=== PATIENT | male | born 1955 | race Caucasian/White ===

== ENCOUNTER → 2018-05-10 | Outpatient (CLI) | payer MEDICARE ==
--- NOTE | 2018-05-10 07:44 | US ---
EXAMINATION TYPE: US kidneys/renal and bladder DATE OF EXAM: 05/10/2018 COMPARISON: NONE CLINICAL HISTORY: R39.198 Difficulty urinating; R35.0 frequent. Patient states urinating frequently a t night. Burning, but took meds and that went away. EXAM MEASUREMENTS: Right Kidney: 13.5 x 6.2 x 5.5 cm Left Kidney: 12.9 x 5.9 x 5.6 cm Right Kidney: No hydronephrosis or masses seen Left Kidney: No hydronephrosis or masses seen Bladder: wnl Bilateral Jets not seen There is no evidence for hydronephrosis at this point in time. No nephrolithiasis is seen. No ana s are identified. The urinary bladder is anechoic. IMPRESSION: No hydronephrosis or nephrolithiasis. No sonographic sequela of medical renal disease.
== END ==
LOC: RADUSWWP 07:02
PROVIDERS: ATTEND Internal Medicine
DX: R39.198 Other difficulties with micturition (principal); R35.0 Frequency of micturition; R30.9 Painful micturition, unspecified
CPT/HCPCS: 76770

== ENCOUNTER 2020-08-19 11:08 | Inpatient (IN) | payer MEDICARE ==
[2020-08-19] MEDS ORDERED: SODIUM CHLORIDE 0.9% 1,000 ML IV ONE (11:42)
[2020-08-19 11:47] LABS: Glucose,Whole Blood 117 mg/dL (75-99)
[2020-08-19] MEDS ORDERED: DEXTROSE 5%-0.45% NACL 1,000 ML IV ONE (11:56)
[2020-08-19] MEDS ORDERED: IBUPROFEN 600 MG TAB PO STA (12:13)
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
[2020-08-19 13:09] LABS: HCT 42.9 % (39.0-53.0); HGB 14.6 gm/dL (13.0-17.5); MCH 36.2 pg (25.0-35.0); MCV 106.4 fL (80.0-100.0); Macrocytosis Moderate; Mean Platelet Volume 7.4; Platelet Count 125 k/uL (150-450); RBC 4.04 m/uL (4.30-5.90); WBC 8.2 k/uL (3.8-10.6)
[2020-08-19 13:21] LABS: ALT 73 U/L (4-49); AST 283 U/L (17-59); African American GFR (CKD) >90 (>60 ml/min/1.73 sqM); Alkaline Phosphatase 90 U/L (38-126); Anion Gap 7 mmol/L; Blood Urea Nitrogen 13 mg/dL (9-20); Calcium 8.4 mg/dL (8.4-10.2); Carbon Dioxide 24 mmol/L (22-30); Chloride 104 mmol/L (98-107); Glucose 80 mg/dL (74-99); Non-African American GFR(CKD) >90 (>60 ml/min/1.73 sqM); Potassium 3.7 mmol/L (3.5-5.1); Sodium 135 mmol/L (137-145); Total Bilirubin 3.2 mg/dL (0.2-1.3); Total Protein 6.9 g/dL (6.3-8.2)
[2020-08-19 13:36] LABS: Glucose,Whole Blood 63 mg/dL (75-99)
--- NOTE | 2020-08-19 13:57 | XR ---
EXAMINATION TYPE: XR chest 1V DATE OF EXAM: 08/19/2020 COMPARISON: 12/08/2014 INDICATION: Cough TECHNIQUE: Single frontal view of the chest is obtained. FINDINGS: The heart size is normal. The pulmonary vasculature is normal. Patchy infiltrates are present bilaterally. Findings are nonspecific but can be compatible with atypi tristan pneumonia. IMPRESSION: 1. Bilateral lung infiltrates. Correlate for atypical pneumonia.
[2020-08-19 14:00] LABS: Band Neutrophils % 1 %; Eosinophils # (M) 0.16 k/uL (0-0.7); Lymphocytes # (M) 1.07 k/uL (1.0-4.8); Monocytes # (M) 0.66 k/uL (0-1.0); Neutrophils % (M) 76 %; Nucleated Red Blood Cells 0 /100 WBC (0-0); Total Cells Counted 100
[2020-08-19] MEDS ORDERED: AZITHROMYCIN 500 MG in SODIUM CHLORIDE 0.9% 250 ML IVPB STA (14:18)
[2020-08-19] MEDS ORDERED: cefTRIAXone IN SWFI 1,000 MG/10 ML SYRINGE IVP STA (14:18)
[2020-08-19 14:41] LABS: Glucose,Whole Blood 96 mg/dL (75-99)
[2020-08-19] MEDS ORDERED: LORazepam 2 MG/ML INJ IV PRN ×2 (14:45)
[2020-08-19] MEDS ORDERED: THIAMINE 100 MG/ML 2 ML VIAL IM STA (14:45)
[2020-08-19] MEDS ORDERED: ALBUTEROL HFA INHALER INHALATION STA (15:22)
[2020-08-19] MEDS ORDERED: ACETAMINOPHEN TAB 500 MG TAB PO STA (15:22)
[2020-08-19] MEDS ORDERED: NALOXONE 0.4 MG/ML 1 ML VIAL IV PRN (15:33)
[2020-08-19 16:18] LABS: D-Dimer 4.87 mg/L FEU (<0.60); INR 1.4 (<1.2); Partial Thromboplastin Time 26.2 sec (22.0-30.0)
[2020-08-19 16:27] LABS: C Reactive Protein 162.4 mg/L (<10.0)
[2020-08-19] MEDS ORDERED: DEXTROSE 50% SYRINGE 50 ML IVP PRN (16:30)
[2020-08-19 16:47] LABS: Glucose,Whole Blood 107 mg/dL (75-99)
[2020-08-19] MEDS: CHOLECALCIFEROL 25 MCG (1000 IU) TABLET PO SCH (17:09)
[2020-08-19] MEDS: ASCORBIC ACID 500 MG TAB PO SCH (17:09)
[2020-08-19 19:19] LABS: Glucose,Whole Blood 158 mg/dL (75-99)
[2020-08-19] MEDS ORDERED: LORazepam 2 MG/ML INJ IV STA (19:35)
[2020-08-19] MEDS: LORazepam 2 MG/ML INJ IV PRN ×3 (19:35→22:44)
[2020-08-19] MEDS ORDERED: PROPOFOL 10 MG/ML 20 ML VIAL IV ONE (20:15)
[2020-08-19] MEDS ORDERED: ROCURONIUM 10 MG/ML (5 ML VIAL) IV ONE (20:15)
[2020-08-19] MEDS ORDERED: SUCCINYLCHOLINE CHLORIDE VIAL 200 MG/10 ML VIAL IV ONE (20:15)
[2020-08-19] MEDS ORDERED: propofoL 100 ML IV ONE (20:18)
[2020-08-19 20:24] LABS: AST 243 U/L (17-59); African American GFR (CKD) >90 (>60 ml/min/1.73 sqM); Albumin 2.8 g/dL (3.5-5.0); Albumin/Globulin Ratio 0.7; Alkaline Phosphatase 92 U/L (38-126); Anion Gap 10 mmol/L; Blood Urea Nitrogen 13 mg/dL (9-20); Calcium 8.2 mg/dL (8.4-10.2); Carbon Dioxide 20 mmol/L (22-30); Chloride 106 mmol/L (98-107); Globulin 3.8 g/dL; Glucose 148 mg/dL (74-99); Non-African American GFR(CKD) >90 (>60 ml/min/1.73 sqM); Potassium 4.2 mmol/L (3.5-5.1); Sodium 136 mmol/L (137-145); Total Bilirubin 2.7 mg/dL (0.2-1.3); Total Protein 6.6 g/dL (6.3-8.2)
[2020-08-19 20:32] LABS: ALT 64 U/L (4-49)
[2020-08-19 20:38] LABS: HGB 15.2 gm/dL (13.0-17.5); MCH 36.3 pg (25.0-35.0); MCHC 33.8 g/dL (31.0-37.0); MCV 107.5 fL (80.0-100.0); Macrocytosis Moderate; Mean Platelet Volume 7.6; Platelet Count 129 k/uL (150-450); RBC 4.18 m/uL (4.30-5.90); WBC 9.6 k/uL (3.8-10.6)
[2020-08-19 20:42] LABS: Glucose,Whole Blood 151 mg/dL (75-99)
[2020-08-19 20:56] LABS: ABG Base Excess -1.9 mmol/L; ABG HCO3 24 mmol/L (21-25); ABG Oxygen Saturation 99.7 % (94-97); ABG PCO2 46 mmHg (35-45); ABG PH 7.33 (7.35-7.45); ABG PO2 226 mmHg (83-108); ABG TCO2 26 mmol/L (19-24); Allen Test Performed? Yes
[2020-08-19] MEDS ORDERED: levETIRAcetam IV 1,000 MG in SALINE 1 100ML.BAG IVPB STA (21:05)
--- NOTE | 2020-08-19 21:05 | XR ---
EXAMINATION TYPE: XR chest 1V DATE OF EXAM: 08/19/2020 COMPARISON: Earlier same day. HISTORY: Follow-up cough. TECHNIQUE: Single frontal view of the chest is obtained. FINDINGS: There is interval intubation with tip terminating approximately 4.4 cm above the miquel. T here is also placement of nasogastric tube with distal portion overlying the stomach and tip not incl uded in [id number]. There are unchanged bilateral moderate diffuse patchy opacities. There is new small left pleural effusion. No pneumothorax seen. The cardiac silhouette size is within normal limi ts. The osseous structures are intact. IMPRESSION: Support apparatus as above. New small left pleural effusion. Persistent diffuse opacities.
[2020-08-19 21:14] LABS: Lymphocytes # (M) 1.34 k/uL (1.0-4.8); Monocytes # (M) 0.58 k/uL (0-1.0); Neutrophils # (M) 7.58 k/uL (1.3-7.7); Neutrophils % (M) 79 %; Nucleated Red Blood Cells 0 /100 WBC (0-0); Polychromasia Present; Total Cells Counted 100
[2020-08-19] MEDS: ZINC SULFATE 220 MG CAP PO SCH (21:55)
[2020-08-19] MEDS: THIAMINE 100 MG TAB PO SCH (21:55)
[2020-08-19] MEDS: DEXTROSE 5%-0.9% NACL 1,000 ML IV SCH (21:57)
--- NOTE | 2020-08-19 22:36 | P.EN ---
A team note I was notified to evaluate patient with sudden change in his mental status patient is 65 year old with hypertension and hypertension was admitted with covid requiring supplemental oxygen . he woke up this morning confused , and was found to have blood sugar of 45 , he has been sick with URI symptoms for 2 weeks now , diagnosed with covid in the ED upon evaluation , he makes eye contact, but brief and looks confused, and he does not follow commands. his vital sings were stable , with tachycardia , on non rebreather. with oxygen in the mid 90s he started having some jerky movement in his right leg. and became sweaty. meanwhile I called the to get more history , she confirmed above history , and claimed that he was doing better in the ED, was able to walk to the bathroom, and had a sandwitch. however, he became upset , when he learned that he had to stay in the hospital and that his will leave. she denied any history of seizures, but claimed patient had "vibrations in his legs" since he was a child patient denies any regular alcohol consumption , and claims that its limited to no more than twice a month patient clearly started having seizures, he was given multiple doses of ativan for repeated episodes of seizures, and for what apparently was status epilepticus, patient was intubated and moved to the ICU. blood sugar was stable in the 150s. patient became clearly altered. not following commands, not making eye contact he is having tonic clonic seizures had 2-3 seperate episodes. with tongue biting lungs clear to auscultation abd soft assessment status epilepticus COVID acute hypoxic respiratory failure plan intubation , ICU care ativan PRN start on midazolam drip load with keppra 1 gm neuro consult EEG IVF hydration with normal saline check CT of the brain no contrast seizure precautions check ABG, prolactine level, lactic acid 65 minutes were spent in providing critical care service in the care of this patient patient updated after ICU transfer Dr Phelan approved ICU admission
[2020-08-19] MEDS ORDERED: SODIUM CHLORIDE 0.9% 1,000 ML IV SCH (22:45)
[2020-08-19] MEDS: ENOXAPARIN 40 MG/0.4 ML SYRINGE SQ SCH (22:47)
[2020-08-19] MEDS ORDERED: CISATRACURIUM 2 MG/ML 5 ML VIAL IV ONE (22:59)
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
[2020-08-20 00:05] LABS: Ferritin 2781.6 ng/mL (22.0-322.0)
--- NOTE | 2020-08-20 01:00 | CT ---
EXAM: CT Head Without Intravenous Contrast CLINICAL HISTORY: ITS.REASON CT Reason: ams TECHNIQUE: Axial computed tomography images of the head/brain without intravenous contrast. CTDI is 49.27 mGy and DLP is 1072.4 mGy-cm. This CT exam was performed using one or more of the following dose reduction techniques: automated exposure control, adjustment of the mA and/or kV according to patient size, and/or use of iterative reconstruction technique. COMPARISON: No relevant prior studies available. FINDINGS: Brain: Prominent ventricles and sulci consistent with mild volume loss. Minimal periventricular white matter hypodensity/small vessel disease. No hemorrhage. Ventricles: See above. Bones/joints: Unremarkable. No acute fracture. Soft tissues: Unremarkable. Sinuses: Paranasal sinus mucosal thickening. Bilateral maxillary sinus polyps or mucous retention cysts. Small fluid level right sphenoid sinus. Mastoid air cells: Unremarkable as visualized. No mastoid effusion. Orbits: Bilateral cataract surgery. IMPRESSION: 1. No evidence of acute intracranial abnormality or skull fracture. 2. Small fluid level right sphenoid sinus. May reflect sinusitis.
[2020-08-20 01:07] LABS: Glucose,Whole Blood 161 mg/dL (75-99)
--- NOTE | 2020-08-20 01:47 | CT ---
EXAM: CT Angiography Chest With Intravenous Contrast CLINICAL HISTORY: CT Reason: r/o PE Mental status change, hypoglycemia, Covid positive TECHNIQUE: Axial computed tomographic angiography images of the chest with intravenous contrast. CTDI is 29.07 mGy and DLP is 688.7 mGy-cm. This CT exam was performed using one or more of the following dose reduction techniques: automated exposure control, adjustment of the mA and/or kV according to patient size, and/or use of iterative reconstruction technique. MIP reconstructed images were created and reviewed. COMPARISON: No relevant prior studies available. FINDINGS: Pulmonary arteries: Breathing motion artifact somewhat limits evaluation of the peripheral arteries. No pulmonary embolus visualized. Aorta: No acute findings. No thoracic aortic aneurysm. Lungs: Patchy areas of airspace disease, consolidation and groundglass opacities bilaterally. Pleural space: Unremarkable. No significant effusion. No pneumothorax. Heart: Mild cardiomegaly. No significant pericardial effusion. No evidence of RV dysfunction. Bones/joints: No acute fracture. No dislocation. Soft tissues: Unremarkable. Lymph nodes: Small aortopulmonary window node 9 mm, nonspecific. Liver: Nodular, cirrhotic liver partially visualized. Distended gallbladder, partially visualized. Small 10 mm liver low-density lesion adjacent to the gallbladder. Varices. Splenomegaly. Tubes, lines and devices: Enteric tube tip in the distal stomach. Endotracheal tube tip in the midthoracic trachea. IMPRESSION: 1. Breathing motion artifact somewhat limits evaluation of the peripheral arteries. No pulmonary embolus visualized. 2. Patchy areas of airspace disease, consolidation and groundglass opacities bilaterally. Likely represents infectious/inflammatory process, including Covid 19. 3. Nodular cirrhotic liver and evidence of portal hypertension. Findings partially visualized.
[2020-08-20 04:46] LABS: ALT 49 U/L (4-49); AST 165 U/L (17-59); African American GFR (CKD) >90 (>60 ml/min/1.73 sqM); Albumin 2.1 g/dL (3.5-5.0); Alkaline Phosphatase 74 U/L (38-126); Anion Gap 6 mmol/L; Blood Urea Nitrogen 12 mg/dL (9-20); Calcium 7.3 mg/dL (8.4-10.2); Carbon Dioxide 21 mmol/L (22-30); Chloride 107 mmol/L (98-107); Creatine Kinase 165 U/L (55-170); Glucose 141 mg/dL (74-99); LDH 1369 U/L (313-618); Non-African American GFR(CKD) >90 (>60 ml/min/1.73 sqM); Potassium 3.7 mmol/L (3.5-5.1); Sodium 134 mmol/L (137-145); Total Bilirubin 2.2 mg/dL (0.2-1.3); Total Protein 5.3 g/dL (6.3-8.2)
[2020-08-20 04:49] LABS: HCT 34.1 % (39.0-53.0); MCH 36.4 pg (25.0-35.0); MCHC 34.5 g/dL (31.0-37.0); MCV 105.5 fL (80.0-100.0); Macrocytosis Moderate; Mean Platelet Volume 7.8; Platelet Count 127 k/uL (150-450); RBC 3.23 m/uL (4.30-5.90); WBC 7.6 k/uL (3.8-10.6)
[2020-08-20 04:50] LABS: ABG Base Excess -1.5 mmol/L; ABG HCO3 22 mmol/L (21-25); ABG Oxygen Saturation 97.3 % (94-97); ABG PCO2 32 mmHg (35-45); ABG PH 7.46 (7.35-7.45); ABG PO2 86 mmHg (83-108); ABG TCO2 23 mmol/L (19-24); Allen Test Performed? Yes
[2020-08-20 05:05] LABS: C Reactive Protein 141.1 mg/L (<10.0)
[2020-08-20 05:11] LABS: HGB 11.8 gm/dL (13.0-17.5)
[2020-08-20 05:21] LABS: Amorphous Sediment,Urine Rare /hpf; Appearance,Urine Clear (Clear); Bilirubin,Urine Negative (Negative); Blood,Urine Negative (Negative); Color,Urine Orange; Glucose,Urine (UA) Negative (Negative); Hyaline Casts,Urine 20 /lpf (0-2); Ketones,Urine Negative (Negative); Leukocyte Esterase,Urine Negative (Negative); Mucus,Urine Few /hpf; Nitrite,Urine Negative (Negative); Protein,Urine 1+ (Negative); RBC,Urine 8 /hpf (0-5); Squamous Epithelial Cell,Urine <1 /hpf (0-4); Urobilinogen,Urine <2.0 mg/dL (<2.0); WBC,Urine 3 /hpf (0-5)
[2020-08-20 05:22] LABS: Amphetamine Screen,Urine Not Detected (NotDetected); Barbiturate Screen,Urine Not Detected (NotDetected); Benzodiazepines Screen,Urine Detected (NotDetected); Cocaine Screen,Urine Not Detected (NotDetected); Methadone Screen, Urine Not Detected (NotDetected); Opiate Screen,Urine Detected (NotDetected); Oxycodone Screen, Urine Not Detected (NotDetected); Phencyclidine Screen,Urine Not Detected (NotDetected); Tricyclic Antidepressant,Urine Not Detected (NotDetected); Urn Cannabinoid Scrn Not Detected (NotDetected)
[2020-08-20 05:24] LABS: Specific Gravity,Urine >1.050 (1.001-1.035)
[2020-08-20] MEDS ORDERED: SODIUM CHLORIDE 0.9% 1,000 ML IV ONE ×2 (06:17→07:59)
[2020-08-20 06:31] LABS: Eosinophils # (M) 0.08 k/uL (0-0.7); Lymphocytes # (M) 1.22 k/uL (1.0-4.8); Monocytes # (M) 0.15 k/uL (0-1.0); Neutrophils # (M) 6.16 k/uL (1.3-7.7); Neutrophils % (M) 81 %; Nucleated Red Blood Cells 0 /100 WBC (0-0); Total Cells Counted 100
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
[2020-08-20] MEDS ORDERED: SODIUM BICARB 8.4% 50 ML SYR (1 MEQ/ML) ONE ×2 (08:36→08:37)
[2020-08-20] MEDS ORDERED: CYANOCOBALAMIN 1,000 MCG/ML 1 ML VIAL IM ONE (09:00)
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
[2020-08-20] MEDS: DEXAMETHASONE SOD PHOSPHATE 10 MG/ML 1 ML VIAL IV SCH (09:09)
[2020-08-20] MEDS: PANTOPRAZOLE 40 MG/10 ML VIAL IVP SCH (09:09)
[2020-08-20] MEDS: CHLORHEXIDINE GLUCONATE 15 ML CUP MUCOUS MEM SCH ×2 (09:10→20:41)
[2020-08-20] MEDS: ZINC SULFATE 220 MG CAP PO SCH (09:10)
[2020-08-20] MEDS: ENOXAPARIN 40 MG/0.4 ML SYRINGE SQ SCH ×2 (09:10→20:41)
[2020-08-20] MEDS: ASCORBIC ACID 500 MG TAB PO SCH (09:10)
[2020-08-20] MEDS: THIAMINE 100 MG TAB PO SCH ×2 (09:10→17:55)
[2020-08-20] MEDS: FOLIC ACID 1 MG TAB PO SCH (09:10)
--- NOTE | 2020-08-20 09:16 | XR ---
EXAMINATION TYPE: XR chest 1V portable DATE OF EXAM: 08/20/2020 CLINICAL HISTORY: Difficulty breathing progress study. TECHNIQUE: Single AP portable semiupright view of the chest is obtained. COMPARISON: Chest x-ray from one day earlier . FINDINGS: Stable endotracheal and orogastric tubes. Worsening bilateral multifocal opacities. Cardiac silhouette size stable and upper limits of normal. Osseous structures are intact. IMPRESSION: Worsening multifocal bilateral opacities consistent with covid-19 infection progression.
--- NOTE | 2020-08-20 09:39 | P.PCN ---
Date of Procedure: 08/20/20 Preoperative Diagnosis: COVID pneumonia Postoperative Diagnosis: same Procedure(s) Performed: central line Anesthesia: local Direct Care Specialist #1: Bhavana Edwards Pathology: none sent Condition: critical Disposition: ICU Description of Procedure: Indication: Hemodynamic monitoring/Intravenous access. A time-out was completed verifying correct patient, procedure, site, positioning, and implant(s) or special equipment if applicable. The patient was placed in a dependent position appropriate for central line placement based on the vein to be cannulated. The patients left shoulder was prepped and draped in sterile fashion. 1% Lidocaine was used to anesthetize the surrounding skin area. A triple lumen 9F Cordis catheter was introduced into the Left internal jugular vein using Seldinger technique. The catheter was threaded smoothly over the guide wire and appropriate blood return was [place]. Each lumen of the catheter was evacuated of air and flushed with sterile saline. The catheter was then sutured in place to the skin and a sterile dressing applied. Perfusion to the extremity distal to the point of catheter insertion was checked and found to be adequate. The patient tolerated the procedure well and there were no complications.
[2020-08-20 09:42] LABS: Prolactin 12.5 ng/mL (2.1-17.7)
[2020-08-20] MEDS: levETIRAcetam IV 500 MG in SODIUM CHLORIDE 0.9% 100 ML IVPB SCH ×2 (10:13→20:51)
[2020-08-20] MEDS: NOREPINEPHRINE 4 MG in SODIUM CHLORIDE 0.9% 250 ML IV SCH (10:14)
[2020-08-20 10:28] LABS: Ferritin 2203.5 ng/mL (22.0-322.0)
--- NOTE | 2020-08-20 10:37 | XR ---
EXAMINATION TYPE: XR chest 1V portable DATE OF EXAM: 08/20/2020 COMPARISON: 08/20/2020 HISTORY: Left central line placement TECHNIQUE: Single frontal view of the chest is obtained. FINDINGS: Left-sided central line seen the tip overlying the SVC and no sizable pneumothorax. Diffus e bilateral infiltrate with small effusion stable. Heart size stable. Arthropathy of the shoulders. E T and NG tube stable. IMPRESSION: Diffuse bilateral infiltrate and pleural effusion stable. Central line seen with the tip overlying the SVC and no sizable pneumothorax.
[2020-08-20 12:09] LABS: Glucose,Whole Blood 144 mg/dL (75-99)
[2020-08-20] MEDS: INSULIN ASPART (NovoLOG) 100 UNIT/ML VIAL SQ SCH ×2 (12:09→17:57)
[2020-08-20] MEDS: CHOLECALCIFEROL 25 MCG (1000 IU) TABLET PO SCH (12:09)
[2020-08-20 12:23] LABS: Hepatitis A Antibody IgM Non-Reactive (Non-Reactive); Hepatitis B Core IgM Non-Reactive (Non-Reactive); Hepatitis B Surface Antigen Non-Reactive (Non-Reactive); Hepatitis C IgG Antibody Non-Reactive (Non-Reactive)
--- NOTE | 2020-08-20 13:53 | US ---
EXAMINATION TYPE: US liver DATE OF EXAM: 08/20/2020 COMPARISON: CT CLINICAL HISTORY: elevated liver enzymes. EXAM MEASUREMENTS: Liver Length: 15.6 cm Gallbladder Wall: 0.3 cm CBD: 1.6 cm Right Kidney: 15.2 x 5.9 x 6.8 cm Limited study performed portably on vented ICU patient. Patient unable to cooperate for exam. Pancreas: limited visualization Liver: Increased attenuation Gallbladder: distended with layering sludge/debris CBD: dilated Right Kidney: enlarged Unable to accurately interrogate as patient is unable to change positions or hold breath for exam. Suboptimal study due to patient inability to hold breath and limited mobility. Visualized portions of pancreas are unremarkable. Visualized portion of liver is heterogeneously hyperechoic. Evaluation fo r focal masses suboptimal. Gallbladder has distended margins with dependent density could reflect slu dge and/or small stones. No mobile shadowing stones. There is moderate extrahepatic biliary dilatatio n. Right kidney remains enlarged in size without hydronephrosis. IMPRESSION: Suboptimal study. Suspect small stones and/or gallbladder sludge without secondary ultras ound evidence for acute cholecystitis. Suspect fatty infiltration of liver and/or underlying hepatoce llular disease. Moderate extrahepatic delivery dilatation. Consider CT follow-up to further evaluate.
[2020-08-20] MEDS ORDERED: Potassium Replacement Protocol 1 EACH MISC MISCELLANE PRN (14:52)
--- NOTE | 2020-08-20 15:33 | EEG ---
ELECTROENCEPHALOGRAM REPORT DATE OF SERVICE: 08/20/2020. CLINICAL HISTORY: This is a 65-year-old gentleman who had a possible provoked seizure from hypoglycemia and continues to have altered mental status. This video EEG is obtained to evaluate for seizure epileptiform activity. RELEVANT MEDICATION: Patient is on IV propofol 75 mcg/kg per minute as well as Keppra 500 mg 1 tablet b.i.d. EEG TYPE: A routine 21-channel EEG is performed with video using the 10/20 electrode placement system. DESCRIPTION: The patient is intubated on a ventilator and is on IV propofol drip of 75 mcg/kg per minute. The background consists of diffuse burst suppression activity. During the burst, it consists of 5.5 to 6.5 hertz theta activity lasting 2 to 5 seconds, and there are no epileptiform discharges during the burst activity. The suppression lasts between 2 and 4 seconds. Interictal and ictal: None. ACTIVATION PROCEDURE: Photic stimulation and hyperventilation are not performed due to COVID-19 pneumonia. CLINICAL INTERPRETATION: This is an abnormal routine EEG. The EEG is suggestive of a comatose state. The burst suppression activity is likely due to medication effect (propofol). There are no epileptiform discharge or seizure during the EEG. Clinical correlation is recommended. MMODL / IJN: [id number] / MTDD
[2020-08-20] MEDS ORDERED: POTASSIUM BICARBONATE/CIT AC 20 MEQ TABLET.EFF NG-TUBE SCH (16:00)
[2020-08-20 17:48] LABS: Glucose,Whole Blood 248 mg/dL (75-99)
[2020-08-20] MEDS: DEXTROSE 5%-0.9% NACL 1,000 ML IV SCH (17:54)
[2020-08-20] MEDS: SODIUM CHLORIDE 0.9% 1,000 ML IV SCH (18:34)
[2020-08-20 23:37] LABS: Glucose,Whole Blood 200 mg/dL (75-99)
[2020-08-21] MEDS: NOREPINEPHRINE 4 MG in SODIUM CHLORIDE 0.9% 250 ML IV SCH (00:15)
[2020-08-21] MEDS: INSULIN ASPART (NovoLOG) 100 UNIT/ML VIAL SQ SCH ×5 (00:20→23:51)
[2020-08-21 05:24] LABS: ABG Base Excess -3.4 mmol/L; ABG HCO3 20 mmol/L (21-25); ABG Oxygen Saturation 97.9 % (94-97); ABG PCO2 28 mmHg (35-45); ABG PH 7.47 (7.35-7.45); ABG PO2 91 mmHg (83-108); ABG TCO2 21 mmol/L (19-24); Allen Test Performed? Yes
[2020-08-21 05:27] LABS: ALT 45 U/L (4-49); AST 128 U/L (17-59); African American GFR (CKD) >90 (>60 ml/min/1.73 sqM); Albumin 2.1 g/dL (3.5-5.0); Alkaline Phosphatase 81 U/L (38-126); Anion Gap 6 mmol/L; Blood Urea Nitrogen 11 mg/dL (9-20); Calcium 7.2 mg/dL (8.4-10.2); Carbon Dioxide 19 mmol/L (22-30); Chloride 111 mmol/L (98-107); Creatine Kinase 164 U/L (55-170); Glucose 186 mg/dL (74-99); LDH 1478 U/L (313-618); Non-African American GFR(CKD) >90 (>60 ml/min/1.73 sqM); Potassium 4.2 mmol/L (3.5-5.1); Sodium 136 mmol/L (137-145); Total Protein 5.5 g/dL (6.3-8.2)
[2020-08-21 05:38] LABS: C Reactive Protein 160.4 mg/L (<10.0)
[2020-08-21 06:02] LABS: Basophils # (A) 0.1 k/uL (0-0.2); Basophils % (A) 2 %; Eosinophils % (A) 0 %; HCT 34.2 % (39.0-53.0); HGB 11.5 gm/dL (13.0-17.5); Lymphocytes # (A) 0.7 k/uL (1.0-4.8); Lymphocytes % (A) 9 %; MCH 35.7 pg (25.0-35.0); MCHC 33.6 g/dL (31.0-37.0); MCV 106.3 fL (80.0-100.0); Macrocytosis Moderate; Mean Platelet Volume 7.8; Monocytes # (A) 0.2 k/uL (0-1.0); Monocytes % (A) 2 %; Neutrophils % (A) 83 %; Platelet Count 146 k/uL (150-450); RBC 3.22 m/uL (4.30-5.90); WBC 8.5 k/uL (3.8-10.6)
[2020-08-21] MEDS: SODIUM CHLORIDE 0.9% 1,000 ML IV SCH ×2 (06:11→20:32)
[2020-08-21] MEDS: THIAMINE 100 MG TAB PO SCH ×2 (06:14→16:30)
--- NOTE | 2020-08-21 07:22 | P.PN ---
Subjective Progress Note Date: 08/21/20 65-year-old male patient who presented to the emergency department yesterday because of mental status change and hypoglycemia and the patient was further diagnosed having quit 19 related pneumonia. The patient is diabetic and the patient also has bronchial asthma and hypertension. The patient arrived to the blood sugar of 45. Apparently the patient was sick for around 2 weeks prior to that and the patient was having increased dyspnea on fever and cough and poor appetite. He was taking oral hypoglycemics in the form of Januvia and glipizide on outpatient basis. In the emergency department, the patient was altered, she did obey some commands yet his pulse ox was quite low at 86% on room air oxygen. The patient was placed on 100% nonrebreather facemask. Initially his blood sugar was corrected and the patient was given D50 and following that he was admitted to the medical floor. The patient started having increased shakiness and seizure-like activity and he bit his tongue and he was quite tachypneic. The a team was called. The patient was transferred to the intensive care unit and the patient was intubated for airway protection. At this point in time, the patient is intubated on a mechanical ventilator. Propofol is running at 55 Jhonathan graspi kilogram per minute. The patient is on assist control mode of ventilation with a rate of 20, FiO2 of 60%, PEEP of 5 and tidal volume 450. The patient's blood gases post intubation showed a pH of 7.46 with a pCO2 of 32 and pO2 of 86. The chest x-ray from this morning is showing diffuse bilateral patchy pulmonary infiltrates. ET tube is just above the aortic knob. The patient has a orogastric tube in place. Some mild cardiomegaly is also present. Note that the CT angiogram of the chest that was done yesterday showed some p atchy bibasilar airspace disease or consolidation doubtless infiltrates bilaterally consistent with community related pneumonia. The patient also had another appearance of the liver and evidence of portal hypertension. Mother the patient is a chronic alcohol drinker. The white cell count of 7.6 with a hemoglobin of 11.8. Platelets at 127, his LDH was 1369 and his CRP is at 141, urine drug screen was positive for opiates, amphetamines and benzodiazepines, urinalysis showing +1 protein, normal renal function test, normal electrolytes. This morning the d-dimer is at 5.13, the patient's blood pressure currently is 99/35 and the patient is on D5 normal saline at the rate of 75 mL an hour. The patient was started on Lovenox 40 mg subcu every 12 hours. The patient is on propofol. The patient is on no pressors for now. He is on Decadron 63 g IV every 24 hours. Most recent blood sugar is at 141. On today's evaluation of 08/21/2020, the patient is being seen for a follow-up. The patient was hospitalized for community related pneumonia and the patient is currently intubated on a mechanical ventilator. This morning, the patient is sedation with propofol at 75 mcg/kg per minute and he is quite comfortable. He remains on assist control mode of ventilation with a tidal volume of 450 and FiO2 of 50% with a PEEP of 5 and a rate of 20. His peak airway pressure is 23 anesthetic pressure is 14. The chest x-ray showing diffuse bilateral pulmonary pulses consistent with obesity related pneumonia and ET tube is in a good location. The patient is hemodynamically stable. The patient is on no pressors. No seizure activity has been noted. The patient is receiving tube feeds in the form of Vicodin HB at the rate of 30 mL an hour. No hypoglycemic events overnight. The patient's d-dimer is at 5.66 and the patient's LDH currently is at 1478 with a CRP level of 160. The propofol Level Was 0.31. The Patient Is Currently on Decadron 6 Mg IV Every 24 Hours and He Is Also on Lo venox 40 Mg Subcu Every 12 Hours. His Last D-Dimer Is at 5.56 from Today. No Fever. No Other Significant Issues Overnight. Neurology Consultation Was Also Done. EEG from yesterday showed no evidence of any seizure activity. It wasn't abnormal EEG probably related to drug effect. The patient remains on Keppra 5 mg every 12 hours and no clinical seizure activity has been noted. He is also started on a combination of thiamine and B12. Ammonia level is pending from today. His liver function tests currently are improving and his AST is down to 128 and a LDL 45. His lactic acid is also improving is down to 1.8. Objective - Vital Signs Vital signs: Vital Signs Temp 97.7 F 08/21/20 04:00 Pulse 67 08/21/20 07:00 Resp 22 08/21/20 07:00 BP 124/58 08/21/20 07:00 Pulse Ox 93 L 08/21/20 07:00 Intake & Output 08/20/20 08/21/20 08/21/20 18:59 06:59 18:59 Intake Total 1742.861 3908.808 Output Total 650 865 Balance 630.926 896.808 Weight 88.4 kg Intake: IV 936 1114 Dextrose 5%-0.9% NaCl 1, 900 150 000 ml @ 75 mls/hr IV . [id number] FE Rx#:[id number] Sodium Chloride 0.9% 1, 825 000 ml @ 75 mls/hr IV . [id number] FE Rx#:[id number] levETIRAcetam IV 500 mg 100 In Sodium Chloride 0.9% 100 ml @ 400 mls/hr IVPB Q12HR FE Rx#:[id number] pressure bag 36 39 Intake, IV Titration 344.926 297.808 Amount Norepinephrine 4 mg In 64.217 95.819 Sodium Chloride 0.9% 250 ml @ 0.05 MCG/KG/MIN 16. 84 mls/hr IV .Q15H5M FE Rx#:[id number] propofoL 1,000 mg In 280.709 201.989 Empty Bag 1 bag @ Titrate IV .Q0M FE Rx#: [id number] Tube Feeding 260 Other 90 Output: Urine 650 865 Other: Voiding Method Indwelling Catheter Indwelling Catheter ABP, PAP, CO, CI - Last Documented Arterial Blood Pressure 121/45 - Exam Currently intubated on a mechanical ventilator. Orogastric and orotracheal tube are both in place. Was sedated and symptoms the mechanical ventilator. Head exam was generally normal. There was no scleral icterus or corneal arcus. Mucous membranes were moist. Neck was supple and without jugular venous distension, thyromegaly, or carotid bruits. Carotids were easily palpable bilaterally. There was no adenopathy. Lungs sounds are diminished in the patient's crackles bilaterally in the mid and lower lung lange Cardiac exam revealed the PMI to be normally situated and sized. The rhythm was regular and no extrasystoles were noted during several minutes of auscultation. The first and second heart sounds were normal and physiologic splitting of the second heart sound was noted. There were no murmurs, rubs, clicks, or gallops. Abdominal exam revealed normal bowel sounds. The abdomen was soft, non-tender, and without masses, organomegaly, or appreciable enlargement of the abdominal aorta. Examination of the extremities revealed easily palpable radial, femoral and pedal pulses. There was no cyanosis, clubbing or edema. Examination of the skin revealed no evidence of significant rashes, suspicious appearing nevi or other concerning lesions. Neurologically the patient is well sedated for now. - Labs CBC & Chem 7: 08/21/20 04:00 08/21/20 04:00 Labs: Abnormal Lab Results - Last 24 Hours (Table) 08/20/20 08/20/20 08/20/20 Range/Units 03:50 12:07 13:50 RBC (4.30-5.90) m/uL Hgb (13.0-17.5) gm/dL Hct (39.0-53.0) % MCV (80.0-100.0) fL MCH (25.0-35.0) pg Plt Count (150-450) k/uL Lymphocytes # (1.0-4.8) k/uL D-Dimer (<0.60) mg/L FEU ABG pH (7.35-7.45) ABG pCO2 (35-45) mmHg ABG HCO3 (21-25) mmol/L ABG O2 Saturation (94-97) % Sodium (137-145) mmol/L Chloride (98-107) mmol/L Carbon Dioxide (22-30) mmol/L Creatinine (0.66-1.25) mg/dL Glucose (74-99) mg/dL POC Glucose (mg/dL) 144 H (75-99) mg/dL Calcium (8.4-10.2) mg/dL Ferritin 2203.5 H (22.0-322.0) ng/mL Total Bilirubin (0.2-1.3) mg/dL AST (17-59) U/L Ammonia 36 H (<30) umol/L Lactate Dehydrogenase (313-618) U/L C-Reactive Protein (<10.0) mg/L Total Protein (6.3-8.2) g/dL Albumin (3.5-5.0) g/dL Vitamin B12 (211-911) pg/mL 08/20/20 08/20/20 08/20/20 Range/Units 13:50 17:47 23:36 RBC (4.30-5.90) m/uL Hgb (13.0-17.5) gm/dL Hct (39.0-53.0) % MCV (80.0-100.0) fL MCH (25.0-35.0) pg Plt Count (150-450) k/uL Lymphocytes # (1.0-4.8) k/uL D-Dimer (<0.60) mg/L FEU ABG pH (7.35-7.45) ABG pCO2 (35-45) mmHg ABG HCO3 (21-25) mmol/L ABG O2 Saturation (94-97) % Sodium (137-145) mmol/L Chloride (98-107) mmol/L Carbon Dioxide (22-30) mmol/L Creatinine (0.66-1.25) mg/dL Glucose (74-99) mg/dL POC Glucose (mg/dL) 248 H 200 H (75-99) mg/dL Calcium (8.4-10.2) mg/dL Ferritin (22.0-322.0) ng/mL Total Bilirubin (0.2-1.3) mg/dL AST (17-59) U/L Ammonia (<30) umol/L Lactate Dehydrogenase (313-618) U/L C-Reactive Protein (<10.0) mg/L Total Protein (6.3-8.2) g/dL Albumin (3.5-5.0) g/dL Vitamin B12 >4000.0 H (211-911) pg/mL 08/21/20 08/21/20 08/21/20 Range/Units 04:00 04:00 04:00 RBC 3.22 L (4.30-5.90) m/uL Hgb 11.5 L (13.0-17.5) gm/dL Hct 34.2 L (39.0-53.0) % MCV 106.3 H (80.0-100.0) fL MCH 35.7 H (25.0-35.0) pg Plt Count 146 L (150-450) k/uL Lymphocytes # 0.7 L (1.0-4.8) k/uL D-Dimer 5.56 H (<0.60) mg/L FEU ABG pH (7.35-7.45) ABG pCO2 (35-45) mmHg ABG HCO3 (21-25) mmol/L ABG O2 Saturation (94-97) % Sodium 136 L (137-145) mmol/L Chloride 111 H (98-107) mmol/L Carbon Dioxide 19 L (22-30) mmol/L Creatinine 0.43 L (0.66-1.25) mg/dL Glucose 186 H (74-99) mg/dL POC Glucose (mg/dL) (75-99) mg/dL Calcium 7.2 L (8.4-10.2) mg/dL Ferritin (22.0-322.0) ng/mL Total Bilirubin 2.0 H (0.2-1.3) mg/dL AST 128 H (17-59) U/L Ammonia (<30) umol/L Lactate Dehydrogenase 1478 H (313-618) U/L C-Reactive Protein 160.4 H (<10.0) mg/L Total Protein 5.5 L (6.3-8.2) g/dL Albumin 2.1 L (3.5-5.0) g/dL Vitamin B12 (211-911) pg/mL 08/21/20 Range/Units 05:15 RBC (4.30-5.90) m/uL Hgb (13.0-17.5) gm/dL Hct (39.0-53.0) % MCV (80.0-100.0) fL MCH (25.0-35.0) pg Plt Count (150-450) k/uL Lymphocytes # (1.0-4.8) k/uL D-Dimer (<0.60) mg/L FEU ABG pH 7.47 H (7.35-7.45) ABG pCO2 28 L (35-45) mmHg ABG HCO3 20 L (21-25) mmol/L ABG O2 Saturation 97.9 H (94-97) % Sodium (137-145) mmol/L Chloride (98-107) mmol/L Carbon Dioxide (22-30) mmol/L Creatinine (0.66-1.25) mg/dL Glucose (74-99) mg/dL POC Glucose (mg/dL) (75-99) mg/dL Calcium (8.4-10.2) mg/dL Ferritin (22.0-322.0) ng/mL Total Bilirubin (0.2-1.3) mg/dL AST (17-59) U/L Ammonia (<30) umol/L Lactate Dehydrogenase (313-618) U/L C-Reactive Protein (<10.0) mg/L Total Protein (6.3-8.2) g/dL Albumin (3.5-5.0) g/dL Vitamin B12 (211-911) pg/mL Microbiology - Last 24 Hours (Table) 08/19/20 16:31 Blood Culture - Preliminary Blood No Growth after 24 hours 08/19/20 15:30 Blood Culture - Preliminary Blood No Growth after 24 hours Assessment and Plan Plan: 1 acute COVID 19 related pneumonia with secondary hypoxic respiratory failure. The patient has extensive bilateral pulmonary infiltrates and consolidations. Currently intubated on a mechanical ventilator. Exact timing of this infection is not clear based on the history. The history somewhat sketchy. The patient was probably symptomatically for at least 2 weeks. The patient is currently on Decadron. 2 acute hypoxic respiratory failure secondary to above, currently intubated on a mechanical ventilator, to my understanding, the patient was intubated post hypoglycemic seizure for airway protection. He is doing well for now. Chest x- ray still showing diffuse breath and pulmonary infiltrates. Nevertheless, the patient is oxygenation is adequate. The patient is currently on Decadron. The patient is also on Lovenox. Blood gases was noted. Chest x-ray was noted. 3 diabetes mellitus with hypoglycemic attack at a time of admission, current blood sugars improved and normalized 4 hypotension currently on IV fluids no pressors. Blood pressure improved. 5 seizure activity, probably related to hypoglycemia. No previous history of seizures based on the history, the patient received loading dose of Keppra 500 mg yesterday. 6 evidence of liver cirrhosis and signs of portal hypertension, rule out alcoholic liver's disease 7 positive urine drug screen for benzodiazepines and opiates and methamphetamine 8 possible alcoholism 9 BPH 10 hypertension 11 thrombocytopenia, stable Plan Continue vent support Sedation holiday Check weaning parameters Assessment and is seen for further weaning and give us point is breathing trial Continue Decadron for now 6 mg IV every 24 hours Continue Lovenox 40 mg subcu every 12 hours Moderate inflammatory markers Continue IV fluids and 0.9 nss the rate of 75 mL an hour. Monitor blood sugar and put the patient on a NovoLog size Coverage and hold oral hypoglycemics for now Continue Keppra 500 mg every 12 hours Initiate enteral feeding for nutritional support, consult dietary in that regard Continue supportive care. We'll continue to follow. We'll continue to follow make further recommendations based on his progress. Possible wean. Possible extubation today. Critical care evaluation more than 30 minutes. Time with Patient: Greater than 30
--- NOTE | 2020-08-21 08:48 | XR ---
EXAMINATION TYPE: XR chest 1V portable DATE OF EXAM: 08/21/2020 Comparison: 08/20/2020 Clinical History: 65-year-old male Tube placement Findings: Left CVC tip probably in the region of the mid SVC. NG tube courses below the diaphragm. ET tube tip just below the level of the medial clavicular heads. Heart borderline to mildly enlarged. Multifocal patchy areas of consolidation not significantly changed. No pleural effusion. Impression: Multifocal airspace disease not significantly changed.
[2020-08-21] MEDS: levETIRAcetam IV 500 MG in SODIUM CHLORIDE 0.9% 100 ML IVPB SCH ×2 (08:58→20:32)
[2020-08-21] MEDS: FOLIC ACID 1 MG TAB PO SCH (08:59)
[2020-08-21] MEDS: ASCORBIC ACID 500 MG TAB PO SCH (08:59)
[2020-08-21] MEDS: ZINC SULFATE 220 MG CAP PO SCH (08:59)
[2020-08-21] MEDS: ENOXAPARIN 40 MG/0.4 ML SYRINGE SQ SCH ×2 (08:59→20:32)
[2020-08-21] MEDS: DEXAMETHASONE SOD PHOSPHATE 10 MG/ML 1 ML VIAL IV SCH (08:59)
[2020-08-21] MEDS: CHOLECALCIFEROL 25 MCG (1000 IU) TABLET PO SCH (08:59)
[2020-08-21] MEDS: CHLORHEXIDINE GLUCONATE 15 ML CUP MUCOUS MEM SCH ×2 (08:59→20:32)
[2020-08-21] MEDS: PANTOPRAZOLE 40 MG/10 ML VIAL IVP SCH (08:59)
[2020-08-21] MEDS: CYANOCOBALAMIN 500 MCG TAB PO SCH (09:00)
--- NOTE | 2020-08-21 10:18 | P.PN ---
Subjective Progress Note Date: 08/21/20 The patient continues to be intubated on ventilator and Propofol drip 75mcg/kg/min. Otherwise no change since yesterday. The blood sugar has been in the range of 140s to 240s. The patient has not had any further episodes of hypoglycemia. Vitamin B12 and it's more than 4000 which is considered normal. Objective - Vital Signs Vital signs: Vital Signs Temp 97.7 F 08/21/20 04:00 Pulse 67 08/21/20 07:00 Resp 22 08/21/20 07:00 BP 124/58 08/21/20 07:00 Pulse Ox 93 L 08/21/20 07:00 Intake & Output 08/20/20 08/21/20 08/21/20 18:59 06:59 18:59 Intake Total 3730.081 0953.808 Output Total 650 865 Balance 630.926 896.808 Weight 88.4 kg Intake: IV 936 1114 Dextrose 5%-0.9% NaCl 1, 900 150 000 ml @ 75 mls/hr IV . [id number] FE Rx#:[id number] Sodium Chloride 0.9% 1, 825 000 ml @ 75 mls/hr IV . [id number] FE Rx#:[id number] levETIRAcetam IV 500 mg 100 In Sodium Chloride 0.9% 100 ml @ 400 mls/hr IVPB Q12HR FE Rx#:[id number] pressure bag 36 39 Intake, IV Titration 344.926 297.808 Amount Norepinephrine 4 mg In 64.217 95.819 Sodium Chloride 0.9% 250 ml @ 0.05 MCG/KG/MIN 16. 84 mls/hr IV .Q15H5M FE Rx#:[id number] propofoL 1,000 mg In 280.709 201.989 Empty Bag 1 bag @ Titrate IV .Q0M FE Rx#: [id number] Tube Feeding 260 Other 90 Output: Urine 650 865 Other: Voiding Method Indwelling Catheter Indwelling Catheter ABP, PAP, CO, CI - Last Documented Arterial Blood Pressure 121/45 - Exam GENERAL: The patient is lying in bed and does not in acute distress. Patient is intubated on ventilator and on IV propofol 75mcg/kg/min. HENT: Has scleral icterus bilaterally. LUNG: Intubated on ventilator. Clear to auscultation bilaterally. Not in labored breathing. Breathing over the vent. NEUROLOGICAL: Limited because IV sedation (propofol 75mcg/kg/min) and intubated and ramiro tilator. Higher mental function: GCS 6 (E1,VT1, M4). Patient is comatose and not following commands or verbalizing. Cranial Nerves: Pupils are round, equal (2mm) and slughisly reactive to light b ilaterally. Primary gaze is midline. +ve corneal reflex. No facial weakness noted bilaterally. +gag and cough reflex. Otherwise rest of cranial nerves could not be assess because of patient's condition. Motor: The strength is no movement noted throughout. Has no sponatenous movement or posture. Has increase tone in upper and lower extremities. Normal bulk. Cerebellum: Could not assess. Sensation: Could not assess light touch. But to painful stimuli has minimal withdrawl of left upper extremity. Reflexes (right/left): Biceps 2-3+ bilaterally while patellar 3-4+ (left >right with nonsustained clonus over the left lower extremity). Ankles are 1+ bilaterally. Otherwise 2+ throughout. Plantars are downgoing bilaterally. - Labs CBC & Chem 7: 08/21/20 04:00 08/21/20 04:00 Labs: Abnormal Lab Results - Last 24 Hours (Table) 08/20/20 08/20/20 08/20/20 Range/Units 03:50 12:07 13:50 RBC (4.30-5.90) m/uL Hgb (13.0-17.5) gm/dL Hct (39.0-53.0) % MCV (80.0-100.0) fL MCH (25.0-35.0) pg Plt Count (150-450) k/uL Lymphocytes # (1.0-4.8) k/uL D-Dimer (<0.60) mg/L FEU ABG pH (7.35-7.45) ABG pCO2 (35-45) mmHg ABG HCO3 (21-25) mmol/L ABG O2 Saturation (94-97) % Sodium (137-145) mmol/L Chloride (98-107) mmol/L Carbon Dioxide (22-30) mmol/L Creatinine (0.66-1.25) mg/dL Glucose (74-99) mg/dL POC Glucose (mg/dL) 144 H (75-99) mg/dL Calcium (8.4-10.2) mg/dL Ferritin 2203.5 H (22.0-322.0) ng/mL Total Bilirubin (0.2-1.3) mg/dL AST (17-59) U/L Ammonia 36 H (<30) umol/L Lactate Dehydrogenase (313-618) U/L C-Reactive Protein (<10.0) mg/L Total Protein (6.3-8.2) g/dL Albumin (3.5-5.0) g/dL Vitamin B12 (211-911) pg/mL 08/20/20 08/20/20 08/20/20 Range/Units 13:50 17:47 23:36 RBC (4.30-5.90) m/uL Hgb (13.0-17.5) gm/dL Hct (39.0-53.0) % MCV (80.0-100.0) fL MCH (25.0-35.0) pg Plt Count (150-450) k/uL Lymphocytes # (1.0-4.8) k/uL D-Dimer (<0.60) mg/L FEU ABG pH (7.35-7.45) ABG pCO2 (35-45) mmHg ABG HCO3 (21-25) mmol/L ABG O2 Saturation (94-97) % Sodium (137-145) mmol/L Chloride (98-107) mmol/L Carbon Dioxide (22-30) mmol/L Creatinine (0.66-1.25) mg/dL Glucose (74-99) mg/dL POC Glucose (mg/dL) 248 H 200 H (75-99) mg/dL Calcium (8.4-10.2) mg/dL Ferritin (22.0-322.0) ng/mL Total Bilirubin (0.2-1.3) mg/dL AST (17-59) U/L Ammonia (<30) umol/L Lactate Dehydrogenase (313-618) U/L C-Reactive Protein (<10.0) mg/L Total Protein (6.3-8.2) g/dL Albumin (3.5-5.0) g/dL Vitamin B12 >4000.0 H (211-911) pg/mL 08/21/20 08/21/20 08/21/20 Range/Units 04:00 04:00 04:00 RBC 3.22 L (4.30-5.90) m/uL Hgb 11.5 L (13.0-17.5) gm/dL Hct 34.2 L (39.0-53.0) % MCV 106.3 H (80.0-100.0) fL MCH 35.7 H (25.0-35.0) pg Plt Count 146 L (150-450) k/uL Lymphocytes # 0.7 L (1.0-4.8) k/uL D-Dimer 5.56 H (<0.60) mg/L FEU ABG pH (7.35-7.45) ABG pCO2 (35-45) mmHg ABG HCO3 (21-25) mmol/L ABG O2 Saturation (94-97) % Sodium 136 L (137-145) mmol/L Chloride 111 H (98-107) mmol/L Carbon Dioxide 19 L (22-30) mmol/L Creatinine 0.43 L (0.66-1.25) mg/dL Glucose 186 H (74-99) mg/dL POC Glucose (mg/dL) (75-99) mg/dL Calcium 7.2 L (8.4-10.2) mg/dL Ferritin (22.0-322.0) ng/mL Total Bilirubin 2.0 H (0.2-1.3) mg/dL AST 128 H (17-59) U/L Ammonia (<30) umol/L Lactate Dehydrogenase 1478 H (313-618) U/L C-Reactive Protein 160.4 H (<10.0) mg/L Total Protein 5.5 L (6.3-8.2) g/dL Albumin 2.1 L (3.5-5.0) g/dL Vitamin B12 (211-911) pg/mL 08/21/20 Range/Units 05:15 RBC (4.30-5.90) m/uL Hgb (13.0-17.5) gm/dL Hct (39.0-53.0) % MCV (80.0-100.0) fL MCH (25.0-35.0) pg Plt Count (150-450) k/uL Lymphocytes # (1.0-4.8) k/uL D-Dimer (<0.60) mg/L FEU ABG pH 7.47 H (7.35-7.45) ABG pCO2 28 L (35-45) mmHg ABG HCO3 20 L (21-25) mmol/L ABG O2 Saturation 97.9 H (94-97) % Sodium (137-145) mmol/L Chloride (98-107) mmol/L Carbon Dioxide (22-30) mmol/L Creatinine (0.66-1.25) mg/dL Glucose (74-99) mg/dL POC Glucose (mg/dL) (75-99) mg/dL Calcium (8.4-10.2) mg/dL Ferritin (22.0-322.0) ng/mL Total Bilirubin (0.2-1.3) mg/dL AST (17-59) U/L Ammonia (<30) umol/L Lactate Dehydrogenase (313-618) U/L C-Reactive Protein (<10.0) mg/L Total Protein (6.3-8.2) g/dL Albumin (3.5-5.0) g/dL Vitamin B12 (211-911) pg/mL Microbiology - Last 24 Hours (Table) 08/19/20 16:31 Blood Culture - Preliminary Blood No Growth after 24 hours 08/19/20 15:30 Blood Culture - Preliminary Blood No Growth after 24 hours Assessment and Plan Assessment: Likely provoked seizure due to hypoglycemia (sugar of 45 per EMS) and hypoxia. Altered mental status due to multifactorial: Metabolic encephalopathy due to hypoglycemia, elevated LFT's/cirrhosis. Also due acute covid 19 related pneumonia and polysubstance use (opiated and methamphetamine) and medication effect (propofol). Acute covid 19 related pneumonia Acute hypoxic respiratory failure secondary due to above AST is twice as greater than ALT possibly suggestive of alcohol use Macrocytosis likely due to alcohol use Diabetes mellitus with episode of hypoglycemia---resolved Evidence of cirrhosis and signs of portal hypertension, rule out alcohol liver disease Hypertension Plan: EEG on 08/20/2020: It is an abnormal routine EEG. The EEG suggestive of comatose state. The burst suppression activity is likely due to medication effect (Propofol). There are no focal slowing, epileptiform discharges or seizure seen during this study. Patient is on Keppra 500 mg every 12 hours that was started by primary team. Down the line if patient has no further episode of seizure-like acitivity will taper it down. Patient is on the thiamine 100 mg 1 tablet twice a day and asked to be continued. Vitamin B12 and it's more than 4000 which is considered normal. Pending folate level. I will start the patient prophylactically on vitamin B-12 1000 g daily as well as folic 1 mg daily Ammonia level: 36 (slightly elevated). Recommend serial monitoring of ammonia level and will defer management to primary team. Regarding the hyperreflexia of the upper and mostly lower extremity possibly the will consider CT cervical spine as well as lumbar or MRI down the line or possibly consider as outpatient. Patient is on Ativan for CIWA protocol and will defer management to ICU and primary team Recommended to avoid any further hypoglycemic events but will defer the management to the medical team as well as ICU team. Will defer the rest of the medical management to the primary as well as ICU team. The plan is discussed with the patient's nurse. Will follow-up with patient sporadically. Isaiah Phelan M.D. Neuro-hospitalist Time with Patient: Less than 30
[2020-08-21 11:29] LABS: Glucose,Whole Blood 167 mg/dL (75-99)
[2020-08-21 14:23] LABS: Ferritin 2453.6 ng/mL (22.0-322.0)
[2020-08-21] MEDS: DEXMEDETOMIDINE/0.9% NACL(PMX) 400 MCG in EMPTY BAG 1 BAG IV SCH ×2 (17:04→22:01)
[2020-08-21 17:30] LABS: Glucose,Whole Blood 226 mg/dL (75-99)
--- NOTE | 2020-08-21 23:24 | P.PN ---
Subjective Progress Note Date: 08/21/20 Principal diagnosis: Acute hypoxic respiratory failure secondary to COVID-19 pneumonia This is a pleasant 65 years old male with past medical history of diabetes mellitus, hypertension, asthma. He is a patient of Dr. Nickerson. Patient could not provide information so it was taken from staff and medical record. Patient presents with altered mental status and hypoglycemia as glucose was 45 on arrival, as per patient has been sick for 2 weeks with fever and productive cough, he had poor appetite and he was taking his diabetes medication. Documented home medication list includes Januvia 100 mg daily and glipizide 10 mg 3 times a day. Today At home he was unresponsive and called EMS and he was brought to emergency room. In the emergency room patient received D50 injections and glucose with IV fluid. As per ED staff his mentation improved with correction of glucose, he opens eyes spontaneously and obeys commands and oriented with Obey-coma score of 15, however he was significantly tachypneic with oxygen saturations dropping to 86-87% on room air and he required assistant sales director for ambulation Patient was placed on nonrebreather with oxygen flow rate at 15 L/m However when patient sent to [address] [place] [address] floor he started having shakiness like seizure and he bit his tongue he was breathing at 26 Per minute with urine incontinence, A-team was called with antiseizure medications were given and then patient was transferred to the ICU and intubated for airway protection. He drinks alcohol occasionally per , nonsmoker Vitals are stable and patient is afebrile, his oxygen saturation dropped to 87% at room air.Currently patient intubated and on mechanical ventilation Labs showing unremarkable CBC except for mild thrombocytopenia at 125K. BMP is unremarkable. Creatinine is normal at 0.5, glucose 63-117 INR is 1.4, d-dimer is elevated at 4.8 Liver enzymes slightly elevated with AST 283 and ALT 70. And bilirubin of 3.2. Coronal virus detected Inflammatory markers elevated lactate dehydrogenase 1858 and C-reactive protein 162. EKG showing normal sinus rhythm at [address] T changes, QTC is 500 Chest x-ray: Bilateral lung infiltrates correlate for atypical pneumonia In emergency room patient received Zithromax, ceftriaxone, Decadron and normal saline as well as ibuprofen. Also patient was started on thiamine and CIWA protocol 08/21/2020 Patient is currently in the MICU on mechanical ventilator and sedated. AC 450, FiO2 50% and PEEP of 5. Patient is being continued on dexamethasone, Lovenox subcu twice daily and multivitamins. Chest x-ray showed multifocal airspace disease not significantly changed.. No further episodes of seizure activity noted. EEG showed no evidence of seizure activity. Currently being continued on Keppra and neurology is on board. Laboratory data showed WBC 7.6 hemoglobin 11.8 and platelets 127, D-dimer is 5.13 sodium 134 potassium 3.7 chloride 107 bicarb 21 BUN 12 and creatinine 0.45 calcium 7.3, blood sugar 141 Ferritin 2203, AST 165 ALT 49, LDH 1369 and CRP 141 UA negative for infection and UDS is positive for amphetamines methamphetamines and opiates and hepatitis panel is nonreactive. Pulmonary and neurology is on board. Active Medications Generic Name Dose Route Start Last Admin Trade Name Freq PRN Reason Stop Dose Admin Ascorbic Acid 1,000 mg 08/19/20 16:30 08/21/20 08:59 Ascorbic Acid 500 Mg Tab PO 1,000 mg DAILY FE Administration Chlorhexidine Gluconate 15 ml 08/20/20 09:00 08/21/20 20:32 Chlorhexidine Gluconate 15 Ml Cup MUCOUS MEM 15 ml BID FE Administration Cholecalciferol 50 mcg 08/19/20 16:30 08/21/20 08:59 Cholecalciferol 25 Mcg (1000 Iu) Tablet PO 50 mcg DAILY FE Administration Cyanocobalamin 1,000 mcg 08/21/20 09:00 08/21/20 09:00 Cyanocobalamin 500 Mcg Tab PO 1,000 mcg DAILY FE Administration Dexamethasone Sodium Phosphate 6 mg 08/20/20 09:00 08/21/20 08:59 Dexamethasone Sod Phosphate 10 Mg/Ml 1 Ml Vial IV 6 mg DAILY FE Administration Dextrose/Water 50 ml 08/19/20 16:30 Dextrose 50% Syringe 50 Ml IVP Q6HR PRN Blood Sugar - Low Enoxaparin Sodium 40 mg 08/19/20 21:00 08/21/20 20:32 Enoxaparin 40 Mg/0.4 Ml Syringe SQ 40 mg Q12HR FE Administration Folic Acid 1 mg 08/20/20 09:00 08/21/20 08:59 Folic Acid 1 Mg Tab PO 1 mg DAILY FE Administration Propofol 1,000 mg/ IV Solution 100 mls @ 0 mls/hr 08/19/20 21:15 08/21/20 22:49 IV 50 mcg/kg/min .Q0M FE 26.52 mls/hr Administration Protocol Titrate Levetiracetam 500 mg/ Sodium 105 mls @ 400 mls/hr 08/20/20 09:00 08/21/20 20:32 Chloride IVPB 400 mls/hr Q12HR FE Administration Sodium Chloride 1,000 mls @ 20 mls/hr 08/20/20 18:15 08/21/20 20:32 Saline 0.9% IV 20 mls/hr .Q24H FE Administration Dexmedetomidine HCl 400 mcg/ 100 mls @ 0 mls/hr 08/21/20 17:00 08/21/20 22:01 IV Solution IV 08/22/20 17:01 0.7 mcg/kg/hr .Q0M FE 15.47 mls/hr Administration Protocol Titrate Insulin Aspart 0 unit 08/20/20 12:00 08/21/20 17:43 Insulin Aspart (Novolog) 100 Unit/Ml Vial SQ 3 unit Q6HR FE Administration Protocol Lorazepam 1 mg 08/19/20 14:45 Lorazepam 2 Mg/Ml Inj IV Q2HR PRN CIWA 8 or 9 Lorazepam 1 mg 08/19/20 14:45 Lorazepam 2 Mg/Ml Inj IV Q1HR PRN CIWA 10 to 15 Miscellaneous Information 1 each 08/20/20 14:52 Potassium Replacement Protocol 1 Each Misc MISCELLANE DAILY PRN Per Protocol Protocol Naloxone HCl 0.2 mg 08/19/20 15:33 Naloxone 0.4 Mg/Ml 1 Ml Vial IV Q2M PRN Opioid Reversal Pantoprazole Sodium 40 mg 08/20/20 09:00 08/21/20 08:59 Pantoprazole 40 Mg/10 Ml Vial IVP 40 mg DAILY FE Administration Thiamine HCl 100 mg 08/19/20 17:30 08/21/20 16:30 Thiamine 100 Mg Tab PO 100 mg BID-W/MEALS FE Administration Zinc Sulfate 220 mg 08/19/20 16:30 08/21/20 08:59 Zinc Sulfate 220 Mg Cap PO 220 mg DAILY FE Administration Objective - Vital Signs Vital signs: Vital Signs Temp 98.5 F 08/21/20 12:00 Pulse 72 08/21/20 15:00 Resp 21 08/21/20 15:00 BP 117/54 08/21/20 13:00 Pulse Ox 87 L 08/21/20 15:00 Intake & Output 08/20/20 08/21/20 08/21/20 18:59 06:59 18:59 Intake Total 3565.000 7350.808 430 Output Total 650 865 217 Balance 630.926 896.808 213 Weight 88.4 kg Intake: IV 936 1114 270 Dextrose 5%-0.9% NaCl 1, 900 150 000 ml @ 75 mls/hr IV . [id number] FE Rx#:[id number] Sodium Chloride 0.9% 1, 825 155 000 ml @ 20 mls/hr IV . Q24H FE Rx#:[id number] levETIRAcetam IV 500 mg 100 100 In Sodium Chloride 0.9% 100 ml @ 400 mls/hr IVPB Q12HR FE Rx#:[id number] pressure bag 36 39 15 Intake, IV Titration 344.926 297.808 100 Amount Norepinephrine 4 mg In 64.217 95.819 Sodium Chloride 0.9% 250 ml @ 0.05 MCG/KG/MIN 16. 84 mls/hr IV .Q15H5M FE Rx#:[id number] propofoL 1,000 mg In 280.709 201.989 100 Empty Bag 1 bag @ Titrate IV .Q0M FE Rx#: [id number] Tube Feeding 260 60 Other 90 Output: Urine 650 865 217 Other: Voiding Method Indwelling Catheter Indwelling Catheter Indwelling Catheter ABP, PAP, CO, CI - Last Documented Arterial Blood Pressure 128/46 - Exam -GENERAL: The patient is intubated and sedated HEENT: Pupils are round and equally reacting to light. EOMI. No scleral icterus. No conjunctival pallor. Normocephalic, atraumatic. No pharyngeal erythema. No thyromegaly. CARDIOVASCULAR: S1 and S2 present. No murmurs, rubs, or gallops. -PULMONARY: Chest is clear to auscultation, bilateral scattered wheezing and crackles. ABDOMEN: Soft, nontender, nondistended, normoactive bowel sounds. No palpable organomegaly. MUSCULOSKELETAL: No joint swelling or deformity. EXTREMITIES: No cyanosis, clubbing, or pedal edema. -NEUROLOGICAL: Gross neurological examination did not reveal any focal deficits. Examination is limited by his mental status, being on mechanical ventilation and sedated. Pupils are equal and reactive to light SKIN: No rashes. no petechiae. - Labs CBC & Chem 7: 08/21/20 04:00 08/21/20 04:00 Labs: Abnormal Lab Results - Last 24 Hours (Table) 08/20/20 08/20/20 08/20/20 Range/Units 13:50 13:50 17:47 RBC (4.30-5.90) m/uL Hgb (13.0-17.5) gm/dL Hct (39.0-53.0) % MCV (80.0-100.0) fL MCH (25.0-35.0) pg Plt Count (150-450) k/uL Lymphocytes # (1.0-4.8) k/uL D-Dimer (<0.60) mg/L FEU ABG pH (7.35-7.45) ABG pCO2 (35-45) mmHg ABG HCO3 (21-25) mmol/L ABG O2 Saturation (94-97) % Sodium (137-145) mmol/L Chloride (98-107) mmol/L Carbon Dioxide (22-30) mmol/L Creatinine (0.66-1.25) mg/dL Glucose (74-99) mg/dL POC Glucose (mg/dL) 248 H (75-99) mg/dL Calcium (8.4-10.2) mg/dL Ferritin (22.0-322.0) ng/mL Total Bilirubin (0.2-1.3) mg/dL AST (17-59) U/L Lactate Dehydrogenase (313-618) U/L C-Reactive Protein (<10.0) mg/L Total Protein (6.3-8.2) g/dL Albumin (3.5-5.0) g/dL Vitamin B12 >4000.0 H (211-911) pg/mL RBC Folate 1,460 H (280 - 791) ng/mL 08/20/20 08/21/20 08/21/20 Range/Units 23:36 04:00 04:00 RBC 3.22 L (4.30-5.90) m/uL Hgb 11.5 L (13.0-17.5) gm/dL Hct 34.2 L (39.0-53.0) % MCV 106.3 H (80.0-100.0) fL MCH 35.7 H (25.0-35.0) pg Plt Count 146 L (150-450) k/uL Lymphocytes # 0.7 L (1.0-4.8) k/uL D-Dimer 5.56 H (<0.60) mg/L FEU ABG pH (7.35-7.45) ABG pCO2 (35-45) mmHg ABG HCO3 (21-25) mmol/L ABG O2 Saturation (94-97) % Sodium (137-145) mmol/L Chloride (98-107) mmol/L Carbon Dioxide (22-30) mmol/L Creatinine (0.66-1.25) mg/dL Glucose (74-99) mg/dL POC Glucose (mg/dL) 200 H (75-99) mg/dL Calcium (8.4-10.2) mg/dL Ferritin (22.0-322.0) ng/mL Total Bilirubin (0.2-1.3) mg/dL AST (17-59) U/L Lactate Dehydrogenase (313-618) U/L C-Reactive Protein (<10.0) mg/L Total Protein (6.3-8.2) g/dL Albumin (3.5-5.0) g/dL Vitamin B12 (211-911) pg/mL RBC Folate (280 - 791) ng/mL 08/21/20 08/21/20 08/21/20 Range/Units 04:00 05:15 11:27 RBC (4.30-5.90) m/uL Hgb (13.0-17.5) gm/dL Hct (39.0-53.0) % MCV (80.0-100.0) fL MCH (25.0-35.0) pg Plt Count (150-450) k/uL Lymphocytes # (1.0-4.8) k/uL D-Dimer (<0.60) mg/L FEU ABG pH 7.47 H (7.35-7.45) ABG pCO2 28 L (35-45) mmHg ABG HCO3 20 L (21-25) mmol/L ABG O2 Saturation 97.9 H (94-97) % Sodium 136 L (137-145) mmol/L Chloride 111 H (98-107) mmol/L Carbon Dioxide 19 L (22-30) mmol/L Creatinine 0.43 L (0.66-1.25) mg/dL Glucose 186 H (74-99) mg/dL POC Glucose (mg/dL) 167 H (75-99) mg/dL Calcium 7.2 L (8.4-10.2) mg/dL Ferritin 2453.6 H (22.0-322.0) ng/mL Total Bilirubin 2.0 H (0.2-1.3) mg/dL AST 128 H (17-59) U/L Lactate Dehydrogenase 1478 H (313-618) U/L C-Reactive Protein 160.4 H (<10.0) mg/L Total Protein 5.5 L (6.3-8.2) g/dL Albumin 2.1 L (3.5-5.0) g/dL Vitamin B12 (211-911) pg/mL RBC Folate (280 - 791) ng/mL Microbiology - Last 24 Hours (Table) 08/19/20 16:31 Blood Culture - Preliminary Blood No Growth after 24 hours 08/19/20 15:30 Blood Culture - Preliminary Blood No Growth after 24 hours Assessment and Plan Assessment: Acute bilateral COVID-19 pneumonia Acute hypoxic respiratory failure, patient needed intubation and mechanical ventilation Elevated d-dimer, ruled out PE Elevated inflammatory markers secondary to COVID-19 infection Generalized tonic-clonic seizures likely due to hypoglycemia. EEG showed no seizure activity. Acute hepatitis with elevated liver enzymes and bilirubin altered mental status secondary to seizure activity and metabolic/toxic encephalopathy Elevated lactic acid, improved Type 2 diabetes mellitus with hypoglycemia on admission Hypertension History of asthma Plan: This is a pleasant 65 years old male who presents with covid pneumonia. Seizure, AMS and hypoglycemia. Patient currently is intubated and on mechanical ventilation. Continue with antiseizure medication, continue seizure precaution. Neurology and pulmonary is on board. Continue with vitamin C, vitamin D, zinc, dexamethasone, Lovenox . continue with thiamine and Ativan as needed Hold his Januvia and glipizide. was on D5 normal saline, keep monitoring glucose, CT angiography of chest showed no PE. CT head showed no acute process Ultrasound of the liver showed suboptimal study with suspect small stones and gallbladder sludge without secondary ultrasound evidence of acute cholecystitis. Suspect fatty infiltration of liver and underlying hepatocellular disease. Moderate extrahepatic biliary dilation. Consider CT follow-up to further evalua te. Labs and medication were reviewed. Monitor lytes and vitals. DVT and GI prophylaxis. Further recommendations depends on the clinical course of the patient Prognosis is definitely guarded Time with Patient: Greater than 30
[2020-08-21 23:50] LABS: Glucose,Whole Blood 242 mg/dL (75-99)
[2020-08-22] MEDS: DEXMEDETOMIDINE/0.9% NACL(PMX) 400 MCG in EMPTY BAG 1 BAG IV SCH ×2 (04:05→10:27)
[2020-08-22 04:30] LABS: Basophils % (A) 0 %; Eosinophils % (A) 0 %; HCT 36.4 % (39.0-53.0); HGB 12.2 gm/dL (13.0-17.5); Lymphocytes # (A) 0.6 k/uL (1.0-4.8); Lymphocytes % (A) 9 %; MCH 35.8 pg (25.0-35.0); MCHC 33.6 g/dL (31.0-37.0); MCV 106.5 fL (80.0-100.0); Macrocytosis Moderate; Mean Platelet Volume 7.2; Monocytes # (A) 0.2 k/uL (0-1.0); Monocytes % (A) 3 %; Neutrophils # (A) 5.1 k/uL (1.3-7.7); Neutrophils % (A) 86 %; Platelet Count 161 k/uL (150-450); RBC 3.42 m/uL (4.30-5.90); RDW 14.4 % (11.5-15.5)
[2020-08-22 04:54] LABS: ALT 46 U/L (4-49); AST 112 U/L (17-59); African American GFR (CKD) >90 (>60 ml/min/1.73 sqM); Albumin 2.4 g/dL (3.5-5.0); Alkaline Phosphatase 93 U/L (38-126); Anion Gap 10 mmol/L; Blood Urea Nitrogen 16 mg/dL (9-20); C Reactive Protein 81.2 mg/L (<10.0); Calcium 7.8 mg/dL (8.4-10.2); Carbon Dioxide 20 mmol/L (22-30); Chloride 114 mmol/L (98-107); Creatine Kinase 73 U/L (55-170); Glucose 224 mg/dL (74-99); LDH 1391 U/L (313-618); Non-African American GFR(CKD) >90 (>60 ml/min/1.73 sqM); Potassium 4.4 mmol/L (3.5-5.1); Sodium 144 mmol/L (137-145); Total Protein 6.1 g/dL (6.3-8.2)
[2020-08-22 05:05] LABS: ABG Base Excess -3.9 mmol/L; ABG HCO3 20 mmol/L (21-25); ABG Oxygen Saturation 96.7 % (94-97); ABG PCO2 28 mmHg (35-45); ABG PH 7.46 (7.35-7.45); ABG PO2 82 mmHg (83-108); ABG TCO2 21 mmol/L (19-24); Allen Test Performed? Yes
[2020-08-22] MEDS: INSULIN ASPART (NovoLOG) 100 UNIT/ML VIAL SQ SCH ×4 (05:37→23:28)
[2020-08-22] MEDS: THIAMINE 100 MG TAB PO SCH ×2 (06:49→19:09)
--- NOTE | 2020-08-22 08:19 | P.PN ---
Subjective Progress Note Date: 08/22/20 65-year-old male patient who presented to the emergency department yesterday because of mental status change and hypoglycemia and the patient was further diagnosed having quit 19 related pneumonia. The patient is diabetic and the patient also has bronchial asthma and hypertension. The patient arrived to the blood sugar of 45. Apparently the patient was sick for around 2 weeks prior to that and the patient was having increased dyspnea on fever and cough and poor appetite. He was taking oral hypoglycemics in the form of Januvia and glipizide on outpatient basis. In the emergency department, the patient was altered, she did obey some commands yet his pulse ox was quite low at 86% on room air oxygen. The patient was placed on 100% nonrebreather facemask. Initially his blood sugar was corrected and the patient was given D50 and following that he was admitted to the medical floor. The patient started having increased shakiness and seizure-like activity and he bit his tongue and he was quite tachypneic. The a team was called. The patient was transferred to the intensive care unit and the patient was intubated for airway protection. At this point in time, the patient is intubated on a mechanical ventilator. Propofol is running at 55 Jhonathan graspi kilogram per minute. The patient is on assist control mode of ventilation with a rate of 20, FiO2 of 60%, PEEP of 5 and tidal volume 450. The patient's blood gases post intubation showed a pH of 7.46 with a pCO2 of 32 and pO2 of 86. The chest x-ray from this morning is showing diffuse bilateral patchy pulmonary infiltrates. ET tube is just above the aortic knob. The patient has a orogastric tube in place. Some mild cardiomegaly is also present. Note that the CT angiogram of the chest that was done yesterday showed some p atchy bibasilar airspace disease or consolidation doubtless infiltrates bilaterally consistent with community related pneumonia. The patient also had another appearance of the liver and evidence of portal hypertension. Mother the patient is a chronic alcohol drinker. The white cell count of 7.6 with a hemoglobin of 11.8. Platelets at 127, his LDH was 1369 and his CRP is at 141, urine drug screen was positive for opiates, amphetamines and benzodiazepines, urinalysis showing +1 protein, normal renal function test, normal electrolytes. This morning the d-dimer is at 5.13, the patient's blood pressure currently is 99/35 and the patient is on D5 normal saline at the rate of 75 mL an hour. The patient was started on Lovenox 40 mg subcu every 12 hours. The patient is on propofol. The patient is on no pressors for now. He is on Decadron 63 g IV every 24 hours. Most recent blood sugar is at 141. On today's evaluation of 08/21/2020, the patient is being seen for a follow-up. The patient was hospitalized for community related pneumonia and the patient is currently intubated on a mechanical ventilator. This morning, the patient is sedation with propofol at 75 mcg/kg per minute and he is quite comfortable. He remains on assist control mode of ventilation with a tidal volume of 450 and FiO2 of 50% with a PEEP of 5 and a rate of 20. His peak airway pressure is 23 anesthetic pressure is 14. The chest x-ray showing diffuse bilateral pulmonary pulses consistent with obesity related pneumonia and ET tube is in a good location. The patient is hemodynamically stable. The patient is on no pressors. No seizure activity has been noted. The patient is receiving tube feeds in the form of Vicodin HB at the rate of 30 mL an hour. No hypoglycemic events overnight. The patient's d-dimer is at 5.66 and the patient's LDH currently is at 1478 with a CRP level of 160. The propofol Level Was 0.31. The Patient Is Currently on Decadron 6 Mg IV Every 24 Hours and He Is Also on Lo venox 40 Mg Subcu Every 12 Hours. His Last D-Dimer Is at 5.56 from Today. No Fever. No Other Significant Issues Overnight. Neurology Consultation Was Also Done. EEG from yesterday showed no evidence of any seizure activity. It wasn't abnormal EEG probably related to drug effect. The patient remains on Keppra 5 mg every 12 hours and no clinical seizure activity has been noted. He is also started on a combination of thiamine and B12. Ammonia level is pending from today. His liver function tests currently are improving and his AST is down to 128 and a LDL 45. His lactic acid is also improving is down to 1.8. On 08/22/2020, the patient remains on propofol at the rate of 50 mcg/kg per minute. Attempts to wean him off the propofol yesterday failed as the patient became quite agitated, tachypneic and tachycardic and his symptoms with the mechanical ventilator. There was no meaningful response neurologically and for that reason the sedation holiday was aborted at the same thing will be done today. The patient is an assist-control with a tidal volume of 450 and FiO2 of 40% with a PEEP of 5 and a rate of 20. The patient had a chest x-ray today that showed patchy bilateral pulmonary infiltrates with a peripheral distribution. ET tube is in a good location. The blood gas from today showing a pH of 7.46 with a pCO2 of 28 and pO2 of 82. Peak airway pressure is 20 and as such the patient is potentially extubated on as long as he demonstrated adequate neurologic recovery. The patient is currently on vital high protein at the rate of 43 mL an hour. Labs were all stable with a white cell count of 6 and a hemoglobin of 12 and the rest of the electrolytes are all within normal limits. His LDH level is 1391 and is lower compared to yesterday with a CRP level of 81. As such, the active problem for now is his underlying neurological functions. We're the process of giving the patient sedation holiday and if needed use Precedex to control his agitation. His pupils are equal and symmetrical in a pinpoint. Her activity has been noted. No further bouts of hypoglycemia. Objective - Vital Signs Vital signs: Vital Signs Temp 98.4 F 08/22/20 08:00 Pulse 58 L 08/22/20 08:00 Resp 27 H 08/22/20 08:00 BP 145/75 08/22/20 03:00 Pulse Ox 93 L 08/22/20 08:00 Intake & Output 08/21/20 08/22/20 08/22/20 18:59 06:59 18:59 Intake Total 101.479 2245.308 109 Output Total 450 1803 75 Balance 316.545 -395.692 34 Intake: IV 408 376 23 Sodium Chloride 0.9% 1, 275 240 20 000 ml @ 20 mls/hr IV . Q24H FE Rx#:[id number] levETIRAcetam IV 500 mg 100 100 In Sodium Chloride 0.9% 100 ml @ 400 mls/hr IVPB Q12HR FE Rx#:[id number] pressure bag 33 36 3 Intake, IV Titration 255.545 468.308 Amount Dexmedetomidine/0.9% NaCl 23.058 141.808 (Pmx) 400 mcg In Empty Bag 1 bag @ Titrate IV . Q0M FE Rx#:[id number] propofoL 1,000 mg In 232.487 326.500 Empty Bag 1 bag @ Titrate IV .Q0M FE Rx#: [id number] Tube Feeding 103 473 86 Other 90 Output: Urine 450 1803 75 Other: Voiding Method Indwelling Catheter Indwelling Catheter ABP, PAP, CO, CI - Last Documented Arterial Blood Pressure 150/61 - Exam Currently intubated on a mechanical ventilator. Orogastric and orotracheal tube are both in place. Was sedated and symptoms the mechanical ventilator. Head exam was generally normal. There was no scleral icterus or corneal arcus. Mucous membranes were moist. Neck was supple and without jugular venous distension, thyromegaly, or carotid bruits. Carotids were easily palpable bilaterally. There was no adenopathy. Lungs sounds are diminished in the patient's crackles bilaterally in the mid and lower lung lange Cardiac exam revealed the PMI to be normally situated and sized. The rhythm was regular and no extrasystoles were noted during several minutes of auscultation. The first and second heart sounds were normal and physiologic splitting of the second heart sound was noted. There were no murmurs, rubs, clicks, or gallops. Abdominal exam revealed normal bowel sounds. The abdomen was soft, non-tender, and without masses, organomegaly, or appreciable enlargement of the abdominal aorta. Examination of the extremities revealed easily palpable radial, femoral and pedal pulses. There was no cyanosis, clubbing or edema. Examination of the skin revealed no evidence of significant rashes, suspicious appearing nevi or other concerning lesions. Neurologically the patient is well sedated for now. - Labs CBC & Chem 7: 08/22/20 03:55 08/22/20 03:55 Labs: Abnormal Lab Results - Last 24 Hours (Table) 08/20/20 08/21/20 08/21/20 Range/Units 13:50 04:00 11:27 RBC (4.30-5.90) m/uL Hgb (13.0-17.5) gm/dL Hct (39.0-53.0) % MCV (80.0-100.0) fL MCH (25.0-35.0) pg Lymphocytes # (1.0-4.8) k/uL ABG pH (7.35-7.45) ABG pCO2 (35-45) mmHg ABG pO2 (83-108) mmHg ABG HCO3 (21-25) mmol/L Chloride (98-107) mmol/L Carbon Dioxide (22-30) mmol/L Creatinine (0.66-1.25) mg/dL Glucose (74-99) mg/dL POC Glucose (mg/dL) 167 H (75-99) mg/dL Calcium (8.4-10.2) mg/dL Ferritin 2453.6 H (22.0-322.0) ng/mL Total Bilirubin (0.2-1.3) mg/dL AST (17-59) U/L Lactate Dehydrogenase (313-618) U/L C-Reactive Protein (<10.0) mg/L Total Protein (6.3-8.2) g/dL Albumin (3.5-5.0) g/dL RBC Folate 1,460 H (280 - 791) ng/mL 08/21/20 08/21/20 08/22/20 Range/Units 17:27 23:47 03:55 RBC 3.42 L (4.30-5.90) m/uL Hgb 12.2 L (13.0-17.5) gm/dL Hct 36.4 L (39.0-53.0) % MCV 106.5 H (80.0-100.0) fL MCH 35.8 H (25.0-35.0) pg Lymphocytes # 0.6 L (1.0-4.8) k/uL ABG pH (7.35-7.45) ABG pCO2 (35-45) mmHg ABG pO2 (83-108) mmHg ABG HCO3 (21-25) mmol/L Chloride (98-107) mmol/L Carbon Dioxide (22-30) mmol/L Creatinine (0.66-1.25) mg/dL Glucose (74-99) mg/dL POC Glucose (mg/dL) 226 H 242 H (75-99) mg/dL Calcium (8.4-10.2) mg/dL Ferritin (22.0-322.0) ng/mL Total Bilirubin (0.2-1.3) mg/dL AST (17-59) U/L Lactate Dehydrogenase (313-618) U/L C-Reactive Protein (<10.0) mg/L Total Protein (6.3-8.2) g/dL Albumin (3.5-5.0) g/dL RBC Folate (280 - 791) ng/mL 08/22/20 08/22/20 Range/Units 03:55 04:55 RBC (4.30-5.90) m/uL Hgb (13.0-17.5) gm/dL Hct (39.0-53.0) % MCV (80.0-100.0) fL MCH (25.0-35.0) pg Lymphocytes # (1.0-4.8) k/uL ABG pH 7.46 H (7.35-7.45) ABG pCO2 28 L (35-45) mmHg ABG pO2 82 L (83-108) mmHg ABG HCO3 20 L (21-25) mmol/L Chloride 114 H (98-107) mmol/L Carbon Dioxide 20 L (22-30) mmol/L Creatinine 0.59 L (0.66-1.25) mg/dL Glucose 224 H (74-99) mg/dL POC Glucose (mg/dL) (75-99) mg/dL Calcium 7.8 L (8.4-10.2) mg/dL Ferritin (22.0-322.0) ng/mL Total Bilirubin 2.0 H (0.2-1.3) mg/dL AST 112 H (17-59) U/L Lactate Dehydrogenase 1391 H (313-618) U/L C-Reactive Protein 81.2 H (<10.0) mg/L Total Protein 6.1 L (6.3-8.2) g/dL Albumin 2.4 L (3.5-5.0) g/dL RBC Folate (280 - 791) ng/mL Microbiology - Last 24 Hours (Table) 08/19/20 16:31 Blood Culture - Preliminary Blood No Growth after 48 hours 08/19/20 15:30 Blood Culture - Preliminary Blood No Growth after 48 hours Assessment and Plan Plan: 1 acute COVID 19 related pneumonia with secondary hypoxic respiratory failure. The patient has extensive bilateral pulmonary infiltrates and consolidations. Currently intubated on a mechanical ventilator. Exact timing of this infection is not clear based on the history. The history somewhat sketchy. The patient was probably symptomatically for at least 2 weeks. The patient is currently on Decadron. His x-ray stable and the patient is showing some improvement in the left lower lobe pulmonary infiltrate. There is still right-sided pulmonary infiltrates. Blood thinners are noted. Chest x-ray was noted. The patient is adequately oxygenating and ventilating. The patient is also on a PEEP of 5 and FiO2 of 40%. Hemodynamically stable. 2 acute hypoxic respiratory failure secondary to above, currently intubated on a mechanical ventilator, to my understanding, the patient was intubated post hypoglycemic seizure for airway protection. He is doing well for now. Chest x- ray still showing diffuse breath and pulmonary infiltrates. Nevertheless, the patient is oxygenation is adequate. The patient is currently on Decadron. The patient is also on Lovenox. Blood gases was noted. Chest x-ray was noted. 3 diabetes mellitus with hypoglycemic attack at a time of admission, current blood sugars improved and normalized and the patient is running a slightly elevated blood sugar and the patient is going to be started on Lantus insulin 4 hypotension currently on IV fluids no pressors. Blood pressure improved. 5 seizure activity, probably related to hypoglycemia. No previous history of seizures based on the history, the patient received loading dose of Keppra 500 mg yesterday. Severe underlying encephalopathy, brain damage related to low blood sugars. 6 evidence of liver cirrhosis and signs of portal hypertension, rule out alcoholic liver's disease, his serum ammonia level is not elevated 7 positive urine drug screen for benzodiazepines and opiates and methamphetamine 8 possible alcoholism 9 BPH 10 hypertension 11 thrombocytopenia, stable Plan Continue vent support Sedation holiday, use Precedex if needed for agitation or restlessness Continue Decadron for now 6 mg IV every 24 hours Continue Lovenox 40 mg subcu every 12 hours Moderate inflammatory markers Continue IV fluids and 0.9 nss the rate of 75 mL an hour. Monitor blood sugar and put the patient on a NovoLog size Coverage and hold oral hypoglycemics for now will add Lantus insulin 10 units on a daily basis Continue Keppra 500 mg every 12 hours enteral feeding for nutritional support Need to repeat a CAT scan of the brain if the patient is unable to show adequate neurologic recovery once off sedation. As mentioned, we're going to avoid propofol and use Precedex Continue supportive care. We'll continue to follow. We'll continue to follow make further recommendations based on his progress. Possible wean. Possible extubation today. Critical care evaluation more than 30 minutes. Time with Patient: Greater than 30
[2020-08-22] MEDS: DEXAMETHASONE SOD PHOSPHATE 10 MG/ML 1 ML VIAL IV SCH (09:21)
[2020-08-22] MEDS: PANTOPRAZOLE 40 MG/10 ML VIAL IVP SCH (09:21)
[2020-08-22] MEDS: CHLORHEXIDINE GLUCONATE 15 ML CUP MUCOUS MEM SCH ×2 (09:21→21:53)
[2020-08-22] MEDS: LACTULOSE 20 GM/30 ML CUP PO SCH ×2 (09:21→21:52)
[2020-08-22] MEDS: FOLIC ACID 1 MG TAB PO SCH (09:21)
[2020-08-22] MEDS: CYANOCOBALAMIN 500 MCG TAB PO SCH (09:21)
[2020-08-22] MEDS: ASCORBIC ACID 500 MG TAB PO SCH (09:21)
[2020-08-22] MEDS: levETIRAcetam IV 500 MG in SODIUM CHLORIDE 0.9% 100 ML IVPB SCH ×2 (09:22→21:53)
[2020-08-22] MEDS: ZINC SULFATE 220 MG CAP PO SCH (09:22)
[2020-08-22] MEDS: INSULIN DETEMIR (LEVEMIR) 100 UNIT/ML SYR SQ SCH (09:22)
[2020-08-22] MEDS: ENOXAPARIN 40 MG/0.4 ML SYRINGE SQ SCH ×2 (09:22→21:53)
[2020-08-22] MEDS: CHOLECALCIFEROL 25 MCG (1000 IU) TABLET PO SCH (09:24)
--- NOTE | 2020-08-22 11:00 | XR ---
EXAMINATION TYPE: XR chest 1V portable DATE OF EXAM: 08/22/2020 COMPARISON: 08/21/2020 INDICATION: Tube placement TECHNIQUE: Single frontal view of the chest is obtained. FINDINGS: The heart size is normal. The pulmonary vasculature is normal. Bibasilar infiltrates are present. Endotracheal tube tip is above the miquel. Nasogastric tube transverses the thorax. Left central veno us catheter tip is in the superior vena cava region. IMPRESSION: 1. Stable bilateral lung infiltrates. 2. Lines and catheters discussed above.
--- NOTE | 2020-08-22 11:27 | P.PN ---
Subjective Progress Note Date: 08/22/20 The patient was seen at bedside and he continues to be intubated on a ventilator. Patient was on propofol 50 mcg/kg/min in the morning and that was held about 1 hour. He is currently on Precedex 0.7mcg/kg/hr. per the patient nurse the patient is not verbalizing the following commands or doing anything p urposeful. No seizure-like activity and is noted. Objective - Vital Signs Vital signs: Vital Signs Temp 98.4 F 08/22/20 08:00 Pulse 60 08/22/20 11:00 Resp 28 H 08/22/20 11:00 BP 145/75 08/22/20 11:00 Pulse Ox 92 L 08/22/20 11:00 Intake & Output 08/21/20 08/22/20 08/22/20 18:59 06:59 18:59 Intake Total 732.566 0455.308 431.300 Output Total 450 1803 300 Balance 316.545 -395.692 131.300 Intake: IV 408 376 192 Sodium Chloride 0.9% 1, 275 240 80 000 ml @ 20 mls/hr IV . Q24H FE Rx#:[id number] levETIRAcetam IV 500 mg 100 100 100 In Sodium Chloride 0.9% 100 ml @ 400 mls/hr IVPB Q12HR FE Rx#:[id number] pressure bag 33 36 12 Intake, IV Titration 255.545 468.308 153.300 Amount Dexmedetomidine/0.9% NaCl 23.058 141.808 98.492 (Pmx) 400 mcg In Empty Bag 1 bag @ Titrate IV . Q0M FE Rx#:[id number] propofoL 1,000 mg In 232.487 326.500 54.808 Empty Bag 1 bag @ Titrate IV .Q0M FE Rx#: [id number] Tube Feeding 103 473 86 Other 90 Output: Urine 450 1803 300 Other: Voiding Method Indwelling Catheter Indwelling Catheter Indwelling Catheter ABP, PAP, CO, CI - Last Documented Arterial Blood Pressure 152/63 - Exam GENERAL: The patient is lying in bed and does not seem in acute distress. HENT: Has scleral icterus bilaterally. LUNG: Intubated on ventilator. Clear to auscultation bilaterally. Not in labored breathing. Breathing over the vent. NEUROLOGICAL: Limited because IV sedation (propofol 50mcg/kg/min)is held one hour but is onPrecedex 0.7mcg/kg/hr. Intubated and ventilator. Higher mental function: GCS 3 (E1,VT1, M1). Patient is comatose and not following commands or verbalizing. Cranial Nerves: Pupils are round, equal (2mm) and slughisly reactive to light bilaterally. Primary gaze is midline. +ve corneal reflex. No facial weakness noted bilaterally. +gag and cough reflex. Otherwise rest of cranial nerves could not be assess because of patient's condition. Motor: The strength is no movement noted throughout. Has no sponatenous movement or posture. Has increase tone in upper and lower extremities. Normal bulk. Cerebellum: Could not assess. Sensation: Could not assess light touch. No withdrawl to any of extremities to painful stimuli. Reflexes (right/left): Biceps 2-3+ bilaterally while patellar 3-4+ (left >right with nonsustained clonus over the left lower extremity). Ankles are 1+ bilaterally. Otherwise 2+ throughout. Plantars are downgoing bilaterally. - Labs CBC & Chem 7: 08/22/20 03:55 08/22/20 03:55 Labs: Abnormal Lab Results - Last 24 Hours (Table) 08/21/20 08/21/20 08/21/20 Range/Units 04:00 11:27 17:27 RBC (4.30-5.90) m/uL Hgb (13.0-17.5) gm/dL Hct (39.0-53.0) % MCV (80.0-100.0) fL MCH (25.0-35.0) pg Lymphocytes # (1.0-4.8) k/uL ABG pH (7.35-7.45) ABG pCO2 (35-45) mmHg ABG pO2 (83-108) mmHg ABG HCO3 (21-25) mmol/L Chloride (98-107) mmol/L Carbon Dioxide (22-30) mmol/L Creatinine (0.66-1.25) mg/dL Glucose (74-99) mg/dL POC Glucose (mg/dL) 167 H 226 H (75-99) mg/dL Calcium (8.4-10.2) mg/dL Ferritin 2453.6 H (22.0-322.0) ng/mL Total Bilirubin (0.2-1.3) mg/dL AST (17-59) U/L Lactate Dehydrogenase (313-618) U/L C-Reactive Protein (<10.0) mg/L Total Protein (6.3-8.2) g/dL Albumin (3.5-5.0) g/dL 08/21/20 08/22/20 08/22/20 Range/Units 23:47 03:55 03:55 RBC 3.42 L (4.30-5.90) m/uL Hgb 12.2 L (13.0-17.5) gm/dL Hct 36.4 L (39.0-53.0) % MCV 106.5 H (80.0-100.0) fL MCH 35.8 H (25.0-35.0) pg Lymphocytes # 0.6 L (1.0-4.8) k/uL ABG pH (7.35-7.45) ABG pCO2 (35-45) mmHg ABG pO2 (83-108) mmHg ABG HCO3 (21-25) mmol/L Chloride 114 H (98-107) mmol/L Carbon Dioxide 20 L (22-30) mmol/L Creatinine 0.59 L (0.66-1.25) mg/dL Glucose 224 H (74-99) mg/dL POC Glucose (mg/dL) 242 H (75-99) mg/dL Calcium 7.8 L (8.4-10.2) mg/dL Ferritin (22.0-322.0) ng/mL Total Bilirubin 2.0 H (0.2-1.3) mg/dL AST 112 H (17-59) U/L Lactate Dehydrogenase 1391 H (313-618) U/L C-Reactive Protein 81.2 H (<10.0) mg/L Total Protein 6.1 L (6.3-8.2) g/dL Albumin 2.4 L (3.5-5.0) g/dL 08/22/20 Range/Units 04:55 RBC (4.30-5.90) m/uL Hgb (13.0-17.5) gm/dL Hct (39.0-53.0) % MCV (80.0-100.0) fL MCH (25.0-35.0) pg Lymphocytes # (1.0-4.8) k/uL ABG pH 7.46 H (7.35-7.45) ABG pCO2 28 L (35-45) mmHg ABG pO2 82 L (83-108) mmHg ABG HCO3 20 L (21-25) mmol/L Chloride (98-107) mmol/L Carbon Dioxide (22-30) mmol/L Creatinine (0.66-1.25) mg/dL Glucose (74-99) mg/dL POC Glucose (mg/dL) (75-99) mg/dL Calcium (8.4-10.2) mg/dL Ferritin (22.0-322.0) ng/mL Total Bilirubin (0.2-1.3) mg/dL AST (17-59) U/L Lactate Dehydrogenase (313-618) U/L C-Reactive Protein (<10.0) mg/L Total Protein (6.3-8.2) g/dL Albumin (3.5-5.0) g/dL Microbiology - Last 24 Hours (Table) 08/19/20 16:31 Blood Culture - Preliminary Blood No Growth after 48 hours 08/19/20 15:30 Blood Culture - Preliminary Blood No Growth after 48 hours Assessment and Plan Assessment: Likely provoked seizure due to hypoglycemia (sugar of 45 per EMS) and hypoxia. Altered mental status due to multifactorial: Metabolic encephalopathy due to hypoglycemia, elevated LFT's/cirrhosis---trending down. Also due acute covid 19 related pneumonia and polysubstance use (opiated and methamphetamine) and medica tion effect (propofol and Precedex). Acute covid 19 related pneumonia Acute hypoxic respiratory failure secondary due to above AST is twice as greater than ALT possibly suggestive of alcohol use---trending down Macrocytosis likely due to alcohol use Diabetes mellitus with episode of hypoglycemia---resolved Evidence of cirrhosis and signs of portal hypertension, rule out alcohol liver disease Hypertension Plan: EEG on 08/20/2020: It is an abnormal routine EEG. The EEG suggestive of comatose state. The burst suppression activity is likely due to medication effect (Propofol). There are no focal slowing, epileptiform discharges or seizure seen during this study. Patient is on Keppra 500 mg every 12 hours that was started by primary team. Down the line if patient has no further episode of seizure-like acitivity will taper it down. Patient is on the thiamine 100 mg 1 tablet twice a day and asked to be continued. Vitamin B12 and it's more than 4000 which is considered normal. RBC folate level: 1460 (considered normal). Prophylactically on vitamin B-12 1000 g daily as well as folic 1 mg daily. Regarding the hyperreflexia of the upper and mostly lower extremity possibly the will consider CT cervical spine as well as lumbar or MRI down the line or possib ly consider as outpatient. Patient is on Ativan for CIWA protocol and will defer management to ICU and primary team Recommended to avoid any further hypoglycemic events but will defer the management to the medical team as well as ICU team. Will defer the rest of the medical management to the primary as well as ICU team. The patient's prognosis seem highly guarded. The plan is discussed with the patient's nurse. Will follow-up with patient sporadically. Isaiah Phelan M.D. Neuro-hospitalist Time with Patient: Less than 30
[2020-08-22 11:49] LABS: Glucose,Whole Blood 330 mg/dL (75-99)
--- NOTE | 2020-08-22 11:55 | P.PN ---
Subjective Progress Note Date: 08/22/20 I am assuming care of this patient as of 08/22/2020 at 8 AM. I was out of town and Dr. Paulino was covering for me. HMP done by Dr. Blair on 08/19/2020 On 08/19/2020 patient presented to the ER with altered mental status and hypoglycemia. It is reported that patient had been sick for 2 weeks with fever and productive cough. Patient has a past medical history of diabetes mellitus, hypertension, asthma, EtOH diabetes. At that time patient was admitted to floor and upon arrival required a-team with intubation and transfer to ICU due to declining respiratory status. Chest x-ray was completed showing diffuse bilateral patchy pulmonary infiltrates. Patient was positive for COVID-19 On 08/22/2020 patient remains in the intensive care unit on mechanical ventilation. Patient remains on sedation of propofol and Precedex. Per nursing staff attempting sedation holiday to assess neurological status. Neurology services are following. Patient remains on IV Decadron. Currently on mechanical ventilation with an FiO2 of 40%. Hemodynamically stable. PH is 7.46, CO2 20 12/10/1981 and HCO3 20 Objective - Vital Signs Vital signs: Vital Signs Temp 98.4 F 08/22/20 08:00 Pulse 58 L 08/22/20 08:00 Resp 27 H 08/22/20 08:00 BP 145/75 08/22/20 03:00 Pulse Ox 93 L 08/22/20 08:00 Intake & Output 08/21/20 08/22/20 08/22/20 18:59 06:59 18:59 Intake Total 199.627 8008.308 163.808 Output Total 450 1803 75 Balance 316.545 -395.692 88.808 Intake: IV 408 376 23 Sodium Chloride 0.9% 1, 275 240 20 000 ml @ 20 mls/hr IV . Q24H FE Rx#:[id number] levETIRAcetam IV 500 mg 100 100 In Sodium Chloride 0.9% 100 ml @ 400 mls/hr IVPB Q12HR FE Rx#:[id number] pressure bag 33 36 3 Intake, IV Titration 255.545 468.308 54.808 Amount Dexmedetomidine/0.9% NaCl 23.058 141.808 (Pmx) 400 mcg In Empty Bag 1 bag @ Titrate IV . Q0M FE Rx#:[id number] propofoL 1,000 mg In 232.487 326.500 54.808 Empty Bag 1 bag @ Titrate IV .Q0M [facility] Rx#: [id number] Tube Feeding 103 473 86 Other 90 Output: Urine 450 1803 75 Other: Voiding Method Indwelling Catheter Indwelling Catheter ABP, PAP, CO, CI - Last Documented Arterial Blood Pressure 150/61 - Exam Head normocephalic Neck supple Lungs diminished bilaterally Heart regular rate and rhythm S1-S2, no rub or gallop Abdomen is soft nontender nondistended positive bowel sounds no hepatosplenomegaly Extremities no edema Mechanically ventilated and on sedation - Labs CBC & Chem 7: 08/22/20 03:55 08/22/20 03:55 Labs: Abnormal Lab Results - Last 24 Hours (Table) 08/20/20 08/21/20 08/21/20 Range/Units 13:50 04:00 11:27 RBC (4.30-5.90) m/uL Hgb (13.0-17.5) gm/dL Hct (39.0-53.0) % MCV (80.0-100.0) fL MCH (25.0-35.0) pg Lymphocytes # (1.0-4.8) k/uL ABG pH (7.35-7.45) ABG pCO2 (35-45) mmHg ABG pO2 (83-108) mmHg ABG HCO3 (21-25) mmol/L Chloride (98-107) mmol/L Carbon Dioxide (22-30) mmol/L Creatinine (0.66-1.25) mg/dL Glucose (74-99) mg/dL POC Glucose (mg/dL) 167 H (75-99) mg/dL Calcium (8.4-10.2) mg/dL Ferritin 2453.6 H (22.0-322.0) ng/mL Total Bilirubin (0.2-1.3) mg/dL AST (17-59) U/L Lactate Dehydrogenase (313-618) U/L C-Reactive Protein (<10.0) mg/L Total Protein (6.3-8.2) g/dL Albumin (3.5-5.0) g/dL RBC Folate 1,460 H (280 - 791) ng/mL 08/21/20 08/21/2008/22/21 Range/Units 17:27 23:47 03:55 RBC 3.42 L (4.30-5.90) m/uL Hgb 12.2 L (13.0-17.5) gm/dL Hct 36.4 L (39.0-53.0) % MCV 106.5 H (80.0-100.0) fL MCH 35.8 H (25.0-35.0) pg Lymphocytes # 0.6 L (1.0-4.8) k/uL ABG pH (7.35-7.45) ABG pCO2 (35-45) mmHg ABG pO2 (83-108) mmHg ABG HCO3 (21-25) mmol/L Chloride (98-107) mmol/L Carbon Dioxide (22-30) mmol/L Creatinine (0.66-1.25) mg/dL Glucose (74-99) mg/dL POC Glucose (mg/dL) 226 H 242 H (75-99) mg/dL Calcium (8.4-10.2) mg/dL Ferritin (22.0-322.0) ng/mL Total Bilirubin (0.2-1.3) mg/dL AST (17-59) U/L Lactate Dehydrogenase (313-618) U/L C-Reactive Protein (<10.0) mg/L Total Protein (6.3-8.2) g/dL Albumin (3.5-5.0) g/dL RBC Folate (280 - 791) ng/mL 08/22/20 08/22/20 Range/Units 03:55 04:55 RBC (4.30-5.90) m/uL Hgb (13.0-17.5) gm/dL Hct (39.0-53.0) % MCV (80.0-100.0) fL MCH (25.0-35.0) pg Lymphocytes # (1.0-4.8) k/uL ABG pH 7.46 H (7.35-7.45) ABG pCO2 28 L (35-45) mmHg ABG pO2 82 L (83-108) mmHg ABG HCO3 20 L (21-25) mmol/L Chloride 114 H (98-107) mmol/L Carbon Dioxide 20 L (22-30) mmol/L Creatinine 0.59 L (0.66-1.25) mg/dL Glucose 224 H (74-99) mg/dL POC Glucose (mg/dL) (75-99) mg/dL Calcium 7.8 L (8.4-10.2) mg/dL Ferritin (22.0-322.0) ng/mL Total Bilirubin 2.0 H (0.2-1.3) mg/dL AST 112 H (17-59) U/L Lactate Dehydrogenase 1391 H (313-618) U/L C-Reactive Protein 81.2 H (<10.0) mg/L Total Protein 6.1 L (6.3-8.2) g/dL Albumin 2.4 L (3.5-5.0) g/dL RBC Folate (280 - 791) ng/mL Microbiology - Last 24 Hours (Table) 08/19/20 16:31 Blood Culture - Preliminary Blood No Growth after 48 hours 08/19/20 15:30 Blood Culture - Preliminary Blood No Growth after 48 hours Assessment and Plan Assessment: 1. Acute hypoxic respiratory failure secondary to COVID-19 related pneumonia. Patient requiring mechanical ventilation. Patient was symptomatic for 2 weeks. Currently on IV Decadron chest x-ray stable and showing some improvement. Remains on mechanical ventilation with an FiO2 of 40% 2. Seizure activity likely secondary to hypoglycemia. No previous history of seizure based on history currently on Keppra. Neurology services are following 3. Metabolic encephalopathy. Neurology services are following 4. Diabetes mellitus type 2 with hypoglycemia on admission. Resolved Patient currently on Lantus and sliding scale coverage 5. History of EtOH 6. History of essential hypertension 7. Episode of hypertension maintained on IV fluids required no pressors. Blood pressure has improved 8. Evidence of liver cirrhosis with signs of portal hypertension 9. History of BPH 10. Positive urine drug screen on admission for benzos, opiates and methamphetamine DVT prophylaxis Lovenox. GI prophylaxis Protonix Critical care and neurology service is following Remains in the intensive care unit on mechanical ventilation and IV sedation Remains on IV Decadron, vitamin C vitamin D and zinc IV Keppra for seizure activity Attempting sedation holiday today 08/22/2020 per critical care Tube feedings for nutritional support
[2020-08-22 18:56] LABS: Glucose,Whole Blood 279 mg/dL (75-99)
[2020-08-22] MEDS ORDERED: DEXMEDETOMIDINE/0.9% NACL(PMX) 400 MCG in EMPTY BAG 1 BAG IV SCH (21:15)
[2020-08-22 23:12] LABS: Glucose,Whole Blood 294 mg/dL (75-99)
--- NOTE | 2020-08-22 23:33 | CT ---
EXAMINATION TYPE: CT brain wo con DATE OF EXAM: 08/22/2020 COMPARISON: 08/20/2020 HISTORY: AMS CT DLP: 1102.4 mGycm Automated exposure control for dose reduction was used. There is some cerebral cortical atrophy. There is no mass effect nor midline shift. There is no sign of intracranial hemorrhage. Calvarium is intact. There is no cerebral edema. There is some mucosal th ickening in the maxillary and sphenoid sinuses unchanged. IMPRESSION: No acute intracranial abnormality. No change.
[2020-08-23 03:43] LABS: Basophils % (A) 0 %; Eosinophils % (A) 0 %; HCT 36.4 % (39.0-53.0); HGB 12.2 gm/dL (13.0-17.5); Lymphocytes # (A) 0.4 k/uL (1.0-4.8); Lymphocytes % (A) 5 %; MCHC 33.5 g/dL (31.0-37.0); MCV 107.3 fL (80.0-100.0); Macrocytosis Moderate; Monocytes # (A) 0.3 k/uL (0-1.0); Monocytes % (A) 4 %; Neutrophils % (A) 89 %; Platelet Count 159 k/uL (150-450); RBC 3.39 m/uL (4.30-5.90); RDW 14.4 % (11.5-15.5); WBC 7.8 k/uL (3.8-10.6)
[2020-08-23 04:02] LABS: ALT 46 U/L (4-49); AST 106 U/L (17-59); African American GFR (CKD) >90 (>60 ml/min/1.73 sqM); Albumin 2.4 g/dL (3.5-5.0); Alkaline Phosphatase 90 U/L (38-126); Anion Gap 5 mmol/L; Blood Urea Nitrogen 24 mg/dL (9-20); C Reactive Protein 62.5 mg/L (<10.0); Calcium 8.1 mg/dL (8.4-10.2); Carbon Dioxide 22 mmol/L (22-30); Chloride 116 mmol/L (98-107); Creatine Kinase 335 U/L (55-170); Glucose 274 mg/dL (74-99); LDH 1453 U/L (313-618); Non-African American GFR(CKD) >90 (>60 ml/min/1.73 sqM); Potassium 4.2 mmol/L (3.5-5.1); Sodium 143 mmol/L (137-145); Total Protein 6.3 g/dL (6.3-8.2)
[2020-08-23 04:23] LABS: ABG Base Excess -2.9 mmol/L; ABG HCO3 22 mmol/L (21-25); ABG Oxygen Saturation 95.5 % (94-97); ABG PCO2 35 mmHg (35-45); ABG PH 7.41 (7.35-7.45); ABG PO2 77 mmHg (83-108); ABG TCO2 23 mmol/L (19-24); Allen Test Performed? Yes
[2020-08-23 06:46] LABS: Glucose,Whole Blood 221 mg/dL (75-99)
[2020-08-23] MEDS: INSULIN DETEMIR (LEVEMIR) 100 UNIT/ML SYR SQ SCH (06:55)
[2020-08-23] MEDS: INSULIN ASPART (NovoLOG) 100 UNIT/ML VIAL SQ SCH ×3 (06:55→18:11)
--- NOTE | 2020-08-23 07:20 | P.PN ---
Subjective Progress Note Date: 08/23/20 65-year-old male patient who presented to the emergency department yesterday because of mental status change and hypoglycemia and the patient was further diagnosed having quit 19 related pneumonia. The patient is diabetic and the patient also has bronchial asthma and hypertension. The patient arrived to the blood sugar of 45. Apparently the patient was sick for around 2 weeks prior to that and the patient was having increased dyspnea on fever and cough and poor appetite. He was taking oral hypoglycemics in the form of Januvia and glipizide on outpatient basis. In the emergency department, the patient was altered, she did obey some commands yet his pulse ox was quite low at 86% on room air oxygen. The patient was placed on 100% nonrebreather facemask. Initially his blood sugar was corrected and the patient was given D50 and following that he was admitted to the medical floor. The patient started having increased shakiness and seizure-like activity and he bit his tongue and he was quite tachypneic. The a team was called. The patient was transferred to the intensive care unit and the patient was intubated for airway protection. At this point in time, the patient is intubated on a mechanical ventilator. Propofol is running at 55 Jhonathan graspi kilogram per minute. The patient is on assist control mode of ventilation with a rate of 20, FiO2 of 60%, PEEP of 5 and tidal volume 450. The patient's blood gases post intubation showed a pH of 7.46 with a pCO2 of 32 and pO2 of 86. The chest x-ray from this morning is showing diffuse bilateral patchy pulmonary infiltrates. ET tube is just above the aortic knob. The patient has a orogastric tube in place. Some mild cardiomegaly is also present. Note that the CT angiogram of the chest that was done yesterday showed some p atchy bibasilar airspace disease or consolidation doubtless infiltrates bilaterally consistent with community related pneumonia. The patient also had another appearance of the liver and evidence of portal hypertension. Mother the patient is a chronic alcohol drinker. The white cell count of 7.6 with a hemoglobin of 11.8. Platelets at 127, his LDH was 1369 and his CRP is at 141, urine drug screen was positive for opiates, amphetamines and benzodiazepines, urinalysis showing +1 protein, normal renal function test, normal electrolytes. This morning the d-dimer is at 5.13, the patient's blood pressure currently is 99/35 and the patient is on D5 normal saline at the rate of 75 mL an hour. The patient was started on Lovenox 40 mg subcu every 12 hours. The patient is on propofol. The patient is on no pressors for now. He is on Decadron 63 g IV every 24 hours. Most recent blood sugar is at 141. On today's evaluation of 08/21/2020, the patient is being seen for a follow-up. The patient was hospitalized for community related pneumonia and the patient is currently intubated on a mechanical ventilator. This morning, the patient is sedation with propofol at 75 mcg/kg per minute and he is quite comfortable. He remains on assist control mode of ventilation with a tidal volume of 450 and FiO2 of 50% with a PEEP of 5 and a rate of 20. His peak airway pressure is 23 anesthetic pressure is 14. The chest x-ray showing diffuse bilateral pulmonary pulses consistent with obesity related pneumonia and ET tube is in a good location. The patient is hemodynamically stable. The patient is on no pressors. No seizure activity has been noted. The patient is receiving tube feeds in the form of Vicodin HB at the rate of 30 mL an hour. No hypoglycemic events overnight. The patient's d-dimer is at 5.66 and the patient's LDH currently is at 1478 with a CRP level of 160. The propofol Level Was 0.31. The Patient Is Currently on Decadron 6 Mg IV Every 24 Hours and He Is Also on Lo venox 40 Mg Subcu Every 12 Hours. His Last D-Dimer Is at 5.56 from Today. No Fever. No Other Significant Issues Overnight. Neurology Consultation Was Also Done. EEG from yesterday showed no evidence of any seizure activity. It wasn't abnormal EEG probably related to drug effect. The patient remains on Keppra 5 mg every 12 hours and no clinical seizure activity has been noted. He is also started on a combination of thiamine and B12. Ammonia level is pending from today. His liver function tests currently are improving and his AST is down to 128 and a LDL 45. His lactic acid is also improving is down to 1.8. On 08/22/2020, the patient remains on propofol at the rate of 50 mcg/kg per minute. Attempts to wean him off the propofol yesterday failed as the patient became quite agitated, tachypneic and tachycardic and his symptoms with the mechanical ventilator. There was no meaningful response neurologically and for that reason the sedation holiday was aborted at the same thing will be done today. The patient is an assist-control with a tidal volume of 450 and FiO2 of 40% with a PEEP of 5 and a rate of 20. The patient had a chest x-ray today that showed patchy bilateral pulmonary infiltrates with a peripheral distribution. ET tube is in a good location. The blood gas from today showing a pH of 7.46 with a pCO2 of 28 and pO2 of 82. Peak airway pressure is 20 and as such the patient is potentially extubated on as long as he demonstrated adequate neurologic recovery. The patient is currently on vital high protein at the rate of 43 mL an hour. Labs were all stable with a white cell count of 6 and a hemoglobin of 12 and the rest of the electrolytes are all within normal limits. His LDH level is 1391 and is lower compared to yesterday with a CRP level of 81. As such, the active problem for now is his underlying neurological functions. We're the process of giving the patient sedation holiday and if needed use Precedex to control his agitation. His pupils are equal and symmetrical in a pinpoint. Her activity has been noted. No further bouts of hypoglycemia. 08/23/2020, he managed to get this patient off the propofol. The active issue is his altered mentation despite being off sedation. The patient would get quite agitated but he is not following any commands or doing any purposeful activity. For that reason, I had to cover him with some Precedex overnight. CAT scan of the brain was also done and showed no acute abnormalities. Note that the patient did not have any further hypoglycemic events. He did have hypoglycemia associated at the time his admission. Meanwhile, he remains on a mechanical ventilator. On today's evaluation is in a tidal volume of 450 with an FiO2 of 40% with a PEEP of 5 and a rate of 20. This is essentially same setting as yesterday. Blood gases showing a pH of 7.40 with a pCO2 of 35 and a pO2 of 77. Chest x-ray findings are essentially stable. ET tube is in a good location. The patient is hemodynamically stable. The patient is on vital high protein at the rate of 56 mL an hour. He is tolerating enteral feeding for nutritional support. Inflammatory markers from today showing an LDH level of 1453 and a CRP level is at 62. The markers are essentially compatible to yesterday. His d-dimer is at 5.56 from 2 days ago. Electrolytes all within normal limits. CBC showing a white cell count of 7.8 with hemoglobin of 12.2. His blood sugar is being monitored in the blood sugar currently is at 221. The fluid balance is currently at -730 mL over the past 24 hours. His IV fluids currently running at 20 mL an hour of normal saline. This morning, I took the patient off the Precedex and we're about to reevaluate his mental status. Objective - Vital Signs Vital signs: Vital Signs Temp 99.3 F 08/23/20 04:00 Pulse 83 08/23/20 06:00 Resp 26 H 08/23/20 06:00 BP 145/75 08/23/20 06:00 Pulse Ox 95 08/23/20 06:00 Intake & Output 08/22/20 08/23/20 08/23/20 18:59 06:59 18:59 Intake Total 738.300 467.242 Output Total 890 1048 Balance -151.700 -580.758 Weight 88.4 kg 106.3 kg Intake: IV 356 299 Sodium Chloride 0.9% 1, 220 260 000 ml @ 20 mls/hr IV . Q24H FE Rx#:[id number] levETIRAcetam IV 500 mg 100 In Sodium Chloride 0.9% 100 ml @ 400 mls/hr IVPB Q12HR [facility] Rx#:[id number] pressure bag 36 39 Intake, IV Titration 253.300 56.242 Amount Dexmedetomidine/0.9% NaCl 198.492 (Pmx) 400 mcg In Empty Bag 1 bag @ Titrate IV . Q0M [facility] Rx#:[id number] Dexmedetomidine/0.9% NaCl 11.05 (Pmx) 400 mcg In Empty Bag 1 bag @ Titrate IV . Q0M [facility] Rx#:[id number] propofoL 1,000 mg In 54.808 45.192 Empty Bag 1 bag @ Titrate IV .Q0M [facility] Rx#: [id number] Tube Feeding 129 112 Output: Urine 890 1048 Other: Voiding Method Indwelling Catheter Indwelling Catheter ABP, PAP, CO, CI - Last Documented Arterial Blood Pressure 163/57 - Exam Currently intubated on a mechanical ventilator. Orogastric and orotracheal tube are both in place. On mechanical ventilator. Head exam was generally normal. There was no scleral icterus or corneal arcus. Mucous membranes were moist. Neck was supple and without jugular venous distension, thyromegaly, or carotid bruits. Carotids were easily palpable bilaterally. There was no adenopathy. Lungs sounds are diminished in the patient's crackles bilaterally in the mid and lower lung lange Cardiac exam revealed the PMI to be normally situated and sized. The rhythm was regular and no extrasystoles were noted during several minutes of auscultation. The first and second heart sounds were normal and physiologic splitting of the second heart sound was noted. There were no murmurs, rubs, clicks, or gallops. Abdominal exam revealed normal bowel sounds. The abdomen was soft, non-tender, and without masses, organomegaly, or appreciable enlargement of the abdominal aorta. Examination of the extremities revealed easily palpable radial, femoral and pedal pulses. There was no cyanosis, clubbing or edema. Examination of the skin revealed no evidence of significant rashes, suspicious appearing nevi or other concerning lesions. Neurologically the patient is currently off sedation. He remains unresponsive. Does not withdraw to painful stimulation. Pupils are equal and reactive. The patient has some downward gaze. No Babinski. No clonus. Symmetrical reflexes in all 4 extremities. No neck stiffness. Positive cough. Positive gag. - Labs CBC & Chem 7: 08/23/20 03:30 08/23/20 03:30 Labs: Abnormal Lab Results - Last 24 Hours (Table) 08/22/20 08/22/20 08/22/20 Range/Units 11:47 12:48 18:56 RBC (4.30-5.90) m/uL Hgb (13.0-17.5) gm/dL Hct (39.0-53.0) % MCV (80.0-100.0) fL MCH (25.0-35.0) pg Lymphocytes # (1.0-4.8) k/uL ABG pO2 (83-108) mmHg Chloride (98-107) mmol/L BUN (9-20) mg/dL Creatinine (0.66-1.25) mg/dL Glucose (74-99) mg/dL POC Glucose (mg/dL) 330 H 279 H (75-99) mg/dL Calcium (8.4-10.2) mg/dL Total Bilirubin (0.2-1.3) mg/dL AST (17-59) U/L Ammonia 157 H (<30) umol/L Lactate Dehydrogenase (313-618) U/L Creatine Kinase (55-170) U/L C-Reactive Protein (<10.0) mg/L Albumin (3.5-5.0) g/dL 08/22/20 08/23/20 08/23/20 Range/Units 23:10 03:30 03:30 RBC 3.39 L (4.30-5.90) m/uL Hgb 12.2 L (13.0-17.5) gm/dL Hct 36.4 L (39.0-53.0) % MCV 107.3 H (80.0-100.0) fL MCH 36.0 H (25.0-35.0) pg Lymphocytes # 0.4 L (1.0-4.8) k/uL ABG pO2 (83-108) mmHg Chloride 116 H (98-107) mmol/L BUN 24 H (9-20) mg/dL Creatinine 0.55 L (0.66-1.25) mg/dL Glucose 274 H (74-99) mg/dL POC Glucose (mg/dL) 294 H (75-99) mg/dL Calcium 8.1 L (8.4-10.2) mg/dL Total Bilirubin 2.0 H (0.2-1.3) mg/dL AST 106 H (17-59) U/L Ammonia (<30) umol/L Lactate Dehydrogenase 1453 H (313-618) U/L Creatine Kinase 335 H (55-170) U/L C-Reactive Protein 62.5 H (<10.0) mg/L Albumin 2.4 L (3.5-5.0) g/dL 08/23/20 08/23/20 Range/Units 04:18 06:45 RBC (4.30-5.90) m/uL Hgb (13.0-17.5) gm/dL Hct (39.0-53.0) % MCV (80.0-100.0) fL MCH (25.0-35.0) pg Lymphocytes # (1.0-4.8) k/uL ABG pO2 77 L (83-108) mmHg Chloride (98-107) mmol/L BUN (9-20) mg/dL Creatinine (0.66-1.25) mg/dL Glucose (74-99) mg/dL POC Glucose (mg/dL) 221 H (75-99) mg/dL Calcium (8.4-10.2) mg/dL Total Bilirubin (0.2-1.3) mg/dL AST (17-59) U/L Ammonia (<30) umol/L Lactate Dehydrogenase (313-618) U/L Creatine Kinase (55-170) U/L C-Reactive Protein (<10.0) mg/L Albumin (3.5-5.0) g/dL Microbiology - Last 24 Hours (Table) 08/19/20 16:31 Blood Culture - Preliminary Blood No Growth after 72 hours 08/19/20 15:30 Blood Culture - Preliminary Blood No Growth after 72 hours Assessment and Plan Plan: 1 acute COVID 19 related pneumonia with secondary hypoxic respiratory failure. The patient has extensive bilateral pulmonary infiltrates and consolidations. Currently intubated on a mechanical ventilator. Exact timing of this infection is not clear based on the history. The history somewhat sketchy. The patient was probably symptomatically for at least 2 weeks. The patient is currently on Decadron. His x-ray stable and the patient is not having any issues with oxygenation or ventilation at this point in time. Chest x-ray was noted. Blood gases was noted. He is on Decadron. 2 acute hypoxic respiratory failure secondary to above, currently intubated on a mechanical ventilator, to my understanding, the patient was intubated post hypoglycemic seizure for airway protection. The patient is potentially extubated well right now yet the active issue remains altered mentation and his unresponsiveness and for that reason we have kept intubated for airway protection. 3 diabetes mellitus, currently on Levemir 10 units and we're going to increase the dose up to 20 units for tighter blood sugar control. No hypoglycemic events for now. 4 hypotension currently on IV fluids no pressors. Blood pressure improved. 5 seizure activity, probably related to hypoglycemia. No previous history of seizures based on the history, the patient received loading dose of Keppra 500 mg yesterday. Severe underlying encephalopathy, brain damage related to low blood sugars. Also suspect hypoxic encephalopathy Currently he is unresponsive despite being off sedation. The patient does do some movement spontaneously. This is not burst of movements. Does not withdraw to painful stimulation. Does not follow any commands. No seizure activity has been noted. 6 evidence of liver cirrhosis and signs of portal hypertension, rule out alcoholic liver's disease, his serum ammonia level is not elevated, he is currently on lactulose and ammonia level monitored accordingly 7 positive urine drug screen for benzodiazepines and opiates and methamphetamine 8 possible alcoholism 9 BPH 10 hypertension 11 thrombocytopenia, stable Plan Continue vent support Sedation holiday, and we'll try to get him off sedation completely and assess his mental status Continue Decadron for now 6 mg IV every 24 hours Continue Lovenox 40 mg subcu every 12 hours Moderate inflammatory markers Continue IV fluids and 0.9 nss the rate of 20 mL an hour. Monitor blood sugar and put the patient on a NovoLog size Coverage and Lantus insulin and the dose to be increased to 20 units on a daily basis Continue Keppra 500 mg every 12 hours enteral feeding for nutritional support epeat a CAT scan of the brain was negative and neuro consult is in order Continue supportive care. We'll continue to follow. We'll continue to follow make further recommendations based on his progress. No weaning and no extubation as long as his mental status remains the weights currently is. Critical care evaluation more than 30 minutes. Time with Patient: Greater than 30
[2020-08-23] MEDS: SODIUM CHLORIDE 0.9% 1,000 ML IV SCH ×2 (07:48→21:49)
[2020-08-23] MEDS: levETIRAcetam IV 500 MG in SODIUM CHLORIDE 0.9% 100 ML IVPB SCH ×2 (08:15→21:48)
[2020-08-23] MEDS: ASCORBIC ACID 500 MG TAB PO SCH (08:16)
[2020-08-23] MEDS: CHLORHEXIDINE GLUCONATE 15 ML CUP MUCOUS MEM SCH ×2 (08:16→21:48)
[2020-08-23] MEDS: FOLIC ACID 1 MG TAB PO SCH (08:16)
[2020-08-23] MEDS: CHOLECALCIFEROL 25 MCG (1000 IU) TABLET PO SCH (08:16)
[2020-08-23] MEDS: PANTOPRAZOLE 40 MG/10 ML VIAL IVP SCH (08:16)
[2020-08-23] MEDS: DEXAMETHASONE SOD PHOSPHATE 10 MG/ML 1 ML VIAL IV SCH (08:16)
[2020-08-23] MEDS: THIAMINE 100 MG TAB PO SCH ×2 (08:16→18:11)
[2020-08-23] MEDS: ZINC SULFATE 220 MG CAP PO SCH (08:16)
[2020-08-23] MEDS: CYANOCOBALAMIN 500 MCG TAB PO SCH (08:16)
[2020-08-23] MEDS: LACTULOSE 20 GM/30 ML CUP PO SCH ×2 (08:16→21:48)
[2020-08-23] MEDS: ENOXAPARIN 40 MG/0.4 ML SYRINGE SQ SCH ×2 (08:17→21:48)
--- NOTE | 2020-08-23 08:31 | XR ---
EXAMINATION TYPE: XR chest 1V portable DATE OF EXAM: 08/23/2020 COMPARISON: 08/22/2020 INDICATION: Tube placement TECHNIQUE: Single frontal view of the chest is obtained. FINDINGS: The heart size is borderline. The pulmonary vasculature is normal. Bibasal infiltrates are present. Findings improved over the interval. Endotracheal tube tip is above miquel. Nasogastric tube transverses the thorax. Central venous catheter tips in superior vena cava region IMPRESSION: 1. Improving bibasilar infiltrates.
[2020-08-23] MEDS: CLEVIDIPINE BUTYRATE 25 MG in EMPTY BAG 1 BAG IV SCH (09:20)
[2020-08-23 11:15] LABS: Glucose,Whole Blood 259 mg/dL (75-99)
--- NOTE | 2020-08-23 17:28 | P.PN ---
Subjective Progress Note Date: 08/23/20 I am assuming care of this patient as of 08/22/2020 at 8 AM. I was out of town and Dr. Paulino was covering for me. HMP done by Dr. Blair on 08/19/2020 On 08/19/2020 patient presented to the ER with altered mental status and hypoglycemia. It is reported that patient had been sick for 2 weeks with fever and productive cough. Patient has a past medical history of diabetes mellitus, hypertension, asthma, EtOH diabetes. At that time patient was admitted to floor and upon arrival required a-team with intubation and transfer to ICU due to declining respiratory status. Chest x-ray was completed showing diffuse bilateral patchy pulmonary infiltrates. Patient was positive for COVID-19 On 08/22/2020 patient remains in the intensive care unit on mechanical ventilation. Patient remains on sedation of propofol and Precedex. Per nursing staff attempting sedation holiday to assess neurological status. Neurology services are following. Patient remains on IV Decadron. Currently on mechanical ventilation with an FiO2 of 40%. Hemodynamically stable. PH is 7.46, CO2 20 12/10/1981 and HCO3 20 On 08/23/2020 patient was seen and examined in the ICU he is intubated main tained on mechanical ventilation he was taken off sedation. Patient is maintained on assist control FiO2 40% PEEP of 5 with a rate of 20 blood gases reveals pH of 7.40 pCO2 35 PO2 77 his white blood count is 7.8 hemoglobin 12.2. Patient mental function is not improving off sedation neurology consultation has been requested Objective - Vital Signs Vital signs: Vital Signs Temp 99.1 F 08/23/20 08:00 Pulse 86 08/23/20 08:00 Resp 33 H 08/23/20 08:00 BP 145/75 08/23/20 06:00 Pulse Ox 93 L 08/23/20 08:00 Intake & Output 08/22/20 08/23/20 08/23/20 18:59 06:59 18:59 Intake Total 738.300 556.192 109 Output Total 890 1048 125 Balance -151.700 -491.808 -16 Weight 88.4 kg 106.3 kg Intake: IV 356 299 23 Sodium Chloride 0.9% 1, 220 260 20 000 ml @ 20 mls/hr IV . Q24H [facility] Rx#:[id number] levETIRAcetam IV 500 mg 100 In Sodium Chloride 0.9% 100 ml @ 400 mls/hr IVPB Q12HR [facility] Rx#:[id number] pressure bag 36 39 3 Intake, IV Titration 253.300 145.192 Amount Dexmedetomidine/0.9% NaCl 198.492 (Pmx) 400 mcg In Empty Bag 1 bag @ Titrate IV . Q0M [facility] Rx#:[id number] Dexmedetomidine/0.9% NaCl 100.00 (Pmx) 400 mcg In Empty Bag 1 bag @ Titrate IV . Q0M [facility] Rx#:[id number] propofoL 1,000 mg In 54.808 45.192 Empty Bag 1 bag @ Titrate IV .Q0M [facility] Rx#: [id number] Tube Feeding 129 112 56 Other 30 Output: Urine 890 1048 125 Other: Voiding Method Indwelling Catheter Indwelling Catheter ABP, PAP, CO, CI - Last Documented Arterial Blood Pressure 151/55 - Exam In general patient is intubated maintained on mechanical ventilation Head normocephalic and atraumatic Neck supple no JVD no goiter Lungs diminished bilaterally Heart regular rate and rhythm S1-S2, no rub or gallop Abdomen is soft nontender nondistended positive bowel sounds no hepatosplenomegaly Extremities no edema no cyanosis or clubbing Neurological examination patient is moving all 4 extremities spontaneously, however he is not awakening despite stopping sedation. - Labs CBC & Chem 7: 08/23/20 03:30 08/23/20 03:30 Labs: Abnormal Lab Results - Last 24 Hours (Table) 08/22/20 08/22/20 08/22/20 Range/Units 11:47 12:48 18:56 RBC (4.30-5.90) m/uL Hgb (13.0-17.5) gm/dL Hct (39.0-53.0) % MCV (80.0-100.0) fL MCH (25.0-35.0) pg Lymphocytes # (1.0-4.8) k/uL ABG pO2 (83-108) mmHg Chloride (98-107) mmol/L BUN (9-20) mg/dL Creatinine (0.66-1.25) mg/dL Glucose (74-99) mg/dL POC Glucose (mg/dL) 330 H 279 H (75-99) mg/dL Calcium (8.4-10.2) mg/dL Total Bilirubin (0.2-1.3) mg/dL AST (17-59) U/L Ammonia 157 H (<30) umol/L Lactate Dehydrogenase (313-618) U/L Creatine Kinase (55-170) U/L C-Reactive Protein (<10.0) mg/L Albumin (3.5-5.0) g/dL 08/22/20 08/23/20 08/23/20 Range/Units 23:10 03:30 03:30 RBC 3.39 L (4.30-5.90) m/uL Hgb 12.2 L (13.0-17.5) gm/dL Hct 36.4 L (39.0-53.0) % MCV 107.3 H (80.0-100.0) fL MCH 36.0 H (25.0-35.0) pg Lymphocytes # 0.4 L (1.0-4.8) k/uL ABG pO2 (83-108) mmHg Chloride 116 H (98-107) mmol/L BUN 24 H (9-20) mg/dL Creatinine 0.55 L (0.66-1.25) mg/dL Glucose 274 H (74-99) mg/dL POC Glucose (mg/dL) 294 H (75-99) mg/dL Calcium 8.1 L (8.4-10.2) mg/dL Total Bilirubin 2.0 H (0.2-1.3) mg/dL AST 106 H (17-59) U/L Ammonia (<30) umol/L Lactate Dehydrogenase 1453 H (313-618) U/L Creatine Kinase 335 H (55-170) U/L C-Reactive Protein 62.5 H (<10.0) mg/L Albumin 2.4 L (3.5-5.0) g/dL 08/23/20 08/23/20 Range/Units 04:18 06:45 RBC (4.30-5.90) m/uL Hgb (13.0-17.5) gm/dL Hct (39.0-53.0) % MCV (80.0-100.0) fL MCH (25.0-35.0) pg Lymphocytes # (1.0-4.8) k/uL ABG pO2 77 L (83-108) mmHg Chloride (98-107) mmol/L BUN (9-20) mg/dL Creatinine (0.66-1.25) mg/dL Glucose (74-99) mg/dL POC Glucose (mg/dL) 221 H (75-99) mg/dL Calcium (8.4-10.2) mg/dL Total Bilirubin (0.2-1.3) mg/dL AST (17-59) U/L Ammonia (<30) umol/L Lactate Dehydrogenase (313-618) U/L Creatine Kinase (55-170) U/L C-Reactive Protein (<10.0) mg/L Albumin (3.5-5.0) g/dL Microbiology - Last 24 Hours (Table) 08/19/20 16:31 Blood Culture - Preliminary Blood No Growth after 72 hours 08/19/20 15:30 Blood Culture - Preliminary Blood No Growth after 72 hours Assessment and Plan Assessment: 1. Acute hypoxic respiratory failure secondary to COVID-19 related pneumonia. Patient requiring mechanical ventilation. Patient was symptomatic for 2 weeks. Currently on IV Decadron chest x-ray stable and showing some improvement. Remains on mechanical ventilation with an FiO2 of 40% 2. Seizure activity likely secondary to hypoglycemia. No previous history of seizure based on history currently on Keppra. Neurology services are following 3. Metabolic encephalopathy. Neurology services are following 4. Diabetes mellitus type 2 with hypoglycemia on admission. Resolved Patient currently on Lantus and sliding scale coverage 5. History of EtOH 6. History of essential hypertension 7. Episode of hypertension maintained on IV fluids required no pressors. Blood pressure has improved 8. Evidence of liver cirrhosis with signs of portal hypertension 9. History of BPH 10. Positive urine drug screen on admission for benzos, opiates and methamphe tamine DVT prophylaxis Lovenox. GI prophylaxis Protonix Critical care and neurology service is following Remains in the intensive care unit on mechanical ventilation and IV sedation Remains on IV Decadron, vitamin C vitamin D and zinc IV Keppra for seizure activity Attempting sedation holiday today 08/22/2020 per critical care Tube feedings for nutritional support
[2020-08-23 17:29] LABS: Glucose,Whole Blood 280 mg/dL (75-99)
[2020-08-23 23:54] LABS: Glucose,Whole Blood 249 mg/dL (75-99)
[2020-08-24] MEDS: INSULIN ASPART (NovoLOG) 100 UNIT/ML VIAL SQ SCH ×5 (00:02→23:50)
[2020-08-24 04:33] LABS: ABG Base Excess -0.6 mmol/L; ABG HCO3 23 mmol/L (21-25); ABG Oxygen Saturation 97.5 % (94-97); ABG PCO2 32 mmHg (35-45); ABG PH 7.47 (7.35-7.45); ABG PO2 85 mmHg (83-108); ABG TCO2 24 mmol/L (19-24); Allen Test Performed? Yes
[2020-08-24 04:57] LABS: Basophils % (A) 0 %; Eosinophils % (A) 0 %; HCT 36.7 % (39.0-53.0); HGB 12.8 gm/dL (13.0-17.5); Lymphocytes # (A) 0.5 k/uL (1.0-4.8); Lymphocytes % (A) 5 %; MCH 36.9 pg (25.0-35.0); MCHC 34.8 g/dL (31.0-37.0); MCV 105.9 fL (80.0-100.0); Macrocytosis Moderate; Mean Platelet Volume 7.5; Monocytes # (A) 0.4 k/uL (0-1.0); Monocytes % (A) 4 %; Neutrophils # (A) 9.8 k/uL (1.3-7.7); Neutrophils % (A) 90 %; Platelet Count 185 k/uL (150-450); RBC 3.46 m/uL (4.30-5.90); RDW 14.1 % (11.5-15.5); WBC 10.8 k/uL (3.8-10.6)
[2020-08-24 05:24] LABS: ALT 54 U/L (4-49); AST 118 U/L (17-59); African American GFR (CKD) >90 (>60 ml/min/1.73 sqM); Albumin 2.6 g/dL (3.5-5.0); Alkaline Phosphatase 97 U/L (38-126); Anion Gap 8 mmol/L; Blood Urea Nitrogen 26 mg/dL (9-20); C Reactive Protein 66.4 mg/L (<10.0); Calcium 8.4 mg/dL (8.4-10.2); Carbon Dioxide 22 mmol/L (22-30); Chloride 115 mmol/L (98-107); Glucose 226 mg/dL (74-99); LDH 1772 U/L (313-618); Non-African American GFR(CKD) >90 (>60 ml/min/1.73 sqM); Potassium 4.3 mmol/L (3.5-5.1); Sodium 145 mmol/L (137-145); Total Bilirubin 3.6 mg/dL (0.2-1.3); Total Protein 6.8 g/dL (6.3-8.2)
[2020-08-24 05:54] LABS: Glucose,Whole Blood 238 mg/dL (75-99)
[2020-08-24] MEDS ORDERED: INSULIN DETEMIR (LEVEMIR) 100 UNIT/ML SYR SQ SCH (07:00)
--- NOTE | 2020-08-24 08:03 | P.PN ---
Subjective Progress Note Date: 08/24/20 65-year-old male patient who presented to the emergency department yesterday because of mental status change and hypoglycemia and the patient was further diagnosed having quit 19 related pneumonia. The patient is diabetic and the patient also has bronchial asthma and hypertension. The patient arrived to the blood sugar of 45. Apparently the patient was sick for around 2 weeks prior to that and the patient was having increased dyspnea on fever and cough and poor appetite. He was taking oral hypoglycemics in the form of Januvia and glipizide on outpatient basis. In the emergency department, the patient was altered, she did obey some commands yet his pulse ox was quite low at 86% on room air oxygen. The patient was placed on 100% nonrebreather facemask. Initially his blood sugar was corrected and the patient was given D50 and following that he was admitted to the medical floor. The patient started having increased shakiness and seizure-like activity and he bit his tongue and he was quite tachypneic. The a team was called. The patient was transferred to the intensive care unit and the patient was intubated for airway protection. At this point in time, the patient is intubated on a mechanical ventilator. Propofol is running at 55 Jhonathan graspi kilogram per minute. The patient is on assist control mode of ventilation with a rate of 20, FiO2 of 60%, PEEP of 5 and tidal volume 450. The patient's blood gases post intubation showed a pH of 7.46 with a pCO2 of 32 and pO2 of 86. The chest x-ray from this morning is showing diffuse bilateral patchy pulmonary infiltrates. ET tube is just above the aortic knob. The patient has a orogastric tube in place. Some mild cardiomegaly is also present. Note that the CT angiogram of the chest that was done yesterday showed some p atchy bibasilar airspace disease or consolidation doubtless infiltrates bilaterally consistent with community related pneumonia. The patient also had another appearance of the liver and evidence of portal hypertension. Mother the patient is a chronic alcohol drinker. The white cell count of 7.6 with a hemoglobin of 11.8. Platelets at 127, his LDH was 1369 and his CRP is at 141, urine drug screen was positive for opiates, amphetamines and benzodiazepines, urinalysis showing +1 protein, normal renal function test, normal electrolytes. This morning the d-dimer is at 5.13, the patient's blood pressure currently is 99/35 and the patient is on D5 normal saline at the rate of 75 mL an hour. The patient was started on Lovenox 40 mg subcu every 12 hours. The patient is on propofol. The patient is on no pressors for now. He is on Decadron 63 g IV every 24 hours. Most recent blood sugar is at 141. On today's evaluation of 08/21/2020, the patient is being seen for a follow-up. The patient was hospitalized for community related pneumonia and the patient is currently intubated on a mechanical ventilator. This morning, the patient is sedation with propofol at 75 mcg/kg per minute and he is quite comfortable. He remains on assist control mode of ventilation with a tidal volume of 450 and FiO2 of 50% with a PEEP of 5 and a rate of 20. His peak airway pressure is 23 anesthetic pressure is 14. The chest x-ray showing diffuse bilateral pulmonary pulses consistent with obesity related pneumonia and ET tube is in a good location. The patient is hemodynamically stable. The patient is on no pressors. No seizure activity has been noted. The patient is receiving tube feeds in the form of Vicodin HB at the rate of 30 mL an hour. No hypoglycemic events overnight. The patient's d-dimer is at 5.66 and the patient's LDH currently is at 1478 with a CRP level of 160. The propofol Level Was 0.31. The Patient Is Currently on Decadron 6 Mg IV Every 24 Hours and He Is Also on Lo venox 40 Mg Subcu Every 12 Hours. His Last D-Dimer Is at 5.56 from Today. No Fever. No Other Significant Issues Overnight. Neurology Consultation Was Also Done. EEG from yesterday showed no evidence of any seizure activity. It wasn't abnormal EEG probably related to drug effect. The patient remains on Keppra 5 mg every 12 hours and no clinical seizure activity has been noted. He is also started on a combination of thiamine and B12. Ammonia level is pending from today. His liver function tests currently are improving and his AST is down to 128 and a LDL 45. His lactic acid is also improving is down to 1.8. On 08/22/2020, the patient remains on propofol at the rate of 50 mcg/kg per minute. Attempts to wean him off the propofol yesterday failed as the patient became quite agitated, tachypneic and tachycardic and his symptoms with the mechanical ventilator. There was no meaningful response neurologically and for that reason the sedation holiday was aborted at the same thing will be done today. The patient is an assist-control with a tidal volume of 450 and FiO2 of 40% with a PEEP of 5 and a rate of 20. The patient had a chest x-ray today that showed patchy bilateral pulmonary infiltrates with a peripheral distribution. ET tube is in a good location. The blood gas from today showing a pH of 7.46 with a pCO2 of 28 and pO2 of 82. Peak airway pressure is 20 and as such the patient is potentially extubated on as long as he demonstrated adequate neurologic recovery. The patient is currently on vital high protein at the rate of 43 mL an hour. Labs were all stable with a white cell count of 6 and a hemoglobin of 12 and the rest of the electrolytes are all within normal limits. His LDH level is 1391 and is lower compared to yesterday with a CRP level of 81. As such, the active problem for now is his underlying neurological functions. We're the process of giving the patient sedation holiday and if needed use Precedex to control his agitation. His pupils are equal and symmetrical in a pinpoint. Her activity has been noted. No further bouts of hypoglycemia. 08/23/2020, he managed to get this patient off the propofol. The active issue is his altered mentation despite being off sedation. The patient would get quite agitated but he is not following any commands or doing any purposeful activity. For that reason, I had to cover him with some Precedex overnight. CAT scan of the brain was also done and showed no acute abnormalities. Note that the patient did not have any further hypoglycemic events. He did have hypoglycemia associated at the time his admission. Meanwhile, he remains on a mechanical ventilator. On today's evaluation is in a tidal volume of 450 with an FiO2 of 40% with a PEEP of 5 and a rate of 20. This is essentially same setting as yesterday. Blood gases showing a pH of 7.40 with a pCO2 of 35 and a pO2 of 77. Chest x-ray findings are essentially stable. ET tube is in a good location. The patient is hemodynamically stable. The patient is on vital high protein at the rate of 56 mL an hour. He is tolerating enteral feeding for nutritional support. Inflammatory markers from today showing an LDH level of 1453 and a CRP level is at 62. The markers are essentially compatible to yesterday. His d-dimer is at 5.56 from 2 days ago. Electrolytes all within normal limits. CBC showing a white cell count of 7.8 with hemoglobin of 12.2. His blood sugar is being monitored in the blood sugar currently is at 221. The fluid balance is currently at -730 mL over the past 24 hours. His IV fluids currently running at 20 mL an hour of normal saline. This morning, I took the patient off the Precedex and we're about to reevaluate his mental status. 08/24/2020, the active issue for now as the patient's unresponsiveness while being off sedation. The patient has not shown any significant neurologic recovery. I took him off the sedation yesterday for several hours and the patient did not follow any commands and he was not responsive. He became progressively more agitated and the patient had to be placed back on sedation. Neurology evaluated the patient and the neuro workup is in progress including a CAT scan of the brain that showed no acute abnormalities and the patient also had an EEG that showed abnormal findings, encephalopathy with diffuse slowing and there was no evidence of any seizure activity. For now, the patient is on propofol running at 40 mcg/kg per minute he was given another sedation holiday this morning and following that, the patient became quite tachypneic and restless. He was not following any commands and he remains neurologically impaired. As such, he was placed back on sedation. The patient has history of alcoholism and signs of liver cirrhosis. We noted that his ammonia level was high and was started him on lactulose regarding the possibility of hepatic encephalopathy. His chest x-ray findings are quite stable. There is significant improvement in the right-sided pulmonary infiltrate with some residual infiltration of the left. He remains on assist control mode of ventilation with a rate of 20, tidal volume of 450, FiO2 of 40% and a PEEP of 5. His chest x-ray is improved. The blood gases showed a pH of 7.47 with a pCO2 of 32 and pO2 of 85. Otherwise, his inflammatory markers in regards to his COVID-19 related pneumonia includes a d-dimer of 13.5 inches slightly higher compared to his baseline LDH level is 1772 and his CRP level is at 66.4 and the levels continued to be elevated. No hypoglycemia. His current blood sugar control is adequate although he is slightly hyperglycemic. Is receiving enteral feeding for nutritional support and is currently on vital high protein at the rate of 36 mild an hour. He remains on Levemir insulin at 20 units a day along with a sliding scale coverage. IV fluids are running in the form of normal saline at the rate of 20 mL an hour. Note that the also start the patient on some lactulose. He is producing adequate amount of stool. His ammonia level is up to 147 from a baseline of 36. Objective - Vital Signs Vital signs: Vital Signs Temp 99 F 08/24/20 04:00 Pulse 114 H 08/24/20 07:00 Resp 28 H 08/24/20 07:00 BP 145/75 08/23/20 11:00 Pulse Ox 94 L 08/24/20 07:00 Intake & Output 08/23/20 08/24/20 08/24/20 18:59 06:59 18:59 Intake Total 1247.6 1228.441 79 Output Total 850 895 30 Balance 397.6 333.441 49 Weight 110 kg Intake: IV 343 276 23 Sodium Chloride 0.9% 1, 210 240 20 000 ml @ 20 mls/hr IV . Q24H FE Rx#:[id number] levETIRAcetam IV 500 mg 100 In Sodium Chloride 0.9% 100 ml @ 400 mls/hr IVPB Q12HR FE Rx#:[id number] pressure bag 33 36 3 Intake, IV Titration 133.6 134.441 Amount Clevidipine Butyrate 25 33.6 mg In Empty Bag 1 bag @ 1 MG/HR 2 mls/hr IV .Q24H FE Rx#:[id number] propofoL 1,000 mg In 100 134.441 Empty Bag 1 bag @ Titrate IV .Q0M FE Rx#: [id number] Tube Feeding 616 728 56 Other 155 90 Output: Urine 850 895 30 Other: Voiding Method Indwelling Catheter Indwelling Catheter # Bowel Movements 1 ABP, PAP, CO, CI - Last Documented Arterial Blood Pressure 175/62 - Exam Currently intubated on a mechanical ventilator. Orogastric and orotracheal tube are both in place. On mechanical ventilator. Head exam was generally normal. There was no scleral icterus or corneal arcus. Mucous membranes were moist. Neck was supple and without jugular venous distension, thyromegaly, or carotid bruits. Carotids were easily palpable bilaterally. There was no adenopathy. Lungs sounds are diminished in the patient's crackles bilaterally in the mid and lower lung lange Cardiac exam revealed the PMI to be normally situated and sized. The rhythm was regular and no extrasystoles were noted during several minutes of auscultation. The first and second heart sounds were normal and physiologic splitting of the second heart sound was noted. There were no murmurs, rubs, clicks, or gallops. Abdominal exam revealed normal bowel sounds. The abdomen was soft, non-tender, and without masses, organomegaly, or appreciable enlargement of the abdominal aorta. Examination of the extremities revealed easily palpable radial, femoral and pedal pulses. There was no cyanosis, clubbing or edema. Examination of the skin revealed no evidence of significant rashes, suspicious appearing nevi or other concerning lesions. Neurologically the patient is currently off sedation. He remains unresponsive. Does not withdraw to painful stimulation. Pupils are equal and reactive. The patient has some downward gaze. No Babinski. No clonus. Symmetrical reflexes in all 4 extremities. No neck stiffness. Positive cough. Positive gag. - Labs CBC & Chem 7: 08/24/20 04:02 08/24/20 04:02 Labs: Abnormal Lab Results - Last 24 Hours (Table) 08/23/20 08/23/20 08/23/20 Range/Units 11:14 17:27 23:52 WBC (3.8-10.6) k/uL RBC (4.30-5.90) m/uL Hgb (13.0-17.5) gm/dL Hct (39.0-53.0) % MCV (80.0-100.0) fL MCH (25.0-35.0) pg Neutrophils # (1.3-7.7) k/uL Lymphocytes # (1.0-4.8) k/uL D-Dimer (<0.60) mg/L FEU ABG pH (7.35-7.45) ABG pCO2 (35-45) mmHg ABG O2 Saturation (94-97) % Chloride (98-107) mmol/L BUN (9-20) mg/dL Creatinine (0.66-1.25) mg/dL Glucose (74-99) mg/dL POC Glucose (mg/dL) 259 H 280 H 249 H (75-99) mg/dL Total Bilirubin (0.2-1.3) mg/dL AST (17-59) U/L ALT (4-49) U/L Ammonia (<30) umol/L Lactate Dehydrogenase (313-618) U/L C-Reactive Protein (<10.0) mg/L Albumin (3.5-5.0) g/dL 08/24/20 08/24/20 08/24/20 Range/Units 04:02 04:02 04:02 WBC 10.8 H (3.8-10.6) k/uL RBC 3.46 L (4.30-5.90) m/uL Hgb 12.8 L (13.0-17.5) gm/dL Hct 36.7 L (39.0-53.0) % MCV 105.9 H (80.0-100.0) fL MCH 36.9 H (25.0-35.0) pg Neutrophils # 9.8 H (1.3-7.7) k/uL Lymphocytes # 0.5 L (1.0-4.8) k/uL D-Dimer 13.56 H (<0.60) mg/L FEU ABG pH (7.35-7.45) ABG pCO2 (35-45) mmHg ABG O2 Saturation (94-97) % Chloride 115 H (98-107) mmol/L BUN 26 H (9-20) mg/dL Creatinine 0.44 L (0.66-1.25) mg/dL Glucose 226 H (74-99) mg/dL POC Glucose (mg/dL) (75-99) mg/dL Total Bilirubin 3.6 H (0.2-1.3) mg/dL AST 118 H (17-59) U/L ALT 54 H (4-49) U/L Ammonia (<30) umol/L Lactate Dehydrogenase 1772 H (313-618) U/L C-Reactive Protein 66.4 H (<10.0) mg/L Albumin 2.6 L (3.5-5.0) g/dL 08/24/20 08/24/20 08/24/20 Range/Units 04:02 04:28 05:53 WBC (3.8-10.6) k/uL RBC (4.30-5.90) m/uL Hgb (13.0-17.5) gm/dL Hct (39.0-53.0) % MCV (80.0-100.0) fL MCH (25.0-35.0) pg Neutrophils # (1.3-7.7) k/uL Lymphocytes # (1.0-4.8) k/uL D-Dimer (<0.60) mg/L FEU ABG pH 7.47 H (7.35-7.45) ABG pCO2 32 L (35-45) mmHg ABG O2 Saturation 97.5 H (94-97) % Chloride (98-107) mmol/L BUN (9-20) mg/dL Creatinine (0.66-1.25) mg/dL Glucose (74-99) mg/dL POC Glucose (mg/dL) 238 H (75-99) mg/dL Total Bilirubin (0.2-1.3) mg/dL AST (17-59) U/L ALT (4-49) U/L Ammonia 147 H (<30) umol/L Lactate Dehydrogenase (313-618) U/L C-Reactive Protein (<10.0) mg/L Albumin (3.5-5.0) g/dL Microbiology - Last 24 Hours (Table) 08/19/20 16:31 Blood Culture - Preliminary Blood No Growth after 96 hours 08/19/20 15:30 Blood Culture - Preliminary Blood No Growth after 96 hours Assessment and Plan Plan: 1 acute COVID 19 related pneumonia with secondary hypoxic respiratory failure. The patient has extensive bilateral pulmonary infiltrates and consolidations. Currently intubated on a mechanical ventilator. The patient is adequately ventilated and oxygenating well for now. Chest is also improving. Inflammatory markers are elevated. Overall pulmonary status is stable and active issue for now remains the patient's altered mentation and his inability to wake up once off sedation. 2 acute hypoxic respiratory failure secondary to above, currently intubated on a mechanical ventilator, to my understanding, the patient was intubated post hypoglycemic seizure for airway protection. The patient is potentially extubatable , yet the active issue remains altered mentation and his un responsiveness and for that reason we have kept intubated for airway protection. 3 diabetes mellitus, currently on Levemir 20 units No hypoglycemic events for now. 4 hypotension currently on IV fluids no pressors. Blood pressure improved. 5 seizure activity, probably related to hypoglycemia. No previous history of seizures based on the history, the patient received loading dose of Keppra 500 mg yesterday. Severe underlying encephalopathy, brain damage related to low blood sugars. Also suspect hypoxic encephalopathy Currently he is unresponsive despite being off sedation. The patient does do some movement spontaneously. This is not burst of movements. Does not withdraw to painful stimulation. Does not follow any commands. No seizure activity has been noted. Logic status remains unchanged. Remote possibility of hypoxic encephalopathy with an elevated ammonia level and the patient is currently on lactulose. 6 evidence of liver cirrhosis and signs of portal hypertension, rule out alcoholic liver's disease, his serum ammonia level is elevated, he is currently on lactulose and ammonia level monitored accordingly levels are elevated for now the patient is currently on lactulose. 7 positive urine drug screen for benzodiazepines and opiates and methamphetamine 8 possible alcoholism 9 BPH 10 hypertension 11 thrombocytopenia, stable Plan Continue vent support Sedation holiday, and assess daily mental status Neurology follow-up Continue lactulose and monitor the ammonia level Monitor blood sugar increase the Levemir dose to 30 units daily Continue Decadron for now 6 mg IV every 24 hours Continue Lovenox 40 mg subcu every 12 hours Monitor inflammatory markers Continue IV fluids and 0.9 nss the rate of 20 mL an hour. Monitor blood sugar and put the patient on a NovoLog size Coverage and Lantus insulin and the dose to be increased to 20 units on a daily basis Continue Keppra 500 mg every 12 hours enteral feeding for nutritional support Repeat a CAT scan of the brain was negative and neuro consult is in order Continue supportive care. We'll continue to follow. We'll continue to follow make further recommendations based on his progress. No weaning and no extubation as long as his mental status remains impaired. Critical care evaluation more than 30 minutes. Time with Patient: Greater than 30
[2020-08-24] MEDS: levETIRAcetam IV 500 MG in SODIUM CHLORIDE 0.9% 100 ML IVPB SCH ×2 (09:00→21:42)
[2020-08-24] MEDS: CHLORHEXIDINE GLUCONATE 15 ML CUP MUCOUS MEM SCH ×2 (09:00→21:42)
[2020-08-24] MEDS: DEXAMETHASONE SOD PHOSPHATE 10 MG/ML 1 ML VIAL IV SCH (09:01)
[2020-08-24] MEDS: FOLIC ACID 1 MG TAB PO SCH (09:01)
[2020-08-24] MEDS: PANTOPRAZOLE 40 MG/10 ML VIAL IVP SCH (09:01)
[2020-08-24] MEDS: CYANOCOBALAMIN 500 MCG TAB PO SCH (09:01)
[2020-08-24] MEDS: ZINC SULFATE 220 MG CAP PO SCH (09:01)
[2020-08-24] MEDS: THIAMINE 100 MG TAB PO SCH ×2 (09:01→17:18)
[2020-08-24] MEDS: ASCORBIC ACID 500 MG TAB PO SCH (09:01)
[2020-08-24] MEDS: CHOLECALCIFEROL 25 MCG (1000 IU) TABLET PO SCH (09:01)
[2020-08-24] MEDS: LACTULOSE 20 GM/30 ML CUP PO SCH ×2 (09:01→21:44)
[2020-08-24] MEDS: ENOXAPARIN 40 MG/0.4 ML SYRINGE SQ SCH ×2 (09:01→21:42)
[2020-08-24] MEDS: CLEVIDIPINE BUTYRATE 25 MG in EMPTY BAG 1 BAG IV SCH ×3 (09:02→21:37)
[2020-08-24 11:37] LABS: Glucose,Whole Blood 241 mg/dL (75-99)
--- NOTE | 2020-08-24 11:38 | XR ---
EXAMINATION TYPE: XR chest 1V portable DATE OF EXAM: 08/24/2020 Comparison: 08/23/2020 Clinical History: 65-year-old male Tube placement Findings: ET tube satisfactory. NG tube courses below the diaphragm. Left CVC tip in the [place]. Heart normal size. Patchy mid and lower lung opacity are improving. Impression: Patchy mid and lower lung opacities are improving.
--- NOTE | 2020-08-24 13:13 | P.PN ---
Subjective Progress Note Date: 08/24/20 I am assuming care of this patient as of 08/22/2020 at 8 AM. I was out of town and Dr. Paulino was covering for me. HMP done by Dr. Blair on 08/19/2020 On 08/19/2020 patient presented to the ER with altered mental status and hypoglycemia. It is reported that patient had been sick for 2 weeks with fever and productive cough. Patient has a past medical history of diabetes mellitus, hypertension, asthma, EtOH diabetes. At that time patient was admitted to floor and upon arrival required a-team with intubation and transfer to ICU due to declining respiratory status. Chest x-ray was completed showing diffuse bilateral patchy pulmonary infiltrates. Patient was positive for COVID-19 On 08/22/2020 patient remains in the intensive care unit on mechanical ventilation. Patient remains on sedation of propofol and Precedex. Per nursing staff attempting sedation holiday to assess neurological status. Neurology services are following. Patient remains on IV Decadron. Currently on mechanical ventilation with an FiO2 of 40%. Hemodynamically stable. PH is 7.46, CO2 20 12/10/1981 and HCO3 20 On 08/23/2020 patient was seen and examined in the ICU he is intubated main tained on mechanical ventilation he was taken off sedation. Patient is maintained on assist control FiO2 40% PEEP of 5 with a rate of 20 blood gases reveals pH of 7.40 pCO2 35 PO2 77 his white blood count is 7.8 hemoglobin 12.2. Patient mental function is not improving off sedation neurology consultation has been requested On 08/24/2020 patient was seen and examined in the ICU he is intubated sedated maintained on mechanical ventilation yesterday sedation was discontinued however patient continued to be an responsive he was seen by neurology and had a computed tomography scan and an EEG he started becoming agitated and he was started on sedation and again. Currently patient is on assist control rate of 20 tidal volume of 450 FiO2 40% and PEEP of 5 his arterial blood gases are showing a pH of 7.47 pCO2 32 and PO2 of 85 CRP is elevated at 66.4 patient has elevated ammonia level and was started on lactulose critical care and neurology are following Objective - Vital Signs Vital signs: Vital Signs Temp 99.1 F 08/24/20 12:00 Pulse 107 H 08/24/20 12:00 Resp 28 H 08/24/20 12:00 BP 145/75 04/15/21 11:00 Pulse Ox 95 08/24/20 12:00 Intake & Output 08/23/20 08/24/20 08/24/20 18:59 06:59 18:59 Intake Total 1247.6 1328.441 594 Output Total 850 895 355 Balance 397.6 433.441 239 Weight 110 kg 110 kg Intake: IV 343 276 138 Sodium Chloride 0.9% 1, 210 240 120 000 ml @ 20 mls/hr IV . Q24H FE Rx#:[id number] levETIRAcetam IV 500 mg 100 In Sodium Chloride 0.9% 100 ml @ 400 mls/hr IVPB Q12HR FE Rx#:[id number] pressure bag 33 36 18 Intake, IV Titration 133.6 234.441 Amount Clevidipine Butyrate 25 33.6 mg In Empty Bag 1 bag @ 1 MG/HR 2 mls/hr IV .Q24H FE Rx#:[id number] propofoL 1,000 mg In 100 234.441 Empty Bag 1 bag @ Titrate IV .Q0M FE Rx#: [id number] Tube Feeding 616 728 336 Other 155 90 120 Output: Urine 850 895 355 Other: Voiding Method Indwelling Catheter Indwelling Catheter Indwelling Catheter # Bowel Movements 1 ABP, PAP, CO, CI - Last Documented Arterial Blood Pressure 168/65 - Exam In general patient is intubated maintained on mechanical ventilation Head normocephalic and atraumatic Neck supple no JVD no goiter Lungs diminished bilaterally Heart regular rate and rhythm S1-S2, no rub or gallop Abdomen is soft nontender nondistended positive bowel sounds no hepatosplenome aydin Extremities no edema no cyanosis or clubbing Neurological examination patient is moving all 4 extremities spontaneously, however he is not awakening despite stopping sedation. - Labs CBC & Chem 7: 08/24/20 04:02 08/24/20 04:02 Labs: Abnormal Lab Results - Last 24 Hours (Table) 08/23/20 08/23/20 08/24/20 Range/Units 17:27 23:52 04:02 WBC 10.8 H (3.8-10.6) k/uL RBC 3.46 L (4.30-5.90) m/uL Hgb 12.8 L (13.0-17.5) gm/dL Hct 36.7 L (39.0-53.0) % MCV 105.9 H (80.0-100.0) fL MCH 36.9 H (25.0-35.0) pg Neutrophils # 9.8 H (1.3-7.7) k/uL Lymphocytes # 0.5 L (1.0-4.8) k/uL D-Dimer (<0.60) mg/L FEU ABG pH (7.35-7.45) ABG pCO2 (35-45) mmHg ABG O2 Saturation (94-97) % Chloride (98-107) mmol/L BUN (9-20) mg/dL Creatinine (0.66-1.25) mg/dL Glucose (74-99) mg/dL POC Glucose (mg/dL) 280 H 249 H (75-99) mg/dL Total Bilirubin (0.2-1.3) mg/dL AST (17-59) U/L ALT (4-49) U/L Ammonia (<30) umol/L Lactate Dehydrogenase (313-618) U/L C-Reactive Protein (<10.0) mg/L Albumin (3.5-5.0) g/dL 08/24/20 08/24/20 08/24/20 Range/Units 04:02 04:02 04:02 WBC (3.8-10.6) k/uL RBC (4.30-5.90) m/uL Hgb (13.0-17.5) gm/dL Hct (39.0-53.0) % MCV (80.0-100.0) fL MCH (25.0-35.0) pg Neutrophils # (1.3-7.7) k/uL Lymphocytes # (1.0-4.8) k/uL D-Dimer 13.56 H (<0.60) mg/L FEU ABG pH (7.35-7.45) ABG pCO2 (35-45) mmHg ABG O2 Saturation (94-97) % Chloride 115 H (98-107) mmol/L BUN 26 H (9-20) mg/dL Creatinine 0.44 L (0.66-1.25) mg/dL Glucose 226 H (74-99) mg/dL POC Glucose (mg/dL) (75-99) mg/dL Total Bilirubin 3.6 H (0.2-1.3) mg/dL AST 118 H (17-59) U/L ALT 54 H (4-49) U/L Ammonia 147 H (<30) umol/L Lactate Dehydrogenase 1772 H (313-618) U/L C-Reactive Protein 66.4 H (<10.0) mg/L Albumin 2.6 L (3.5-5.0) g/dL 08/24/20 08/24/20 08/24/20 Range/Units 04:28 05:53 11:36 WBC (3.8-10.6) k/uL RBC (4.30-5.90) m/uL Hgb (13.0-17.5) gm/dL Hct (39.0-53.0) % MCV (80.0-100.0) fL MCH (25.0-35.0) pg Neutrophils # (1.3-7.7) k/uL Lymphocytes # (1.0-4.8) k/uL D-Dimer (<0.60) mg/L FEU ABG pH 7.47 H (7.35-7.45) ABG pCO2 32 L (35-45) mmHg ABG O2 Saturation 97.5 H (94-97) % Chloride (98-107) mmol/L BUN (9-20) mg/dL Creatinine (0.66-1.25) mg/dL Glucose (74-99) mg/dL POC Glucose (mg/dL) 238 H 241 H (75-99) mg/dL Total Bilirubin (0.2-1.3) mg/dL AST (17-59) U/L ALT (4-49) U/L Ammonia (<30) umol/L Lactate Dehydrogenase (313-618) U/L C-Reactive Protein (<10.0) mg/L Albumin (3.5-5.0) g/dL Microbiology - Last 24 Hours (Table) 08/19/20 16:31 Blood Culture - Preliminary Blood No Growth after 96 hours 08/19/20 15:30 Blood Culture - Preliminary Blood No Growth after 96 hours Assessment and Plan Assessment: 1. Acute hypoxic respiratory failure secondary to COVID-19 related pneumonia. Patient requiring mechanical ventilation. Patient was symptomatic for 2 weeks. Currently on IV Decadron chest x-ray stable and showing some improvement. Re jorge on mechanical ventilation with an FiO2 of 40% 2. Seizure activity likely secondary to hypoglycemia. No previous history of seizure based on history currently on Keppra. Neurology services are following 3. Metabolic encephalopathy. Neurology services are following 4. Diabetes mellitus type 2 with hypoglycemia on admission. Resolved Patient currently on Lantus and sliding scale coverage 5. History of EtOH 6. History of essential hypertension 7. Episode of hypertension maintained on IV fluids required no pressors. Blood pressure has improved 8. Evidence of liver cirrhosis with signs of portal hypertension 9. History of BPH 10. Positive urine drug screen on admission for benzos, opiates and methamphetamine 11. Encephalopathy with and responsiveness off sedation neurology is following EEG and computed tomography scan of the brain were done DVT prophylaxis Lovenox. GI prophylaxis Protonix Critical care and neurology service is following Remains in the intensive care unit on mechanical ventilation and IV sedation Remains on IV Decadron, vitamin C vitamin D and zinc IV Keppra for seizure activity Attempting sedation holiday today 08/22/2020 per critical care Tube feedings for nutritional support
[2020-08-24] MEDS ORDERED: MORPHINE SULFATE 2 MG/ML SYRINGE IVP PRN (14:57)
[2020-08-24] MEDS: MORPHINE SULFATE 4 MG/ML SYRINGE IVP PRN ×2 (15:05→17:18)
[2020-08-24 17:21] LABS: Glucose,Whole Blood 250 mg/dL (75-99)
[2020-08-24] MEDS ORDERED: DEXTROSE 5% IN WATER 100 ML with AMIODARONE 150 MG IV ONE (17:30)
[2020-08-24] MEDS ORDERED: AMIODARONE 360 MG in DEXTROSE 5% IN WATER 200 ML IV ONE ×2 (17:40)
[2020-08-24] MEDS: SODIUM CHLORIDE 0.9% 1,000 ML IV SCH (21:42)
[2020-08-24] MEDS: AMIODARONE 450 MG in DEXTROSE 5% IN WATER 250 ML IV SCH ×2 (23:33)
[2020-08-24 23:41] LABS: Glucose,Whole Blood 283 mg/dL (75-99)
[2020-08-25] MEDS: MORPHINE SULFATE 4 MG/ML SYRINGE IVP PRN (01:04)
[2020-08-25] MEDS: CLEVIDIPINE BUTYRATE 25 MG in EMPTY BAG 1 BAG IV SCH ×5 (01:47→15:36)
[2020-08-25 04:19] LABS: Basophils % (A) 0 %; Eosinophils % (A) 0 %; HCT 35.3 % (39.0-53.0); HGB 12.3 gm/dL (13.0-17.5); Lymphocytes # (A) 0.7 k/uL (1.0-4.8); Lymphocytes % (A) 6 %; MCH 37.3 pg (25.0-35.0); MCHC 34.8 g/dL (31.0-37.0); Macrocytosis Moderate; Mean Platelet Volume 7.3; Monocytes # (A) 0.4 k/uL (0-1.0); Monocytes % (A) 4 %; Neutrophils # (A) 9.5 k/uL (1.3-7.7); Neutrophils % (A) 89 %; Platelet Count 168 k/uL (150-450); RDW 14.6 % (11.5-15.5); WBC 10.6 k/uL (3.8-10.6)
[2020-08-25 04:59] LABS: ALT 58 U/L (4-49); AST 96 U/L (17-59); African American GFR (CKD) >90 (>60 ml/min/1.73 sqM); Albumin 2.3 g/dL (3.5-5.0); Alkaline Phosphatase 87 U/L (38-126); Anion Gap 7 mmol/L; Blood Urea Nitrogen 33 mg/dL (9-20); C Reactive Protein 6.6 mg/dL (<1.0); Calcium 8.1 mg/dL (8.4-10.2); Carbon Dioxide 23 mmol/L (22-30); Chloride 116 mmol/L (98-107); Glucose 289 mg/dL (74-99); LDH 1346 U/L (313-618); Non-African American GFR(CKD) >90 (>60 ml/min/1.73 sqM); Potassium 4.1 mmol/L (3.5-5.1); Sodium 146 mmol/L (137-145); Total Bilirubin 5.2 mg/dL (0.2-1.3); Total Protein 6.1 g/dL (6.3-8.2)
[2020-08-25 05:09] LABS: ABG Base Excess 0.9 mmol/L; ABG HCO3 24 mmol/L (21-25); ABG PCO2 33 mmHg (35-45); ABG PH 7.48 (7.35-7.45); ABG PO2 67 mmHg (83-108); ABG TCO2 25 mmol/L (19-24); Allen Test Performed? Yes
[2020-08-25 05:52] LABS: Glucose,Whole Blood 313 mg/dL (75-99)
[2020-08-25] MEDS: INSULIN ASPART (NovoLOG) 100 UNIT/ML VIAL SQ SCH ×3 (05:53→20:39)
[2020-08-25] MEDS: INSULIN DETEMIR (LEVEMIR) 100 UNIT/ML SYR SQ SCH (06:41)
[2020-08-25] MEDS: THIAMINE 100 MG TAB PO SCH ×2 (06:41→17:47)
--- NOTE | 2020-08-25 07:05 | XR ---
EXAMINATION TYPE: XR chest 1V portable DATE OF EXAM: 08/25/2020 CLINICAL HISTORY: Difficulty breathing progress study. TECHNIQUE: Single AP portable semiupright view of the chest is obtained. COMPARISON: Chest x-ray from one day earlier and older studies FINDINGS: Stable endotracheal and orogastric tubes. Stable left internal jugular central venous [address] ter. Background chronic parenchymal change with bilateral multifocal mid to lower lung opacities. Left bas ilar findings slightly improved from one day earlier. Right basilar findings slightly worsened. Cardi ac silhouette size stable and upper limits of normal. Multilevel spurring in lower thoracic spine red emonstrated. IMPRESSION: Persistent multifocal bilateral mid to lower lung opacities consistent with covid-19 infe ction . Slight worsening right basilar findings but slightly improved left basilar findings noted fro m one day earlier
[2020-08-25] MEDS ORDERED: HEPARIN SODIUM 1,000 UN/ML (10ML VL) IV PRN (07:43)
--- NOTE | 2020-08-25 07:44 | P.PN ---
Subjective Progress Note Date: 08/25/20 65-year-old male patient who presented to the emergency department yesterday because of mental status change and hypoglycemia and the patient was further diagnosed having quit 19 related pneumonia. The patient is diabetic and the patient also has bronchial asthma and hypertension. The patient arrived to the blood sugar of 45. Apparently the patient was sick for around 2 weeks prior to that and the patient was having increased dyspnea on fever and cough and poor appetite. He was taking oral hypoglycemics in the form of Januvia and glipizide on outpatient basis. In the emergency department, the patient was altered, she did obey some commands yet his pulse ox was quite low at 86% on room air oxygen. The patient was placed on 100% nonrebreather facemask. Initially his blood sugar was corrected and the patient was given D50 and following that he was admitted to the medical floor. The patient started having increased shakiness and seizure-like activity and he bit his tongue and he was quite tachypneic. The a team was called. The patient was transferred to the intensive care unit and the patient was intubated for airway protection. At this point in time, the patient is intubated on a mechanical ventilator. Propofol is running at 55 Jhonathan graspi kilogram per minute. The patient is on assist control mode of ventilation with a rate of 20, FiO2 of 60%, PEEP of 5 and tidal volume 450. The patient's blood gases post intubation showed a pH of 7.46 with a pCO2 of 32 and pO2 of 86. The chest x-ray from this morning is showing diffuse bilateral patchy pulmonary infiltrates. ET tube is just above the aortic knob. The patient has a orogastric tube in place. Some mild cardiomegaly is also present. Note that the CT angiogram of the chest that was done yesterday showed some p atchy bibasilar airspace disease or consolidation doubtless infiltrates bilaterally consistent with community related pneumonia. The patient also had another appearance of the liver and evidence of portal hypertension. Mother the patient is a chronic alcohol drinker. The white cell count of 7.6 with a hemoglobin of 11.8. Platelets at 127, his LDH was 1369 and his CRP is at 141, urine drug screen was positive for opiates, amphetamines and benzodiazepines, urinalysis showing +1 protein, normal renal function test, normal electrolytes. This morning the d-dimer is at 5.13, the patient's blood pressure currently is 99/35 and the patient is on D5 normal saline at the rate of 75 mL an hour. The patient was started on Lovenox 40 mg subcu every 12 hours. The patient is on propofol. The patient is on no pressors for now. He is on Decadron 63 g IV every 24 hours. Most recent blood sugar is at 141. On today's evaluation of 08/21/2020, the patient is being seen for a follow-up. The patient was hospitalized for community related pneumonia and the patient is currently intubated on a mechanical ventilator. This morning, the patient is sedation with propofol at 75 mcg/kg per minute and he is quite comfortable. He remains on assist control mode of ventilation with a tidal volume of 450 and FiO2 of 50% with a PEEP of 5 and a rate of 20. His peak airway pressure is 23 anesthetic pressure is 14. The chest x-ray showing diffuse bilateral pulmonary pulses consistent with obesity related pneumonia and ET tube is in a good location. The patient is hemodynamically stable. The patient is on no pressors. No seizure activity has been noted. The patient is receiving tube feeds in the form of Vicodin HB at the rate of 30 mL an hour. No hypoglycemic events overnight. The patient's d-dimer is at 5.66 and the patient's LDH currently is at 1478 with a CRP level of 160. The propofol Level Was 0.31. The Patient Is Currently on Decadron 6 Mg IV Every 24 Hours and He Is Also on Lo venox 40 Mg Subcu Every 12 Hours. His Last D-Dimer Is at 5.56 from Today. No Fever. No Other Significant Issues Overnight. Neurology Consultation Was Also Done. EEG from yesterday showed no evidence of any seizure activity. It wasn't abnormal EEG probably related to drug effect. The patient remains on Keppra 5 mg every 12 hours and no clinical seizure activity has been noted. He is also started on a combination of thiamine and B12. Ammonia level is pending from today. His liver function tests currently are improving and his AST is down to 128 and a LDL 45. His lactic acid is also improving is down to 1.8. On 08/22/2020, the patient remains on propofol at the rate of 50 mcg/kg per minute. Attempts to wean him off the propofol yesterday failed as the patient became quite agitated, tachypneic and tachycardic and his symptoms with the mechanical ventilator. There was no meaningful response neurologically and for that reason the sedation holiday was aborted at the same thing will be done today. The patient is an assist-control with a tidal volume of 450 and FiO2 of 40% with a PEEP of 5 and a rate of 20. The patient had a chest x-ray today that showed patchy bilateral pulmonary infiltrates with a peripheral distribution. ET tube is in a good location. The blood gas from today showing a pH of 7.46 with a pCO2 of 28 and pO2 of 82. Peak airway pressure is 20 and as such the patient is potentially extubated on as long as he demonstrated adequate neurologic recovery. The patient is currently on vital high protein at the rate of 43 mL an hour. Labs were all stable with a white cell count of 6 and a hemoglobin of 12 and the rest of the electrolytes are all within normal limits. His LDH level is 1391 and is lower compared to yesterday with a CRP level of 81. As such, the active problem for now is his underlying neurological functions. We're the process of giving the patient sedation holiday and if needed use Precedex to control his agitation. His pupils are equal and symmetrical in a pinpoint. Her activity has been noted. No further bouts of hypoglycemia. 08/23/2020, he managed to get this patient off the propofol. The active issue is his altered mentation despite being off sedation. The patient would get quite agitated but he is not following any commands or doing any purposeful activity. For that reason, I had to cover him with some Precedex overnight. CAT scan of the brain was also done and showed no acute abnormalities. Note that the patient did not have any further hypoglycemic events. He did have hypoglycemia associated at the time his admission. Meanwhile, he remains on a mechanical ventilator. On today's evaluation is in a tidal volume of 450 with an FiO2 of 40% with a PEEP of 5 and a rate of 20. This is essentially same setting as yesterday. Blood gases showing a pH of 7.40 with a pCO2 of 35 and a pO2 of 77. Chest x-ray findings are essentially stable. ET tube is in a good location. The patient is hemodynamically stable. The patient is on vital high protein at the rate of 56 mL an hour. He is tolerating enteral feeding for nutritional support. Inflammatory markers from today showing an LDH level of 1453 and a CRP level is at 62. The markers are essentially compatible to yesterday. His d-dimer is at 5.56 from 2 days ago. Electrolytes all within normal limits. CBC showing a white cell count of 7.8 with hemoglobin of 12.2. His blood sugar is being monitored in the blood sugar currently is at 221. The fluid balance is currently at -730 mL over the past 24 hours. His IV fluids currently running at 20 mL an hour of normal saline. This morning, I took the patient off the Precedex and we're about to reevaluate his mental status. 08/24/2020, the active issue for now as the patient's unresponsiveness while being off sedation. The patient has not shown any significant neurologic recovery. I took him off the sedation yesterday for several hours and the patient did not follow any commands and he was not responsive. He became progressively more agitated and the patient had to be placed back on sedation. Neurology evaluated the patient and the neuro workup is in progress including a CAT scan of the brain that showed no acute abnormalities and the patient also had an EEG that showed abnormal findings, encephalopathy with diffuse slowing and there was no evidence of any seizure activity. For now, the patient is on propofol running at 40 mcg/kg per minute he was given another sedation holiday this morning and following that, the patient became quite tachypneic and restless. He was not following any commands and he remains neurologically impaired. As such, he was placed back on sedation. The patient has history of alcoholism and signs of liver cirrhosis. We noted that his ammonia level was high and was started him on lactulose regarding the possibility of hepatic encephalopathy. His chest x-ray findings are quite stable. There is significant improvement in the right-sided pulmonary infiltrate with some residual infiltration of the left. He remains on assist control mode of ventilation with a rate of 20, tidal volume of 450, FiO2 of 40% and a PEEP of 5. His chest x-ray is improved. The blood gases showed a pH of 7.47 with a pCO2 of 32 and pO2 of 85. Otherwise, his inflammatory markers in regards to his COVID-19 related pneumonia includes a d-dimer of 13.5 inches slightly higher compared to his baseline LDH level is 1772 and his CRP level is at 66.4 and the levels continued to be elevated. No hypoglycemia. His current blood sugar control is adequate although he is slightly hyperglycemic. Is receiving enteral feeding for nutritional support and is currently on vital high protein at the rate of 36 mild an hour. He remains on Levemir insulin at 20 units a day along with a sliding scale coverage. IV fluids are running in the form of normal saline at the rate of 20 mL an hour. Note that the also start the patient on some lactulose. He is producing adequate amount of stool. His ammonia level is up to 147 from a baseline of 36. 08/25/2020, several active issues on this patient including unresponsiveness, respiratory failure and new onset atrial fibrillation. Note that this patient came to us initially with hypoglycemia and seizures. He was found to be COVID- 19 positive. He was intubated and placed on a mechanical ventilator immuni zation intubation was mainly to protect his airways. Subsequently, as the patient's blood sugar was regulated, the patient did not show any reasonable neurologic recovery. EEG was abnormal and. Still encephalopathy and diffuse slowing. CAT scan of the brain was negative. He was taken off sedation, the patient would get agitated and his heart rate and blood pressure will go up, would not follow any commands. As such, he was placed on Precedex and while on Precedex he went into atrial fibrillation and rapid ventricular response. The patient was also suspected to have a component of hepatic encephalopathy. His alcoholic he does have signs of liver cirrhosis. He was started on lactulose and ammonia level is being monitored. He is having soft bowel movements for now. Follow-up ammonia level will be ordered today. To control his sedation more effectively, he was switched back to propofol was is currently running at 50 mcg/kg per minute. Meanwhile, he remains nature fibrillation. His current heart rate is 140 and the patient is on amiodarone drip at 0.5 mg per minute. Amiodarone was started yesterday at around 5 PM. His blood pressure is elevated and the patient is unclear the proximal drip at 6 mg an hour. Not to forget, the patient also has a COVID-19 related pneumonia. The chest x-ray from today showing some improvement in the right lower lobe pulmonary infiltrate. The patient continues to have diffuse bilateral pulmonary infiltration. Nevertheless, his oxygenation has been quite reasonable. He remains assist- control at the rate of any with a tidal volume of 500 and FiO2 of 40% with a PEEP of 5. Blood gas shows a pH of 7.48 with a pCO2 of 33 and pO2 of 67. His inflammatory markers today showed an LDH level of 1346 and a CRP of 6.6. His d- dimer is at 9.6. He remains on treatment with Decadron 6 mg IV every 24 hours. He remains on Lovenox 40 mg subcu every 12 hours. He is also on Levemir insulin 30 units daily along with NovoLog sliding scale coverage. Neurology opted to keep the Keppra for now. He is receiving enteral feeding for nutritional support and the patient is currently on vital HP at 52 mL. He has developed some mild hypernatremia in the sodium level is at 146. Objective - Vital Signs Vital signs: Vital Signs Temp 99.8 F H 08/25/20 04:00 Pulse 146 H 08/25/20 07:00 Resp 23 08/25/20 07:00 BP 145/75 08/24/20 18:00 Pulse Ox 91 L 08/25/20 07:00 Intake & Output 08/24/20 08/25/20 08/25/20 18:59 06:59 18:59 Intake Total 3946.641 9775.767 75 Output Total 710 685 60 Balance 671.000 666.767 15 Weight 110 kg 108.6 kg Intake: IV 299 353 23 Sodium Chloride 0.9% 1, 260 220 20 000 ml @ 20 mls/hr IV . Q24H FE Rx#:[id number] levETIRAcetam IV 500 mg 100 In Sodium Chloride 0.9% 100 ml @ 400 mls/hr IVPB Q12HR FE Rx#:[id number] pressure bag 39 33 3 Intake, IV Titration 250.000 336.767 Amount Clevidipine Butyrate 25 50.000 72.867 mg In Empty Bag 1 bag @ 1 MG/HR 2 mls/hr IV .Q24H FE Rx#:[id number] propofoL 1,000 mg In 200 263.90 Empty Bag 1 bag @ Titrate IV .Q0M FE Rx#: [id number] Tube Feeding 712 572 52 Other 120 90 Output: Urine 710 685 60 Other: Voiding Method Indwelling Catheter Indwelling Catheter ABP, PAP, CO, CI - Last Documented Arterial Blood Pressure 151/56 - Exam Currently intubated on a mechanical ventilator. Orogastric and orotracheal tube are both in place. On mechanical ventilator. Head exam was generally normal. There was no scleral icterus or corneal arcus. Mucous membranes were moist. Neck was supple and without jugular venous distension, thyromegaly, or carotid bruits. Carotids were easily palpable bilaterally. There was no adenopathy. Lungs sounds are diminished in the patient's crackles bilaterally in the mid and lower lung lange Cardiac exam revealed the PMI to be normally situated and sized. The rhythm is irregular system with atrial fibrillation with rapid ventricular response. The patient has no extrasystoles were noted during several minutes of auscultation. The first and second heart sounds were normal and physiologic splitting of the second heart sound was noted. There were no murmurs, rubs, clicks, or gallops. Abdominal exam revealed normal bowel sounds. The abdomen was soft, non-tender, and without masses, organomegaly, or appreciable enlargement of the abdominal aorta. Examination of the extremities revealed easily palpable radial, femoral and pedal pulses. There was no cyanosis, clubbing or edema. Examination of the skin revealed no evidence of significant rashes, suspicious appearing nevi or other concerning lesions. Neurologically the patient is currently off sedation. He remains unresponsive. Does not withdraw to painful stimulation. Pupils are equal and reactive. The patient has some downward gaze. No Babinski. No clonus. Symmetrical reflexes in all 4 extremities. No neck stiffness. Positive cough. Positive gag. - Labs CBC & Chem 7: 08/25/20 03:45 08/25/20 03:45 Labs: Abnormal Lab Results - Last 24 Hours (Table) 08/24/20 08/24/20 08/24/20 Range/Units 11:36 17:19 23:39 RBC (4.30-5.90) m/uL Hgb (13.0-17.5) gm/dL Hct (39.0-53.0) % MCV (80.0-100.0) fL MCH (25.0-35.0) pg Neutrophils # (1.3-7.7) k/uL Lymphocytes # (1.0-4.8) k/uL D-Dimer (<0.60) mg/L FEU ABG pH (7.35-7.45) ABG pCO2 (35-45) mmHg ABG pO2 (83-108) mmHg ABG Total CO2 (19-24) mmol/L Sodium (137-145) mmol/L Chloride (98-107) mmol/L BUN (9-20) mg/dL Creatinine (0.66-1.25) mg/dL Glucose (74-99) mg/dL POC Glucose (mg/dL) 241 H 250 H 283 H (75-99) mg/dL Calcium (8.4-10.2) mg/dL Total Bilirubin (0.2-1.3) mg/dL AST (17-59) U/L ALT (4-49) U/L Lactate Dehydrogenase (313-618) U/L C-Reactive Protein (<1.0) mg/dL Total Protein (6.3-8.2) g/dL Albumin (3.5-5.0) g/dL 08/25/20 08/25/20 08/25/20 Range/Units 03:45 03:45 03:45 RBC 3.30 L (4.30-5.90) m/uL Hgb 12.3 L (13.0-17.5) gm/dL Hct 35.3 L (39.0-53.0) % MCV 107.0 H (80.0-100.0) fL MCH 37.3 H (25.0-35.0) pg Neutrophils # 9.5 H (1.3-7.7) k/uL Lymphocytes # 0.7 L (1.0-4.8) k/uL D-Dimer 9.61 H (<0.60) mg/L FEU ABG pH (7.35-7.45) ABG pCO2 (35-45) mmHg ABG pO2 (83-108) mmHg ABG Total CO2 (19-24) mmol/L Sodium 146 H (137-145) mmol/L Chloride 116 H (98-107) mmol/L BUN 33 H (9-20) mg/dL Creatinine 0.56 L (0.66-1.25) mg/dL Glucose 289 H (74-99) mg/dL POC Glucose (mg/dL) (75-99) mg/dL Calcium 8.1 L (8.4-10.2) mg/dL Total Bilirubin 5.2 H (0.2-1.3) mg/dL AST 96 H (17-59) U/L ALT 58 H (4-49) U/L Lactate Dehydrogenase 1346 H (313-618) U/L C-Reactive Protein 6.6 H (<1.0) mg/dL Total Protein 6.1 L (6.3-8.2) g/dL Albumin 2.3 L (3.5-5.0) g/dL 08/25/20 08/25/20 Range/Units 04:20 05:50 RBC (4.30-5.90) m/uL Hgb (13.0-17.5) gm/dL Hct (39.0-53.0) % MCV (80.0-100.0) fL MCH (25.0-35.0) pg Neutrophils # (1.3-7.7) k/uL Lymphocytes # (1.0-4.8) k/uL D-Dimer (<0.60) mg/L FEU ABG pH 7.48 H (7.35-7.45) ABG pCO2 33 L (35-45) mmHg ABG pO2 67 L (83-108) mmHg ABG Total CO2 25 H (19-24) mmol/L Sodium (137-145) mmol/L Chloride (98-107) mmol/L BUN (9-20) mg/dL Creatinine (0.66-1.25) mg/dL Glucose (74-99) mg/dL POC Glucose (mg/dL) 313 H (75-99) mg/dL Calcium (8.4-10.2) mg/dL Total Bilirubin (0.2-1.3) mg/dL AST (17-59) U/L ALT (4-49) U/L Lactate Dehydrogenase (313-618) U/L C-Reactive Protein (<1.0) mg/dL Total Protein (6.3-8.2) g/dL Albumin (3.5-5.0) g/dL Microbiology - Last 24 Hours (Table) 08/19/20 16:31 Blood Culture - Preliminary Blood No Growth after 120 hours 08/19/20 15:30 Blood Culture - Preliminary Blood No Growth after 120 hours Assessment and Plan Plan: 1 acute COVID 19 related pneumonia with secondary hypoxic respiratory failure. The patient has extensive bilateral pulmonary infiltrates and consolidations. Currently intubated on a mechanical ventilator. The patient is adequately ventilated and oxygenating well for now. Chest is also improving. Inflammatory markers are elevated. The patient will be kept on Decadron on Lovenox and then. inflammatory markers are being monitored. Chest x-ray from today was reviewed. Blood gases was reviewed. 2 acute hypoxic respiratory failure secondary to above, currently intubated on a mechanical ventilator, to my understanding, the patient was intubated post hypoglycemic seizure for airway protection. The patient is potentially extubatable , yet the active issue remains altered mentation and his unresponsiveness and furthermore he has developed a new onset atrial fib rillation with rapid ventricular response. 3 altered mental status. In fact the patient is unresponsive. Suspect prolonged hypoglycemia causing hypoglycemic encephalopathy/brain damage. Also consider the possibility of prolonged seizures contributing to his unresponsiveness and altered mentation. Doubt hepatitic encephalopathy is any significant lesion that is being treated. 4 A. fib with RVR, new onset, currently on amiodarone 5 seizure activity, probably related to hypoglycemia. No previous history of seizures based on the history, the patient received loading dose of Keppra 500 mg yesterday. Severe underlying encephalopathy, brain damage related to low blood sugars. Also suspect hypoxic encephalopathy Currently he is unresponsive despite being off sedation. The patient does do some movement spontaneously. This is no burst of movements. Does not withdraw to painful stimulation. Does not follow any commands. No seizure activity has been noted. The neurologic status remains unchanged. possibility of hepatic encephalopathy with an elevated ammonia level and the patient is currently on lactulose. We'll ask neurology to evaluate the patient. The patient was given a sedation holiday that was quite prolonged and he did not show any neurologic recovery is sedated .. He had to be sedated and currently is on propofol. 6 evidence of liver cirrhosis and signs of portal hypertension, rule out alcoholic liver's disease, his serum ammonia level is elevated, he is currently on lactulose and ammonia level monitored accordingly levels are elevated for now the patient is currently on lactulose. 7 positive urine drug screen for benzodiazepines and opiates and methamphetamine 8 alcoholism with signs of liver cirrhosis 9 BPH 10 hypertension currently on Cleviprex drip for blood pressure control 11 thrombocytopenia, stable 12 diabetes mellitus, currently on Levemir 20 units No hypoglycemic events for now. Plan Continue vent support Continue amiodarone drip Start the patient Lopressor 50 mg by mouth 3 times a day Wean off Cleviprex drip , currently at 6 mg an hour. Also add Catapres 0.1 mg 3 times a day as the patient is being weaned off the Cleviprex drip. echocardiogram today Stop the Lovenox and put the patient IV heparin nontender the patient is also in atrial fibrillation with rapid ventricular response No Sedation holiday today Neurology follow-up Continue lactulose and monitor the ammonia level Monitor blood sugar increase the Levemir dose to 30 units daily Continue Decadron for now 6 mg IV every 24 hours Monitor inflammatory markers Continue IV fluids and 0.9 nss the rate of 20 mL an hour. Continue Keppra 500 mg every 12 hours enteral feeding for nutritional support Continue supportive care. We'll continue to follow. We'll continue to follow make further recommendations based on his progress. No weaning and no extu bation as long as his mental status remains impaired. Critical care evaluation more than 30 minutes. Time with Patient: Greater than 30
[2020-08-25] MEDS: LACTULOSE 20 GM/30 ML CUP PO SCH ×2 (08:32→21:05)
[2020-08-25] MEDS: CYANOCOBALAMIN 500 MCG TAB PO SCH (08:33)
[2020-08-25] MEDS: ZINC SULFATE 220 MG CAP PO SCH (08:33)
[2020-08-25] MEDS: ASCORBIC ACID 500 MG TAB PO SCH (08:33)
[2020-08-25] MEDS: METOPROLOL TARTRATE 50 MG TAB PO SCH ×2 (08:33→21:05)
[2020-08-25] MEDS: cloNIDine HCL 0.1 MG TAB PO SCH ×3 (08:33→21:06)
[2020-08-25] MEDS: CHOLECALCIFEROL 25 MCG (1000 IU) TABLET PO SCH (08:33)
[2020-08-25] MEDS: PANTOPRAZOLE 40 MG/10 ML VIAL IVP SCH (08:33)
[2020-08-25] MEDS: CHLORHEXIDINE GLUCONATE 15 ML CUP MUCOUS MEM SCH ×2 (08:33→21:05)
[2020-08-25] MEDS: DEXAMETHASONE SOD PHOSPHATE 10 MG/ML 1 ML VIAL IV SCH (08:34)
[2020-08-25] MEDS: FOLIC ACID 1 MG TAB PO SCH (08:39)
[2020-08-25] MEDS: levETIRAcetam IV 500 MG in SODIUM CHLORIDE 0.9% 100 ML IVPB SCH ×2 (08:39→21:06)
[2020-08-25 09:22] LABS: INR 1.3 (<1.2); Prothrombin Time 12.9 sec (9.0-12.0)
[2020-08-25 09:40] LABS: Partial Thromboplastin Time 21.7 sec (22.0-30.0)
--- NOTE | 2020-08-25 09:53 | P.PN ---
Subjective Progress Note Date: 08/25/20 I am assuming care of this patient as of 08/22/2020 at 8 AM. I was out of town and Dr. Paulino was covering for me. HMP done by Dr. Blair on 08/19/2020 On 08/19/2020 patient presented to the ER with altered mental status and hypoglycemia. It is reported that patient had been sick for 2 weeks with fever and productive cough. Patient has a past medical history of diabetes mellitus, hypertension, asthma, EtOH diabetes. At that time patient was admitted to floor and upon arrival required a-team with intubation and transfer to ICU due to declining respiratory status. Chest x-ray was completed showing diffuse bilateral patchy pulmonary infiltrates. Patient was positive for COVID-19 On 08/22/2020 patient remains in the intensive care unit on mechanical ventilation. Patient remains on sedation of propofol and Precedex. Per nursing staff attempting sedation holiday to assess neurological status. Neurology services are following. Patient remains on IV Decadron. Currently on mechanical ventilation with an FiO2 of 40%. Hemodynamically stable. PH is 7.46, CO2 20 12/10/1981 and HCO3 20 On 08/23/2020 patient was seen and examined in the ICU he is intubated main tained on mechanical ventilation he was taken off sedation. Patient is maintained on assist control FiO2 40% PEEP of 5 with a rate of 20 blood gases reveals pH of 7.40 pCO2 35 PO2 77 his white blood count is 7.8 hemoglobin 12.2. Patient mental function is not improving off sedation neurology consultation has been requested On 08/24/2020 patient was seen and examined in the ICU he is intubated sedated maintained on mechanical ventilation yesterday sedation was discontinued however patient continued to be an responsive he was seen by neurology and had a computed tomography scan and an EEG he started becoming agitated and he was started on sedation and again. Currently patient is on assist control rate of 20 tidal volume of 450 FiO2 40% and PEEP of 5 his arterial blood gases are showing a pH of 7.47 pCO2 32 and PO2 of 85 CRP is elevated at 66.4 patient has elevated ammonia level and was started on lactulose critical care and neurology are following. On 08/25/2020 patient was seen and examined in the ICU he is intubated and maintained on mechanical ventilation, his ventilator settings are assist control with tidal volume of 500 FiO2 40% and PEEP of 5 arterial blood gas reveals pH of 7.48 pCO2 33 and PO2 67 LDH is 1346 CRP 6.6 and d-dimer is 9.6 patient maintained on IV Decadron, subcu Lovenox, Levemir 30 units daily, and NovoLog sliding scale patient is also maintained on Keppra per neurology and is maintained on amiodarone drip per cardiology for atrial fibrillation with rapid ventricular response patient hemodynamically is improving however his mental function is not improving patient is not responsive while off sedation. We will continue to follow. Objective - Vital Signs Vital signs: Vital Signs Temp 99.8 F H 08/25/20 04:00 Pulse 146 H 08/25/20 07:00 Resp 23 08/25/20 07:00 BP 145/75 08/24/20 18:00 Pulse Ox 91 L 08/25/20 07:00 Intake & Output 08/24/20 08/25/20 08/25/20 18:59 06:59 18:59 Intake Total 8961.368 3822.767 75 Output Total 710 685 60 Balance 671.000 666.767 15 Weight 110 kg 108.6 kg Intake: IV 299 353 23 Sodium Chloride 0.9% 1, 260 220 20 000 ml @ 20 mls/hr IV . Q24H FE Rx#:[id number] levETIRAcetam IV 500 mg 100 In Sodium Chloride 0.9% 100 ml @ 400 mls/hr IVPB Q12HR FE Rx#:[id number] pressure bag 39 33 3 Intake, IV Titration 250.000 336.767 Amount Clevidipine Butyrate 25 50.000 72.867 mg In Empty Bag 1 bag @ 1 MG/HR 2 mls/hr IV .Q24H FE Rx#:[id number] propofoL 1,000 mg In 200 263.90 Empty Bag 1 bag @ Titrate IV .Q0M FE Rx#: [id number] Tube Feeding 712 572 52 Other 120 90 Output: Urine 710 685 60 Other: Voiding Method Indwelling Catheter Indwelling Catheter ABP, PAP, CO, CI - Last Documented Arterial Blood Pressure 151/56 - Exam In general patient is intubated maintained on mechanical ventilation Head normocephalic and atraumatic Neck supple no JVD no goiter Lungs diminished bilaterally Heart regular rate and rhythm S1-S2, no rub or gallop Abdomen is soft nontender nondistended positive bowel sounds no hepatosplenomegaly Extremities no edema no cyanosis or clubbing Neurological examination patient is moving all 4 extremities spontaneously, however he is not awakening despite stopping sedation. - Labs CBC & Chem 7: 08/25/20 03:45 08/25/20 03:45 Labs: Abnormal Lab Results - Last 24 Hours (Table) 08/24/20 08/24/20 08/24/20 Range/Units 11:36 17:19 23:39 RBC (4.30-5.90) m/uL Hgb (13.0-17.5) gm/dL Hct (39.0-53.0) % MCV (80.0-100.0) fL MCH (25.0-35.0) pg Neutrophils # (1.3-7.7) k/uL Lymphocytes # (1.0-4.8) k/uL D-Dimer (<0.60) mg/L FEU ABG pH (7.35-7.45) ABG pCO2 (35-45) mmHg ABG pO2 (83-108) mmHg ABG Total CO2 (19-24) mmol/L Sodium (137-145) mmol/L Chloride (98-107) mmol/L BUN (9-20) mg/dL Creatinine (0.66-1.25) mg/dL Glucose (74-99) mg/dL POC Glucose (mg/dL) 241 H 250 H 283 H (75-99) mg/dL Calcium (8.4-10.2) mg/dL Total Bilirubin (0.2-1.3) mg/dL AST (17-59) U/L ALT (4-49) U/L Lactate Dehydrogenase (313-618) U/L C-Reactive Protein (<1.0) mg/dL Total Protein (6.3-8.2) g/dL Albumin (3.5-5.0) g/dL 08/25/20 08/25/20 08/25/20 Range/Units 03:45 03:45 03:45 RBC 3.30 L (4.30-5.90) m/uL Hgb 12.3 L (13.0-17.5) gm/dL Hct 35.3 L (39.0-53.0) % MCV 107.0 H (80.0-100.0) fL MCH 37.3 H (25.0-35.0) pg Neutrophils # 9.5 H (1.3-7.7) k/uL Lymphocytes # 0.7 L (1.0-4.8) k/uL D-Dimer 9.61 H (<0.60) mg/L FEU ABG pH (7.35-7.45) ABG pCO2 (35-45) mmHg ABG pO2 (83-108) mmHg ABG Total CO2 (19-24) mmol/L Sodium 146 H (137-145) mmol/L Chloride 116 H (98-107) mmol/L BUN 33 H (9-20) mg/dL Creatinine 0.56 L (0.66-1.25) mg/dL Glucose 289 H (74-99) mg/dL POC Glucose (mg/dL) (75-99) mg/dL Calcium 8.1 L (8.4-10.2) mg/dL Total Bilirubin 5.2 H (0.2-1.3) mg/dL AST 96 H (17-59) U/L ALT 58 H (4-49) U/L Lactate Dehydrogenase 1346 H (313-618) U/L C-Reactive Protein 6.6 H (<1.0) mg/dL Total Protein 6.1 L (6.3-8.2) g/dL Albumin 2.3 L (3.5-5.0) g/dL 08/25/20 08/25/20 Range/Units 04:20 05:50 RBC (4.30-5.90) m/uL Hgb (13.0-17.5) gm/dL Hct (39.0-53.0) % MCV (80.0-100.0) fL MCH (25.0-35.0) pg Neutrophils # (1.3-7.7) k/uL Lymphocytes # (1.0-4.8) k/uL D-Dimer (<0.60) mg/L FEU ABG pH 7.48 H (7.35-7.45) ABG pCO2 33 L (35-45) mmHg ABG pO2 67 L (83-108) mmHg ABG Total CO2 25 H (19-24) mmol/L Sodium (137-145) mmol/L Chloride (98-107) mmol/L BUN (9-20) mg/dL Creatinine (0.66-1.25) mg/dL Glucose (74-99) mg/dL POC Glucose (mg/dL) 313 H (75-99) mg/dL Calcium (8.4-10.2) mg/dL Total Bilirubin (0.2-1.3) mg/dL AST (17-59) U/L ALT (4-49) U/L Lactate Dehydrogenase (313-618) U/L C-Reactive Protein (<1.0) mg/dL Total Protein (6.3-8.2) g/dL Albumin (3.5-5.0) g/dL Microbiology - Last 24 Hours (Table) 08/19/20 16:31 Blood Culture - Preliminary Blood No Growth after 120 hours 08/19/20 15:30 Blood Culture - Preliminary Blood No Growth after 120 hours Assessment and Plan Assessment: 1. Acute hypoxic respiratory failure secondary to COVID-19 related pneumonia. Patient requiring mechanical ventilation. Patient was symptomatic for 2 weeks. Currently on IV Decadron chest x-ray stable and showing some improvement. Remains on mechanical ventilation with an FiO2 of 40% 2. Seizure activity likely secondary to hypoglycemia. No previous history of seizure based on history currently on Keppra. Neurology services are following 3. Metabolic encephalopathy. Neurology services are following 4. Diabetes mellitus type 2 with hypoglycemia on admission. Resolved Patient currently on Lantus and sliding scale coverage 5. History of EtOH 6. History of essential hypertension 7. Episode of hypertension maintained on IV fluids required no pressors. Blood pressure has improved 8. Evidence of liver cirrhosis with signs of portal hypertension 9. History of BPH 10. Positive urine drug screen on admission for benzos, opiates and methamphe tamine 11. Encephalopathy with and responsiveness off sedation neurology is following EEG and computed tomography scan of the brain were done DVT prophylaxis Lovenox. GI prophylaxis Protonix Critical care and neurology service is following Remains in the intensive care unit on mechanical ventilation and IV sedation Remains on IV Decadron, vitamin C vitamin D and zinc IV Keppra for seizure activity Attempting sedation holiday today 08/22/2020 per critical care Tube feedings for nutritional support
[2020-08-25] MEDS: HEPARIN SOD,PORK IN 0.45% NACL 25,000 UNIT in 0.45% NACL 1 250ML.BAG IV SCH (10:03)
[2020-08-25 11:36] LABS: Glucose,Whole Blood 253 mg/dL (75-99)
[2020-08-25] MEDS: AMIODARONE 450 MG in DEXTROSE 5% IN WATER 250 ML IV SCH ×2 (12:21)
--- NOTE | 2020-08-25 14:53 | P.PN ---
Subjective Progress Note Date: 08/25/20 She was seen at bedside and the per the patient nurse yesterday they attempted a holiday sedation and the patient went A. fib with RVR. As a result the patient to be started on IV heparin drip as well as amiodarone. Patient was restarted on on the IV sedation and was requested by seated for no holiday sedation today because of his condition. He is on IV Propofol 50mc/kg/min. Objective - Vital Signs Vital signs: Vital Signs Temp 98.3 F 08/25/20 12:00 Pulse 77 08/25/20 14:00 Resp 22 08/25/20 14:00 BP 145/75 08/24/20 18:00 Pulse Ox 92 L 08/25/20 14:00 Intake & Output 08/24/20 08/25/20 08/25/20 18:59 06:59 18:59 Intake Total 5326.310 1383.767 1501.938 Output Total 710 685 645 Balance 671.000 666.767 856.938 Weight 110 kg 108.6 kg Intake: IV 299 353 284 Sodium Chloride 0.9% 1, 260 220 160 000 ml @ 20 mls/hr IV . Q24H FE Rx#:[id number] levETIRAcetam IV 500 mg 100 100 In Sodium Chloride 0.9% 100 ml @ 400 mls/hr IVPB Q12HR FE Rx#:[id number] pressure bag 39 33 24 Intake, IV Titration 250.000 336.767 401.938 Amount Amiodarone 450 mg In 213.338 Dextrose 5% in Water 250 ml @ 0.5 MG/MIN 16.667 mls/hr IV .Q15H FE Rx#: [id number] Clevidipine Butyrate 25 50.000 72.867 88.6 mg In Empty Bag 1 bag @ 1 MG/HR 2 mls/hr IV .Q24H FE Rx#:[id number] propofoL 1,000 mg In 200 263.90 100 Empty Bag 1 bag @ Titrate IV .Q0M FE Rx#: [id number] Tube Feeding 712 572 416 Other 120 90 400 Output: Urine 710 685 645 Other: Voiding Method Indwelling Catheter Indwelling Catheter Indwelling Catheter ABP, PAP, CO, CI - Last Documented Arterial Blood Pressure 140/53 - Exam GENERAL: The patient is lying in bed and does not seem in acute distress. HENT: Has scleral icterus bilaterally. LUNG: Intubated on ventilator. Clear to auscultation bilaterally. Not in labored breathing. Breathing over the vent. NEUROLOGICAL: Limited because IV sedation (propofol 50mcg/kg/min). Intubated and ventilator. Higher mental function: GCS 3 (E1,VT1, M1). Patient is comatose and not following commands or verbalizing. Cranial Nerves: Pupils are round, equal (2mm) and slughisly reactive to light bilaterally. Primary gaze is midline. +ve corneal reflex. No facial weakness noted bilaterally. +gag reflex. Otherwise rest of cranial nerves could not be assess because of patient's condition. Motor: The strength is no movement noted throughout. Has no sponatenous movement or posture. Has increase tone in upper and lower extremities. Normal bulk. Cerebellum: Could not assess. Sensation: Could not assess light touch. No withdrawl to any of extremities to painful stimuli. Reflexes (right/left): Biceps 2-3+ bilaterally while patellar 3-4+ (left >right with nonsustained clonus over the left lower extremity). Ankles are 1+ bilaterally. Otherwise 2+ throughout. Plantars are downgoing bilaterally. - Labs CBC & Chem 7: 08/25/20 03:45 08/25/20 03:45 Labs: Abnormal Lab Results - Last 24 Hours (Table) 08/24/20 08/24/20 08/25/20 Range/Units 17:19 23:39 03:45 RBC (4.30-5.90) m/uL Hgb (13.0-17.5) gm/dL Hct (39.0-53.0) % MCV (80.0-100.0) fL MCH (25.0-35.0) pg Neutrophils # (1.3-7.7) k/uL Lymphocytes # (1.0-4.8) k/uL PT (9.0-12.0) sec INR (<1.2) APTT (22.0-30.0) sec D-Dimer 9.61 H (<0.60) mg/L FEU ABG pH (7.35-7.45) ABG pCO2 (35-45) mmHg ABG pO2 (83-108) mmHg ABG Total CO2 (19-24) mmol/L Sodium (137-145) mmol/L Chloride (98-107) mmol/L BUN (9-20) mg/dL Creatinine (0.66-1.25) mg/dL Glucose (74-99) mg/dL POC Glucose (mg/dL) 250 H 283 H (75-99) mg/dL Calcium (8.4-10.2) mg/dL Magnesium (1.6-2.3) mg/dL Total Bilirubin (0.2-1.3) mg/dL AST (17-59) U/L ALT (4-49) U/L Ammonia (<30) umol/L Lactate Dehydrogenase (313-618) U/L C-Reactive Protein (<1.0) mg/dL Total Protein (6.3-8.2) g/dL Albumin (3.5-5.0) g/dL 08/25/20 08/25/20 08/25/20 Range/Units 03:45 03:45 03:45 RBC 3.30 L (4.30-5.90) m/uL Hgb 12.3 L (13.0-17.5) gm/dL Hct 35.3 L (39.0-53.0) % MCV 107.0 H (80.0-100.0) fL MCH 37.3 H (25.0-35.0) pg Neutrophils # 9.5 H (1.3-7.7) k/uL Lymphocytes # 0.7 L (1.0-4.8) k/uL PT (9.0-12.0) sec INR (<1.2) APTT (22.0-30.0) sec D-Dimer (<0.60) mg/L FEU ABG pH (7.35-7.45) ABG pCO2 (35-45) mmHg ABG pO2 (83-108) mmHg ABG Total CO2 (19-24) mmol/L Sodium 146 H (137-145) mmol/L Chloride 116 H (98-107) mmol/L BUN 33 H (9-20) mg/dL Creatinine 0.56 L (0.66-1.25) mg/dL Glucose 289 H (74-99) mg/dL POC Glucose (mg/dL) (75-99) mg/dL Calcium 8.1 L (8.4-10.2) mg/dL Magnesium 2.4 H (1.6-2.3) mg/dL Total Bilirubin 5.2 H (0.2-1.3) mg/dL AST 96 H (17-59) U/L ALT 58 H (4-49) U/L Ammonia (<30) umol/L Lactate Dehydrogenase 1346 H (313-618) U/L C-Reactive Protein 6.6 H (<1.0) mg/dL Total Protein 6.1 L (6.3-8.2) g/dL Albumin 2.3 L (3.5-5.0) g/dL 08/25/20 08/25/20 08/25/20 Range/Units 04:20 05:50 08:45 RBC (4.30-5.90) m/uL Hgb (13.0-17.5) gm/dL Hct (39.0-53.0) % MCV (80.0-100.0) fL MCH (25.0-35.0) pg Neutrophils # (1.3-7.7) k/uL Lymphocytes # (1.0-4.8) k/uL PT (9.0-12.0) sec INR (<1.2) APTT (22.0-30.0) sec D-Dimer (<0.60) mg/L FEU ABG pH 7.48 H (7.35-7.45) ABG pCO2 33 L (35-45) mmHg ABG pO2 67 L (83-108) mmHg ABG Total CO2 25 H (19-24) mmol/L Sodium (137-145) mmol/L Chloride (98-107) mmol/L BUN (9-20) mg/dL Creatinine (0.66-1.25) mg/dL Glucose (74-99) mg/dL POC Glucose (mg/dL) 313 H (75-99) mg/dL Calcium (8.4-10.2) mg/dL Magnesium (1.6-2.3) mg/dL Total Bilirubin (0.2-1.3) mg/dL AST (17-59) U/L ALT (4-49) U/L Ammonia 128 H (<30) umol/L Lactate Dehydrogenase (313-618) U/L C-Reactive Protein (<1.0) mg/dL Total Protein (6.3-8.2) g/dL Albumin (3.5-5.0) g/dL 08/25/20 08/25/20 Range/Units 08:45 11:34 RBC (4.30-5.90) m/uL Hgb (13.0-17.5) gm/dL Hct (39.0-53.0) % MCV (80.0-100.0) fL MCH (25.0-35.0) pg Neutrophils # (1.3-7.7) k/uL Lymphocytes # (1.0-4.8) k/uL PT 12.9 H (9.0-12.0) sec INR 1.3 H (<1.2) APTT 21.7 L (22.0-30.0) sec D-Dimer (<0.60) mg/L FEU ABG pH (7.35-7.45) ABG pCO2 (35-45) mmHg ABG pO2 (83-108) mmHg ABG Total CO2 (19-24) mmol/L Sodium (137-145) mmol/L Chloride (98-107) mmol/L BUN (9-20) mg/dL Creatinine (0.66-1.25) mg/dL Glucose (74-99) mg/dL POC Glucose (mg/dL) 253 H (75-99) mg/dL Calcium (8.4-10.2) mg/dL Magnesium (1.6-2.3) mg/dL Total Bilirubin (0.2-1.3) mg/dL AST (17-59) U/L ALT (4-49) U/L Ammonia (<30) umol/L Lactate Dehydrogenase (313-618) U/L C-Reactive Protein (<1.0) mg/dL Total Protein (6.3-8.2) g/dL Albumin (3.5-5.0) g/dL Microbiology - Last 24 Hours (Table) 08/19/20 16:31 Blood Culture - Preliminary Blood No Growth after 120 hours 08/19/20 15:30 Blood Culture - Preliminary Blood No Growth after 120 hours Assessment and Plan Assessment: Altered mental status due to multifactorial: Metabolic encephalopathy due to hypoglycemia, elevated LFT's/cirrhosis---trending down. Also due acute covid 19 related pneumonia and polysubstance use (opiated and methamphetamine) and medication effect (propofol). Acute covid 19 related pneumonia Likely provoked seizure due to hypoglycemia (sugar of 45 per EMS) and hypoxia. Acute hypoxic respiratory failure secondary due to above Afib with RVR on IV heparin drip and amiodarone AST is twice as greater than ALT possibly suggestive of alcohol use---trending down Macrocytosis likely due to alcohol use Diabetes mellitus with episode of hypoglycemia---resolved Evidence of cirrhosis and signs of portal hypertension, rule out alcohol liver disease Hypertension Plan: EEG on 08/20/2020: It is an abnormal routine EEG. The EEG suggestive of comatose state. The burst suppression activity is likely due to medication effect (Propofol). There are no focal slowing, epileptiform discharges or seizure seen during this study. Patient is on Keppra 500 mg every 12 hours that was started by primary team. Down the line if patient has no further episode of seizure-like acitivity will taper it down. Patient last CT of the head on 08/22/2020 is reported as no acute intracranial abnormality. No change Patient is on the thiamine 100 mg 1 tablet twice a day and asked to be continued. Vitamin B12 and it's more than 4000 which is considered normal. RBC folate level: 1460 (considered normal). Prophylactically on vitamin B-12 1000 g daily as well as folic 1 mg daily. Regarding the hyperreflexia of the upper and mostly lower extremity possibly the will consider CT cervical spine as well as lumbar or MRI down the line or p ossibly consider as outpatient. Recommended to avoid any further hypoglycemic events but will defer the management to the medical team as well as ICU team. Will defer the rest of the medical management to the primary as well as ICU team. The patient's prognosis seem highly guarded. Once the patient off sedation will have a better assessment of the patient's brain function and condition. The plan is discussed with the patient's nurse. Will follow-up with patient sporadically. Isaiah Phelan M.D. Neuro-hospitalist Time with Patient: Less than 30
[2020-08-25 17:37] LABS: Glucose,Whole Blood 323 mg/dL (75-99)
[2020-08-25] MEDS ORDERED: INSULIN ASPART (NovoLOG) 100 UNIT/ML VIAL SQ ONE (17:39)
[2020-08-25 20:22] LABS: Glucose,Whole Blood 289 mg/dL (75-99)
[2020-08-25] MEDS: SODIUM CHLORIDE 0.9% 1,000 ML IV SCH (21:21)
[2020-08-26 00:03] LABS: Glucose,Whole Blood 305 mg/dL (75-99)
[2020-08-26] MEDS: INSULIN ASPART (NovoLOG) 100 UNIT/ML VIAL SQ SCH ×6 (00:27→22:04)
[2020-08-26 04:29] LABS: Glucose,Whole Blood 231 mg/dL (75-99)
[2020-08-26 05:15] LABS: Basophils % (A) 0 %; Eosinophils % (A) 0 %; HCT 34.4 % (39.0-53.0); HGB 11.9 gm/dL (13.0-17.5); Lymphocytes # (A) 0.6 k/uL (1.0-4.8); Lymphocytes % (A) 6 %; MCH 37.2 pg (25.0-35.0); MCHC 34.6 g/dL (31.0-37.0); MCV 107.4 fL (80.0-100.0); Macrocytosis Moderate; Mean Platelet Volume 7.4; Monocytes # (A) 0.3 k/uL (0-1.0); Monocytes % (A) 3 %; Neutrophils # (A) 9.3 k/uL (1.3-7.7); Neutrophils % (A) 90 %; Platelet Count 112 k/uL (150-450); RBC 3.21 m/uL (4.30-5.90); RDW 14.4 % (11.5-15.5); WBC 10.3 k/uL (3.8-10.6)
[2020-08-26 05:28] LABS: D-Dimer 7.53 mg/L FEU (<0.60); INR 1.3 (<1.2); Prothrombin Time 13.1 sec (9.0-12.0)
[2020-08-26 05:33] LABS: ALT 68 U/L (4-49); AST 107 U/L (17-59); African American GFR (CKD) >90 (>60 ml/min/1.73 sqM); Albumin 2.1 g/dL (3.5-5.0); Alkaline Phosphatase 86 U/L (38-126); Anion Gap 5 mmol/L; Blood Urea Nitrogen 45 mg/dL (9-20); C Reactive Protein 8.3 mg/dL (<1.0); Carbon Dioxide 23 mmol/L (22-30); Chloride 115 mmol/L (98-107); Glucose 230 mg/dL (74-99); LDH 1303 U/L (313-618); Non-African American GFR(CKD) >90 (>60 ml/min/1.73 sqM); Potassium 4.4 mmol/L (3.5-5.1); Sodium 143 mmol/L (137-145); Total Bilirubin 6.5 mg/dL (0.2-1.3); Total Protein 5.9 g/dL (6.3-8.2)
[2020-08-26 05:45] LABS: ABG Base Excess 0.9 mmol/L; ABG HCO3 24 mmol/L (21-25); ABG Oxygen Saturation 97.7 % (94-97); ABG PCO2 31 mmHg (35-45); ABG PO2 91 mmHg (83-108); ABG TCO2 25 mmol/L (19-24); Allen Test Performed? Yes
--- NOTE | 2020-08-26 06:06 | XR ---
EXAMINATION TYPE: XR chest 1V portable DATE OF EXAM: 08/26/2020 CLINICAL HISTORY: Difficulty breathing progress study. TECHNIQUE: Single AP portable semiupright view of the chest is obtained. COMPARISON: Chest x-ray from one day earlier and older studies. FINDINGS: Stable endotracheal and orogastric tubes. Stable left internal jugular central venous [address] ter. Background chronic parenchymal change with bilateral multifocal mid to lower lung opacities. Cardiac silhouette size stable and upper limits of normal. Osseous structures are intact. IMPRESSION: Persistent multifocal bilateral mid to lower lung opacities consistent with covid-19 infe ction . No significant change from one day earlier
[2020-08-26] MEDS: INSULIN DETEMIR (LEVEMIR) 100 UNIT/ML SYR SQ SCH (07:10)
[2020-08-26] MEDS: THIAMINE 100 MG TAB PO SCH ×2 (07:15→17:18)
--- NOTE | 2020-08-26 08:02 | P.PN ---
Subjective Progress Note Date: 08/26/20 65-year-old male patient who presented to the emergency department yesterday because of mental status change and hypoglycemia and the patient was further diagnosed having quit 19 related pneumonia. The patient is diabetic and the patient also has bronchial asthma and hypertension. The patient arrived to the blood sugar of 45. Apparently the patient was sick for around 2 weeks prior to that and the patient was having increased dyspnea on fever and cough and poor appetite. He was taking oral hypoglycemics in the form of Januvia and glipizide on outpatient basis. In the emergency department, the patient was altered, she did obey some commands yet his pulse ox was quite low at 86% on room air oxygen. The patient was placed on 100% nonrebreather facemask. Initially his blood sugar was corrected and the patient was given D50 and following that he was admitted to the medical floor. The patient started having increased shakiness and seizure-like activity and he bit his tongue and he was quite tachypneic. The a team was called. The patient was transferred to the intensive care unit and the patient was intubated for airway protection. At this point in time, the patient is intubated on a mechanical ventilator. Propofol is running at 55 Jhonathan graspi kilogram per minute. The patient is on assist control mode of ventilation with a rate of 20, FiO2 of 60%, PEEP of 5 and tidal volume 450. The patient's blood gases post intubation showed a pH of 7.46 with a pCO2 of 32 and pO2 of 86. The chest x-ray from this morning is showing diffuse bilateral patchy pulmonary infiltrates. ET tube is just above the aortic knob. The patient has a orogastric tube in place. Some mild cardiomegaly is also present. Note that the CT angiogram of the chest that was done yesterday showed some p atchy bibasilar airspace disease or consolidation doubtless infiltrates bilaterally consistent with community related pneumonia. The patient also had another appearance of the liver and evidence of portal hypertension. Mother the patient is a chronic alcohol drinker. The white cell count of 7.6 with a hemoglobin of 11.8. Platelets at 127, his LDH was 1369 and his CRP is at 141, urine drug screen was positive for opiates, amphetamines and benzodiazepines, urinalysis showing +1 protein, normal renal function test, normal electrolytes. This morning the d-dimer is at 5.13, the patient's blood pressure currently is 99/35 and the patient is on D5 normal saline at the rate of 75 mL an hour. The patient was started on Lovenox 40 mg subcu every 12 hours. The patient is on propofol. The patient is on no pressors for now. He is on Decadron 63 g IV every 24 hours. Most recent blood sugar is at 141. On today's evaluation of 08/21/2020, the patient is being seen for a follow-up. The patient was hospitalized for community related pneumonia and the patient is currently intubated on a mechanical ventilator. This morning, the patient is sedation with propofol at 75 mcg/kg per minute and he is quite comfortable. He remains on assist control mode of ventilation with a tidal volume of 450 and FiO2 of 50% with a PEEP of 5 and a rate of 20. His peak airway pressure is 23 anesthetic pressure is 14. The chest x-ray showing diffuse bilateral pulmonary pulses consistent with obesity related pneumonia and ET tube is in a good location. The patient is hemodynamically stable. The patient is on no pressors. No seizure activity has been noted. The patient is receiving tube feeds in the form of Vicodin HB at the rate of 30 mL an hour. No hypoglycemic events overnight. The patient's d-dimer is at 5.66 and the patient's LDH currently is at 1478 with a CRP level of 160. The propofol Level Was 0.31. The Patient Is Currently on Decadron 6 Mg IV Every 24 Hours and He Is Also on Lo venox 40 Mg Subcu Every 12 Hours. His Last D-Dimer Is at 5.56 from Today. No Fever. No Other Significant Issues Overnight. Neurology Consultation Was Also Done. EEG from yesterday showed no evidence of any seizure activity. It wasn't abnormal EEG probably related to drug effect. The patient remains on Keppra 5 mg every 12 hours and no clinical seizure activity has been noted. He is also started on a combination of thiamine and B12. Ammonia level is pending from today. His liver function tests currently are improving and his AST is down to 128 and a LDL 45. His lactic acid is also improving is down to 1.8. On 08/22/2020, the patient remains on propofol at the rate of 50 mcg/kg per minute. Attempts to wean him off the propofol yesterday failed as the patient became quite agitated, tachypneic and tachycardic and his symptoms with the mechanical ventilator. There was no meaningful response neurologically and for that reason the sedation holiday was aborted at the same thing will be done today. The patient is an assist-control with a tidal volume of 450 and FiO2 of 40% with a PEEP of 5 and a rate of 20. The patient had a chest x-ray today that showed patchy bilateral pulmonary infiltrates with a peripheral distribution. ET tube is in a good location. The blood gas from today showing a pH of 7.46 with a pCO2 of 28 and pO2 of 82. Peak airway pressure is 20 and as such the patient is potentially extubated on as long as he demonstrated adequate neurologic recovery. The patient is currently on vital high protein at the rate of 43 mL an hour. Labs were all stable with a white cell count of 6 and a hemoglobin of 12 and the rest of the electrolytes are all within normal limits. His LDH level is 1391 and is lower compared to yesterday with a CRP level of 81. As such, the active problem for now is his underlying neurological functions. We're the process of giving the patient sedation holiday and if needed use Precedex to control his agitation. His pupils are equal and symmetrical in a pinpoint. Her activity has been noted. No further bouts of hypoglycemia. 08/23/2020, he managed to get this patient off the propofol. The active issue is his altered mentation despite being off sedation. The patient would get quite agitated but he is not following any commands or doing any purposeful activity. For that reason, I had to cover him with some Precedex overnight. CAT scan of the brain was also done and showed no acute abnormalities. Note that the patient did not have any further hypoglycemic events. He did have hypoglycemia associated at the time his admission. Meanwhile, he remains on a mechanical ventilator. On today's evaluation is in a tidal volume of 450 with an FiO2 of 40% with a PEEP of 5 and a rate of 20. This is essentially same setting as yesterday. Blood gases showing a pH of 7.40 with a pCO2 of 35 and a pO2 of 77. Chest x-ray findings are essentially stable. ET tube is in a good location. The patient is hemodynamically stable. The patient is on vital high protein at the rate of 56 mL an hour. He is tolerating enteral feeding for nutritional support. Inflammatory markers from today showing an LDH level of 1453 and a CRP level is at 62. The markers are essentially compatible to yesterday. His d-dimer is at 5.56 from 2 days ago. Electrolytes all within normal limits. CBC showing a white cell count of 7.8 with hemoglobin of 12.2. His blood sugar is being monitored in the blood sugar currently is at 221. The fluid balance is currently at -730 mL over the past 24 hours. His IV fluids currently running at 20 mL an hour of normal saline. This morning, I took the patient off the Precedex and we're about to reevaluate his mental status. 08/24/2020, the active issue for now as the patient's unresponsiveness while being off sedation. The patient has not shown any significant neurologic recovery. I took him off the sedation yesterday for several hours and the patient did not follow any commands and he was not responsive. He became progressively more agitated and the patient had to be placed back on sedation. Neurology evaluated the patient and the neuro workup is in progress including a CAT scan of the brain that showed no acute abnormalities and the patient also had an EEG that showed abnormal findings, encephalopathy with diffuse slowing and there was no evidence of any seizure activity. For now, the patient is on propofol running at 40 mcg/kg per minute he was given another sedation holiday this morning and following that, the patient became quite tachypneic and restless. He was not following any commands and he remains neurologically impaired. As such, he was placed back on sedation. The patient has history of alcoholism and signs of liver cirrhosis. We noted that his ammonia level was high and was started him on lactulose regarding the possibility of hepatic encephalopathy. His chest x-ray findings are quite stable. There is significant improvement in the right-sided pulmonary infiltrate with some residual infiltration of the left. He remains on assist control mode of ventilation with a rate of 20, tidal volume of 450, FiO2 of 40% and a PEEP of 5. His chest x-ray is improved. The blood gases showed a pH of 7.47 with a pCO2 of 32 and pO2 of 85. Otherwise, his inflammatory markers in regards to his COVID-19 related pneumonia includes a d-dimer of 13.5 inches slightly higher compared to his baseline LDH level is 1772 and his CRP level is at 66.4 and the levels continued to be elevated. No hypoglycemia. His current blood sugar control is adequate although he is slightly hyperglycemic. Is receiving enteral feeding for nutritional support and is currently on vital high protein at the rate of 36 mild an hour. He remains on Levemir insulin at 20 units a day along with a sliding scale coverage. IV fluids are running in the form of normal saline at the rate of 20 mL an hour. Note that the also start the patient on some lactulose. He is producing adequate amount of stool. His ammonia level is up to 147 from a baseline of 36. 08/25/2020, several active issues on this patient including unresponsiveness, respiratory failure and new onset atrial fibrillation. Note that this patient came to us initially with hypoglycemia and seizures. He was found to be COVID- 19 positive. He was intubated and placed on a mechanical ventilator immuni zation intubation was mainly to protect his airways. Subsequently, as the patient's blood sugar was regulated, the patient did not show any reasonable neurologic recovery. EEG was abnormal and. Still encephalopathy and diffuse slowing. CAT scan of the brain was negative. He was taken off sedation, the patient would get agitated and his heart rate and blood pressure will go up, would not follow any commands. As such, he was placed on Precedex and while on Precedex he went into atrial fibrillation and rapid ventricular response. The patient was also suspected to have a component of hepatic encephalopathy. His alcoholic he does have signs of liver cirrhosis. He was started on lactulose and ammonia level is being monitored. He is having soft bowel movements for now. Follow-up ammonia level will be ordered today. To control his sedation more effectively, he was switched back to propofol was is currently running at 50 mcg/kg per minute. Meanwhile, he remains nature fibrillation. His current heart rate is 140 and the patient is on amiodarone drip at 0.5 mg per minute. Amiodarone was started yesterday at around 5 PM. His blood pressure is elevated and the patient is unclear the proximal drip at 6 mg an hour. Not to forget, the patient also has a COVID-19 related pneumonia. The chest x-ray from today showing some improvement in the right lower lobe pulmonary infiltrate. The patient continues to have diffuse bilateral pulmonary infiltration. Nevertheless, his oxygenation has been quite reasonable. He remains assist- control at the rate of any with a tidal volume of 500 and FiO2 of 40% with a PEEP of 5. Blood gas shows a pH of 7.48 with a pCO2 of 33 and pO2 of 67. His inflammatory markers today showed an LDH level of 1346 and a CRP of 6.6. His d- dimer is at 9.6. He remains on treatment with Decadron 6 mg IV every 24 hours. He remains on Lovenox 40 mg subcu every 12 hours. He is also on Levemir insulin 30 units daily along with NovoLog sliding scale coverage. Neurology opted to keep the Keppra for now. He is receiving enteral feeding for nutritional support and the patient is currently on vital HP at 52 mL. He has developed some mild hypernatremia in the sodium level is at 146. 08/26/2020, the patient remains intubated on a mechanical ventilator. Active issues for now remains his impaired mentation and level of consciousness. I am considering possibility of prolonged hypoglycemia causing significant amount of brain damage and encephalopathy. In any rate, the patient also had a COVID-19 pneumonia and he is been intubated on a mechanical ventilator. In terms of COVID-19, the patient is doing reasonably well and he remains on a assist- control mode at the rate of 20 with a tidal volume of 500 and FiO2 of 40% with a PEEP of 5. Morning blood gases show a pO2 of 91 and a pCO2 of 31 and a pH of 7.50. His chest x-ray from today showing bilateral pulmonary infiltrates involving the lower lobes and there has been no major interval change. The patient is resting comfortably on a mechanical ventilator and is quite synchronous. No significant orotracheal secretions. The peak and static pressures have been essentially low. Neurologically, the patient has not been able to come off the sedation due to agitation and asynchrony with a mechanical ventilator. As such, he was kept on propofol which is running at 50 mcg/kg per minute. This has controlled his agitation. The patient will be given another sedation holiday today. Note that yesterday, he went into atrial fibrillation with rapid ventricular response. He was given amiodarone bolus and loading and he is back into normal sinus rhythm. At the same time he was placed also on IV heparin. Amiodarone drip was discontinued after the loading dose. His current rhythm is sinus and also hemodynamically stable. Echo of the heart was completed yesterday and there is also still pending. The unofficial report was that the echocardiogram was essentially within normal limits. Meanwhile, in terms of his mentation, we suspected the possibility of hepatic encephalopathy. We are monitoring his ammonia level. Note that the patient is alcoholic and he has signs of chronic liver disease. Most recent ammonia level is at 182. The patient is on lactulose once a day and he is not producing any significant bowel movement. He remains on enteral feeding for nutritional support and is currently receiving vital high protein at the rate of 52 mL an hour. He is on lactulose 30 g twice a day. No abdominal distention. As for the blood pressure, the patient is currently stable and adequate has adequate blood pressure control. Clonidine is running at 0.1 mg 3 times a day and the patient is also on Lopressor 50 mg by mouth twice a day. Blood sugar control is with Le vemir insulin 30 units in addition to a NovoLog signs scale coverage. This is to be further adjusted by that his blood sugars are still running high. No further episodes of hypoglycemia since he arrived to the hospital. No seizure activity noted. No fever. No significant hemodynamic instability. Remains on Decadron 6 mg IV every 24 hours. The most recent LDH level is at 05/13/2002 and the d-dimer is at 7.53. Objective - Vital Signs Vital signs: Vital Signs Temp 98.1 F 08/26/20 04:00 Pulse 68 08/26/20 07:00 Resp 20 08/26/20 07:00 BP 145/75 08/25/20 22:00 Pulse Ox 95 08/26/20 07:00 Intake & Output 08/25/20 08/26/20 08/26/20 18:59 06:59 18:59 Intake Total 2299.739 347 20 Output Total 900 505 60 Balance 1399.739 -158 -40 Weight 113 kg Intake: IV 376 243 20 Sodium Chloride 0.9% 1, 240 240 20 000 ml @ 20 mls/hr IV . Q24H FE Rx#:[id number] levETIRAcetam IV 500 mg 100 In Sodium Chloride 0.9% 100 ml @ 400 mls/hr IVPB Q12HR FE Rx#:[id number] pressure bag 36 3 Intake, IV Titration 699.739 Amount Amiodarone 450 mg In 213.338 Dextrose 5% in Water 250 ml @ 0.5 MG/MIN 16.667 mls/hr IV .Q15H FE Rx#: [id number] Clevidipine Butyrate 25 136.334 mg In Empty Bag 1 bag @ 1 MG/HR 2 mls/hr IV .Q24H FE Rx#:[id number] Heparin Sod,Pork in 0.45% 74.167 NaCl 25,000 unit In 0.45 % NaCl 1 250ml.bag @ 9. 208 UNITS/KG/HR 10 mls/hr IV .Q24H FE Rx#: [id number] propofoL 1,000 mg In 275.9 Empty Bag 1 bag @ Titrate IV .Q0M FE Rx#: [id number] Tube Feeding 624 104 Other 600 Output: Urine 900 505 60 Other: Voiding Method Indwelling Catheter Indwelling Catheter ABP, PAP, CO, CI - Last Documented Arterial Blood Pressure 145/52 - Exam Currently intubated on a mechanical ventilator. Orogastric and orotracheal tube are both in place. On mechanical ventilator. The patient is currently sedated with propofol and his quite sick sinus with a mechanical ventilator. Ventilator settings were all noted. He has an orotracheal tube in place. Head exam was generally normal. There was no scleral icterus or corneal arcus. Mucous membranes were moist. Neck was supple and without jugular venous distension, thyromegaly, or carotid bruits. Carotids were easily palpable bilaterally. There was no adenopathy. Lungs sounds are diminished in the patient's crackles bilaterally in the mid and lower lung lange Cardiac exam revealed the PMI to be normally situated and sized. The rhythm is irregular system with atrial fibrillation with rapid ventricular response. The patient has no extrasystoles were noted during several minutes of auscultation. The first and second heart sounds were normal and physiologic splitting of the second heart sound was noted. There were no murmurs, rubs, clicks, or gallops. Abdominal exam revealed normal bowel sounds. The abdomen was soft, non-tender, and without masses, organomegaly, or appreciable enlargement of the abdominal aorta. Examination of the extremities revealed easily palpable radial, femoral and pedal pulses. There was no cyanosis, clubbing or edema. Examination of the skin revealed no evidence of significant rashes, suspicious appearing nevi or other concerning lesions. Neurologically the patient is currently off sedation. He remains unresponsive. Does not withdraw to painful stimulation. Pupils are equal and reactive. The patient has some downward gaze. No Babinski. No clonus. Symmetrical reflexes in all 4 extremities. No neck stiffness. Positive cough. Positive gag. The patient remains sedated. - Labs CBC & Chem 7: 08/26/20 04:00 08/26/20 04:00 Labs: Abnormal Lab Results - Last 24 Hours (Table) 08/25/20 08/25/20 08/25/20 Range/Units 03:45 08:45 08:45 RBC (4.30-5.90) m/uL Hgb (13.0-17.5) gm/dL Hct (39.0-53.0) % MCV (80.0-100.0) fL MCH (25.0-35.0) pg Plt Count (150-450) k/uL Neutrophils # (1.3-7.7) k/uL Lymphocytes # (1.0-4.8) k/uL PT 12.9 H (9.0-12.0) sec INR 1.3 H (<1.2) APTT 21.7 L (22.0-30.0) sec D-Dimer (<0.60) mg/L FEU ABG pH (7.35-7.45) ABG pCO2 (35-45) mmHg ABG Total CO2 (19-24) mmol/L ABG O2 Saturation (94-97) % Chloride (98-107) mmol/L BUN (9-20) mg/dL Creatinine (0.66-1.25) mg/dL Glucose (74-99) mg/dL POC Glucose (mg/dL) (75-99) mg/dL Calcium (8.4-10.2) mg/dL Magnesium 2.4 H (1.6-2.3) mg/dL Total Bilirubin (0.2-1.3) mg/dL AST (17-59) U/L ALT (4-49) U/L Ammonia 128 H (<30) umol/L Lactate Dehydrogenase (313-618) U/L C-Reactive Protein (<1.0) mg/dL Total Protein (6.3-8.2) g/dL Albumin (3.5-5.0) g/dL 08/25/20 08/25/20 08/25/20 Range/Units 11:34 16:05 17:36 RBC (4.30-5.90) m/uL Hgb (13.0-17.5) gm/dL Hct (39.0-53.0) % MCV (80.0-100.0) fL MCH (25.0-35.0) pg Plt Count (150-450) k/uL Neutrophils # (1.3-7.7) k/uL Lymphocytes # (1.0-4.8) k/uL PT (9.0-12.0) sec INR (<1.2) APTT 32.5 H (22.0-30.0) sec D-Dimer (<0.60) mg/L FEU ABG pH (7.35-7.45) ABG pCO2 (35-45) mmHg ABG Total CO2 (19-24) mmol/L ABG O2 Saturation (94-97) % Chloride (98-107) mmol/L BUN (9-20) mg/dL Creatinine (0.66-1.25) mg/dL Glucose (74-99) mg/dL POC Glucose (mg/dL) 253 H 323 H (75-99) mg/dL Calcium (8.4-10.2) mg/dL Magnesium (1.6-2.3) mg/dL Total Bilirubin (0.2-1.3) mg/dL AST (17-59) U/L ALT (4-49) U/L Ammonia (<30) umol/L Lactate Dehydrogenase (313-618) U/L C-Reactive Protein (<1.0) mg/dL Total Protein (6.3-8.2) g/dL Albumin (3.5-5.0) g/dL 08/25/20 08/25/20 08/26/20 Range/Units 20:20 23:50 00:02 RBC (4.30-5.90) m/uL Hgb (13.0-17.5) gm/dL Hct (39.0-53.0) % MCV (80.0-100.0) fL MCH (25.0-35.0) pg Plt Count (150-450) k/uL Neutrophils # (1.3-7.7) k/uL Lymphocytes # (1.0-4.8) k/uL PT (9.0-12.0) sec INR (<1.2) APTT 63.1 H (22.0-30.0) sec D-Dimer (<0.60) mg/L FEU ABG pH (7.35-7.45) ABG pCO2 (35-45) mmHg ABG Total CO2 (19-24) mmol/L ABG O2 Saturation (94-97) % Chloride (98-107) mmol/L BUN (9-20) mg/dL Creatinine (0.66-1.25) mg/dL Glucose (74-99) mg/dL POC Glucose (mg/dL) 289 H 305 H (75-99) mg/dL Calcium (8.4-10.2) mg/dL Magnesium (1.6-2.3) mg/dL Total Bilirubin (0.2-1.3) mg/dL AST (17-59) U/L ALT (4-49) U/L Ammonia (<30) umol/L Lactate Dehydrogenase (313-618) U/L C-Reactive Protein (<1.0) mg/dL Total Protein (6.3-8.2) g/dL Albumin (3.5-5.0) g/dL 08/26/20 08/26/20 08/26/20 Range/Units 04:00 04:00 04:00 RBC 3.21 L (4.30-5.90) m/uL Hgb 11.9 L (13.0-17.5) gm/dL Hct 34.4 L (39.0-53.0) % MCV 107.4 H (80.0-100.0) fL MCH 37.2 H (25.0-35.0) pg Plt Count 112 L (150-450) k/uL Neutrophils # 9.3 H (1.3-7.7) k/uL Lymphocytes # 0.6 L (1.0-4.8) k/uL PT 13.1 H (9.0-12.0) sec INR 1.3 H (<1.2) APTT (22.0-30.0) sec D-Dimer 7.53 H (<0.60) mg/L FEU ABG pH (7.35-7.45) ABG pCO2 (35-45) mmHg ABG Total CO2 (19-24) mmol/L ABG O2 Saturation (94-97) % Chloride 115 H (98-107) mmol/L BUN 45 H (9-20) mg/dL Creatinine 0.64 L (0.66-1.25) mg/dL Glucose 230 H (74-99) mg/dL POC Glucose (mg/dL) (75-99) mg/dL Calcium 8.0 L (8.4-10.2) mg/dL Magnesium (1.6-2.3) mg/dL Total Bilirubin 6.5 H (0.2-1.3) mg/dL AST 107 H (17-59) U/L ALT 68 H (4-49) U/L Ammonia (<30) umol/L Lactate Dehydrogenase 1303 H (313-618) U/L C-Reactive Protein 8.3 H (<1.0) mg/dL Total Protein 5.9 L (6.3-8.2) g/dL Albumin 2.1 L (3.5-5.0) g/dL 08/26/20 08/26/20 08/26/20 Range/Units 04:00 04:19 05:45 RBC (4.30-5.90) m/uL Hgb (13.0-17.5) gm/dL Hct (39.0-53.0) % MCV (80.0-100.0) fL MCH (25.0-35.0) pg Plt Count (150-450) k/uL Neutrophils # (1.3-7.7) k/uL Lymphocytes # (1.0-4.8) k/uL PT (9.0-12.0) sec INR (<1.2) APTT (22.0-30.0) sec D-Dimer (<0.60) mg/L FEU ABG pH 7.50 H (7.35-7.45) ABG pCO2 31 L (35-45) mmHg ABG Total CO2 25 H (19-24) mmol/L ABG O2 Saturation 97.7 H (94-97) % Chloride (98-107) mmol/L BUN (9-20) mg/dL Creatinine (0.66-1.25) mg/dL Glucose (74-99) mg/dL POC Glucose (mg/dL) 231 H (75-99) mg/dL Calcium (8.4-10.2) mg/dL Magnesium (1.6-2.3) mg/dL Total Bilirubin (0.2-1.3) mg/dL AST (17-59) U/L ALT (4-49) U/L Ammonia 182 H (<30) umol/L Lactate Dehydrogenase (313-618) U/L C-Reactive Protein (<1.0) mg/dL Total Protein (6.3-8.2) g/dL Albumin (3.5-5.0) g/dL Microbiology - Last 24 Hours (Table) 08/19/20 16:31 Blood Culture - Final Blood No Growth after 144 hours 08/19/20 15:30 Blood Culture - Final Blood No Growth after 144 hours Assessment and Plan Plan: 1 acute COVID 19 related pneumonia with secondary hypoxic respiratory failure. The patient has extensive bilateral pulmonary infiltrates and consolidations. Currently intubated on a mechanical ventilator. The patient is still on Decadron. No issues with oxygenation. He is potentially wean able however we haven't done that because of his underlying poor mental status. 2 New onset atrial fibrillation with rapid ventricular response, converted back into normal sinus rhythm. The patient is currently off amiodarone. The patient is on metoprolol at a dose of 50 mg twice a day. IV heparin will be discontin ued and the patient will be switched back to Lovenox. 3 unresponsiveness , encephalopathy/ possible prolonged hypoglycemia induced brain damage. Also consider the possibility of prolonged seizures contributing to his unresponsiveness and altered mentation. Doubt hepatitic encephalopathy is any significant lesion that is being treated. ammonia level remains quite elevated. The patient remains on lactulose 30 g twice a day. 4 altered mental status and the time of admission with hypoglycemia 5 seizure activity, probably related to hypoglycemia. No previous history of seizures based on the history, the patient received loading dose of Keppra 500 mg yesterday. Severe underlying encephalopathy, brain damage related to low blood sugars. Also suspect hypoxic encephalopathy Currently he is unresponsive and despite being off sedation for 24-48 hours, the patient did not show any reasonable neurologic recovery. He did develop nature fibrillation with rapid ventricular response. He became quite asynchronous and he had to be re-sedated again and propofol is back at the rate of 50 mcg/kg per minute. No seizure activity has been noted. The neurologic status remains unchanged. Possibility of hepatic encephalopathy with an elevated ammonia level and the patient is currently on lactulose. We'll ask neurology to evaluate the patient. 6 evidence of liver cirrhosis and signs of portal hypertension, rule out alcoholic liver's disease, his serum ammonia level is elevated, he is currently on lactulose and ammonia level monitored accordingly levels are elevated for now the patient is currently on lactulose. 7 positive urine drug screen for benzodiazepines and opiates and methamphetamine 8 alcoholism with signs of liver cirrhosis 9 BPH 10 hypertension, BP is controlled for now 11 thrombocytopenia, stable 12 diabetes mellitus, currently on Levemir 30 units Plan Continue vent support stop the amiodarone drip for now and stopped IV heparin and switch this patient to Lovenox 50 mg subcu twice a day Continue the Lopressor 50 mg by mouth 3 times a day Awaiting the results of the echocardiogram Continue clonidine 0.4 mg 3 times a day for blood pressure control Increase the lactulose to 3 times a day and add Xifaxan regarding the possibility of hepatitic encephalopathy although this is considered to be less likely and based on my opinion the patient had hypoglycemia induced encephalopathy and brain damage. Sedation holiday today Neurology follow-up Continue lactulose and monitor the ammonia level Monitor blood sugar increase the Levemir dose to 44 units daily Continue Decadron for now 6 mg IV every 24 hours Monitor inflammatory markers Continue IV fluids and 0.9 nss the rate of 20 mL an hour. Continue Keppra 500 mg every 12 hours enteral feeding for nutritional support Continue supportive care. We'll continue to follow. We'll continue to follow make further recommendations based on his progress. No weaning and no extubation as long as his mental status remains impaired. Critical care evaluation more than 30 minutes.
[2020-08-26] MEDS: HEPARIN SOD,PORK IN 0.45% NACL 25,000 UNIT in 0.45% NACL 1 250ML.BAG IV SCH (08:56)
[2020-08-26 09:08] LABS: Glucose,Whole Blood 180 mg/dL (75-99)
[2020-08-26] MEDS: CHLORHEXIDINE GLUCONATE 15 ML CUP MUCOUS MEM SCH ×2 (09:36→22:17)
[2020-08-26] MEDS: CHOLECALCIFEROL 25 MCG (1000 IU) TABLET PO SCH (09:36)
[2020-08-26] MEDS: ASCORBIC ACID 500 MG TAB PO SCH (09:36)
[2020-08-26] MEDS: levETIRAcetam IV 500 MG in SODIUM CHLORIDE 0.9% 100 ML IVPB SCH ×2 (09:37→22:17)
[2020-08-26] MEDS: ZINC SULFATE 220 MG CAP PO SCH (09:37)
[2020-08-26] MEDS: PANTOPRAZOLE 40 MG/10 ML VIAL IVP SCH (09:37)
[2020-08-26] MEDS: cloNIDine HCL 0.1 MG TAB PO SCH ×3 (09:37→22:17)
[2020-08-26] MEDS: METOPROLOL TARTRATE 50 MG TAB PO SCH ×2 (09:37→22:17)
[2020-08-26] MEDS: ENOXAPARIN 60 MG/0.6 ML SYRINGE SQ SCH ×2 (09:38→22:24)
[2020-08-26] MEDS: RIFAXIMIN 550 MG TABLET PO SCH ×2 (09:38→22:25)
[2020-08-26] MEDS: DEXAMETHASONE SOD PHOSPHATE 10 MG/ML 1 ML VIAL IV SCH (09:39)
[2020-08-26] MEDS: FOLIC ACID 1 MG TAB PO SCH (09:39)
[2020-08-26] MEDS: LACTULOSE 20 GM/30 ML CUP PO SCH ×3 (09:39→22:17)
[2020-08-26] MEDS: CYANOCOBALAMIN 500 MCG TAB PO SCH (09:39)
[2020-08-26 11:52] LABS: Glucose,Whole Blood 201 mg/dL (75-99)
--- NOTE | 2020-08-26 14:34 | P.PN ---
Subjective Progress Note Date: 08/26/20 I am assuming care of this patient as of 08/22/2020 at 8 AM. I was out of town and Dr. Paulino was covering for me. HMP done by Dr. Blair on 08/19/2020 On 08/19/2020 patient presented to the ER with altered mental status and hypoglycemia. It is reported that patient had been sick for 2 weeks with fever and productive cough. Patient has a past medical history of diabetes mellitus, hypertension, asthma, EtOH diabetes. At that time patient was admitted to floor and upon arrival required a-team with intubation and transfer to ICU due to declining respiratory status. Chest x-ray was completed showing diffuse bilateral patchy pulmonary infiltrates. Patient was positive for COVID-19 On 08/22/2020 patient remains in the intensive care unit on mechanical ventilation. Patient remains on sedation of propofol and Precedex. Per nursing staff attempting sedation holiday to assess neurological status. Neurology services are following. Patient remains on IV Decadron. Currently on mechanical ventilation with an FiO2 of 40%. Hemodynamically stable. PH is 7.46, CO2 20 12/10/1981 and HCO3 20 On 08/23/2020 patient was seen and examined in the ICU he is intubated main tained on mechanical ventilation he was taken off sedation. Patient is maintained on assist control FiO2 40% PEEP of 5 with a rate of 20 blood gases reveals pH of 7.40 pCO2 35 PO2 77 his white blood count is 7.8 hemoglobin 12.2. Patient mental function is not improving off sedation neurology consultation has been requested On 08/24/2020 patient was seen and examined in the ICU he is intubated sedated maintained on mechanical ventilation yesterday sedation was discontinued however patient continued to be an responsive he was seen by neurology and had a computed tomography scan and an EEG he started becoming agitated and he was started on sedation and again. Currently patient is on assist control rate of 20 tidal volume of 450 FiO2 40% and PEEP of 5 his arterial blood gases are showing a pH of 7.47 pCO2 32 and PO2 of 85 CRP is elevated at 66.4 patient has elevated ammonia level and was started on lactulose critical care and neurology are following. On 08/25/2020 patient was seen and examined in the ICU he is intubated and maintained on mechanical ventilation, his ventilator settings are assist control with tidal volume of 500 FiO2 40% and PEEP of 5 arterial blood gas reveals pH of 7.48 pCO2 33 and PO2 67 LDH is 1346 CRP 6.6 and d-dimer is 9.6 patient maintained on IV Decadron, subcu Lovenox, Levemir 30 units daily, and NovoLog sliding scale patient is also maintained on Keppra per neurology and is maintained on amiodarone drip per cardiology for atrial fibrillation with rapid ventricular response patient hemodynamically is improving however his mental function is not improving patient is not responsive while off sedation. We will continue to follow. On 08/26/2020 patient was seen and examined in the ICU he is intubated, maintained on mechanical ventilation his sedation has been held, however patient is not having any response to stimuli, he is maintained on mechanical ventilation, his ventilator settings are assist control with tidal volume of 500 FiO2 40% and PEEP of 5 arterial blood gas reveals pH of 7.50 pCO2 31 and PO2 91, patient maintained on IV Decadron, subcu Lovenox, Levemir 30 units daily, and NovoLog sliding scale patient is also maintained on Keppra per neurology and is maintained on amiodarone drip per cardiology for atrial fibrillation with rapid ventricular response patient hemodynamically is improving however his mental function is not improving patient is not responsive while off sedation. We will continue to follow. Objective - Vital Signs Vital signs: Vital Signs Temp 100.0 F H 08/26/20 08:00 Pulse 65 08/26/20 10:00 Resp 22 08/26/20 10:00 BP 145/75 08/25/20 22:00 Pulse Ox 96 08/26/20 10:00 Intake & Output 08/25/20 08/26/20 08/26/20 18:59 06:59 18:59 Intake Total 2299.739 447 870.833 Output Total 900 505 250 Balance 1399.739 -58 620.833 Weight 113 kg Intake: IV 376 243 89 Sodium Chloride 0.9% 1, 240 240 80 000 ml @ 20 mls/hr IV . Q24H FE Rx#:[id number] levETIRAcetam IV 500 mg 100 In Sodium Chloride 0.9% 100 ml @ 400 mls/hr IVPB Q12HR FE Rx#:[id number] pressure bag 36 3 9 Intake, IV Titration 699.739 100 425.833 Amount Amiodarone 450 mg In 213.338 250 Dextrose 5% in Water 250 ml @ 0.5 MG/MIN 16.667 mls/hr IV .Q15H FE Rx#: [id number] Clevidipine Butyrate 25 136.334 mg In Empty Bag 1 bag @ 1 MG/HR 2 mls/hr IV .Q24H FE Rx#:[id number] Heparin Sod,Pork in 0.45% 74.167 175.833 NaCl 25,000 unit In 0.45 % NaCl 1 250ml.bag @ 9. 208 UNITS/KG/HR 10 mls/hr IV .Q24H FE Rx#: [id number] propofoL 1,000 mg In 275.9 100 Empty Bag 1 bag @ Titrate IV .Q0M FE Rx#: [id number] Tube Feeding 624 104 156 Other 600 200 Output: Urine 900 505 250 Other: Voiding Method Indwelling Catheter Indwelling Catheter ABP, PAP, CO, CI - Last Documented Arterial Blood Pressure 142/49 - Exam In general patient is intubated maintained on mechanical ventilation Head normocephalic and atraumatic Neck supple no JVD no goiter Lungs diminished bilaterally Heart regular rate and rhythm S1-S2, no rub or gallop Abdomen is soft nontender nondistended positive bowel sounds no hepatosplenomegaly Extremities no edema no cyanosis or clubbing Neurological examination patient is moving all 4 extremities spontaneously, however he is not awakening despite stopping sedation. - Labs CBC & Chem 7: 08/26/20 04:00 08/26/20 04:00 Labs: Abnormal Lab Results - Last 24 Hours (Table) 08/25/20 08/25/20 08/25/20 Range/Units 11:34 16:05 17:36 RBC (4.30-5.90) m/uL Hgb (13.0-17.5) gm/dL Hct (39.0-53.0) % MCV (80.0-100.0) fL MCH (25.0-35.0) pg Plt Count (150-450) k/uL Neutrophils # (1.3-7.7) k/uL Lymphocytes # (1.0-4.8) k/uL PT (9.0-12.0) sec INR (<1.2) APTT 32.5 H (22.0-30.0) sec D-Dimer (<0.60) mg/L FEU ABG pH (7.35-7.45) ABG pCO2 (35-45) mmHg ABG Total CO2 (19-24) mmol/L ABG O2 Saturation (94-97) % Chloride (98-107) mmol/L BUN (9-20) mg/dL Creatinine (0.66-1.25) mg/dL Glucose (74-99) mg/dL POC Glucose (mg/dL) 253 H 323 H (75-99) mg/dL Calcium (8.4-10.2) mg/dL Total Bilirubin (0.2-1.3) mg/dL AST (17-59) U/L ALT (4-49) U/L Ammonia (<30) umol/L Lactate Dehydrogenase (313-618) U/L C-Reactive Protein (<1.0) mg/dL Total Protein (6.3-8.2) g/dL Albumin (3.5-5.0) g/dL 08/25/20 08/25/20 08/26/20 Range/Units 20:20 23:50 00:02 RBC (4.30-5.90) m/uL Hgb (13.0-17.5) gm/dL Hct (39.0-53.0) % MCV (80.0-100.0) fL MCH (25.0-35.0) pg Plt Count (150-450) k/uL Neutrophils # (1.3-7.7) k/uL Lymphocytes # (1.0-4.8) k/uL PT (9.0-12.0) sec INR (<1.2) APTT 63.1 H (22.0-30.0) sec D-Dimer (<0.60) mg/L FEU ABG pH (7.35-7.45) ABG pCO2 (35-45) mmHg ABG Total CO2 (19-24) mmol/L ABG O2 Saturation (94-97) % Chloride (98-107) mmol/L BUN (9-20) mg/dL Creatinine (0.66-1.25) mg/dL Glucose (74-99) mg/dL POC Glucose (mg/dL) 289 H 305 H (75-99) mg/dL Calcium (8.4-10.2) mg/dL Total Bilirubin (0.2-1.3) mg/dL AST (17-59) U/L ALT (4-49) U/L Ammonia (<30) umol/L Lactate Dehydrogenase (313-618) U/L C-Reactive Protein (<1.0) mg/dL Total Protein (6.3-8.2) g/dL Albumin (3.5-5.0) g/dL 08/26/20 08/26/20 08/26/20 Range/Units 04:00 04:00 04:00 RBC 3.21 L (4.30-5.90) m/uL Hgb 11.9 L (13.0-17.5) gm/dL Hct 34.4 L (39.0-53.0) % MCV 107.4 H (80.0-100.0) fL MCH 37.2 H (25.0-35.0) pg Plt Count 112 L (150-450) k/uL Neutrophils # 9.3 H (1.3-7.7) k/uL Lymphocytes # 0.6 L (1.0-4.8) k/uL PT 13.1 H (9.0-12.0) sec INR 1.3 H (<1.2) APTT (22.0-30.0) sec D-Dimer 7.53 H (<0.60) mg/L FEU ABG pH (7.35-7.45) ABG pCO2 (35-45) mmHg ABG Total CO2 (19-24) mmol/L ABG O2 Saturation (94-97) % Chloride 115 H (98-107) mmol/L BUN 45 H (9-20) mg/dL Creatinine 0.64 L (0.66-1.25) mg/dL Glucose 230 H (74-99) mg/dL POC Glucose (mg/dL) (75-99) mg/dL Calcium 8.0 L (8.4-10.2) mg/dL Total Bilirubin 6.5 H (0.2-1.3) mg/dL AST 107 H (17-59) U/L ALT 68 H (4-49) U/L Ammonia (<30) umol/L Lactate Dehydrogenase 1303 H (313-618) U/L C-Reactive Protein 8.3 H (<1.0) mg/dL Total Protein 5.9 L (6.3-8.2) g/dL Albumin 2.1 L (3.5-5.0) g/dL 08/26/20 08/26/20 08/26/20 Range/Units 04:00 04:19 05:45 RBC (4.30-5.90) m/uL Hgb (13.0-17.5) gm/dL Hct (39.0-53.0) % MCV (80.0-100.0) fL MCH (25.0-35.0) pg Plt Count (150-450) k/uL Neutrophils # (1.3-7.7) k/uL Lymphocytes # (1.0-4.8) k/uL PT (9.0-12.0) sec INR (<1.2) APTT (22.0-30.0) sec D-Dimer (<0.60) mg/L FEU ABG pH 7.50 H (7.35-7.45) ABG pCO2 31 L (35-45) mmHg ABG Total CO2 25 H (19-24) mmol/L ABG O2 Saturation 97.7 H (94-97) % Chloride (98-107) mmol/L BUN (9-20) mg/dL Creatinine (0.66-1.25) mg/dL Glucose (74-99) mg/dL POC Glucose (mg/dL) 231 H (75-99) mg/dL Calcium (8.4-10.2) mg/dL Total Bilirubin (0.2-1.3) mg/dL AST (17-59) U/L ALT (4-49) U/L Ammonia 182 H (<30) umol/L Lactate Dehydrogenase (313-618) U/L C-Reactive Protein (<1.0) mg/dL Total Protein (6.3-8.2) g/dL Albumin (3.5-5.0) g/dL 08/26/20 Range/Units 09:06 RBC (4.30-5.90) m/uL Hgb (13.0-17.5) gm/dL Hct (39.0-53.0) % MCV (80.0-100.0) fL MCH (25.0-35.0) pg Plt Count (150-450) k/uL Neutrophils # (1.3-7.7) k/uL Lymphocytes # (1.0-4.8) k/uL PT (9.0-12.0) sec INR (<1.2) APTT (22.0-30.0) sec D-Dimer (<0.60) mg/L FEU ABG pH (7.35-7.45) ABG pCO2 (35-45) mmHg ABG Total CO2 (19-24) mmol/L ABG O2 Saturation (94-97) % Chloride (98-107) mmol/L BUN (9-20) mg/dL Creatinine (0.66-1.25) mg/dL Glucose (74-99) mg/dL POC Glucose (mg/dL) 180 H (75-99) mg/dL Calcium (8.4-10.2) mg/dL Total Bilirubin (0.2-1.3) mg/dL AST (17-59) U/L ALT (4-49) U/L Ammonia (<30) umol/L Lactate Dehydrogenase (313-618) U/L C-Reactive Protein (<1.0) mg/dL Total Protein (6.3-8.2) g/dL Albumin (3.5-5.0) g/dL Microbiology - Last 24 Hours (Table) 08/19/20 16:31 Blood Culture - Final Blood No Growth after 144 hours 08/19/20 15:30 Blood Culture - Final Blood No Growth after 144 hours Assessment and Plan Assessment: 1. Acute hypoxic respiratory failure secondary to COVID-19 related pneumonia. Patient requiring mechanical ventilation. Patient was symptomatic for 2 weeks. Currently on IV Decadron chest x-ray stable and showing some improvement. Remai ns on mechanical ventilation with an FiO2 of 40% 2. Seizure activity likely secondary to hypoglycemia. No previous history of seizure based on history currently on Keppra. Neurology services are following 3. Metabolic encephalopathy. Neurology services are following 4. Diabetes mellitus type 2 with hypoglycemia on admission. Resolved Patient currently on Lantus and sliding scale coverage 5. History of EtOH 6. History of essential hypertension 7. Episode of hypertension maintained on IV fluids required no pressors. Blood pressure has improved 8. Evidence of liver cirrhosis with signs of portal hypertension 9. History of BPH 10. Positive urine drug screen on admission for benzos, opiates and methamphetamine 11. Encephalopathy with and responsiveness off sedation neurology is following EEG and computed tomography scan of the brain were done DVT prophylaxis Lovenox. GI prophylaxis Protonix Critical care and neurology service is following Remains in the intensive care unit on mechanical ventilation and IV sedation Remains on IV Decadron, vitamin C vitamin D and zinc IV Keppra for seizure activity Attempting sedation holiday today 08/22/2020 per critical care Tube feedings for nutritional support
[2020-08-26] MEDS: CLEVIDIPINE BUTYRATE 25 MG in EMPTY BAG 1 BAG IV SCH ×2 (15:13→18:58)
[2020-08-26 16:05] LABS: Glucose,Whole Blood 222 mg/dL (75-99)
[2020-08-26 21:51] LABS: Glucose,Whole Blood 255 mg/dL (75-99)
[2020-08-27 00:07] LABS: Glucose,Whole Blood 292 mg/dL (75-99)
[2020-08-27 00:44] LABS: Glucose,Whole Blood 277 mg/dL (75-99)
[2020-08-27] MEDS: INSULIN ASPART (NovoLOG) 100 UNIT/ML VIAL SQ SCH ×6 (00:50→20:15)
[2020-08-27 04:50] LABS: ABG Base Excess 1.5 mmol/L; ABG HCO3 25 mmol/L (21-25); ABG Oxygen Saturation 97.2 % (94-97); ABG PCO2 34 mmHg (35-45); ABG PH 7.48 (7.35-7.45); ABG PO2 87 mmHg (83-108); ABG TCO2 26 mmol/L (19-24); Allen Test Performed? Yes
[2020-08-27 04:50] LABS: Basophils % (A) 0 %; Eosinophils % (A) 0 %; HCT 41.9 % (39.0-53.0); HGB 14.3 gm/dL (13.0-17.5); Lymphocytes # (A) 0.8 k/uL (1.0-4.8); Lymphocytes % (A) 5 %; MCH 36.6 pg (25.0-35.0); MCHC 34.1 g/dL (31.0-37.0); MCV 107.5 fL (80.0-100.0); Macrocytosis Moderate; Mean Platelet Volume 7.2; Monocytes # (A) 0.7 k/uL (0-1.0); Monocytes % (A) 4 %; Neutrophils % (A) 90 %; RDW 14.5 % (11.5-15.5); WBC 17.7 k/uL (3.8-10.6)
[2020-08-27 05:10] LABS: Platelet Count 177 k/uL (150-450)
[2020-08-27 05:32] LABS: ALT 108 U/L (4-49); AST 150 U/L (17-59); African American GFR (CKD) >90 (>60 ml/min/1.73 sqM); Albumin 2.6 g/dL (3.5-5.0); Alkaline Phosphatase 103 U/L (38-126); Anion Gap 8 mmol/L; Blood Urea Nitrogen 48 mg/dL (9-20); Calcium 8.6 mg/dL (8.4-10.2); Carbon Dioxide 23 mmol/L (22-30); Chloride 115 mmol/L (98-107); Glucose 221 mg/dL (74-99); Non-African American GFR(CKD) >90 (>60 ml/min/1.73 sqM); Potassium 4.5 mmol/L (3.5-5.1); Sodium 146 mmol/L (137-145); Total Bilirubin 9.5 mg/dL (0.2-1.3)
[2020-08-27 05:41] LABS: Glucose,Whole Blood 219 mg/dL (75-99)
[2020-08-27] MEDS: SODIUM CHLORIDE 0.9% 1,000 ML IV SCH ×2 (05:56→20:16)
[2020-08-27] MEDS ORDERED: DEXTROSE 5% IN WATER 100 ML with AMIODARONE 150 MG IV ONE (06:45)
[2020-08-27] MEDS: CLEVIDIPINE BUTYRATE 25 MG in EMPTY BAG 1 BAG IV SCH ×4 (06:51→22:47)
[2020-08-27] MEDS ORDERED: AMIODARONE 360 MG in DEXTROSE 5% IN WATER 200 ML IV ONE ×2 (06:55)
[2020-08-27 07:38] LABS: Glucose,Whole Blood 250 mg/dL (75-99)
[2020-08-27] MEDS: INSULIN DETEMIR (LEVEMIR) 100 UNIT/ML SYR SQ SCH (07:38)
--- NOTE | 2020-08-27 08:00 | XR ---
EXAMINATION TYPE: XR chest 1V portable DATE OF EXAM: 08/27/2020 Comparison: 08/26/2020 Clinical History: 65-year-old male endotracheal tube placement Findings: ET tube tip at the level of the medial clavicular heads. NG tube courses below the diaphragm. Left CV C tip at the mid SVC. Heart normal size. Patchy mid and lower lung opacities bilaterally remain relat ively unchanged. Impression: Stable patchy mid and lower lung infiltrates.
[2020-08-27] MEDS: PANTOPRAZOLE 40 MG/10 ML VIAL IVP SCH (08:22)
[2020-08-27] MEDS: ZINC SULFATE 220 MG CAP PO SCH (08:22)
[2020-08-27] MEDS: CYANOCOBALAMIN 500 MCG TAB PO SCH (08:22)
[2020-08-27] MEDS: ASCORBIC ACID 500 MG TAB PO SCH (08:22)
[2020-08-27] MEDS: CHLORHEXIDINE GLUCONATE 15 ML CUP MUCOUS MEM SCH ×2 (08:22→20:16)
[2020-08-27] MEDS: THIAMINE 100 MG TAB PO SCH ×2 (08:23→16:19)
[2020-08-27] MEDS: FOLIC ACID 1 MG TAB PO SCH (08:23)
[2020-08-27] MEDS: CHOLECALCIFEROL 25 MCG (1000 IU) TABLET PO SCH (08:23)
[2020-08-27] MEDS: cloNIDine HCL 0.1 MG TAB PO SCH ×3 (08:23→20:16)
[2020-08-27] MEDS: LACTULOSE 20 GM/30 ML CUP PO SCH ×3 (08:23→20:16)
[2020-08-27] MEDS: METOPROLOL TARTRATE 50 MG TAB PO SCH ×2 (08:23→20:16)
[2020-08-27] MEDS: ENOXAPARIN 60 MG/0.6 ML SYRINGE SQ SCH (08:24)
[2020-08-27] MEDS: DEXAMETHASONE SOD PHOSPHATE 10 MG/ML 1 ML VIAL IV SCH (08:24)
[2020-08-27] MEDS: RIFAXIMIN 550 MG TABLET PO SCH ×2 (08:24→20:16)
[2020-08-27] MEDS: levETIRAcetam IV 500 MG in SODIUM CHLORIDE 0.9% 100 ML IVPB SCH ×2 (08:33→20:16)
[2020-08-27] MEDS ORDERED: HEPARIN SODIUM 1,000 UN/ML (10ML VL) IV ONE (10:31)
[2020-08-27] MEDS: HEPARIN SOD,PORK IN 0.45% NACL 25,000 UNIT in 0.45% NACL 1 250ML.BAG IV SCH (10:47)
--- NOTE | 2020-08-27 11:31 | P.PN ---
Subjective Progress Note Date: 08/27/20 Principal diagnosis: Acute hypoxic respiratory failure secondary to acute COVID-19 pneumonia 65-year-old male patient who presented to the emergency department yesterday because of mental status change and hypoglycemia and the patient was further diagnosed having quit 19 related pneumonia. The patient is diabetic and the patient also has bronchial asthma and hypertension. The patient arrived to the blood sugar of 45. Apparently the patient was sick for around 2 weeks prior to that and the patient was having increased dyspnea on fever and cough and poor appetite. He was taking oral hypoglycemics in the form of Januvia and glipizide on outpatient basis. In the emergency department, the patient was altered, she did obey some commands yet his pulse ox was quite low at 86% on room air oxygen. The patient was placed on 100% nonrebreather facemask. Initially his blood sugar was corrected and the patient was given D50 and following that he was admitted to the medical floor. The patient started having increased shakiness and seizure-like activity and he bit his tongue and he was quite tachypneic. The a team was called. The patient was transferred to the intensive care unit and the patient was intubated for airway protection. At this point in time, the patient is intubated on a mechanical ventilator. Propofol is running at 55 Jhonathan graspi kilogram per minute. The patient is on assist control mode of ventilation with a rate of 20, FiO2 of 60%, PEEP of 5 and tidal volume 450. The patient's blood gases post intubation showed a pH of 7.46 with a pCO2 of 32 and pO2 of 86. The chest x-ray from this morning is showing diffuse bilateral patchy pulmonary infiltrates. ET tube is just above the aortic knob. The patient has a orogastric tube in place. Some mild cardiomegaly is also present. Note that the CT angiogram of the chest that was done yesterday showed some patchy bibasilar airspace disease or consolidation doubtless infiltrates bilaterally consistent with community related pneumonia. The patient also had another appearance of the liver and evidence of portal hypertension. Mother the patient is a chronic alcohol drinker. The white cell count of 7.6 with a hemoglobin of 11.8. Platelets at 127, his LDH was 1369 and his CRP is at 141, urine drug screen was positive for opiates, amphetamines and benzodiazepines, urinalysis showing +1 protein, normal renal function test, normal electrolytes. This morning the d-dimer is at 5.13, the patient's blood pressure currently is 99/35 and the patient is on D5 normal saline at the rate of 75 mL an hour. The patient was started on Lovenox 40 mg subcu every 12 hours. The patient is on propofol. The patient is on no pressors for now. He is on Decadron 63 g IV every 24 hours. Most recent blood sugar is at 141. On today's evaluation of 08/21/2020, the patient is being seen for a follow-up. The patient was hospitalized for community related pneumonia and the patient is currently intubated on a mechanical ventilator. This morning, the patient is sedation with propofol at 75 mcg/kg per minute and he is quite comfortable. He remains on assist control mode of ventilation with a tidal volume of 450 and FiO2 of 50% with a PEEP of 5 and a rate of 20. His peak airway pressure is 23 anesthetic pressure is 14. The chest x-ray showing diffuse bilateral pulmonary pulses consistent with obesity related pneumonia and ET tube is in a good location. The patient is hemodynamically stable. The patient is on no pressors. No seizure activity has been noted. The patient is receiving tube feeds in the form of Vicodin HB at the rate of 30 mL an hour. No hypoglycemic events overnight. The patient's d-dimer is at 5.66 and the patient's LDH currently is at 1478 with a CRP level of 160. The propofol Level Was 0.31. The Patient Is Currently on Decadron 6 Mg IV Every 24 Hours and He Is Also on Lovenox 40 Mg Subcu Every 12 Hours. His Last D-Dimer Is at 5.56 from Today. No Fever. No Other Significant Issues Overnight. Neurology Consultation Was Also Done. EEG from yesterday showed no evidence of any seizure activity. It wasn't abnormal EEG probably related to drug effect. The patient remains on Keppra 5 mg every 12 hours and no clinical seizure activity has been noted. He is also started on a combination of thiamine and B12. Ammonia level is pending from today. His liver function tests currently are improving and his AST is down to 128 and a LDL 45. His lactic acid is also improving is down to 1.8. On 08/22/2020, the patient remains on propofol at the rate of 50 mcg/kg per minute. Attempts to wean him off the propofol yesterday failed as the patient became quite agitated, tachypneic and tachycardic and his symptoms with the mechanical ventilator. There was no meaningful response neurologically and for that reason the sedation holiday was aborted at the same thing will be done today. The patient is an assist-control with a tidal volume of 450 and FiO2 of 40% with a PEEP of 5 and a rate of 20. The patient had a chest x-ray today that showed patchy bilateral pulmonary infiltrates with a peripheral distribution. ET tube is in a good location. The blood gas from today showing a pH of 7.46 with a pCO2 of 28 and pO2 of 82. Peak airway pressure is 20 and as such the patient is potentially extubated on as long as he demonstrated adequate neurologic recovery. The patient is currently on vital high protein at the rate of 43 mL an hour. Labs were all stable with a white cell count of 6 and a hemoglobin of 12 and the rest of the electrolytes are all within normal limits. His LDH level is 1391 and is lower compared to yesterday with a CRP level of 81. As such, the active problem for now is his underlying neurological functions. We're the process of giving the patient sedation holiday and if needed use Precedex to control his agitation. His pupils are equal and symmetrical in a pinpoint. Her activity has been noted. No further bouts of hypoglycemia. 08/23/2020, he managed to get this patient off the propofol. The active issue is his altered mentation despite being off sedation. The patient would get quite agitated but he is not following any commands or doing any purposeful activity. For that reason, I had to cover him with some Precedex overnight. CAT scan of the brain was also done and showed no acute abnormalities. Note that the patient did not have any further hypoglycemic events. He did have hypoglycemia associated at the time his admission. Meanwhile, he remains on a mechanical ventilator. On today's evaluation is in a tidal volume of 450 with an FiO2 of 40% with a PEEP of 5 and a rate of 20. This is essentially same setting as yesterday. Blood gases showing a pH of 7.40 with a pCO2 of 35 and a pO2 of 77. Chest x-ray findings are essentially stable. ET tube is in a good location. The patient is hemodynamically stable. The patient is on vital high protein at the rate of 56 mL an hour. He is tolerating enteral feeding for nutritional support. Inflammatory markers from today showing an LDH level of 1453 and a CRP level is at 62. The markers are essentially compatible to yesterday. His d-dimer is at 5.56 from 2 days ago. Electrolytes all within normal limits. CBC showing a white cell count of 7.8 with hemoglobin of 12.2. His blood sugar is being monitored in the blood sugar currently is at 221. The fluid balance is currently at -730 mL over the past 24 hours. His IV fluids currently running at 20 mL an hour of normal saline. This morning, I took the patient off the Precedex and we're about to reevaluate his mental status. 08/24/2020, the active issue for now as the patient's unresponsiveness while being off sedation. The patient has not shown any significant neurologic recovery. I took him off the sedation yesterday for several hours and the patient did not follow any commands and he was not responsive. He became progressively more agitated and the patient had to be placed back on sedation. Neurology evaluated the patient and the neuro workup is in progress including a CAT scan of the brain that showed no acute abnormalities and the patient also had an EEG that showed abnormal findings, encephalopathy with diffuse slowing and there was no evidence of any seizure activity. For now, the patient is on propofol running at 40 mcg/kg per minute he was given another sedation holiday this morning and following that, the patient became quite tachypneic and restless. He was not following any commands and he remains neurologically impaired. As such, he was placed back on sedation. The patient has history of alcoholism and signs of liver cirrhosis. We noted that his ammonia level was high and was started him on lactulose regarding the possibility of hepatic encephalopathy. His chest x-ray findings are quite stable. There is significant improvement in the right-sided pulmonary infiltrate with some residual infiltration of the left. He remains on assist control mode of ventilation with a rate of 20, tidal volume of 450, FiO2 of 40% and a PEEP of 5. His chest x-ray is improved. The blood gases showed a pH of 7.47 with a pCO2 of 32 and pO2 of 85. Otherwise, his inflammatory markers in regards to his COVID-19 related pneumonia includes a d-dimer of 13.5 inches slightly higher compared to his baseline LDH level is 1772 and his CRP level is at 66.4 and the levels continued to be elevated. No hypoglycemia. His current blood sugar co ntrol is adequate although he is slightly hyperglycemic. Is receiving enteral feeding for nutritional support and is currently on vital high protein at the rate of 36 mild an hour. He remains on Levemir insulin at 20 units a day along with a sliding scale coverage. IV fluids are running in the form of normal saline at the rate of 20 mL an hour. Note that the also start the patient on some lactulose. He is producing adequate amount of stool. His ammonia level is up to 147 from a baseline of 36. 08/25/2020, several active issues on this patient including unresponsiveness, respiratory failure and new onset atrial fibrillation. Note that this patient came to us initially with hypoglycemia and seizures. He was found to be COVID- 19 positive. He was intubated and placed on a mechanical ventilator immunization intubation was mainly to protect his airways. Subsequently, as the patient's blood sugar was regulated, the patient did not show any reasonable neurologic recovery. EEG was abnormal and. Still encephalopathy and diffuse slowing. CAT scan of the brain was negative. He was taken off sedation, the patient would get agitated and his heart rate and blood pressure will go up, would not follow any commands. As such, he was placed on Precedex and while on Precedex he went into atrial fibrillation and rapid ventricular response. The patient was also suspected to have a component of hepatic encephalopathy. His alcoholic he does have signs of liver cirrhosis. He was started on lactulose and ammonia level is being monitored. He is having soft bowel movements for now . Follow-up ammonia level will be ordered today. To control his sedation more effectively, he was switched back to propofol was is currently running at 50 mcg/kg per minute. Meanwhile, he remains nature fibrillation. His current heart rate is 140 and the patient is on amiodarone drip at 0.5 mg per minute. Amiodarone was started yesterday at around 5 PM. His blood pressure is elevated and the patient is unclear the proximal drip at 6 mg an hour. Not to forget, the patient also has a COVID-19 related pneumonia. The chest x-ray from today showing some improvement in the right lower lobe pulmonary infiltrate. The patient continues to have diffuse bilateral pulmonary infiltration. Never theless, his oxygenation has been quite reasonable. He remains assist-control at the rate of any with a tidal volume of 500 and FiO2 of 40% with a PEEP of 5. Blood gas shows a pH of 7.48 with a pCO2 of 33 and pO2 of 67. His inflammatory markers today showed an LDH level of 1346 and a CRP of 6.6. His d-dimer is at 9.6. He remains on treatment with Decadron 6 mg IV every 24 hours. He remains on Lovenox 40 mg subcu every 12 hours. He is also on Levemir insulin 30 units daily along with NovoLog sliding scale coverage. Neurology opted to keep the Keppra for now. He is receiving enteral feeding for nutritional support and the patient is currently on vital HP at 52 mL. He has developed some mild hypernatremia in the sodium level is at 146. 08/26/2020, the patient remains intubated on a mechanical ventilator. Active issues for now remains his impaired mentation and level of consciousness. I am considering possibility of prolonged hypoglycemia causing significant amount of brain damage and encephalopathy. In any rate, the patient also had a COVID-19 pneumonia and he is been intubated on a mechanical ventilator. In terms of COVID-19, the patient is doing reasonably well and he remains on a assist- control mode at the rate of 20 with a tidal volume of 500 and FiO2 of 40% with a PEEP of 5. Morning blood gases show a pO2 of 91 and a pCO2 of 31 and a pH of 7.50. His chest x-ray from today showing bilateral pulmonary infiltrates involving the lower lobes and there has been no major interval change. The patient is resting comfortably on a mechanical ventilator and is quite synchronous. No significant orotracheal secretions. The peak and static pressures have been essentially low. Neurologically, the patient has not been able to come off the sedation due to agitation and asynchrony with a mechanical ventilator. As such, he was kept on propofol which is running at 50 mcg/kg per minute. This has controlled his agitation. The patient will be given another sedation holiday today. Note that yesterday, he went into atrial fibrillation with rapid ventricular response. He was given amiodarone bolus and loading and he is back into normal sinus rhythm. At the same time he was placed also on IV heparin. Amiodarone drip was discontinued after the loading dose. His current rhythm is sinus and also hemodynamically stable. Echo of the heart was completed yesterday and there is also still pending. The unofficial report was that the echocardiogram was essentially within normal limits. Meanwhile, in terms of his mentation, we suspected the possibility of hepatic encephalopathy. We are monitoring his ammonia level. Note that the patient is alcoholic and he has signs of chronic liver disease. Most recent ammonia level is at 182. The patient is on lactulose once a day and he is not producing any significant bowel movement. He remains on enteral feeding for nutritional support and is currently receiving vital high protein at the rate of 52 mL an hour. He is on lactulose 30 g twice a day. No abdominal distention. As for the blood pressure, the patient is currently stable and adequate has adequate blood pressure control. Clonidine is running at 0.1 mg 3 times a day and the patient is also on Lopressor 50 mg by mouth twice a day. Blood sugar control is with Levemir insulin 30 units in addition to a NovoLog signs scale coverage. This is to be further adjusted by that his blood sugars are still running high. No further episodes of hypoglycemia since he arrived to the hospital. No seizure activity noted. No fever. No significant hemodynamic instability. Remains on Decadron 6 mg IV every 24 hours. The most recent LDH level is at 05/13/2002 and the d-dimer is at 7.53. Reevaluated today on 08/27/2020, patient remains intubated and mechanically ventilated. He is off sedation, but he does not seem to be showing any signs of neurological recovery, patient is unresponsive. Based on the notes from Dr. Edwards, patient may have sustained some brain damage from his prolonged hypoglycemia and seizure disorder. Although the possibility of COVID-19 encephalopathy is not entirely ruled out. Ration is on assist control rate of 20 tidal volume is 500 FiO2 50% and PEEP of 5. ABG showed a pO2 of 87 pCO2 of 34 pH of 7.48. He is on amiodarone at 0.5, Keppra, he is also on Levemir Rx at 5 mg per hour. IV fluids at KVO. Patient is also receiving enteral feeding. And he is maintained on seizure medications, patient is on Keppra. Chest x-ray showed stable patchy mid and lower lung infiltrates related to COVID-19 pneumonia. Electrolytes showed elevated sodium of 146, normal renal profile, normal bicarb, CBC showed a bit of leukocytosis with WBC count of 17.7 hemoglobin is 14.3. Liver enzymes remain a bit elevated related to his COVID-19 infection. Objective - Vital Signs Vital signs: Vital Signs Temp 99.2 F 08/27/20 08:00 Pulse 105 H 08/27/20 11:00 Resp 27 H 08/27/20 11:00 BP 145/75 08/27/20 11:00 Pulse Ox 95 08/27/20 11:00 Intake & Output 08/26/20 08/27/20 08/27/20 18:59 06:59 18:59 Intake Total 8134.051 3946 573.067 Output Total 830 1160 455 Balance 1135.649 585 118.067 Weight 114.2 kg Intake: IV 273 419 132 Sodium Chloride 0.9% 1, 240 380 120 000 ml @ 20 mls/hr IV . Q24H FE Rx#:[id number] pressure bag 33 39 12 Intake, IV Titration 520.649 50 33.067 Amount Amiodarone 450 mg In 250 Dextrose 5% in Water 250 ml @ 0.5 MG/MIN 16.667 mls/hr IV .Q15H FE Rx#: [id number] Clevidipine Butyrate 25 65.666 50 33.067 mg In Empty Bag 1 bag @ 1 MG/HR 2 mls/hr IV .Q24H FE Rx#:[id number] Heparin Sod,Pork in 0.45% 175.833 NaCl 25,000 unit In 0.45 % NaCl 1 250ml.bag @ 9. 208 UNITS/KG/HR 10 mls/hr IV .Q24H FE Rx#: [id number] propofoL 1,000 mg In 29.15 Empty Bag 1 bag @ Titrate IV .Q0M FE Rx#: [id number] Tube Feeding 572 676 208 Other 600 600 200 Output: Urine 830 1160 455 Other: Voiding Method Indwelling Catheter Indwelling Catheter Indwelling Catheter ABP, PAP, CO, CI - Last Documented Arterial Blood Pressure 139/58 - Exam Physical Exam: Revealed 65-year-old white male intubated and mechanically ventilated, unresponsive to any stimuli. Does not follow any instructions in spite of sedation has been on hold for over few days. Head: Atraumatic, normocephalic. Endotracheal tube and orogastric tube are intact. HEENT:[Neck is supple.] [No neck masses.] [No thyromegaly.] [No JVD.]. Blood, EOMI, nonicteric, pupils are constricted bilaterally. Chest: [Symmetrical chest expansion, crackles and rhonchi noted bilaterally. Cardiac Exam: [Normal S1 and S2, no S3 gallop, no murmur.] Abdomen: [Soft, nontender, no megaly, no rebound, no guarding, normal bowel sounds.] Extremities: [No clubbing, no edema, no cyanosis.] Good pulses bilaterally. Neurological Exam: Unresponsive, does not withdraw to painful stimuli, pupils are constricted but reactive. Patient had downward gaze. No clonus, no Babinski, no neck stiffness. Positive gag. Acute: Could not be assessed. Skin: No rashes. - Labs CBC & Chem 7: 08/27/20 04:20 08/27/20 04:20 Labs: Abnormal Lab Results - Last 24 Hours (Table) 08/26/20 08/26/20 08/26/20 Range/Units 11:41 16:02 21:50 WBC (3.8-10.6) k/uL RBC (4.30-5.90) m/uL MCV (80.0-100.0) fL MCH (25.0-35.0) pg Neutrophils # (1.3-7.7) k/uL Lymphocytes # (1.0-4.8) k/uL ABG pH (7.35-7.45) ABG pCO2 (35-45) mmHg ABG Total CO2 (19-24) mmol/L ABG O2 Saturation (94-97) % Sodium (137-145) mmol/L Chloride (98-107) mmol/L BUN (9-20) mg/dL Creatinine (0.66-1.25) mg/dL Glucose (74-99) mg/dL POC Glucose (mg/dL) 201 H 222 H 255 H (75-99) mg/dL Total Bilirubin (0.2-1.3) mg/dL AST (17-59) U/L ALT (4-49) U/L Albumin (3.5-5.0) g/dL 08/27/20 08/27/20 08/27/20 Range/Units 00:05 00:43 04:20 WBC 17.7 H (3.8-10.6) k/uL RBC 3.90 L (4.30-5.90) m/uL MCV 107.5 H (80.0-100.0) fL MCH 36.6 H (25.0-35.0) pg Neutrophils # 16.0 H (1.3-7.7) k/uL Lymphocytes # 0.8 L (1.0-4.8) k/uL ABG pH (7.35-7.45) ABG pCO2 (35-45) mmHg ABG Total CO2 (19-24) mmol/L ABG O2 Saturation (94-97) % Sodium (137-145) mmol/L Chloride (98-107) mmol/L BUN (9-20) mg/dL Creatinine (0.66-1.25) mg/dL Glucose (74-99) mg/dL POC Glucose (mg/dL) 292 H 277 H (75-99) mg/dL Total Bilirubin (0.2-1.3) mg/dL AST (17-59) U/L ALT (4-49) U/L Albumin (3.5-5.0) g/dL 08/27/20 08/27/20 08/27/20 Range/Units 04:20 04:34 05:40 WBC (3.8-10.6) k/uL RBC (4.30-5.90) m/uL MCV (80.0-100.0) fL MCH (25.0-35.0) pg Neutrophils # (1.3-7.7) k/uL Lymphocytes # (1.0-4.8) k/uL ABG pH 7.48 H (7.35-7.45) ABG pCO2 34 L (35-45) mmHg ABG Total CO2 26 H (19-24) mmol/L ABG O2 Saturation 97.2 H (94-97) % Sodium 146 H (137-145) mmol/L Chloride 115 H (98-107) mmol/L BUN 48 H (9-20) mg/dL Creatinine 0.58 L (0.66-1.25) mg/dL Glucose 221 H (74-99) mg/dL POC Glucose (mg/dL) 219 H (75-99) mg/dL Total Bilirubin 9.5 H (0.2-1.3) mg/dL AST 150 H (17-59) U/L ALT 108 H (4-49) U/L Albumin 2.6 L (3.5-5.0) g/dL 08/27/20 Range/Units 07:37 WBC (3.8-10.6) k/uL RBC (4.30-5.90) m/uL MCV (80.0-100.0) fL MCH (25.0-35.0) pg Neutrophils # (1.3-7.7) k/uL Lymphocytes # (1.0-4.8) k/uL ABG pH (7.35-7.45) ABG pCO2 (35-45) mmHg ABG Total CO2 (19-24) mmol/L ABG O2 Saturation (94-97) % Sodium (137-145) mmol/L Chloride (98-107) mmol/L BUN (9-20) mg/dL Creatinine (0.66-1.25) mg/dL Glucose (74-99) mg/dL POC Glucose (mg/dL) 250 H (75-99) mg/dL Total Bilirubin (0.2-1.3) mg/dL AST (17-59) U/L ALT (4-49) U/L Albumin (3.5-5.0) g/dL Assessment and Plan Assessment: Impression: Acute hypoxic respiratory failure secondary to COVID-19 pneumonia. New onset atrial fibrillation presently in normal sinus rhythm off amiodarone. Continue Lovenox. COVID-19 encephalopathy or panic encephalopathy but definite mental status change and the patient could have had encephalopathy related to prolonged hypoglycemia on presentation. Clearly the patient has acute metabolic encephalopathy. Hypoglycemia induced seizure is strongly suspected remains on Keppra. Liver cirrhosis and portal hypertension with elevated ammonia level causing a bit of worsening metabolic encephalopathy. Positive drug screen for benzodiazepine and opiate and methamphetamine. History of alcoholism. Benign essential hypertension. Chronic thrombocytopenia. Type 2 diabetes. Recommendation: Continue ventilatory support. Discontinue amiodarone drip. Continue GI and DVT prophylaxis. Continue blood pressure control, patient is presently on clonidine. Continue lactulose and Xifaxan Continue to monitor ammonia level. Continue to monitor daily assessment of his neurological status. Continue Decadron. Continue Keppra. Continue enteral feeding/interstitial support. Patient is not ready to be weaned mostly because of his worsening neurological status. If no improvement in the next few days, may consider tracheostomy and PEG tube placement or we'll have to upload the family regarding CODE STATUS and possibly comfort care measures. Prognosis is extremely poor and guarded patient remains critically ill, critical care time is over 30 minutes Time with Patient: Greater than 30
[2020-08-27 12:01] LABS: INR 1.3 (<1.2); Partial Thromboplastin Time 44.4 sec (22.0-30.0); Prothrombin Time 13.4 sec (9.0-12.0)
[2020-08-27 12:31] LABS: Glucose,Whole Blood 256 mg/dL (75-99)
[2020-08-27] MEDS: AMIODARONE 450 MG in DEXTROSE 5% IN WATER 250 ML IV SCH ×4 (13:04→23:50)
[2020-08-27 14:04] VITALS: BMI 34.1
[2020-08-27 16:43] LABS: Glucose,Whole Blood 270 mg/dL (75-99)
--- NOTE | 2020-08-27 18:03 | P.PN ---
Subjective Progress Note Date: 08/27/20 I am assuming care of this patient as of 08/22/2020 at 8 AM. I was out of town and Dr. Paulino was covering for me. HMP done by Dr. Blair on 08/19/2020 On 08/19/2020 patient presented to the ER with altered mental status and hypoglycemia. It is reported that patient had been sick for 2 weeks with fever and productive cough. Patient has a past medical history of diabetes mellitus, hypertension, asthma, EtOH diabetes. At that time patient was admitted to floor and upon arrival required a-team with intubation and transfer to ICU due to declining respiratory status. Chest x-ray was completed showing diffuse bilateral patchy pulmonary infiltrates. Patient was positive for COVID-19 On 08/22/2020 patient remains in the intensive care unit on mechanical ventilation. Patient remains on sedation of propofol and Precedex. Per nursing staff attempting sedation holiday to assess neurological status. Neurology services are following. Patient remains on IV Decadron. Currently on mechanical ventilation with an FiO2 of 40%. Hemodynamically stable. PH is 7.46, CO2 20 12/10/1981 and HCO3 20 On 08/23/2020 patient was seen and examined in the ICU he is intubated main tained on mechanical ventilation he was taken off sedation. Patient is maintained on assist control FiO2 40% PEEP of 5 with a rate of 20 blood gases reveals pH of 7.40 pCO2 35 PO2 77 his white blood count is 7.8 hemoglobin 12.2. Patient mental function is not improving off sedation neurology consultation has been requested On 08/24/2020 patient was seen and examined in the ICU he is intubated sedated maintained on mechanical ventilation yesterday sedation was discontinued however patient continued to be an responsive he was seen by neurology and had a computed tomography scan and an EEG he started becoming agitated and he was started on sedation and again. Currently patient is on assist control rate of 20 tidal volume of 450 FiO2 40% and PEEP of 5 his arterial blood gases are showing a pH of 7.47 pCO2 32 and PO2 of 85 CRP is elevated at 66.4 patient has elevated ammonia level and was started on lactulose critical care and neurology are following. On 08/25/2020 patient was seen and examined in the ICU he is intubated and maintained on mechanical ventilation, his ventilator settings are assist control with tidal volume of 500 FiO2 40% and PEEP of 5 arterial blood gas reveals pH of 7.48 pCO2 33 and PO2 67 LDH is 1346 CRP 6.6 and d-dimer is 9.6 patient maintained on IV Decadron, subcu Lovenox, Levemir 30 units daily, and NovoLog sliding scale patient is also maintained on Keppra per neurology and is maintained on amiodarone drip per cardiology for atrial fibrillation with rapid ventricular response patient hemodynamically is improving however his mental function is not improving patient is not responsive while off sedation. We will continue to follow. On 08/26/2020 patient was seen and examined in the ICU he is intubated, maintained on mechanical ventilation his sedation has been held, however patient is not having any response to stimuli, he is maintained on mechanical ventilation, his ventilator settings are assist control with tidal volume of 500 FiO2 40% and PEEP of 5 arterial blood gas reveals pH of 7.50 pCO2 31 and PO2 91, patient maintained on IV Decadron, subcu Lovenox, Levemir 30 units daily, and NovoLog sliding scale patient is also maintained on Keppra per neurology and is maintained on amiodarone drip per cardiology for atrial fibrillation with rapid ventricular response patient hemodynamically is improving however his mental function is not improving patient is not responsive while off sedation. We will continue to follow. On 08/27/2020 patient was seen and examined in the ICU he is intubated sedated maintained on mechanical ventilation had multiple sedation holidays however he did not have any response to stimuli while is on sedation holidays patient was getting agitated and eventually and was put back on sedation. Patient is main tained on assist control tidal volume 500 rate of 20 FiO2 50% and a PEEP of 5 ABG revealed pH 7.48 pCO2 34 and PO2 87 patient is receiving enteral feeding, insulin, amiodarone, Keppra, no significant change in condition since yesterday Objective - Vital Signs Vital signs: Vital Signs Temp 99.2 F 08/27/20 08:00 Pulse 112 H 08/27/20 08:00 Resp 25 H 08/27/20 08:00 BP 145/75 08/27/20 08:00 Pulse Ox 95 08/27/20 08:00 Intake & Output 08/26/20 08/27/20 08/27/20 18:59 06:59 18:59 Intake Total 7847.544 8644 285 Output Total 830 1160 160 Balance 1135.649 585 125 Weight 114.2 kg Intake: IV 273 419 33 Sodium Chloride 0.9% 1, 240 380 30 000 ml @ 20 mls/hr IV . Q24H FE Rx#:[id number] pressure bag 33 39 3 Intake, IV Titration 520.649 50 Amount Amiodarone 450 mg In 250 Dextrose 5% in Water 250 ml @ 0.5 MG/MIN 16.667 mls/hr IV .Q15H FE Rx#: [id number] Clevidipine Butyrate 25 65.666 50 mg In Empty Bag 1 bag @ 1 MG/HR 2 mls/hr IV .Q24H FE Rx#:[id number] Heparin Sod,Pork in 0.45% 175.833 NaCl 25,000 unit In 0.45 % NaCl 1 250ml.bag @ 9. 208 UNITS/KG/HR 10 mls/hr IV .Q24H FE Rx#: [id number] propofoL 1,000 mg In 29.15 Empty Bag 1 bag @ Titrate IV .Q0M FE Rx#: [id number] Tube Feeding 572 676 52 Other 600 600 200 Output: Urine 830 1160 160 Other: Voiding Method Indwelling Catheter Indwelling Catheter ABP, PAP, CO, CI - Last Documented Arterial Blood Pressure 148/63 - Exam In general patient is intubated maintained on mechanical ventilation Head normocephalic and atraumatic Neck supple no JVD no goiter Lungs diminished bilaterally Heart regular rate and rhythm S1-S2, no rub or gallop Abdomen is soft nontender nondistended positive bowel sounds no hepatosplenomegaly Extremities no edema no cyanosis or clubbing Neurological examination patient is moving all 4 extremities spontaneously, however he is not awakening despite stopping sedation. - Labs CBC & Chem 7: 08/27/20 04:20 08/27/20 04:20 Labs: Abnormal Lab Results - Last 24 Hours (Table) 08/26/20 08/26/20 08/26/20 Range/Units 11:41 16:02 21:50 WBC (3.8-10.6) k/uL RBC (4.30-5.90) m/uL MCV (80.0-100.0) fL MCH (25.0-35.0) pg Neutrophils # (1.3-7.7) k/uL Lymphocytes # (1.0-4.8) k/uL ABG pH (7.35-7.45) ABG pCO2 (35-45) mmHg ABG Total CO2 (19-24) mmol/L ABG O2 Saturation (94-97) % Sodium (137-145) mmol/L Chloride (98-107) mmol/L BUN (9-20) mg/dL Creatinine (0.66-1.25) mg/dL Glucose (74-99) mg/dL POC Glucose (mg/dL) 201 H 222 H 255 H (75-99) mg/dL Total Bilirubin (0.2-1.3) mg/dL AST (17-59) U/L ALT (4-49) U/L Albumin (3.5-5.0) g/dL 08/27/20 08/27/20 08/27/20 Range/Units 00:05 00:43 04:20 WBC 17.7 H (3.8-10.6) k/uL RBC 3.90 L (4.30-5.90) m/uL MCV 107.5 H (80.0-100.0) fL MCH 36.6 H (25.0-35.0) pg Neutrophils # 16.0 H (1.3-7.7) k/uL Lymphocytes # 0.8 L (1.0-4.8) k/uL ABG pH (7.35-7.45) ABG pCO2 (35-45) mmHg ABG Total CO2 (19-24) mmol/L ABG O2 Saturation (94-97) % Sodium (137-145) mmol/L Chloride (98-107) mmol/L BUN (9-20) mg/dL Creatinine (0.66-1.25) mg/dL Glucose (74-99) mg/dL POC Glucose (mg/dL) 292 H 277 H (75-99) mg/dL Total Bilirubin (0.2-1.3) mg/dL AST (17-59) U/L ALT (4-49) U/L Albumin (3.5-5.0) g/dL 08/27/20 08/27/20 08/27/20 Range/Units 04:20 04:34 05:40 WBC (3.8-10.6) k/uL RBC (4.30-5.90) m/uL MCV (80.0-100.0) fL MCH (25.0-35.0) pg Neutrophils # (1.3-7.7) k/uL Lymphocytes # (1.0-4.8) k/uL ABG pH 7.48 H (7.35-7.45) ABG pCO2 34 L (35-45) mmHg ABG Total CO2 26 H (19-24) mmol/L ABG O2 Saturation 97.2 H (94-97) % Sodium 146 H (137-145) mmol/L Chloride 115 H (98-107) mmol/L BUN 48 H (9-20) mg/dL Creatinine 0.58 L (0.66-1.25) mg/dL Glucose 221 H (74-99) mg/dL POC Glucose (mg/dL) 219 H (75-99) mg/dL Total Bilirubin 9.5 H (0.2-1.3) mg/dL AST 150 H (17-59) U/L ALT 108 H (4-49) U/L Albumin 2.6 L (3.5-5.0) g/dL 08/27/20 Range/Units 07:37 WBC (3.8-10.6) k/uL RBC (4.30-5.90) m/uL MCV (80.0-100.0) fL MCH (25.0-35.0) pg Neutrophils # (1.3-7.7) k/uL Lymphocytes # (1.0-4.8) k/uL ABG pH (7.35-7.45) ABG pCO2 (35-45) mmHg ABG Total CO2 (19-24) mmol/L ABG O2 Saturation (94-97) % Sodium (137-145) mmol/L Chloride (98-107) mmol/L BUN (9-20) mg/dL Creatinine (0.66-1.25) mg/dL Glucose (74-99) mg/dL POC Glucose (mg/dL) 250 H (75-99) mg/dL Total Bilirubin (0.2-1.3) mg/dL AST (17-59) U/L ALT (4-49) U/L Albumin (3.5-5.0) g/dL Assessment and Plan Assessment: 1. Acute hypoxic respiratory failure secondary to COVID-19 related pneumonia. Patient requiring mechanical ventilation. Patient was symptomatic for 2 weeks. Currently on IV Decadron chest x-ray stable and showing some improvement. Alyson ins on mechanical ventilation with an FiO2 of 40% 2. Seizure activity likely secondary to hypoglycemia. No previous history of seizure based on history currently on Keppra. Neurology services are following 3. Metabolic encephalopathy. Neurology services are following 4. Diabetes mellitus type 2 with hypoglycemia on admission. Resolved Patient currently on Lantus and sliding scale coverage 5. History of EtOH 6. History of essential hypertension 7. Episode of hypertension maintained on IV fluids required no pressors. Blood pressure has improved 8. Evidence of liver cirrhosis with signs of portal hypertension 9. History of BPH 10. Positive urine drug screen on admission for benzos, opiates and methamphetamine 11. Encephalopathy with and responsiveness off sedation neurology is following EEG and computed tomography scan of the brain were done DVT prophylaxis Lovenox. GI prophylaxis Protonix Critical care and neurology service is following Remains in the intensive care unit on mechanical ventilation and IV sedation Remains on IV Decadron, vitamin C vitamin D and zinc IV Keppra for seizure activity Attempting sedation holiday today 08/22/2020 per critical care Tube feedings for nutritional support
[2020-08-27] MEDS: HEPARIN SODIUM 1,000 UN/ML (10ML VL) IV PRN (18:34)
[2020-08-27 19:55] LABS: Glucose,Whole Blood 284 mg/dL (75-99)
[2020-08-27 23:57] LABS: Glucose,Whole Blood 255 mg/dL (75-99)
[2020-08-28] MEDS: INSULIN ASPART (NovoLOG) 100 UNIT/ML VIAL SQ SCH ×6 (00:05→22:37)
[2020-08-28] MEDS: HEPARIN SOD,PORK IN 0.45% NACL 25,000 UNIT in 0.45% NACL 1 250ML.BAG IV SCH ×2 (02:34→18:29)
[2020-08-28] MEDS: CLEVIDIPINE BUTYRATE 25 MG in EMPTY BAG 1 BAG IV SCH ×3 (02:34→15:48)
[2020-08-28 05:17] LABS: Glucose,Whole Blood 210 mg/dL (75-99)
[2020-08-28 05:40] LABS: ABG HCO3 24 mmol/L (21-25); ABG Oxygen Saturation 98.1 % (94-97); ABG PCO2 31 mmHg (35-45); ABG PO2 99 mmHg (83-108); ABG TCO2 25 mmol/L (19-24); Allen Test Performed? Yes
[2020-08-28 06:15] LABS: ALT 117 U/L (4-49); AST 146 U/L (17-59); African American GFR (CKD) >90 (>60 ml/min/1.73 sqM); Albumin 2.5 g/dL (3.5-5.0); Alkaline Phosphatase 121 U/L (38-126); Anion Gap 6 mmol/L; Blood Urea Nitrogen 55 mg/dL (9-20); C Reactive Protein 6.1 mg/dL (<1.0); Calcium 8.6 mg/dL (8.4-10.2); Carbon Dioxide 24 mmol/L (22-30); Chloride 117 mmol/L (98-107); Creatine Kinase 56 U/L (55-170); Glucose 237 mg/dL (74-99); LDH 1775 U/L (313-618); Non-African American GFR(CKD) >90 (>60 ml/min/1.73 sqM); Potassium 4.5 mmol/L (3.5-5.1); Sodium 147 mmol/L (137-145); Total Bilirubin 10.8 mg/dL (0.2-1.3); Total Protein 6.9 g/dL (6.3-8.2)
[2020-08-28] MEDS: INSULIN DETEMIR (LEVEMIR) 100 UNIT/ML SYR SQ SCH (06:36)
[2020-08-28] MEDS: THIAMINE 100 MG TAB PO SCH ×2 (06:36→16:53)
[2020-08-28 06:46] LABS: Basophils # (A) 0.1 k/uL (0-0.2); Basophils % (A) 0 %; Eosinophils % (A) 0 %; HCT 46.4 % (39.0-53.0); HGB 14.9 gm/dL (13.0-17.5); Lymphocytes # (A) 1.4 k/uL (1.0-4.8); Lymphocytes % (A) 6 %; MCH 35.9 pg (25.0-35.0); MCHC 32.1 g/dL (31.0-37.0); Macrocytosis Marked; Mean Platelet Volume 8.4; Monocytes % (A) 4 %; Neutrophils # (A) 21.6 k/uL (1.3-7.7); Neutrophils % (A) 89 %; Platelet Count 192 k/uL (150-450); RBC 4.14 m/uL (4.30-5.90); RDW 15.9 % (11.5-15.5); WBC 24.4 k/uL (3.8-10.6)
[2020-08-28 07:24] LABS: D-Dimer 3.67 mg/L FEU (<0.60); INR 1.3 (<1.2); Partial Thromboplastin Time 43.4 sec (22.0-30.0); Prothrombin Time 13.1 sec (9.0-12.0)
--- NOTE | 2020-08-28 07:28 | XR ---
EXAMINATION TYPE: XR chest 1V portable DATE OF EXAM: 08/28/2020 Comparison: 08/27/2020 Clinical History: 65-year-old male vent Findings: ET tube tip at the level of the medial clavicular heads. NG tube courses below the diaphragm. Patchy mid and lower lung opacities, left greater than right persist. There may be slight improvement in aer ation on the right. Left CVC tip probably at the upper SVC level. Patient is rotated towards the left . Impression: Left greater than right mid and lower lung infiltrates persist with minimal improvement on the right.
[2020-08-28] MEDS: FOLIC ACID 1 MG TAB PO SCH (08:52)
[2020-08-28] MEDS: ZINC SULFATE 220 MG CAP PO SCH (08:52)
[2020-08-28] MEDS: RIFAXIMIN 550 MG TABLET PO SCH ×2 (08:52→22:02)
[2020-08-28] MEDS: CYANOCOBALAMIN 500 MCG TAB PO SCH (08:53)
[2020-08-28] MEDS: CHOLECALCIFEROL 25 MCG (1000 IU) TABLET PO SCH (08:53)
[2020-08-28] MEDS: LACTULOSE 20 GM/30 ML CUP PO SCH ×3 (08:53→21:36)
[2020-08-28] MEDS: METOPROLOL TARTRATE 50 MG TAB PO SCH ×2 (08:53→21:37)
[2020-08-28] MEDS: PANTOPRAZOLE 40 MG/10 ML VIAL IVP SCH (08:53)
[2020-08-28] MEDS: cloNIDine HCL 0.1 MG TAB PO SCH ×3 (08:53→21:36)
[2020-08-28] MEDS: DEXAMETHASONE SOD PHOSPHATE 10 MG/ML 1 ML VIAL IV SCH (08:53)
[2020-08-28] MEDS: ASCORBIC ACID 500 MG TAB PO SCH (08:53)
[2020-08-28] MEDS: levETIRAcetam IV 500 MG in SODIUM CHLORIDE 0.9% 100 ML IVPB SCH ×2 (08:54→21:37)
[2020-08-28 08:59] LABS: Glucose,Whole Blood 206 mg/dL (75-99)
[2020-08-28] MEDS: AMIODARONE 200 MG TAB PO SCH ×2 (10:34→21:36)
[2020-08-28] MEDS: CHLORHEXIDINE GLUCONATE 15 ML CUP MUCOUS MEM SCH ×2 (10:35→21:37)
[2020-08-28] MEDS: HEPARIN SODIUM 1,000 UN/ML (10ML VL) IV PRN (10:56)
[2020-08-28] MEDS ORDERED: lisinopriL 20 MG TAB PO SCH (11:15)
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
[2020-08-28 12:24] LABS: Glucose,Whole Blood 194 mg/dL (75-99)
[2020-08-28 13:28] LABS: Anisocytosis (M) Present; Poikilocytosis (M) Present; Toxic Granulation Present
--- NOTE | 2020-08-28 13:38 | P.PN ---
Subjective Progress Note Date: 08/28/20 Principal diagnosis: Acute hypoxic respiratory failure secondary to acute COVID-19 pneumonia 65-year-old male patient who presented to the emergency department yesterday because of mental status change and hypoglycemia and the patient was further diagnosed having quit 19 related pneumonia. The patient is diabetic and the patient also has bronchial asthma and hypertension. The patient arrived to the blood sugar of 45. Apparently the patient was sick for around 2 weeks prior to that and the patient was having increased dyspnea on fever and cough and poor appetite. He was taking oral hypoglycemics in the form of Januvia and glipizide on outpatient basis. In the emergency department, the patient was altered, she did obey some commands yet his pulse ox was quite low at 86% on room air oxygen. The patient was placed on 100% nonrebreather facemask. Initially his blood sugar was corrected and the patient was given D50 and following that he was admitted to the medical floor. The patient started having increased shakiness and seizure-like activity and he bit his tongue and he was quite tachypneic. The a team was called. The patient was transferred to the intensive care unit and the patient was intubated for airway protection. At this point in time, the patient is intubated on a mechanical ventilator. Propofol is running at 55 Jhonathan graspi kilogram per minute. The patient is on assist control mode of ventilation with a rate of 20, FiO2 of 60%, PEEP of 5 and tidal volume 450. The patient's blood gases post intubation showed a pH of 7.46 with a pCO2 of 32 and pO2 of 86. The chest x-ray from this morning is showing diffuse bilateral patchy pulmonary infiltrates. ET tube is just above the aortic knob. The patient has a orogastric tube in place. Some mild cardiomegaly is also present. Note that the CT angiogram of the chest that was done yesterday showed some patchy bibasilar airspace disease or consolidation doubtless infiltrates bilaterally consistent with community related pneumonia. The patient also had another appearance of the liver and evidence of portal hypertension. Mother the patient is a chronic alcohol drinker. The white cell count of 7.6 with a hemoglobin of 11.8. Platelets at 127, his LDH was 1369 and his CRP is at 141, urine drug screen was positive for opiates, amphetamines and benzodiazepines, urinalysis showing +1 protein, normal renal function test, normal electrolytes. This morning the d-dimer is at 5.13, the patient's blood pressure currently is 99/35 and the patient is on D5 normal saline at the rate of 75 mL an hour. The patient was started on Lovenox 40 mg subcu every 12 hours. The patient is on propofol. The patient is on no pressors for now. He is on Decadron 63 g IV every 24 hours. Most recent blood sugar is at 141. On today's evaluation of 08/21/2020, the patient is being seen for a follow-up. The patient was hospitalized for community related pneumonia and the patient is currently intubated on a mechanical ventilator. This morning, the patient is sedation with propofol at 75 mcg/kg per minute and he is quite comfortable. He remains on assist control mode of ventilation with a tidal volume of 450 and FiO2 of 50% with a PEEP of 5 and a rate of 20. His peak airway pressure is 23 anesthetic pressure is 14. The chest x-ray showing diffuse bilateral pulmonary pulses consistent with obesity related pneumonia and ET tube is in a good location. The patient is hemodynamically stable. The patient is on no pressors. No seizure activity has been noted. The patient is receiving tube feeds in the form of Vicodin HB at the rate of 30 mL an hour. No hypoglycemic events overnight. The patient's d-dimer is at 5.66 and the patient's LDH currently is at 1478 with a CRP level of 160. The propofol Level Was 0.31. The Patient Is Currently on Decadron 6 Mg IV Every 24 Hours and He Is Also on Lovenox 40 Mg Subcu Every 12 Hours. His Last D-Dimer Is at 5.56 from Today. No Fever. No Other Significant Issues Overnight. Neurology Consultation Was Also Done. EEG from yesterday showed no evidence of any seizure activity. It wasn't abnormal EEG probably related to drug effect. The patient remains on Keppra 5 mg every 12 hours and no clinical seizure activity has been noted. He is also started on a combination of thiamine and B12. Ammonia level is pending from today. His liver function tests currently are improving and his AST is down to 128 and a LDL 45. His lactic acid is also improving is down to 1.8. On 08/22/2020, the patient remains on propofol at the rate of 50 mcg/kg per minute. Attempts to wean him off the propofol yesterday failed as the patient became quite agitated, tachypneic and tachycardic and his symptoms with the mechanical ventilator. There was no meaningful response neurologically and for that reason the sedation holiday was aborted at the same thing will be done today. The patient is an assist-control with a tidal volume of 450 and FiO2 of 40% with a PEEP of 5 and a rate of 20. The patient had a chest x-ray today that showed patchy bilateral pulmonary infiltrates with a peripheral distribution. ET tube is in a good location. The blood gas from today showing a pH of 7.46 with a pCO2 of 28 and pO2 of 82. Peak airway pressure is 20 and as such the patient is potentially extubated on as long as he demonstrated adequate neurologic recovery. The patient is currently on vital high protein at the rate of 43 mL an hour. Labs were all stable with a white cell count of 6 and a hemoglobin of 12 and the rest of the electrolytes are all within normal limits. His LDH level is 1391 and is lower compared to yesterday with a CRP level of 81. As such, the active problem for now is his underlying neurological functions. We're the process of giving the patient sedation holiday and if needed use Precedex to control his agitation. His pupils are equal and symmetrical in a pinpoint. Her activity has been noted. No further bouts of hypoglycemia. 08/23/2020, he managed to get this patient off the propofol. The active issue is his altered mentation despite being off sedation. The patient would get quite agitated but he is not following any commands or doing any purposeful activity. For that reason, I had to cover him with some Precedex overnight. CAT scan of the brain was also done and showed no acute abnormalities. Note that the patient did not have any further hypoglycemic events. He did have hypoglycemia associated at the time his admission. Meanwhile, he remains on a mechanical ventilator. On today's evaluation is in a tidal volume of 450 with an FiO2 of 40% with a PEEP of 5 and a rate of 20. This is essentially same setting as yesterday. Blood gases showing a pH of 7.40 with a pCO2 of 35 and a pO2 of 77. Chest x-ray findings are essentially stable. ET tube is in a good location. The patient is hemodynamically stable. The patient is on vital high protein at the rate of 56 mL an hour. He is tolerating enteral feeding for nutritional support. Inflammatory markers from today showing an LDH level of 1453 and a CRP level is at 62. The markers are essentially compatible to yesterday. His d-dimer is at 5.56 from 2 days ago. Electrolytes all within normal limits. CBC showing a white cell count of 7.8 with hemoglobin of 12.2. His blood sugar is being monitored in the blood sugar currently is at 221. The fluid balance is currently at -730 mL over the past 24 hours. His IV fluids currently running at 20 mL an hour of normal saline. This morning, I took the patient off the Precedex and we're about to reevaluate his mental status. 08/24/2020, the active issue for now as the patient's unresponsiveness while being off sedation. The patient has not shown any significant neurologic recovery. I took him off the sedation yesterday for several hours and the patient did not follow any commands and he was not responsive. He became progressively more agitated and the patient had to be placed back on sedation. Neurology evaluated the patient and the neuro workup is in progress including a CAT scan of the brain that showed no acute abnormalities and the patient also had an EEG that showed abnormal findings, encephalopathy with diffuse slowing and there was no evidence of any seizure activity. For now, the patient is on propofol running at 40 mcg/kg per minute he was given another sedation holiday this morning and following that, the patient became quite tachypneic and restless. He was not following any commands and he remains neurologically impaired. As such, he was placed back on sedation. The patient has history of alcoholism and signs of liver cirrhosis. We noted that his ammonia level was high and was started him on lactulose regarding the possibility of hepatic encephalopathy. His chest x-ray findings are quite stable. There is significant improvement in the right-sided pulmonary infiltrate with some residual infiltration of the left. He remains on assist control mode of ventilation with a rate of 20, tidal volume of 450, FiO2 of 40% and a PEEP of 5. His chest x-ray is improved. The blood gases showed a pH of 7.47 with a pCO2 of 32 and pO2 of 85. Otherwise, his inflammatory markers in regards to his COVID-19 related pneumonia includes a d-dimer of 13.5 inches slightly higher compared to his baseline LDH level is 1772 and his CRP level is at 66.4 and the levels continued to be elevated. No hypoglycemia. His current blood sugar co ntrol is adequate although he is slightly hyperglycemic. Is receiving enteral feeding for nutritional support and is currently on vital high protein at the rate of 36 mild an hour. He remains on Levemir insulin at 20 units a day along with a sliding scale coverage. IV fluids are running in the form of normal saline at the rate of 20 mL an hour. Note that the also start the patient on some lactulose. He is producing adequate amount of stool. His ammonia level is up to 147 from a baseline of 36. 08/25/2020, several active issues on this patient including unresponsiveness, respiratory failure and new onset atrial fibrillation. Note that this patient came to us initially with hypoglycemia and seizures. He was found to be COVID- 19 positive. He was intubated and placed on a mechanical ventilator immunization intubation was mainly to protect his airways. Subsequently, as the patient's blood sugar was regulated, the patient did not show any reasonable neurologic recovery. EEG was abnormal and. Still encephalopathy and diffuse slowing. CAT scan of the brain was negative. He was taken off sedation, the patient would get agitated and his heart rate and blood pressure will go up, would not follow any commands. As such, he was placed on Precedex and while on Precedex he went into atrial fibrillation and rapid ventricular response. The patient was also suspected to have a component of hepatic encephalopathy. His alcoholic he does have signs of liver cirrhosis. He was started on lactulose and ammonia level is being monitored. He is having soft bowel movements for now . Follow-up ammonia level will be ordered today. To control his sedation more effectively, he was switched back to propofol was is currently running at 50 mcg/kg per minute. Meanwhile, he remains nature fibrillation. His current heart rate is 140 and the patient is on amiodarone drip at 0.5 mg per minute. Amiodarone was started yesterday at around 5 PM. His blood pressure is elevated and the patient is unclear the proximal drip at 6 mg an hour. Not to forget, the patient also has a COVID-19 related pneumonia. The chest x-ray from today showing some improvement in the right lower lobe pulmonary infiltrate. The patient continues to have diffuse bilateral pulmonary infiltration. Never theless, his oxygenation has been quite reasonable. He remains assist-control at the rate of any with a tidal volume of 500 and FiO2 of 40% with a PEEP of 5. Blood gas shows a pH of 7.48 with a pCO2 of 33 and pO2 of 67. His inflammatory markers today showed an LDH level of 1346 and a CRP of 6.6. His d-dimer is at 9.6. He remains on treatment with Decadron 6 mg IV every 24 hours. He remains on Lovenox 40 mg subcu every 12 hours. He is also on Levemir insulin 30 units daily along with NovoLog sliding scale coverage. Neurology opted to keep the Keppra for now. He is receiving enteral feeding for nutritional support and the patient is currently on vital HP at 52 mL. He has developed some mild hypernatremia in the sodium level is at 146. 08/26/2020, the patient remains intubated on a mechanical ventilator. Active issues for now remains his impaired mentation and level of consciousness. I am considering possibility of prolonged hypoglycemia causing significant amount of brain damage and encephalopathy. In any rate, the patient also had a COVID-19 pneumonia and he is been intubated on a mechanical ventilator. In terms of COVID-19, the patient is doing reasonably well and he remains on a assist- control mode at the rate of 20 with a tidal volume of 500 and FiO2 of 40% with a PEEP of 5. Morning blood gases show a pO2 of 91 and a pCO2 of 31 and a pH of 7.50. His chest x-ray from today showing bilateral pulmonary infiltrates involving the lower lobes and there has been no major interval change. The patient is resting comfortably on a mechanical ventilator and is quite synchronous. No significant orotracheal secretions. The peak and static pressures have been essentially low. Neurologically, the patient has not been able to come off the sedation due to agitation and asynchrony with a mechanical ventilator. As such, he was kept on propofol which is running at 50 mcg/kg per minute. This has controlled his agitation. The patient will be given another sedation holiday today. Note that yesterday, he went into atrial fibrillation with rapid ventricular response. He was given amiodarone bolus and loading and he is back into normal sinus rhythm. At the same time he was placed also on IV heparin. Amiodarone drip was discontinued after the loading dose. His current rhythm is sinus and also hemodynamically stable. Echo of the heart was completed yesterday and there is also still pending. The unofficial report was that the echocardiogram was essentially within normal limits. Meanwhile, in terms of his mentation, we suspected the possibility of hepatic encephalopathy. We are monitoring his ammonia level. Note that the patient is alcoholic and he has signs of chronic liver disease. Most recent ammonia level is at 182. The patient is on lactulose once a day and he is not producing any significant bowel movement. He remains on enteral feeding for nutritional support and is currently receiving vital high protein at the rate of 52 mL an hour. He is on lactulose 30 g twice a day. No abdominal distention. As for the blood pressure, the patient is currently stable and adequate has adequate blood pressure control. Clonidine is running at 0.1 mg 3 times a day and the patient is also on Lopressor 50 mg by mouth twice a day. Blood sugar control is with Levemir insulin 30 units in addition to a NovoLog signs scale coverage. This is to be further adjusted by that his blood sugars are still running high. No further episodes of hypoglycemia since he arrived to the hospital. No seizure activity noted. No fever. No significant hemodynamic instability. Remains on Decadron 6 mg IV every 24 hours. The most recent LDH level is at 05/13/2002 and the d-dimer is at 7.53. Reevaluated today on 08/27/2020, patient remains intubated and mechanically ventilated. He is off sedation, but he does not seem to be showing any signs of neurological recovery, patient is unresponsive. Based on the notes from Dr. Edwards, patient may have sustained some brain damage from his prolonged hypoglycemia and seizure disorder. Although the possibility of COVID-19 encephalopathy is not entirely ruled out. Ration is on assist control rate of 20 tidal volume is 500 FiO2 50% and PEEP of 5. ABG showed a pO2 of 87 pCO2 of 34 pH of 7.48. He is on amiodarone at 0.5, Keppra, he is also on Levemir Rx at 5 mg per hour. IV fluids at KVO. Patient is also receiving enteral feeding. And he is maintained on seizure medications, patient is on Keppra. Chest x-ray showed stable patchy mid and lower lung infiltrates related to COVID-19 pneumonia. Electrolytes showed elevated sodium of 146, normal renal profile, normal bicarb, CBC showed a bit of leukocytosis with WBC count of 17.7 hemoglobin is 14.3. Liver enzymes remain a bit elevated related to his COVID-19 infection. Patient was reevaluated today on 08/28/2020, remains intubated and mechanically ventilated. Remains off sedation, for the last 48 hours, and no neurological response is noted, patient remains on assist control rate of 20 tidal volume is 500 FiO2 50% PEEP of 5. ABG showed a pO2 of 99 pCO2 of 31 pH of 7.50, hence no change was made in his ventilator settings. Patient remains on amiodarone which I will switch to oral remains on clevidipine 6 mg per hour, and he is on heparin. However his heparin will be discontinued and the patient will be placed on Eliquis. We'll continue free water flushes for his hyponatremia, we'll continue lactulose for his hyperammonemia level. And we can continue to hold sedation. Patient had atrial fibrillation yesterday, converted sinus rhythm at 3 PM yesterday. Remains in sinus rhythm. WBC count is 24.4 hemoglobin 14.9. D-dimer is 3.67 sodium is 147, hence we'll continue free water flushes. LDH is 1775 and his C-reactive protein is 6.1. No major changes noted in his inflammatory markers over the last few days. Chest x-ray continues to show bilateral patchy infiltrates especially at the bases left more so than right Objective - Vital Signs Vital signs: Vital Signs Temp 100.8 F H 08/28/20 08:00 Pulse 82 08/28/20 11:00 Resp 28 H 08/28/20 11:00 BP 145/75 08/28/20 11:00 Pulse Ox 96 08/28/20 11:00 Intake & Output 08/27/20 08/28/20 08/28/20 18:59 06:59 18:59 Intake Total 0089.106 1236.873 634.308 Output Total 1045 690 270 Balance 510.636 4449.873 364.308 Weight 114.2 kg 114.2 kg Intake: IV 360 386 115 Sodium Chloride 0.9% 1, 330 250 100 000 ml @ 20 mls/hr IV . Q24H FE Rx#:[id number] levETIRAcetam IV 500 mg 100 In Sodium Chloride 0.9% 100 ml @ 400 mls/hr IVPB Q12HR FE Rx#:[id number] pressure bag 30 36 15 Intake, IV Titration 153.367 421.873 102.308 Amount Amiodarone 450 mg In 179.448 Dextrose 5% in Water 250 ml @ 0.5 MG/MIN 16.667 mls/hr IV .Q15H FE Rx#: [id number] Clevidipine Butyrate 25 75.867 143.8 mg In Empty Bag 1 bag @ 1 MG/HR 2 mls/hr IV .Q24H FE Rx#:[id number] Heparin Sod,Pork in 0.45% 77.5 98.625 102.308 NaCl 25,000 unit In 0.45 % NaCl 1 250ml.bag @ 8. 7566 UNITS/KG/HR 10 mls/ hr IV .Q24H FE Rx#: [id number] Tube Feeding 509 372 217 Other 600 600 200 Output: Urine 1045 690 270 Other: Voiding Method Indwelling Catheter Indwelling Catheter Indwelling Catheter ABP, PAP, CO, CI - Last Documented Arterial Blood Pressure 148/51 - Exam Physical Exam: Revealed 65-year-old white male intubated and mechanically ventilated, unresponsive to any stimuli. Head: Atraumatic, normocephalic. Endotracheal tube and orogastric tube are intact. HEENT:[Neck is supple.] [No neck masses.] [No thyromegaly.] [No JVD.]. Blood, EOMI, nonicteric, pupils are constricted bilaterally. Chest: [Symmetrical chest expansion, crackles and rhonchi noted bilaterally. Cardiac Exam: [Normal S1 and S2, no S3 gallop, no murmur.] Abdomen: [Soft, nontender, no megaly, no rebound, no guarding, normal bowel sounds.] Extremities: [No clubbing, no edema, no cyanosis.] Good pulses bilaterally. Neurological Exam: Unresponsive, does not withdraw to painful stimuli, pupils are reactive. Patient had downward gaze. Acute: Could not be assessed. Skin: No rashes. - Labs CBC & Chem 7: 08/28/20 05:25 08/28/20 05:25 Labs: Abnormal Lab Results - Last 24 Hours (Table) 08/27/20 08/27/20 08/27/20 Range/Units 06:00 16:42 17:39 WBC (3.8-10.6) k/uL RBC (4.30-5.90) m/uL MCV (80.0-100.0) fL MCH (25.0-35.0) pg RDW (11.5-15.5) % Neutrophils # (1.3-7.7) k/uL Macrocytosis PT (9.0-12.0) sec INR (<1.2) APTT 36.8 H (22.0-30.0) sec D-Dimer (<0.60) mg/L FEU ABG pH (7.35-7.45) ABG pCO2 (35-45) mmHg ABG Total CO2 (19-24) mmol/L ABG O2 Saturation (94-97) % Sodium (137-145) mmol/L Chloride (98-107) mmol/L BUN (9-20) mg/dL Glucose (74-99) mg/dL POC Glucose (mg/dL) 270 H (75-99) mg/dL Total Bilirubin (0.2-1.3) mg/dL AST (17-59) U/L ALT (4-49) U/L Ammonia 142 H (<30) umol/L Lactate Dehydrogenase (313-618) U/L C-Reactive Protein (<1.0) mg/dL Albumin (3.5-5.0) g/dL 08/27/20 08/27/20 08/27/20 Range/Units 19:54 23:55 23:55 WBC (3.8-10.6) k/uL RBC (4.30-5.90) m/uL MCV (80.0-100.0) fL MCH (25.0-35.0) pg RDW (11.5-15.5) % Neutrophils # (1.3-7.7) k/uL Macrocytosis PT (9.0-12.0) sec INR (<1.2) APTT 45.2 H (22.0-30.0) sec D-Dimer (<0.60) mg/L FEU ABG pH (7.35-7.45) ABG pCO2 (35-45) mmHg ABG Total CO2 (19-24) mmol/L ABG O2 Saturation (94-97) % Sodium (137-145) mmol/L Chloride (98-107) mmol/L BUN (9-20) mg/dL Glucose (74-99) mg/dL POC Glucose (mg/dL) 284 H 255 H (75-99) mg/dL Total Bilirubin (0.2-1.3) mg/dL AST (17-59) U/L ALT (4-49) U/L Ammonia (<30) umol/L Lactate Dehydrogenase (313-618) U/L C-Reactive Protein (<1.0) mg/dL Albumin (3.5-5.0) g/dL 08/28/20 08/28/20 08/28/20 Range/Units 05:15 05:25 05:25 WBC 24.4 H (3.8-10.6) k/uL RBC 4.14 L (4.30-5.90) m/uL MCV 112.0 H (80.0-100.0) fL MCH 35.9 H (25.0-35.0) pg RDW 15.9 H (11.5-15.5) % Neutrophils # 21.6 H (1.3-7.7) k/uL Macrocytosis Marked A PT (9.0-12.0) sec INR (<1.2) APTT (22.0-30.0) sec D-Dimer (<0.60) mg/L FEU ABG pH (7.35-7.45) ABG pCO2 (35-45) mmHg ABG Total CO2 (19-24) mmol/L ABG O2 Saturation (94-97) % Sodium (137-145) mmol/L Chloride (98-107) mmol/L BUN (9-20) mg/dL Glucose (74-99) mg/dL POC Glucose (mg/dL) 210 H (75-99) mg/dL Total Bilirubin (0.2-1.3) mg/dL AST (17-59) U/L ALT (4-49) U/L Ammonia 75 H (<30) umol/L Lactate Dehydrogenase (313-618) U/L C-Reactive Protein (<1.0) mg/dL Albumin (3.5-5.0) g/dL 08/28/20 08/28/20 08/28/20 Range/Units 05:25 05:25 05:35 WBC (3.8-10.6) k/uL RBC (4.30-5.90) m/uL MCV (80.0-100.0) fL MCH (25.0-35.0) pg RDW (11.5-15.5) % Neutrophils # (1.3-7.7) k/uL Macrocytosis PT 13.1 H (9.0-12.0) sec INR 1.3 H (<1.2) APTT 43.4 H (22.0-30.0) sec D-Dimer 3.67 H (<0.60) mg/L FEU ABG pH 7.50 H (7.35-7.45) ABG pCO2 31 L (35-45) mmHg ABG Total CO2 25 H (19-24) mmol/L ABG O2 Saturation 98.1 H (94-97) % Sodium 147 H (137-145) mmol/L Chloride 117 H (98-107) mmol/L BUN 55 H (9-20) mg/dL Glucose 237 H (74-99) mg/dL POC Glucose (mg/dL) (75-99) mg/dL Total Bilirubin 10.8 H (0.2-1.3) mg/dL AST 146 H (17-59) U/L ALT 117 H (4-49) U/L Ammonia (<30) umol/L Lactate Dehydrogenase 1775 H (313-618) U/L C-Reactive Protein 6.1 H (<1.0) mg/dL Albumin 2.5 L (3.5-5.0) g/dL 08/28/20 08/28/20 Range/Units 08:57 12:23 WBC (3.8-10.6) k/uL RBC (4.30-5.90) m/uL MCV (80.0-100.0) fL MCH (25.0-35.0) pg RDW (11.5-15.5) % Neutrophils # (1.3-7.7) k/uL Macrocytosis PT (9.0-12.0) sec INR (<1.2) APTT (22.0-30.0) sec D-Dimer (<0.60) mg/L FEU ABG pH (7.35-7.45) ABG pCO2 (35-45) mmHg ABG Total CO2 (19-24) mmol/L ABG O2 Saturation (94-97) % Sodium (137-145) mmol/L Chloride (98-107) mmol/L BUN (9-20) mg/dL Glucose (74-99) mg/dL POC Glucose (mg/dL) 206 H 194 H (75-99) mg/dL Total Bilirubin (0.2-1.3) mg/dL AST (17-59) U/L ALT (4-49) U/L Ammonia (<30) umol/L Lactate Dehydrogenase (313-618) U/L C-Reactive Protein (<1.0) mg/dL Albumin (3.5-5.0) g/dL Assessment and Plan Assessment: Impression: Acute hypoxic respiratory failure secondary to COVID-19 pneumonia. New onset atrial fibrillation presently in normal sinus rhythm off amiodarone. We will start the patient on Eliquis. COVID-19 encephalopathy or hepatic encephalopathy but definite mental status change and the patient could have had encephalopathy related to prolonged hypoglycemia on presentation. Clearly the patient has acute metabolic encephalopathy. Hypoglycemia induced seizure is strongly suspected remains on Keppra. Liver cirrhosis and portal hypertension with elevated ammonia level remains on lactulose and Xifaxan, ammonia level remains elevated but it's trending down. Positive drug screen for benzodiazepine and opiate and methamphetamine. History of alcoholism. Benign essential hypertension. Chronic thrombocytopenia. Type 2 diabetes. Recommendation: Continue ventilatory support. No vent changes were made today. Change amiodarone to oral Start patient on Eliquis. Continue GI and DVT prophylaxis. Continue blood pressure control Continue lactulose and Xifaxan Continue to monitor ammonia level. Continue to monitor daily assessment of his neurological status. Continue Decadron. Continue Keppra. Continue enteral feeding/interstitial support. Patient is not ready to be weaned mostly because of his worsening neurological status. We'll consult surgery for PEG tube placement and tracheostomy. Neurology to evaluate his neurological status again. We'll continue to follow Critical care time is over 30 minutes Time with Patient: Greater than 30
[2020-08-28 16:30] LABS: Glucose,Whole Blood 204 mg/dL (75-99)
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
[2020-08-28] MEDS: ACETAMINOPHEN TAB 500 MG TAB PO PRN (17:21)
--- NOTE | 2020-08-28 18:21 | P.PN ---
Subjective Progress Note Date: 08/28/20 I am assuming care of this patient as of 08/22/2020 at 8 AM. I was out of town and Dr. Paulino was covering for me. HMP done by Dr. Blair on 08/19/2020 On 08/19/2020 patient presented to the ER with altered mental status and hypoglycemia. It is reported that patient had been sick for 2 weeks with fever and productive cough. Patient has a past medical history of diabetes mellitus, hypertension, asthma, EtOH diabetes. At that time patient was admitted to floor and upon arrival required a-team with intubation and transfer to ICU due to declining respiratory status. Chest x-ray was completed showing diffuse bilateral patchy pulmonary infiltrates. Patient was positive for COVID-19 On 08/22/2020 patient remains in the intensive care unit on mechanical ventilation. Patient remains on sedation of propofol and Precedex. Per nursing staff attempting sedation holiday to assess neurological status. Neurology services are following. Patient remains on IV Decadron. Currently on mechanical ventilation with an FiO2 of 40%. Hemodynamically stable. PH is 7.46, CO2 20 12/10/1981 and HCO3 20 On 08/23/2020 patient was seen and examined in the ICU he is intubated main tained on mechanical ventilation he was taken off sedation. Patient is maintained on assist control FiO2 40% PEEP of 5 with a rate of 20 blood gases reveals pH of 7.40 pCO2 35 PO2 77 his white blood count is 7.8 hemoglobin 12.2. Patient mental function is not improving off sedation neurology consultation has been requested On 08/24/2020 patient was seen and examined in the ICU he is intubated sedated maintained on mechanical ventilation yesterday sedation was discontinued however patient continued to be an responsive he was seen by neurology and had a computed tomography scan and an EEG he started becoming agitated and he was started on sedation and again. Currently patient is on assist control rate of 20 tidal volume of 450 FiO2 40% and PEEP of 5 his arterial blood gases are showing a pH of 7.47 pCO2 32 and PO2 of 85 CRP is elevated at 66.4 patient has elevated ammonia level and was started on lactulose critical care and neurology are following. On 08/25/2020 patient was seen and examined in the ICU he is intubated and maintained on mechanical ventilation, his ventilator settings are assist control with tidal volume of 500 FiO2 40% and PEEP of 5 arterial blood gas reveals pH of 7.48 pCO2 33 and PO2 67 LDH is 1346 CRP 6.6 and d-dimer is 9.6 patient maintained on IV Decadron, subcu Lovenox, Levemir 30 units daily, and NovoLog sliding scale patient is also maintained on Keppra per neurology and is maintained on amiodarone drip per cardiology for atrial fibrillation with rapid ventricular response patient hemodynamically is improving however his mental function is not improving patient is not responsive while off sedation. We will continue to follow. On 08/26/2020 patient was seen and examined in the ICU he is intubated, maintained on mechanical ventilation his sedation has been held, however patient is not having any response to stimuli, he is maintained on mechanical ventilation, his ventilator settings are assist control with tidal volume of 500 FiO2 40% and PEEP of 5 arterial blood gas reveals pH of 7.50 pCO2 31 and PO2 91, patient maintained on IV Decadron, subcu Lovenox, Levemir 30 units daily, and NovoLog sliding scale patient is also maintained on Keppra per neurology and is maintained on amiodarone drip per cardiology for atrial fibrillation with rapid ventricular response patient hemodynamically is improving however his mental function is not improving patient is not responsive while off sedation. We will continue to follow. On 08/27/2020 patient was seen and examined in the ICU he is intubated sedated maintained on mechanical ventilation had multiple sedation holidays however he did not have any response to stimuli while is on sedation holidays patient was getting agitated and eventually and was put back on sedation. Patient is main tained on assist control tidal volume 500 rate of 20 FiO2 50% and a PEEP of 5 ABG revealed pH 7.48 pCO2 34 and PO2 87 patient is receiving enteral feeding, insulin, amiodarone, Keppra, no significant change in condition since yesterday. On 08/28/2020 patient was seen and examined in the ICU he is intubated sedated maintained on mechanical ventilation had multiple sedation holidays however he did not have any response to stimuli, his ammonia level is elevated and he is receiving lactulose and rifaximin. Patient is maintained on assist control tidal volume 500 rate of 20 FiO2 50% and a PEEP of 5 ABG revealed pH 7.48 pCO2 34 and PO2 87 patient is receiving enteral feeding, insulin, amiodarone, Keppra, no significant change in condition since yesterday. Objective - Vital Signs Vital signs: Vital Signs Temp 101.1 F H 08/28/20 16:00 Pulse 89 08/28/20 17:00 Resp 21 08/28/20 17:00 BP 145/75 08/28/20 11:00 Pulse Ox 94 L 08/28/20 17:00 Intake & Output 08/27/20 08/28/20 08/28/20 18:59 06:59 18:59 Intake Total 5505.119 1366.873 1323.641 Output Total 1045 690 755 Balance 153.518 5556.873 568.641 Weight 114.2 kg 114.2 kg 114.2 kg Intake: IV 360 386 253 Sodium Chloride 0.9% 1, 330 250 220 000 ml @ 20 mls/hr IV . Q24H FE Rx#:[id number] levETIRAcetam IV 500 mg 100 In Sodium Chloride 0.9% 100 ml @ 400 mls/hr IVPB Q12HR FE Rx#:[id number] pressure bag 30 36 33 Intake, IV Titration 153.367 421.873 167.641 Amount Amiodarone 450 mg In 179.448 Dextrose 5% in Water 250 ml @ 0.5 MG/MIN 16.667 mls/hr IV .Q15H FE Rx#: [id number] Clevidipine Butyrate 25 75.867 143.8 65.333 mg In Empty Bag 1 bag @ 1 MG/HR 2 mls/hr IV .Q24H FE Rx#:[id number] Heparin Sod,Pork in 0.45% 77.5 98.625 102.308 NaCl 25,000 unit In 0.45 % NaCl 1 250ml.bag @ 8. 7566 UNITS/KG/HR 10 mls/ hr IV .Q24H FE Rx#: [id number] Tube Feeding 509 372 403 Other 600 600 500 Output: Urine 1045 690 755 Other: Voiding Method Indwelling Catheter Indwelling Catheter Indwelling Catheter ABP, PAP, CO, CI - Last Documented Arterial Blood Pressure 144/53 - Exam In general patient is intubated maintained on mechanical ventilation Head normocephalic and atraumatic Neck supple no JVD no goiter Lungs diminished bilaterally Heart regular rate and rhythm S1-S2, no rub or gallop Abdomen is soft nontender nondistended positive bowel sounds no hepatosplenomegaly Extremities no edema no cyanosis or clubbing Neurological examination patient is moving all 4 extremities spontaneously, however he is not awakening despite stopping sedation. - Labs CBC & Chem 7: 08/28/20 05:25 08/28/20 05:25 Labs: Abnormal Lab Results - Last 24 Hours (Table) 08/27/20 08/27/20 08/27/20 Range/Units 17:39 19:54 23:55 WBC (3.8-10.6) k/uL RBC (4.30-5.90) m/uL MCV (80.0-100.0) fL MCH (25.0-35.0) pg RDW (11.5-15.5) % Neutrophils # (1.3-7.7) k/uL Macrocytosis PT (9.0-12.0) sec INR (<1.2) APTT 36.8 H (22.0-30.0) sec D-Dimer (<0.60) mg/L FEU ABG pH (7.35-7.45) ABG pCO2 (35-45) mmHg ABG Total CO2 (19-24) mmol/L ABG O2 Saturation (94-97) % Sodium (137-145) mmol/L Chloride (98-107) mmol/L BUN (9-20) mg/dL Glucose (74-99) mg/dL POC Glucose (mg/dL) 284 H 255 H (75-99) mg/dL Total Bilirubin (0.2-1.3) mg/dL AST (17-59) U/L ALT (4-49) U/L Ammonia (<30) umol/L Lactate Dehydrogenase (313-618) U/L C-Reactive Protein (<1.0) mg/dL Albumin (3.5-5.0) g/dL 08/27/20 08/28/20 08/28/20 Range/Units 23:55 05:15 05:25 WBC (3.8-10.6) k/uL RBC (4.30-5.90) m/uL MCV (80.0-100.0) fL MCH (25.0-35.0) pg RDW (11.5-15.5) % Neutrophils # (1.3-7.7) k/uL Macrocytosis PT (9.0-12.0) sec INR (<1.2) APTT 45.2 H (22.0-30.0) sec D-Dimer (<0.60) mg/L FEU ABG pH (7.35-7.45) ABG pCO2 (35-45) mmHg ABG Total CO2 (19-24) mmol/L ABG O2 Saturation (94-97) % Sodium (137-145) mmol/L Chloride (98-107) mmol/L BUN (9-20) mg/dL Glucose (74-99) mg/dL POC Glucose (mg/dL) 210 H (75-99) mg/dL Total Bilirubin (0.2-1.3) mg/dL AST (17-59) U/L ALT (4-49) U/L Ammonia 75 H (<30) umol/L Lactate Dehydrogenase (313-618) U/L C-Reactive Protein (<1.0) mg/dL Albumin (3.5-5.0) g/dL 08/28/20 08/28/20 08/28/20 Range/Units 05:25 05:25 05:25 WBC 24.4 H (3.8-10.6) k/uL RBC 4.14 L (4.30-5.90) m/uL MCV 112.0 H (80.0-100.0) fL MCH 35.9 H (25.0-35.0) pg RDW 15.9 H (11.5-15.5) % Neutrophils # 21.6 H (1.3-7.7) k/uL Macrocytosis Marked A PT 13.1 H (9.0-12.0) sec INR 1.3 H (<1.2) APTT 43.4 H (22.0-30.0) sec D-Dimer 3.67 H (<0.60) mg/L FEU ABG pH (7.35-7.45) ABG pCO2 (35-45) mmHg ABG Total CO2 (19-24) mmol/L ABG O2 Saturation (94-97) % Sodium 147 H (137-145) mmol/L Chloride 117 H (98-107) mmol/L BUN 55 H (9-20) mg/dL Glucose 237 H (74-99) mg/dL POC Glucose (mg/dL) (75-99) mg/dL Total Bilirubin 10.8 H (0.2-1.3) mg/dL AST 146 H (17-59) U/L ALT 117 H (4-49) U/L Ammonia (<30) umol/L Lactate Dehydrogenase 1775 H (313-618) U/L C-Reactive Protein 6.1 H (<1.0) mg/dL Albumin 2.5 L (3.5-5.0) g/dL 08/28/20 08/28/20 08/28/20 Range/Units 05:35 08:57 12:23 WBC (3.8-10.6) k/uL RBC (4.30-5.90) m/uL MCV (80.0-100.0) fL MCH (25.0-35.0) pg RDW (11.5-15.5) % Neutrophils # (1.3-7.7) k/uL Macrocytosis PT (9.0-12.0) sec INR (<1.2) APTT (22.0-30.0) sec D-Dimer (<0.60) mg/L FEU ABG pH 7.50 H (7.35-7.45) ABG pCO2 31 L (35-45) mmHg ABG Total CO2 25 H (19-24) mmol/L ABG O2 Saturation 98.1 H (94-97) % Sodium (137-145) mmol/L Chloride (98-107) mmol/L BUN (9-20) mg/dL Glucose (74-99) mg/dL POC Glucose (mg/dL) 206 H 194 H (75-99) mg/dL Total Bilirubin (0.2-1.3) mg/dL AST (17-59) U/L ALT (4-49) U/L Ammonia (<30) umol/L Lactate Dehydrogenase (313-618) U/L C-Reactive Protein (<1.0) mg/dL Albumin (3.5-5.0) g/dL 08/28/20 08/28/20 Range/Units 16:28 17:36 WBC (3.8-10.6) k/uL RBC (4.30-5.90) m/uL MCV (80.0-100.0) fL MCH (25.0-35.0) pg RDW (11.5-15.5) % Neutrophils # (1.3-7.7) k/uL Macrocytosis PT (9.0-12.0) sec INR (<1.2) APTT 69.2 H (22.0-30.0) sec D-Dimer (<0.60) mg/L FEU ABG pH (7.35-7.45) ABG pCO2 (35-45) mmHg ABG Total CO2 (19-24) mmol/L ABG O2 Saturation (94-97) % Sodium (137-145) mmol/L Chloride (98-107) mmol/L BUN (9-20) mg/dL Glucose (74-99) mg/dL POC Glucose (mg/dL) 204 H (75-99) mg/dL Total Bilirubin (0.2-1.3) mg/dL AST (17-59) U/L ALT (4-49) U/L Ammonia (<30) umol/L Lactate Dehydrogenase (313-618) U/L C-Reactive Protein (<1.0) mg/dL Albumin (3.5-5.0) g/dL Assessment and Plan Assessment: 1. Acute hypoxic respiratory failure secondary to COVID-19 related pneumonia. Patient requiring mechanical ventilation. Patient was symptomatic for 2 weeks. Currently on IV Decadron chest x-ray stable and showing some improvement. Remains on mechanical ventilation with an FiO2 of 40% 2. Seizure activity likely secondary to hypoglycemia. No previous history of seizure based on history currently on Keppra. Neurology services are following 3. Metabolic encephalopathy. Neurology services are following 4. Diabetes mellitus type 2 with hypoglycemia on admission. Resolved Patient currently on Lantus and sliding scale coverage 5. History of EtOH 6. History of essential hypertension 7. Episode of hypertension maintained on IV fluids required no pressors. Blood pressure has improved 8. Evidence of liver cirrhosis with signs of portal hypertension 9. History of BPH 10. Positive urine drug screen on admission for benzos, opiates and methamphetamine 11. Encephalopathy with and responsiveness off sedation neurology is following EEG and computed tomography scan of the brain were done DVT prophylaxis Lovenox. GI prophylaxis Protonix Critical care and neurology service is following Remains in the intensive care unit on mechanical ventilation and IV sedation Remains on IV Decadron, vitamin C vitamin D and zinc IV Keppra for seizure activity Attempting sedation holiday today 08/22/2020 per critical care Tube feedings for nutritional support
[2020-08-28 20:16] LABS: Glucose,Whole Blood 238 mg/dL (75-99)
[2020-08-28 22:19] LABS: Glucose,Whole Blood 238 mg/dL (75-99)
--- NOTE | 2020-08-28 23:39 | P.PN ---
Subjective Progress Note Date: 08/28/20 Patient was seen for a follow-up. Patient initially seen by Dr. Isaiah Phelan. Please refer to his note for details. Patient initially came to the ER on 08/19/2020 with complaints of confusion and episode of unresponsiveness. Patient's blood sugar was 45 on arrival. Patient is given ampule of glucose. He had been feeling sick for 2 weeks prior with productive cough and fever. Patient was diagnosed with Covid 19, as chest x-ray showed bilateral pulmonary infiltrates. Patient has history of alcohol abuse, and is bilirubin was elevated 3.2. Patient had witnessed seizures in the floor on the day of admission. Patient was intubated and moved to the ICU. Patient was started on Keppra 1 g twice a day. Patient had an EEG, which was abnormal suggestive of comatose patient. The burst suppression activity is likely due to medication effect from propofol. No epileptiform discharges or seizure during EEG. CTA of head showed no acute intracranial abnormality. Patient continues to be severely encephalopathic. Patient is scheduled for tracheostomy and PEG placement in the morning. Patient's most recent chest x-ray showed left greater than right mid and lower lung infiltrates persist with minimal improvement on the right. Blood tests shows WBC 24.4, hemoglobin 14.9, platelets 192. Elev ated MCV 112. INR is 1.3. Sodium 147 potassium 4.5, BUN 55, creatinine 0.71. Hemoglobin A1c 8.2. Hepatic panel was abnormal with AST 146, ALT 117, total bilirubin 10.8, ammonia is 75 as of today. It was as high as 182 on 08/26/2020. B12 is 4000 and RBC folate normal. TFTs normal. Urine drug screen was positive for opiate, methamphetamine and benzodiazepine. Newell virus is positive. Patient is still running temperature 101.5 axillary. Objective - Vital Signs Vital signs: Vital Signs Temp 101.5 F H 08/28/20 21:00 Pulse 124 H 08/28/20 21:00 Resp 27 H 08/28/20 21:00 BP 145/75 08/28/20 11:00 Pulse Ox 93 L 08/28/20 21:00 Intake & Output 08/28/20 08/28/20 08/29/20 06:59 18:59 06:59 Intake Total 6616.873 5099.909 493 Output Total 690 830 260 Balance 1089.873 657.909 233 Weight 114.2 kg 114.2 kg Intake: IV 386 276 69 Sodium Chloride 0.9% 1, 250 240 60 000 ml @ 20 mls/hr IV . Q24H FE Rx#:[id number] levETIRAcetam IV 500 mg 100 In Sodium Chloride 0.9% 100 ml @ 400 mls/hr IVPB Q12HR FE Rx#:[id number] pressure bag 36 36 9 Intake, IV Titration 421.873 277.909 Amount Amiodarone 450 mg In 179.448 Dextrose 5% in Water 250 ml @ 0.5 MG/MIN 16.667 mls/hr IV .Q15H FE Rx#: [id number] Clevidipine Butyrate 25 143.8 65.333 mg In Empty Bag 1 bag @ 1 MG/HR 2 mls/hr IV .Q24H FE Rx#:[id number] Heparin Sod,Pork in 0.45% 98.625 212.576 NaCl 25,000 unit In 0.45 % NaCl 1 250ml.bag @ 8. 7566 UNITS/KG/HR 10 mls/ hr IV .Q24H FE Rx#: [id number] Tube Feeding 372 434 124 Other 600 500 300 Output: Urine 690 830 260 Other: Voiding Method Indwelling Catheter Indwelling Catheter ABP, PAP, CO, CI - Last Documented Arterial Blood Pressure 139/60 - Exam On examination patient is an elderly male, laying in the bed, intubated, who appears comatose, nonresponsive. Patient breathing is synchronous with the respirator. Shallow breathing. Patient has been off sedation for last 3 days. Patient is not showing any purposeful movement. Patient also has history of dementia.. Pupils are round and reacting to light, oculocephalics shows no definitive response. Corneals are present. Patient has severe conjunctival edema and icterus. Patient is intubated. No obvious seizure activity noted. Tone is decreased in the arms and legs. Reflexes are almost hypoactive and plantars are flat. No clonus. Patient has moderate peripheral edema. Patient is not responding to any painful or verbal stimuli. He is not even grimacing. GCS is 3. - Labs CBC & Chem 7: 08/28/20 05:25 08/28/20 05:25 Labs: Abnormal Lab Results - Last 24 Hours (Table) 08/27/20 08/27/20 08/28/20 Range/Units 23:55 23:55 05:15 WBC (3.8-10.6) k/uL RBC (4.30-5.90) m/uL MCV (80.0-100.0) fL MCH (25.0-35.0) pg RDW (11.5-15.5) % Neutrophils # (1.3-7.7) k/uL Macrocytosis PT (9.0-12.0) sec INR (<1.2) APTT 45.2 H (22.0-30.0) sec D-Dimer (<0.60) mg/L FEU ABG pH (7.35-7.45) ABG pCO2 (35-45) mmHg ABG Total CO2 (19-24) mmol/L ABG O2 Saturation (94-97) % Sodium (137-145) mmol/L Chloride (98-107) mmol/L BUN (9-20) mg/dL Glucose (74-99) mg/dL POC Glucose (mg/dL) 255 H 210 H (75-99) mg/dL Total Bilirubin (0.2-1.3) mg/dL AST (17-59) U/L ALT (4-49) U/L Ammonia (<30) umol/L Lactate Dehydrogenase (313-618) U/L C-Reactive Protein (<1.0) mg/dL Albumin (3.5-5.0) g/dL 08/28/20 08/28/20 08/28/20 Range/Units 05:25 05:25 05:25 WBC 24.4 H (3.8-10.6) k/uL RBC 4.14 L (4.30-5.90) m/uL MCV 112.0 H (80.0-100.0) fL MCH 35.9 H (25.0-35.0) pg RDW 15.9 H (11.5-15.5) % Neutrophils # 21.6 H (1.3-7.7) k/uL Macrocytosis Marked A PT 13.1 H (9.0-12.0) sec INR 1.3 H (<1.2) APTT 43.4 H (22.0-30.0) sec D-Dimer 3.67 H (<0.60) mg/L FEU ABG pH (7.35-7.45) ABG pCO2 (35-45) mmHg ABG Total CO2 (19-24) mmol/L ABG O2 Saturation (94-97) % Sodium (137-145) mmol/L Chloride (98-107) mmol/L BUN (9-20) mg/dL Glucose (74-99) mg/dL POC Glucose (mg/dL) (75-99) mg/dL Total Bilirubin (0.2-1.3) mg/dL AST (17-59) U/L ALT (4-49) U/L Ammonia 75 H (<30) umol/L Lactate Dehydrogenase (313-618) U/L C-Reactive Protein (<1.0) mg/dL Albumin (3.5-5.0) g/dL 08/28/20 08/28/20 08/28/20 Range/Units 05:25 05:35 08:57 WBC (3.8-10.6) k/uL RBC (4.30-5.90) m/uL MCV (80.0-100.0) fL MCH (25.0-35.0) pg RDW (11.5-15.5) % Neutrophils # (1.3-7.7) k/uL Macrocytosis PT (9.0-12.0) sec INR (<1.2) APTT (22.0-30.0) sec D-Dimer (<0.60) mg/L FEU ABG pH 7.50 H (7.35-7.45) ABG pCO2 31 L (35-45) mmHg ABG Total CO2 25 H (19-24) mmol/L ABG O2 Saturation 98.1 H (94-97) % Sodium 147 H (137-145) mmol/L Chloride 117 H (98-107) mmol/L BUN 55 H (9-20) mg/dL Glucose 237 H (74-99) mg/dL POC Glucose (mg/dL) 206 H (75-99) mg/dL Total Bilirubin 10.8 H (0.2-1.3) mg/dL AST 146 H (17-59) U/L ALT 117 H (4-49) U/L Ammonia (<30) umol/L Lactate Dehydrogenase 1775 H (313-618) U/L C-Reactive Protein 6.1 H (<1.0) mg/dL Albumin 2.5 L (3.5-5.0) g/dL 08/28/20 08/28/20 08/28/20 Range/Units 12:23 16:28 17:36 WBC (3.8-10.6) k/uL RBC (4.30-5.90) m/uL MCV (80.0-100.0) fL MCH (25.0-35.0) pg RDW (11.5-15.5) % Neutrophils # (1.3-7.7) k/uL Macrocytosis PT (9.0-12.0) sec INR (<1.2) APTT 69.2 H (22.0-30.0) sec D-Dimer (<0.60) mg/L FEU ABG pH (7.35-7.45) ABG pCO2 (35-45) mmHg ABG Total CO2 (19-24) mmol/L ABG O2 Saturation (94-97) % Sodium (137-145) mmol/L Chloride (98-107) mmol/L BUN (9-20) mg/dL Glucose (74-99) mg/dL POC Glucose (mg/dL) 194 H 204 H (75-99) mg/dL Total Bilirubin (0.2-1.3) mg/dL AST (17-59) U/L ALT (4-49) U/L Ammonia (<30) umol/L Lactate Dehydrogenase (313-618) U/L C-Reactive Protein (<1.0) mg/dL Albumin (3.5-5.0) g/dL 08/28/20 Range/Units 20:05 WBC (3.8-10.6) k/uL RBC (4.30-5.90) m/uL MCV (80.0-100.0) fL MCH (25.0-35.0) pg RDW (11.5-15.5) % Neutrophils # (1.3-7.7) k/uL Macrocytosis PT (9.0-12.0) sec INR (<1.2) APTT (22.0-30.0) sec D-Dimer (<0.60) mg/L FEU ABG pH (7.35-7.45) ABG pCO2 (35-45) mmHg ABG Total CO2 (19-24) mmol/L ABG O2 Saturation (94-97) % Sodium (137-145) mmol/L Chloride (98-107) mmol/L BUN (9-20) mg/dL Glucose (74-99) mg/dL POC Glucose (mg/dL) 238 H (75-99) mg/dL Total Bilirubin (0.2-1.3) mg/dL AST (17-59) U/L ALT (4-49) U/L Ammonia (<30) umol/L Lactate Dehydrogenase (313-618) U/L C-Reactive Protein (<1.0) mg/dL Albumin (3.5-5.0) g/dL Assessment and Plan Assessment: Altered mental status due to multifactorial: Metabolic encephalopathy due to hypoglycemia, elevated LFT's/cirrhosis--- trending up now. Also due acute covid 19 related pneumonia and polysubstance use (opiated and methamphetamine). Patient is off sedation now for last 3 days. Hepatic encephalopathy with elevated ammonia. Seizure, probably provoked due to hypoglycemia versus alcohol withdrawal. Acute covid 19 related pneumonia Acute hypoxic respiratory failure secondary due to above, on mechanical ventilation Afib with RVR on IV heparin drip and amiodarone AST is twice as greater than ALT possibly suggestive of alcohol use Macrocytosis likely due to alcohol use Diabetes mellitus with episode of hypoglycemia---resolved Evidence of cirrhosis and signs of portal hypertension, rule out alcohol liver disease Hypertension Plan: Patient continues to be comatose. He is off sedation for last 3 days. No evidence of clinical improvement. Patient's metabolic parameters are worse now, including hepatic functions. EEG on 08/20/2020: It is an abnormal routine EEG. The EEG suggestive of comatose state. The burst suppression activity is likely due to medication effect (Propofol). There are no focal slowing, epileptiform discharges or seizure seen during this study. Patient is on Keppra 500 mg every 12 hours that was started by primary team. Down the line if patient has no further episode of seizure-like acitivity will taper it down. Patient also has hepatic encephalopathy, currently on lactulose and rifaximin. Follow-up ammonia level as per IM. Patient last CT of the head on 08/22/2020 is reported as no acute intracranial abnormality. No change Patient is on the thiamine 100 mg 1 tablet twice a day and asked to be continued. Vitamin B12 > 4000 which is considered normal. RBC folate level: 1460 (considered normal). Prophylactically on vitamin B-12 1000 g daily as well as folic 1 mg daily. Recommended to avoid any further hypoglycemic events but will defer the management to the medical team as well as ICU team. Will defer the rest of the medical management to the primary as well as ICU team. The patient's prognosis seem highly guarded, mainly based upon underlying hepatic and pulmonary conditions, with secondary effect on the brain dysfunction.
[2020-08-29] MEDS: SODIUM CHLORIDE 0.9% 1,000 ML IV SCH ×2 (00:52→23:14)
[2020-08-29 01:02] LABS: Glucose,Whole Blood 217 mg/dL (75-99)
[2020-08-29] MEDS: INSULIN ASPART (NovoLOG) 100 UNIT/ML VIAL SQ SCH ×6 (01:30→20:19)
[2020-08-29 03:45] LABS: Glucose,Whole Blood 221 mg/dL (75-99)
[2020-08-29] MEDS: METOPROLOL TARTRATE 50 MG TAB PO SCH ×2 (03:57→21:35)
[2020-08-29] MEDS: ACETAMINOPHEN TAB 500 MG TAB PO PRN (03:57)
[2020-08-29 04:25] LABS: Anisocytosis Slight; Basophils # (A) 0.1 k/uL (0-0.2); Basophils % (A) 0 %; Eosinophils % (A) 0 %; HCT 43.2 % (39.0-53.0); HGB 13.4 gm/dL (13.0-17.5); Lymphocytes # (A) 1.3 k/uL (1.0-4.8); Lymphocytes % (A) 7 %; MCH 34.9 pg (25.0-35.0); MCHC 31.1 g/dL (31.0-37.0); MCV 112.2 fL (80.0-100.0); Macrocytosis Marked; Mean Platelet Volume 7.9; Monocytes # (A) 0.6 k/uL (0-1.0); Monocytes % (A) 3 %; Neutrophils # (A) 16.1 k/uL (1.3-7.7); Neutrophils % (A) 88 %; Platelet Count 127 k/uL (150-450); RBC 3.85 m/uL (4.30-5.90); RDW 16.1 % (11.5-15.5); WBC 18.2 k/uL (3.8-10.6)
[2020-08-29 04:33] LABS: D-Dimer 2.77 mg/L FEU (<0.60); INR 1.4 (<1.2); Prothrombin Time 13.8 sec (9.0-12.0)
[2020-08-29 04:45] LABS: ALT 137 U/L (4-49); AST 187 U/L (17-59); African American GFR (CKD) >90 (>60 ml/min/1.73 sqM); Albumin 2.3 g/dL (3.5-5.0); Alkaline Phosphatase 102 U/L (38-126); Anion Gap 4 mmol/L; Blood Urea Nitrogen 56 mg/dL (9-20); C Reactive Protein 5.4 mg/dL (<1.0); Carbon Dioxide 23 mmol/L (22-30); Chloride 121 mmol/L (98-107); Creatine Kinase 72 U/L (55-170); Glucose 238 mg/dL (74-99); LDH 2067 U/L (313-618); Magnesium 2.5 mg/dL (1.6-2.3); Non-African American GFR(CKD) >90 (>60 ml/min/1.73 sqM); Potassium 4.3 mmol/L (3.5-5.1); Sodium 148 mmol/L (137-145); Total Bilirubin 11.7 mg/dL (0.2-1.3); Total Protein 6.4 g/dL (6.3-8.2)
[2020-08-29 05:56] LABS: ABG Base Excess -1.8 mmol/L; ABG HCO3 22 mmol/L (21-25); ABG Oxygen Saturation 98.4 % (94-97); ABG PCO2 31 mmHg (35-45); ABG PH 7.46 (7.35-7.45); ABG PO2 104 mmHg (83-108); ABG TCO2 23 mmol/L (19-24); Allen Test Performed? Yes
--- NOTE | 2020-08-29 07:12 | XR ---
EXAMINATION TYPE: XR chest 1V portable DATE OF EXAM: 08/29/2020 COMPARISON: 08/28/2020 HISTORY: SOB, Follow Up FINDINGS: Indwelling tubes and catheters are unchanged. No change in bibasilar infiltrates. Stable appearance of the cardio-mediastinal structures at this time. Pleural effusion unchanged. IMPRESSION: 1. Stable portable chest. Clinical correlation and follow up until resolution is recommended.
--- NOTE | 2020-08-29 08:04 | P.PN ---
Subjective History of present illness: HISTORY OF PRESENTING ILLNESS This is a pleasant 65-year-old male past medical history significant for type 2 diabetes, hypertension, asthma, and history of alcohol dependence. 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 We have been asked to see in consultation for new onset atrial fibrillation. No history of atrial fibrillation, heart failure or coronary artery disease. Patient presented to the emergency department on 08/19/2020 with altered mental status and hypoglycemia patient had a blood sugar of 45. Patient was also having symptoms of increased dyspnea, poor appetite, fever and cough at home over the last 2 weeks. Patient's called EMS to bring patient to the emergency department. Patient was placed on a non-rebreather, recovered, was admitted to a medical floor. He started having seizure-like activity, became tachypneic, was intubated for airway protection and transferred to ICU. Neurology was consulted, EEG was performed which did not show seizure activity and burst suppression activity likely due to propofol medication effect. Active issues remains his impaired mentation and level of consciousness possibly related to encephalopathy and prolonged hypoglycemia prior to hospitalization causing significant amount of brain damage. Patient was being weaned off sedation on 08/24, patient went into atrial fibrillation with RVR. Started on IV amiodarone drip, metoprolol tartrate 50mg BID and heparin drip. DIAGNOSTICS CTA Chest showed some patchy bibasilar airspace disease or consolidation doubtless infiltrates bilaterally consistent with community related pneumonia. Nodular Cirrhotic Liver and evidence of Portal hypertension. CT Brain- Negative for acute intracranial abnormality or skull fracture Repeat CT brain - negative, no change from prior. Liver Ultrasound- Suspect small stones in her gallbladder sludge without secondary infection evidence of acute cholecystitis. Suspect fatty infiltration of the liver and/or underlying hepatocellular disease. Moderate extrahepatic delivery dilatation Chest xray Patchy opacities left greater than right mid and lower lung infiltrates. Urine Drug Screen- was positive for opiates, amphetamines and benzodiazepines Home cardiac medications include lisinopril 5mg daily 08/28/20: Patient is seen and examined in the ICU at bedside. Remains intubated on mechanical ventilator. Patient has been off sedation since 08/26/20. Remains on a assist-control mode at the rate of 20 with a tidal volume of 500 and FiO2 of 50% with a PEEP of 5. Patient continues to not follow commands Laboratory data reviewed, WBC 24.4, hemoglobin 14.9, platelets 192, sodium 147, potassium 4.5, serum creatinine 0.71, BUN 55, Elevated LFTs: AST 146, ALP 117, alk phos 121, ammonia trending down (182-->142-->75), albumin 2.5 Telemetry tracings currently indicate sinus mechanism HR 70-80s. Vital signs BP 148/51 HR 82, Temp 100.8F. SBP range 150-170s overnight. Patient is currently being maintained on Cleviprex drip 6mg/hr, amiodarone 200 mg twice a day, clonidine 0.1 mg 3 times a day, heparin drip, metoprolol titrate 50 mg twice a day, lactulose, and xifaxan. 08/29 Patient seen and examined. Patient went into Afib again last night and coverted back to NSR. Remains on vent at 50% FiO2 and 5 PEEP. Cleviprex off and on over last 24 hrs for hypertension. REVIEW OF SYSTEMS At the time of my exam: Patient unable to communicate for review of systems PHYSICAL EXAMINATION CONSTITUTIONAL: No apparent distress. HEENT: Head is normocephalic. Pupils are equal, round. Mucous membranes of the mouth are dry. No JVD. No carotid bruit. CHEST EXAMINATION: Lungs are clear to auscultation. No chest wall tenderness is noted on palpation or with deep breathing. HEART EXAMINATION: Regular rate and rhythm. S1, S2 heard. No murmurs, gallops or rub. ABDOMEN: Soft, Positive bowel sounds. Rectal tube in place with loose/liquid brown stools. : Hyman with malcolm colored urine EXTREMITIES: Appears dry on exam. 2+ peripheral pulses, 2+ bilateral hand edema NEUROLOGIC EXAMINATION: Unresponsive to verbal or painful stimulation. ASSESSMENT Paroxysmal atrial fibrillation with RVR [id number] score 3, currently NSR Altered mental status - most likely multifactorial due to metabolic encephalopathy, prolonged hypoglycemia, covid-19, possible polysubstance abuse (UA positive for opiates and amphetamines) Acute hypoxic respiratory failure Covid-19 pneumonia Elevated Liver Enzymes History Hypertension Type 2 Diabetes History of alcohol dependence PLAN -2D echo ordered will follow up on results -Increase metoprolol tartrate to 1000mg BID and continue Amiodarone 200mg BID -Increase lisinopril 40mg daily -Will continue heparin drip for now. -Neurology is following patient - patient is on keppra 500mg BID -Continue ICU supportive care. Objective - Vital Signs Vital signs: Vital Signs Temp 101.1 F H 08/29/20 04:00 Pulse 84 08/29/20 07:00 Resp 26 H 08/29/20 07:00 BP 145/75 08/28/20 11:00 Pulse Ox 94 L 08/29/20 07:00 Intake & Output 08/28/20 08/29/20 08/29/20 18:59 06:59 18:59 Intake Total 9969.237 1501.267 54 Output Total 830 3320 75 Balance 657.909 -1763.733 -21 Weight 114.2 kg 112.1 kg Intake: IV 276 276 23 Sodium Chloride 0.9% 1, 240 240 20 000 ml @ 20 mls/hr IV . Q24H FE Rx#:[id number] pressure bag 36 36 3 Intake, IV Titration 277.909 34.267 Amount Clevidipine Butyrate 25 65.333 34.267 mg In Empty Bag 1 bag @ 1 MG/HR 2 mls/hr IV .Q24H FE Rx#:[id number] Heparin Sod,Pork in 0.45% 212.576 NaCl 25,000 unit In 0.45 % NaCl 1 250ml.bag @ 8. 7566 UNITS/KG/HR 10 mls/ hr IV .Q24H FE Rx#: [id number] Tube Feeding 434 346 31 Other 500 900 Output: Urine 830 1320 75 Stool 2000 Other: Voiding Method Indwelling Catheter Indwelling Catheter ABP, PAP, CO, CI - Last Documented Arterial Blood Pressure 140/51 - Labs CBC & Chem 7: 08/29/20 03:45 08/29/20 03:45 Labs: Abnormal Lab Results - Last 24 Hours (Table) 08/28/20 08/28/20 08/28/20 Range/Units 05:25 08:57 12:23 WBC (3.8-10.6) k/uL RBC (4.30-5.90) m/uL MCV (80.0-100.0) fL RDW (11.5-15.5) % Plt Count (150-450) k/uL Neutrophils # 21.6 H (1.3-7.7) k/uL Macrocytosis PT (9.0-12.0) sec INR (<1.2) APTT (22.0-30.0) sec D-Dimer (<0.60) mg/L FEU ABG pH (7.35-7.45) ABG pCO2 (35-45) mmHg ABG O2 Saturation (94-97) % Sodium (137-145) mmol/L Chloride (98-107) mmol/L BUN (9-20) mg/dL Glucose (74-99) mg/dL POC Glucose (mg/dL) 206 H 194 H (75-99) mg/dL Calcium (8.4-10.2) mg/dL Magnesium (1.6-2.3) mg/dL Total Bilirubin (0.2-1.3) mg/dL AST (17-59) U/L ALT (4-49) U/L Lactate Dehydrogenase (313-618) U/L C-Reactive Protein (<1.0) mg/dL Albumin (3.5-5.0) g/dL 08/28/20 08/28/20 08/28/20 Range/Units 16:28 17:36 20:05 WBC (3.8-10.6) k/uL RBC (4.30-5.90) m/uL MCV (80.0-100.0) fL RDW (11.5-15.5) % Plt Count (150-450) k/uL Neutrophils # (1.3-7.7) k/uL Macrocytosis PT (9.0-12.0) sec INR (<1.2) APTT 69.2 H (22.0-30.0) sec D-Dimer (<0.60) mg/L FEU ABG pH (7.35-7.45) ABG pCO2 (35-45) mmHg ABG O2 Saturation (94-97) % Sodium (137-145) mmol/L Chloride (98-107) mmol/L BUN (9-20) mg/dL Glucose (74-99) mg/dL POC Glucose (mg/dL) 204 H 238 H (75-99) mg/dL Calcium (8.4-10.2) mg/dL Magnesium (1.6-2.3) mg/dL Total Bilirubin (0.2-1.3) mg/dL AST (17-59) U/L ALT (4-49) U/L Lactate Dehydrogenase (313-618) U/L C-Reactive Protein (<1.0) mg/dL Albumin (3.5-5.0) g/dL 08/28/20 08/29/20 08/29/20 Range/Units 22:17 01:00 01:08 WBC (3.8-10.6) k/uL RBC (4.30-5.90) m/uL MCV (80.0-100.0) fL RDW (11.5-15.5) % Plt Count (150-450) k/uL Neutrophils # (1.3-7.7) k/uL Macrocytosis PT (9.0-12.0) sec INR (<1.2) APTT 57.5 H (22.0-30.0) sec D-Dimer (<0.60) mg/L FEU ABG pH (7.35-7.45) ABG pCO2 (35-45) mmHg ABG O2 Saturation (94-97) % Sodium (137-145) mmol/L Chloride (98-107) mmol/L BUN (9-20) mg/dL Glucose (74-99) mg/dL POC Glucose (mg/dL) 238 H 217 H (75-99) mg/dL Calcium (8.4-10.2) mg/dL Magnesium (1.6-2.3) mg/dL Total Bilirubin (0.2-1.3) mg/dL AST (17-59) U/L ALT (4-49) U/L Lactate Dehydrogenase (313-618) U/L C-Reactive Protein (<1.0) mg/dL Albumin (3.5-5.0) g/dL 08/29/20 08/29/20 08/29/20 Range/Units 03:44 03:45 03:45 WBC 18.2 H (3.8-10.6) k/uL RBC 3.85 L (4.30-5.90) m/uL MCV 112.2 H (80.0-100.0) fL RDW 16.1 H (11.5-15.5) % Plt Count 127 L (150-450) k/uL Neutrophils # 16.1 H (1.3-7.7) k/uL Macrocytosis Marked A PT 13.8 H (9.0-12.0) sec INR 1.4 H (<1.2) APTT (22.0-30.0) sec D-Dimer 2.77 H (<0.60) mg/L FEU ABG pH (7.35-7.45) ABG pCO2 (35-45) mmHg ABG O2 Saturation (94-97) % Sodium (137-145) mmol/L Chloride (98-107) mmol/L BUN (9-20) mg/dL Glucose (74-99) mg/dL POC Glucose (mg/dL) 221 H (75-99) mg/dL Calcium (8.4-10.2) mg/dL Magnesium (1.6-2.3) mg/dL Total Bilirubin (0.2-1.3) mg/dL AST (17-59) U/L ALT (4-49) U/L Lactate Dehydrogenase (313-618) U/L C-Reactive Protein (<1.0) mg/dL Albumin (3.5-5.0) g/dL 08/29/20 08/29/20 Range/Units 03:45 05:50 WBC (3.8-10.6) k/uL RBC (4.30-5.90) m/uL MCV (80.0-100.0) fL RDW (11.5-15.5) % Plt Count (150-450) k/uL Neutrophils # (1.3-7.7) k/uL Macrocytosis PT (9.0-12.0) sec INR (<1.2) APTT (22.0-30.0) sec D-Dimer (<0.60) mg/L FEU ABG pH 7.46 H (7.35-7.45) ABG pCO2 31 L (35-45) mmHg ABG O2 Saturation 98.4 H (94-97) % Sodium 148 H (137-145) mmol/L Chloride 121 H (98-107) mmol/L BUN 56 H (9-20) mg/dL Glucose 238 H (74-99) mg/dL POC Glucose (mg/dL) (75-99) mg/dL Calcium 8.0 L (8.4-10.2) mg/dL Magnesium 2.5 H (1.6-2.3) mg/dL Total Bilirubin 11.7 H (0.2-1.3) mg/dL AST 187 H (17-59) U/L ALT 137 H (4-49) U/L Lactate Dehydrogenase 2067 H (313-618) U/L C-Reactive Protein 5.4 H (<1.0) mg/dL Albumin 2.3 L (3.5-5.0) g/dL Microbiology - Last 24 Hours (Table) 08/28/20 17:12 Urine Culture - Preliminary Urine,Catheterized 08/28/20 17:13 Sputum Culture - Preliminary Sputum
[2020-08-29] MEDS: DEXAMETHASONE SOD PHOSPHATE 10 MG/ML 1 ML VIAL IV SCH (09:39)
[2020-08-29] MEDS: PANTOPRAZOLE 40 MG/10 ML VIAL IVP SCH (09:39)
[2020-08-29] MEDS: CHLORHEXIDINE GLUCONATE 15 ML CUP MUCOUS MEM SCH ×2 (09:40→20:58)
[2020-08-29] MEDS: cloNIDine HCL 0.1 MG TAB PO SCH ×3 (09:40→23:26)
[2020-08-29] MEDS: LACTULOSE 20 GM/30 ML CUP PO SCH ×3 (09:40→21:38)
[2020-08-29] MEDS: CYANOCOBALAMIN 500 MCG TAB PO SCH (09:40)
[2020-08-29] MEDS: ZINC SULFATE 220 MG CAP PO SCH (09:40)
[2020-08-29] MEDS: lisinopriL 20 MG TAB PO SCH (09:40)
[2020-08-29] MEDS: THIAMINE 100 MG TAB PO SCH ×2 (09:40→18:36)
[2020-08-29] MEDS: CHOLECALCIFEROL 25 MCG (1000 IU) TABLET PO SCH (09:40)
[2020-08-29] MEDS: AMIODARONE 200 MG TAB PO SCH ×2 (09:40→20:22)
[2020-08-29] MEDS: levETIRAcetam IV 500 MG in SODIUM CHLORIDE 0.9% 100 ML IVPB SCH ×2 (09:40→21:00)
[2020-08-29] MEDS: RIFAXIMIN 550 MG TABLET PO SCH ×2 (09:41→20:22)
[2020-08-29] MEDS: INSULIN DETEMIR (LEVEMIR) 100 UNIT/ML SYR SQ SCH (09:41)
[2020-08-29] MEDS: FOLIC ACID 1 MG TAB PO SCH (09:41)
[2020-08-29] MEDS ORDERED: VANCOMYCIN IV PER PHARMACY 1 EACH MISC MISCELLANE PRN (12:11)
--- NOTE | 2020-08-29 12:41 | P.PN ---
Subjective Progress Note Date: 08/29/20 Principal diagnosis: Acute hypoxic respiratory failure secondary to acute COVID-19 pneumonia 65-year-old male patient who presented to the emergency department yesterday because of mental status change and hypoglycemia and the patient was further diagnosed having quit 19 related pneumonia. The patient is diabetic and the patient also has bronchial asthma and hypertension. The patient arrived to the blood sugar of 45. Apparently the patient was sick for around 2 weeks prior to that and the patient was having increased dyspnea on fever and cough and poor appetite. He was taking oral hypoglycemics in the form of Januvia and glipizide on outpatient basis. In the emergency department, the patient was altered, she did obey some commands yet his pulse ox was quite low at 86% on room air oxygen. The patient was placed on 100% nonrebreather facemask. Initially his blood sugar was corrected and the patient was given D50 and following that he was admitted to the medical floor. The patient started having increased shakiness and seizure-like activity and he bit his tongue and he was quite tachypneic. The a team was called. The patient was transferred to the intensive care unit and the patient was intubated for airway protection. At this point in time, the patient is intubated on a mechanical ventilator. Propofol is running at 55 Jhonathan graspi kilogram per minute. The patient is on assist control mode of ventilation with a rate of 20, FiO2 of 60%, PEEP of 5 and tidal volume 450. The patient's blood gases post intubation showed a pH of 7.46 with a pCO2 of 32 and pO2 of 86. The chest x-ray from this morning is showing diffuse bilateral patchy pulmonary infiltrates. ET tube is just above the aortic knob. The patient has a orogastric tube in place. Some mild cardiomegaly is also present. Note that the CT angiogram of the chest that was done yesterday showed some patchy bibasilar airspace disease or consolidation doubtless infiltrates bilaterally consistent with community related pneumonia. The patient also had another appearance of the liver and evidence of portal hypertension. Mother the patient is a chronic alcohol drinker. The white cell count of 7.6 with a hemoglobin of 11.8. Platelets at 127, his LDH was 1369 and his CRP is at 141, urine drug screen was positive for opiates, amphetamines and benzodiazepines, urinalysis showing +1 protein, normal renal function test, normal electrolytes. This morning the d-dimer is at 5.13, the patient's blood pressure currently is 99/35 and the patient is on D5 normal saline at the rate of 75 mL an hour. The patient was started on Lovenox 40 mg subcu every 12 hours. The patient is on propofol. The patient is on no pressors for now. He is on Decadron 63 g IV every 24 hours. Most recent blood sugar is at 141. On today's evaluation of 08/21/2020, the patient is being seen for a follow-up. The patient was hospitalized for community related pneumonia and the patient is currently intubated on a mechanical ventilator. This morning, the patient is sedation with propofol at 75 mcg/kg per minute and he is quite comfortable. He remains on assist control mode of ventilation with a tidal volume of 450 and FiO2 of 50% with a PEEP of 5 and a rate of 20. His peak airway pressure is 23 anesthetic pressure is 14. The chest x-ray showing diffuse bilateral pulmonary pulses consistent with obesity related pneumonia and ET tube is in a good location. The patient is hemodynamically stable. The patient is on no pressors. No seizure activity has been noted. The patient is receiving tube feeds in the form of Vicodin HB at the rate of 30 mL an hour. No hypoglycemic events overnight. The patient's d-dimer is at 5.66 and the patient's LDH currently is at 1478 with a CRP level of 160. The propofol Level Was 0.31. The Patient Is Currently on Decadron 6 Mg IV Every 24 Hours and He Is Also on Lovenox 40 Mg Subcu Every 12 Hours. His Last D-Dimer Is at 5.56 from Today. No Fever. No Other Significant Issues Overnight. Neurology Consultation Was Also Done. EEG from yesterday showed no evidence of any seizure activity. It wasn't abnormal EEG probably related to drug effect. The patient remains on Keppra 5 mg every 12 hours and no clinical seizure activity has been noted. He is also started on a combination of thiamine and B12. Ammonia level is pending from today. His liver function tests currently are improving and his AST is down to 128 and a LDL 45. His lactic acid is also improving is down to 1.8. On 08/22/2020, the patient remains on propofol at the rate of 50 mcg/kg per minute. Attempts to wean him off the propofol yesterday failed as the patient became quite agitated, tachypneic and tachycardic and his symptoms with the mechanical ventilator. There was no meaningful response neurologically and for that reason the sedation holiday was aborted at the same thing will be done today. The patient is an assist-control with a tidal volume of 450 and FiO2 of 40% with a PEEP of 5 and a rate of 20. The patient had a chest x-ray today that showed patchy bilateral pulmonary infiltrates with a peripheral distribution. ET tube is in a good location. The blood gas from today showing a pH of 7.46 with a pCO2 of 28 and pO2 of 82. Peak airway pressure is 20 and as such the patient is potentially extubated on as long as he demonstrated adequate neurologic recovery. The patient is currently on vital high protein at the rate of 43 mL an hour. Labs were all stable with a white cell count of 6 and a hemoglobin of 12 and the rest of the electrolytes are all within normal limits. His LDH level is 1391 and is lower compared to yesterday with a CRP level of 81. As such, the active problem for now is his underlying neurological functions. We're the process of giving the patient sedation holiday and if needed use Precedex to control his agitation. His pupils are equal and symmetrical in a pinpoint. Her activity has been noted. No further bouts of hypoglycemia. 08/23/2020, he managed to get this patient off the propofol. The active issue is his altered mentation despite being off sedation. The patient would get quite agitated but he is not following any commands or doing any purposeful activity. For that reason, I had to cover him with some Precedex overnight. CAT scan of the brain was also done and showed no acute abnormalities. Note that the patient did not have any further hypoglycemic events. He did have hypoglycemia associated at the time his admission. Meanwhile, he remains on a mechanical ventilator. On today's evaluation is in a tidal volume of 450 with an FiO2 of 40% with a PEEP of 5 and a rate of 20. This is essentially same setting as yesterday. Blood gases showing a pH of 7.40 with a pCO2 of 35 and a pO2 of 77. Chest x-ray findings are essentially stable. ET tube is in a good location. The patient is hemodynamically stable. The patient is on vital high protein at the rate of 56 mL an hour. He is tolerating enteral feeding for nutritional support. Inflammatory markers from today showing an LDH level of 1453 and a CRP level is at 62. The markers are essentially compatible to yesterday. His d-dimer is at 5.56 from 2 days ago. Electrolytes all within normal limits. CBC showing a white cell count of 7.8 with hemoglobin of 12.2. His blood sugar is being monitored in the blood sugar currently is at 221. The fluid balance is currently at -730 mL over the past 24 hours. His IV fluids currently running at 20 mL an hour of normal saline. This morning, I took the patient off the Precedex and we're about to reevaluate his mental status. 08/24/2020, the active issue for now as the patient's unresponsiveness while being off sedation. The patient has not shown any significant neurologic recovery. I took him off the sedation yesterday for several hours and the patient did not follow any commands and he was not responsive. He became progressively more agitated and the patient had to be placed back on sedation. Neurology evaluated the patient and the neuro workup is in progress including a CAT scan of the brain that showed no acute abnormalities and the patient also had an EEG that showed abnormal findings, encephalopathy with diffuse slowing and there was no evidence of any seizure activity. For now, the patient is on propofol running at 40 mcg/kg per minute he was given another sedation holiday this morning and following that, the patient became quite tachypneic and restless. He was not following any commands and he remains neurologically impaired. As such, he was placed back on sedation. The patient has history of alcoholism and signs of liver cirrhosis. We noted that his ammonia level was high and was started him on lactulose regarding the possibility of hepatic encephalopathy. His chest x-ray findings are quite stable. There is significant improvement in the right-sided pulmonary infiltrate with some residual infiltration of the left. He remains on assist control mode of ventilation with a rate of 20, tidal volume of 450, FiO2 of 40% and a PEEP of 5. His chest x-ray is improved. The blood gases showed a pH of 7.47 with a pCO2 of 32 and pO2 of 85. Otherwise, his inflammatory markers in regards to his COVID-19 related pneumonia includes a d-dimer of 13.5 inches slightly higher compared to his baseline LDH level is 1772 and his CRP level is at 66.4 and the levels continued to be elevated. No hypoglycemia. His current blood sugar co ntrol is adequate although he is slightly hyperglycemic. Is receiving enteral feeding for nutritional support and is currently on vital high protein at the rate of 36 mild an hour. He remains on Levemir insulin at 20 units a day along with a sliding scale coverage. IV fluids are running in the form of normal saline at the rate of 20 mL an hour. Note that the also start the patient on some lactulose. He is producing adequate amount of stool. His ammonia level is up to 147 from a baseline of 36. 08/25/2020, several active issues on this patient including unresponsiveness, respiratory failure and new onset atrial fibrillation. Note that this patient came to us initially with hypoglycemia and seizures. He was found to be COVID- 19 positive. He was intubated and placed on a mechanical ventilator immunization intubation was mainly to protect his airways. Subsequently, as the patient's blood sugar was regulated, the patient did not show any reasonable neurologic recovery. EEG was abnormal and. Still encephalopathy and diffuse slowing. CAT scan of the brain was negative. He was taken off sedation, the patient would get agitated and his heart rate and blood pressure will go up, would not follow any commands. As such, he was placed on Precedex and while on Precedex he went into atrial fibrillation and rapid ventricular response. The patient was also suspected to have a component of hepatic encephalopathy. His alcoholic he does have signs of liver cirrhosis. He was started on lactulose and ammonia level is being monitored. He is having soft bowel movements for now . Follow-up ammonia level will be ordered today. To control his sedation more effectively, he was switched back to propofol was is currently running at 50 mcg/kg per minute. Meanwhile, he remains nature fibrillation. His current heart rate is 140 and the patient is on amiodarone drip at 0.5 mg per minute. Amiodarone was started yesterday at around 5 PM. His blood pressure is elevated and the patient is unclear the proximal drip at 6 mg an hour. Not to forget, the patient also has a COVID-19 related pneumonia. The chest x-ray from today showing some improvement in the right lower lobe pulmonary infiltrate. The patient continues to have diffuse bilateral pulmonary infiltration. Never theless, his oxygenation has been quite reasonable. He remains assist-control at the rate of any with a tidal volume of 500 and FiO2 of 40% with a PEEP of 5. Blood gas shows a pH of 7.48 with a pCO2 of 33 and pO2 of 67. His inflammatory markers today showed an LDH level of 1346 and a CRP of 6.6. His d-dimer is at 9.6. He remains on treatment with Decadron 6 mg IV every 24 hours. He remains on Lovenox 40 mg subcu every 12 hours. He is also on Levemir insulin 30 units daily along with NovoLog sliding scale coverage. Neurology opted to keep the Keppra for now. He is receiving enteral feeding for nutritional support and the patient is currently on vital HP at 52 mL. He has developed some mild hypernatremia in the sodium level is at 146. 08/26/2020, the patient remains intubated on a mechanical ventilator. Active issues for now remains his impaired mentation and level of consciousness. I am considering possibility of prolonged hypoglycemia causing significant amount of brain damage and encephalopathy. In any rate, the patient also had a COVID-19 pneumonia and he is been intubated on a mechanical ventilator. In terms of COVID-19, the patient is doing reasonably well and he remains on a assist- control mode at the rate of 20 with a tidal volume of 500 and FiO2 of 40% with a PEEP of 5. Morning blood gases show a pO2 of 91 and a pCO2 of 31 and a pH of 7.50. His chest x-ray from today showing bilateral pulmonary infiltrates involving the lower lobes and there has been no major interval change. The patient is resting comfortably on a mechanical ventilator and is quite synchronous. No significant orotracheal secretions. The peak and static pressures have been essentially low. Neurologically, the patient has not been able to come off the sedation due to agitation and asynchrony with a mechanical ventilator. As such, he was kept on propofol which is running at 50 mcg/kg per minute. This has controlled his agitation. The patient will be given another sedation holiday today. Note that yesterday, he went into atrial fibrillation with rapid ventricular response. He was given amiodarone bolus and loading and he is back into normal sinus rhythm. At the same time he was placed also on IV heparin. Amiodarone drip was discontinued after the loading dose. His current rhythm is sinus and also hemodynamically stable. Echo of the heart was completed yesterday and there is also still pending. The unofficial report was that the echocardiogram was essentially within normal limits. Meanwhile, in terms of his mentation, we suspected the possibility of hepatic encephalopathy. We are monitoring his ammonia level. Note that the patient is alcoholic and he has signs of chronic liver disease. Most recent ammonia level is at 182. The patient is on lactulose once a day and he is not producing any significant bowel movement. He remains on enteral feeding for nutritional support and is currently receiving vital high protein at the rate of 52 mL an hour. He is on lactulose 30 g twice a day. No abdominal distention. As for the blood pressure, the patient is currently stable and adequate has adequate blood pressure control. Clonidine is running at 0.1 mg 3 times a day and the patient is also on Lopressor 50 mg by mouth twice a day. Blood sugar control is with Levemir insulin 30 units in addition to a NovoLog signs scale coverage. This is to be further adjusted by that his blood sugars are still running high. No further episodes of hypoglycemia since he arrived to the hospital. No seizure activity noted. No fever. No significant hemodynamic instability. Remains on Decadron 6 mg IV every 24 hours. The most recent LDH level is at 05/13/2002 and the d-dimer is at 7.53. Reevaluated today on 08/27/2020, patient remains intubated and mechanically ventilated. He is off sedation, but he does not seem to be showing any signs of neurological recovery, patient is unresponsive. Based on the notes from Dr. Edwards, patient may have sustained some brain damage from his prolonged hypoglycemia and seizure disorder. Although the possibility of COVID-19 encephalopathy is not entirely ruled out. Ration is on assist control rate of 20 tidal volume is 500 FiO2 50% and PEEP of 5. ABG showed a pO2 of 87 pCO2 of 34 pH of 7.48. He is on amiodarone at 0.5, Keppra, he is also on Levemir Rx at 5 mg per hour. IV fluids at KVO. Patient is also receiving enteral feeding. And he is maintained on seizure medications, patient is on Keppra. Chest x-ray showed stable patchy mid and lower lung infiltrates related to COVID-19 pneumonia. Electrolytes showed elevated sodium of 146, normal renal profile, normal bicarb, CBC showed a bit of leukocytosis with WBC count of 17.7 hemoglobin is 14.3. Liver enzymes remain a bit elevated related to his COVID-19 infection. Patient was reevaluated today on 08/28/2020, remains intubated and mechanically ventilated. Remains off sedation, for the last 48 hours, and no neurological response is noted, patient remains on assist control rate of 20 tidal volume is 500 FiO2 50% PEEP of 5. ABG showed a pO2 of 99 pCO2 of 31 pH of 7.50, hence no change was made in his ventilator settings. Patient remains on amiodarone which I will switch to oral remains on clevidipine 6 mg per hour, and he is on heparin. However his heparin will be discontinued and the patient will be placed on Eliquis. We'll continue free water flushes for his hyponatremia, we'll continue lactulose for his hyperammonemia level. And we can continue to hold sedation. Patient had atrial fibrillation yesterday, converted sinus rhythm at 3 PM yesterday. Remains in sinus rhythm. WBC count is 24.4 hemoglobin 14.9. D-dimer is 3.67 sodium is 147, hence we'll continue free water flushes. LDH is 1775 and his C-reactive protein is 6.1. No major changes noted in his inflammatory markers over the last few days. Chest x-ray continues to show bilateral patchy infiltrates especially at the bases left more so than right Patient was reevaluated today on 08/29/2020, remains intubated and mechanically ventilated. He is on assist control rate of 20 tidal volume is 500 FiO2 is 50% PEEP of 5. Peak airway pressure is 188 and static pressures 16. Patient is off all sedation, and still no evidence of any neurological improvement. Remains encephalopathic. Patient is only on lisinopril, off clevidipine for blood pressure. ABG showed a pO2 of 104 pCO2 31 pH of 7.36. Patient is supposed to undergo PEG and achy ostomy today. Again he remains off sedation completely. Blood culture today is positive for gram-positive cocci in clusters, hence I started the patient empirically on vancomycin until the final report is available. ABC showed leukocytosis with WBC count of 18.2 hemoglobin is 13.4. His INR is 1.4. D-dimer is 2.77 PTT 57.5. Patient remains on heparin which will be placed on hold before the patient goes for tracheostomy and PEG tube placement. Sodium remains a bit high at 148, the rest of the labs are basically unremarkable. His LDH is 2067 transaminases are a bit elevated. Reactive protein is 5.4. Chest x-ray continues to show minimal bilateral patchy infiltrates. Improved compared to baseline. Objective - Vital Signs Vital signs: Vital Signs Temp 101.4 F H 08/29/20 12:00 Pulse 90 08/29/20 12:00 Resp 30 H 08/29/20 12:00 BP 145/75 08/28/20 11:00 Pulse Ox 89 L 08/29/20 12:00 Intake & Output 08/28/20 08/29/20 08/29/20 18:59 06:59 18:59 Intake Total 3183.155 4493.267 565.829 Output Total 830 3320 450 Balance 657.909 -1763.733 115.829 Weight 114.2 kg 112.1 kg Intake: IV 276 276 215 Sodium Chloride 0.9% 1, 240 240 100 000 ml @ 20 mls/hr IV . Q24H FE Rx#:[id number] levETIRAcetam IV 500 mg 100 In Sodium Chloride 0.9% 100 ml @ 400 mls/hr IVPB Q12HR FE Rx#:[id number] pressure bag 36 36 15 Intake, IV Titration 277.909 34.267 187.829 Amount Clevidipine Butyrate 25 65.333 34.267 0.4 mg In Empty Bag 1 bag @ 1 MG/HR 2 mls/hr IV .Q24H FE Rx#:[id number] Heparin Sod,Pork in 0.45% 212.576 187.429 NaCl 25,000 unit In 0.45 % NaCl 1 250ml.bag @ 8. 7566 UNITS/KG/HR 10 mls/ hr IV .Q24H FE Rx#: [id number] Tube Feeding 434 346 133 Other 500 900 30 Output: Urine 830 1320 450 Stool 2000 Other: Voiding Method Indwelling Catheter Indwelling Catheter Indwelling Catheter ABP, PAP, CO, CI - Last Documented Arterial Blood Pressure 186/61 - Exam Physical Exam: Revealed 65-year-old white male intubated and mechanically ventilated, unresponsive to any stimuli. Head: Atraumatic, normocephalic. Endotracheal tube and orogastric tube are intact. HEENT:[Neck is supple.] [No neck masses.] [No thyromegaly.] [No JVD.]. Blood, EOMI, nonicteric, pupils are constricted bilaterally. Chest: [Symmetrical chest expansion, crackles and rhonchi noted bilaterally. Cardiac Exam: [Normal S1 and S2, no S3 gallop, no murmur.] Abdomen: [Soft, nontender, no megaly, no rebound, no guarding, normal bowel sounds.] Extremities: [No clubbing, no edema, no cyanosis.] Good pulses bilaterally. Neurological Exam: Unresponsive, does not withdraw to painful stimuli, pupils are reactive. Patient had downward gaze. Acute: Could not be assessed. Skin: No rashes. - Labs CBC & Chem 7: 08/29/20 03:45 08/29/20 03:45 Labs: Abnormal Lab Results - Last 24 Hours (Table) 08/28/20 08/28/20 08/28/20 Range/Units 05:25 16:28 17:36 WBC (3.8-10.6) k/uL RBC (4.30-5.90) m/uL MCV (80.0-100.0) fL RDW (11.5-15.5) % Plt Count (150-450) k/uL Neutrophils # 21.6 H (1.3-7.7) k/uL Macrocytosis PT (9.0-12.0) sec INR (<1.2) APTT 69.2 H (22.0-30.0) sec D-Dimer (<0.60) mg/L FEU ABG pH (7.35-7.45) ABG pCO2 (35-45) mmHg ABG O2 Saturation (94-97) % Sodium (137-145) mmol/L Chloride (98-107) mmol/L BUN (9-20) mg/dL Glucose (74-99) mg/dL POC Glucose (mg/dL) 204 H (75-99) mg/dL Calcium (8.4-10.2) mg/dL Magnesium (1.6-2.3) mg/dL Total Bilirubin (0.2-1.3) mg/dL AST (17-59) U/L ALT (4-49) U/L Lactate Dehydrogenase (313-618) U/L C-Reactive Protein (<1.0) mg/dL Albumin (3.5-5.0) g/dL 08/28/20 08/28/20 08/29/20 Range/Units 20:05 22:17 01:00 WBC (3.8-10.6) k/uL RBC (4.30-5.90) m/uL MCV (80.0-100.0) fL RDW (11.5-15.5) % Plt Count (150-450) k/uL Neutrophils # (1.3-7.7) k/uL Macrocytosis PT (9.0-12.0) sec INR (<1.2) APTT (22.0-30.0) sec D-Dimer (<0.60) mg/L FEU ABG pH (7.35-7.45) ABG pCO2 (35-45) mmHg ABG O2 Saturation (94-97) % Sodium (137-145) mmol/L Chloride (98-107) mmol/L BUN (9-20) mg/dL Glucose (74-99) mg/dL POC Glucose (mg/dL) 238 H 238 H 217 H (75-99) mg/dL Calcium (8.4-10.2) mg/dL Magnesium (1.6-2.3) mg/dL Total Bilirubin (0.2-1.3) mg/dL AST (17-59) U/L ALT (4-49) U/L Lactate Dehydrogenase (313-618) U/L C-Reactive Protein (<1.0) mg/dL Albumin (3.5-5.0) g/dL 08/29/20 08/29/20 08/29/20 Range/Units 01:08 03:44 03:45 WBC 18.2 H (3.8-10.6) k/uL RBC 3.85 L (4.30-5.90) m/uL MCV 112.2 H (80.0-100.0) fL RDW 16.1 H (11.5-15.5) % Plt Count 127 L (150-450) k/uL Neutrophils # 16.1 H (1.3-7.7) k/uL Macrocytosis Marked A PT (9.0-12.0) sec INR (<1.2) APTT 57.5 H (22.0-30.0) sec D-Dimer (<0.60) mg/L FEU ABG pH (7.35-7.45) ABG pCO2 (35-45) mmHg ABG O2 Saturation (94-97) % Sodium (137-145) mmol/L Chloride (98-107) mmol/L BUN (9-20) mg/dL Glucose (74-99) mg/dL POC Glucose (mg/dL) 221 H (75-99) mg/dL Calcium (8.4-10.2) mg/dL Magnesium (1.6-2.3) mg/dL Total Bilirubin (0.2-1.3) mg/dL AST (17-59) U/L ALT (4-49) U/L Lactate Dehydrogenase (313-618) U/L C-Reactive Protein (<1.0) mg/dL Albumin (3.5-5.0) g/dL 08/29/20 08/29/20 08/29/20 Range/Units 03:45 03:45 05:50 WBC (3.8-10.6) k/uL RBC (4.30-5.90) m/uL MCV (80.0-100.0) fL RDW (11.5-15.5) % Plt Count (150-450) k/uL Neutrophils # (1.3-7.7) k/uL Macrocytosis PT 13.8 H (9.0-12.0) sec INR 1.4 H (<1.2) APTT (22.0-30.0) sec D-Dimer 2.77 H (<0.60) mg/L FEU ABG pH 7.46 H (7.35-7.45) ABG pCO2 31 L (35-45) mmHg ABG O2 Saturation 98.4 H (94-97) % Sodium 148 H (137-145) mmol/L Chloride 121 H (98-107) mmol/L BUN 56 H (9-20) mg/dL Glucose 238 H (74-99) mg/dL POC Glucose (mg/dL) (75-99) mg/dL Calcium 8.0 L (8.4-10.2) mg/dL Magnesium 2.5 H (1.6-2.3) mg/dL Total Bilirubin 11.7 H (0.2-1.3) mg/dL AST 187 H (17-59) U/L ALT 137 H (4-49) U/L Lactate Dehydrogenase 2067 H (313-618) U/L C-Reactive Protein 5.4 H (<1.0) mg/dL Albumin 2.3 L (3.5-5.0) g/dL Microbiology - Last 24 Hours (Table) 08/28/20 17:36 Blood Culture - Final Blood 08/28/20 17:12 Blood Culture - Final Blood 08/28/20 17:12 Urine Culture - Preliminary Urine,Catheterized 08/28/20 17:13 Sputum Culture - Preliminary Sputum Assessment and Plan Assessment: Impression: Acute hypoxic respiratory failure secondary to COVID-19 pneumonia. New onset atrial fibrillation presently in normal sinus will eventually transition heparin to Eliquis. COVID-19 encephalopathy or hepatic encephalopathy but definite mental status change and the patient could have had encephalopathy related to prolonged hypoglycemia on presentation. Clearly the patient has acute metabolic encephalopathy. Hypoglycemia induced seizure is strongly suspected remains on Keppra. Liver cirrhosis and portal hypertension with elevated ammonia level remains on lactulose and Xifaxan, ammonia level remains elevated but it's trending down. Positive drug screen for benzodiazepine and opiate and methamphetamine. History of alcoholism. Benign essential hypertension. Chronic thrombocytopenia. Type 2 diabetes. Suspect staph aureus bacteremia, possible underlying staph aureus pneumonia final report on the cultures is pending Failure to wean mostly because of his neurological status, hence the patient will likely need tracheostomy and PEG tube placement and eventually placement in ECF. Recommendation: Tracheostomy and PEG tube placement today. Continue ventilatory support. Change amiodarone to oral Start patient on Eliquis. Tomorrow after tracheostomy and PEG tube. Continue GI and DVT prophylaxis. Continue blood pressure control Continue lactulose and Xifaxan Continue to monitor ammonia level. Continue to monitor daily assessment of his neurological status. Continue Decadron. Continue Keppra. Continue enteral feeding Patient is not ready to be weaned mostly because of his worsening neurological status. Neurology to continue to evaluate neurological status We'll continue to follow Critical care time is over 30 minutes Time with Patient: Greater than 30
[2020-08-29] MEDS: ASCORBIC ACID 500 MG TAB PO SCH (13:32)
[2020-08-29 13:51] LABS: Glucose,Whole Blood 160 mg/dL (75-99)
[2020-08-29] MEDS ORDERED: VANCOMYCIN 1,750 MG in SODIUM CHLORIDE 0.9% 500 ML 500 ML IVPB ONE (14:00)
--- NOTE | 2020-08-29 14:00 | ECHOF ---
Referral Reason:new onset Afib MEASUREMENTS -------- HEIGHT: 0.0 cm WEIGHT: 0.0 kg BP: RVIDd: 3.4 cm (< 3.3) IVSd: 1.1 cm (0.6 - 1.1) LVIDd: 4.4 cm (3.9 - 5.3) LVPWd: 1.5 cm (0.6 - 1.1) IVSs: 1.3 cm LVIDs: 3.0 cm LVPWs: 1.4 cm LA Diam: 3.8 cm (2.7 - 3.8) Ao Diam: 2.8 cm (2.0 - 3.7) MV EXCURSION: 12.506 mm (> 18.000) MV EF SLOPE: 72 mm/s (70 - 150) EPSS: 0.5 cm RAP: 5.00 mmHg RVSP: 20.45 mmHg FINDINGS -------- This was a technically adequate study. Pt is Covid positive. LV size, wall thickness and systolic function are normal, with an EF greater than 55%. The left ramiro tricular size is normal. The right ventricle is normal in size. The left atrial size is normal. The right atrial size is normal. The aortic valve is trileaflet, and appears structurally normal. No aortic stenosis or regurgitation. The mitral valve is normal. Mild mitral regurgitation is present. Mild tricuspid regurgitation present. Right ventricular systolic pressure is normal at < 35 mmHg. The pulmonic valve was not well visualized. The aortic root size is normal. There is a small, generalized pericardial effusion present. CONCLUSIONS -------- 1. Pt is Covid positive. 2. LV size, wall thickness and systolic function are normal, with an EF greater than 55%. 3. The left atrial size is normal. 4. The aortic valve is trileaflet, and appears structurally normal. No aortic stenosis or regurgitati on. 5. Mild mitral regurgitation is present. 6. Mild tricuspid regurgitation present. 7. There is a small, generalized pericardial effusion present. CELL BUILDER: Jhoana Loving RDCS
[2020-08-29] MEDS ORDERED: PHENYLEPHRINE-0.9% NACL SYG 1,000 MCG/10 ML SYRINGE ONE (15:10)
[2020-08-29] MEDS ORDERED: ROCURONIUM 10 MG/ML (5 ML VIAL) IV ONE (15:10)
[2020-08-29] MEDS ORDERED: LACTATED RINGERS 1,000 ML IV ONE (15:20)
--- NOTE | 2020-08-29 16:36 | P.OP ---
Date of Procedure: 08/29/20 Preoperative Diagnosis: Respiratory failure, malnutrition Postoperative Diagnosis: Respiratory failure, malnutrition Procedure(s) Performed: Tracheostomy PEG tube Anesthesia: EHSAN Surgeon: Harrison Godoy Estimated Blood Loss (ml): 5 Pathology: none sent Condition: stable Disposition: PACU Description of Procedure: The patient's placed on the operative table in the supine position. He received general anesthesia. His neck was prepped and draped in sterile fashion. A standard [place] incision was made. And then using ultrasound and subcu tissues were divided. The strap muscles were divided in the midline. The Pruitt traction placed a wound. The thyroid gland was visualized. The trachea was then visualized. The POULTRY INSPECTOR placed the endotracheal tube into the right mainstem bronchus. The tracheotomy performed and second tracheal rings. The endotracheal tube was brought back under direct vision the #7 Prolene adjustable cough tracheotomy tube was placed into the trachea. The balloon was inflated. End tidal CO2 was confirmed. The patient developed. The retraction withdrawn. The skin was closed interrupted 3-0 nylon suture. Next the gastroscope oropharynx is esophagus and stomach. The stomach was insufflated air. Suitable light reflux was seen. The stay sutures were then placed under direct visualization into the stomach. 4 stay sutures were placed. Next a skin incision was made 11 blade. The needles placed and stomach under direct visualization. And then the wire was placed into the stomach. The dilator sheath placed over top the wire. And then the JACK tube was placed through the dilator sheath into the stomach. The dilator sheath was removed. And then the wound was inspected for the JACK tube with 5 mL of saline. The bolster was positioned appropriately position. Patient top she will was sent to ICU in stable condition.
[2020-08-29 16:49] LABS: Glucose,Whole Blood 146 mg/dL (75-99)
--- NOTE | 2020-08-29 18:48 | P.PN ---
Subjective Progress Note Date: 08/29/20 I am assuming care of this patient as of 08/22/2020 at 8 AM. I was out of town and Dr. Paulino was covering for me. HMP done by Dr. Blair on 08/19/2020 On 08/19/2020 patient presented to the ER with altered mental status and hypoglycemia. It is reported that patient had been sick for 2 weeks with fever and productive cough. Patient has a past medical history of diabetes mellitus, hypertension, asthma, EtOH diabetes. At that time patient was admitted to floor and upon arrival required a-team with intubation and transfer to ICU due to declining respiratory status. Chest x-ray was completed showing diffuse bilateral patchy pulmonary infiltrates. Patient was positive for COVID-19 On 08/22/2020 patient remains in the intensive care unit on mechanical ventilation. Patient remains on sedation of propofol and Precedex. Per nursing staff attempting sedation holiday to assess neurological status. Neurology services are following. Patient remains on IV Decadron. Currently on mechanical ventilation with an FiO2 of 40%. Hemodynamically stable. PH is 7.46, CO2 20 12/10/1981 and HCO3 20 On 08/23/2020 patient was seen and examined in the ICU he is intubated main tained on mechanical ventilation he was taken off sedation. Patient is maintained on assist control FiO2 40% PEEP of 5 with a rate of 20 blood gases reveals pH of 7.40 pCO2 35 PO2 77 his white blood count is 7.8 hemoglobin 12.2. Patient mental function is not improving off sedation neurology consultation has been requested On 08/24/2020 patient was seen and examined in the ICU he is intubated sedated maintained on mechanical ventilation yesterday sedation was discontinued however patient continued to be an responsive he was seen by neurology and had a computed tomography scan and an EEG he started becoming agitated and he was started on sedation and again. Currently patient is on assist control rate of 20 tidal volume of 450 FiO2 40% and PEEP of 5 his arterial blood gases are showing a pH of 7.47 pCO2 32 and PO2 of 85 CRP is elevated at 66.4 patient has elevated ammonia level and was started on lactulose critical care and neurology are following. On 08/25/2020 patient was seen and examined in the ICU he is intubated and maintained on mechanical ventilation, his ventilator settings are assist control with tidal volume of 500 FiO2 40% and PEEP of 5 arterial blood gas reveals pH of 7.48 pCO2 33 and PO2 67 LDH is 1346 CRP 6.6 and d-dimer is 9.6 patient maintained on IV Decadron, subcu Lovenox, Levemir 30 units daily, and NovoLog sliding scale patient is also maintained on Keppra per neurology and is maintained on amiodarone drip per cardiology for atrial fibrillation with rapid ventricular response patient hemodynamically is improving however his mental function is not improving patient is not responsive while off sedation. We will continue to follow. On 08/26/2020 patient was seen and examined in the ICU he is intubated, maintained on mechanical ventilation his sedation has been held, however patient is not having any response to stimuli, he is maintained on mechanical ventilation, his ventilator settings are assist control with tidal volume of 500 FiO2 40% and PEEP of 5 arterial blood gas reveals pH of 7.50 pCO2 31 and PO2 91, patient maintained on IV Decadron, subcu Lovenox, Levemir 30 units daily, and NovoLog sliding scale patient is also maintained on Keppra per neurology and is maintained on amiodarone drip per cardiology for atrial fibrillation with rapid ventricular response patient hemodynamically is improving however his mental function is not improving patient is not responsive while off sedation. We will continue to follow. On 08/27/2020 patient was seen and examined in the ICU he is intubated sedated maintained on mechanical ventilation had multiple sedation holidays however he did not have any response to stimuli while is on sedation holidays patient was getting agitated and eventually and was put back on sedation. Patient is main tained on assist control tidal volume 500 rate of 20 FiO2 50% and a PEEP of 5 ABG revealed pH 7.48 pCO2 34 and PO2 87 patient is receiving enteral feeding, insulin, amiodarone, Keppra, no significant change in condition since yesterday. On 08/28/2020 patient was seen and examined in the ICU he is intubated sedated maintained on mechanical ventilation had multiple sedation holidays however he did not have any response to stimuli, his ammonia level is elevated and he is receiving lactulose and rifaximin. Patient is maintained on assist control tidal volume 500 rate of 20 FiO2 50% and a PEEP of 5 ABG revealed pH 7.48 pCO2 34 and PO2 87 patient is receiving enteral feeding, insulin, amiodarone, Keppra, no significant change in condition since yesterday. On 08/29/2020 patient was seen and examined in the ICU he is intubated, maintained on mechanical ventilation, he is maintained off sedation however he did not have any response to stimuli, Patient is maintained on assist control tidal volume 500 rate of 20 FiO2 50% and a PEEP of 5 ABG revealed pH 7.36 pCO2 31 and PO2 104 d-dimer is 2.77 patient is receiving enteral feeding, insulin, amiodarone, Keppra, no significant change in condition since yesterday. Ammonia level was significantly elevated however it was down yesterday to 75 from 182 patient is still not responding Objective - Vital Signs Vital signs: Vital Signs Temp 101.4 F H 08/29/20 12:00 Pulse 92 08/29/20 15:00 Resp 27 H 08/29/20 15:00 BP 145/75 08/28/20 11:00 Pulse Ox 92 L 08/29/20 15:00 Intake & Output 08/28/20 08/29/20 08/29/20 18:59 06:59 18:59 Intake Total 7095.701 4626.267 1257.829 Output Total 830 3320 700 Balance 657.909 -1763.733 557.829 Weight 114.2 kg 112.1 kg Intake: IV 276 276 907 Sodium Chloride 0.9% 1, 240 240 180 000 ml @ 20 mls/hr IV . Q24H FE Rx#:[id number] levETIRAcetam IV 500 mg 100 In Sodium Chloride 0.9% 100 ml @ 400 mls/hr IVPB Q12HR FE Rx#:[id number] pressure bag 36 36 27 Intake, IV Titration 277.909 34.267 187.829 Amount Clevidipine Butyrate 25 65.333 34.267 0.4 mg In Empty Bag 1 bag @ 1 MG/HR 2 mls/hr IV .Q24H FE Rx#:[id number] Heparin Sod,Pork in 0.45% 212.576 187.429 NaCl 25,000 unit In 0.45 % NaCl 1 250ml.bag @ 8. 7566 UNITS/KG/HR 10 mls/ hr IV .Q24H FE Rx#: [id number] Tube Feeding 434 346 133 Other 500 900 30 Output: Urine 830 1320 695 Stool 2000 Estimated Blood Loss 5 Other: Voiding Method Indwelling Catheter Indwelling Catheter Indwelling Catheter ABP, PAP, CO, CI - Last Documented Arterial Blood Pressure 157/60 - Exam In general patient is intubated maintained on mechanical ventilation Head normocephalic and atraumatic Neck supple no JVD no goiter Lungs diminished bilaterally Heart regular rate and rhythm S1-S2, no rub or gallop Abdomen is soft nontender nondistended positive bowel sounds no hepatosplenomegaly Extremities no edema no cyanosis or clubbing Neurological examination patient is moving all 4 extremities spontaneously, however he is not awakening despite stopping sedation. - Labs CBC & Chem 7: 08/29/20 03:45 08/29/20 03:45 Labs: Abnormal Lab Results - Last 24 Hours (Table) 08/28/20 08/28/20 08/28/20 Range/Units 17:36 20:05 22:17 WBC (3.8-10.6) k/uL RBC (4.30-5.90) m/uL MCV (80.0-100.0) fL RDW (11.5-15.5) % Plt Count (150-450) k/uL Neutrophils # (1.3-7.7) k/uL Macrocytosis PT (9.0-12.0) sec INR (<1.2) APTT 69.2 H (22.0-30.0) sec D-Dimer (<0.60) mg/L FEU ABG pH (7.35-7.45) ABG pCO2 (35-45) mmHg ABG O2 Saturation (94-97) % Sodium (137-145) mmol/L Chloride (98-107) mmol/L BUN (9-20) mg/dL Glucose (74-99) mg/dL POC Glucose (mg/dL) 238 H 238 H (75-99) mg/dL Calcium (8.4-10.2) mg/dL Magnesium (1.6-2.3) mg/dL Total Bilirubin (0.2-1.3) mg/dL AST (17-59) U/L ALT (4-49) U/L Lactate Dehydrogenase (313-618) U/L C-Reactive Protein (<1.0) mg/dL Albumin (3.5-5.0) g/dL 08/29/20 08/29/20 08/29/20 Range/Units 01:00 01:08 03:44 WBC (3.8-10.6) k/uL RBC (4.30-5.90) m/uL MCV (80.0-100.0) fL RDW (11.5-15.5) % Plt Count (150-450) k/uL Neutrophils # (1.3-7.7) k/uL Macrocytosis PT (9.0-12.0) sec INR (<1.2) APTT 57.5 H (22.0-30.0) sec D-Dimer (<0.60) mg/L FEU ABG pH (7.35-7.45) ABG pCO2 (35-45) mmHg ABG O2 Saturation (94-97) % Sodium (137-145) mmol/L Chloride (98-107) mmol/L BUN (9-20) mg/dL Glucose (74-99) mg/dL POC Glucose (mg/dL) 217 H 221 H (75-99) mg/dL Calcium (8.4-10.2) mg/dL Magnesium (1.6-2.3) mg/dL Total Bilirubin (0.2-1.3) mg/dL AST (17-59) U/L ALT (4-49) U/L Lactate Dehydrogenase (313-618) U/L C-Reactive Protein (<1.0) mg/dL Albumin (3.5-5.0) g/dL 08/29/20 08/29/20 08/29/20 Range/Units 03:45 03:45 03:45 WBC 18.2 H (3.8-10.6) k/uL RBC 3.85 L (4.30-5.90) m/uL MCV 112.2 H (80.0-100.0) fL RDW 16.1 H (11.5-15.5) % Plt Count 127 L (150-450) k/uL Neutrophils # 16.1 H (1.3-7.7) k/uL Macrocytosis Marked A PT 13.8 H (9.0-12.0) sec INR 1.4 H (<1.2) APTT (22.0-30.0) sec D-Dimer 2.77 H (<0.60) mg/L FEU ABG pH (7.35-7.45) ABG pCO2 (35-45) mmHg ABG O2 Saturation (94-97) % Sodium 148 H (137-145) mmol/L Chloride 121 H (98-107) mmol/L BUN 56 H (9-20) mg/dL Glucose 238 H (74-99) mg/dL POC Glucose (mg/dL) (75-99) mg/dL Calcium 8.0 L (8.4-10.2) mg/dL Magnesium 2.5 H (1.6-2.3) mg/dL Total Bilirubin 11.7 H (0.2-1.3) mg/dL AST 187 H (17-59) U/L ALT 137 H (4-49) U/L Lactate Dehydrogenase 2067 H (313-618) U/L C-Reactive Protein 5.4 H (<1.0) mg/dL Albumin 2.3 L (3.5-5.0) g/dL 08/29/20 08/29/20 08/29/20 Range/Units 05:50 13:48 16:48 WBC (3.8-10.6) k/uL RBC (4.30-5.90) m/uL MCV (80.0-100.0) fL RDW (11.5-15.5) % Plt Count (150-450) k/uL Neutrophils # (1.3-7.7) k/uL Macrocytosis PT (9.0-12.0) sec INR (<1.2) APTT (22.0-30.0) sec D-Dimer (<0.60) mg/L FEU ABG pH 7.46 H (7.35-7.45) ABG pCO2 31 L (35-45) mmHg ABG O2 Saturation 98.4 H (94-97) % Sodium (137-145) mmol/L Chloride (98-107) mmol/L BUN (9-20) mg/dL Glucose (74-99) mg/dL POC Glucose (mg/dL) 160 H 146 H (75-99) mg/dL Calcium (8.4-10.2) mg/dL Magnesium (1.6-2.3) mg/dL Total Bilirubin (0.2-1.3) mg/dL AST (17-59) U/L ALT (4-49) U/L Lactate Dehydrogenase (313-618) U/L C-Reactive Protein (<1.0) mg/dL Albumin (3.5-5.0) g/dL Microbiology - Last 24 Hours (Table) 08/28/20 17:36 Blood Culture Gram Stain - Preliminary Blood 08/28/20 17:12 Blood Culture Gram Stain - Preliminary Blood 08/28/20 17:13 Sputum Culture - Preliminary Sputum 08/28/20 17:36 Blood Culture - Final Blood 08/28/20 17:12 Blood Culture - Final Blood 08/28/20 17:12 Urine Culture - Preliminary Urine,Catheterized Assessment and Plan Assessment: 1. Acute hypoxic respiratory failure secondary to COVID-19 related pneumonia. Patient requiring mechanical ventilation. Patient was symptomatic for 2 weeks. Currently on IV Decadron chest x-ray stable and showing some improvement. Remains on mechanical ventilation with an FiO2 of 40% 2. Seizure activity likely secondary to hypoglycemia. No previous history of seizure based on history currently on Keppra. Neurology services are following 3. Metabolic encephalopathy. Neurology services are following 4. Diabetes mellitus type 2 with hypoglycemia on admission. Resolved Patient currently on Lantus and sliding scale coverage 5. History of EtOH 6. History of essential hypertension 7. Episode of hypertension maintained on IV fluids required no pressors. Blood pressure has improved 8. Evidence of liver cirrhosis with signs of portal hypertension 9. History of BPH 10. Positive urine drug screen on admission for benzos, opiates and methamphetamine 11. Encephalopathy with and responsiveness off sedation neurology is following EEG and computed tomography scan of the brain were done DVT prophylaxis Lovenox. GI prophylaxis Protonix Critical care and neurology service is following Remains in the intensive care unit on mechanical ventilation and IV sedation Remains on IV Decadron, vitamin C vitamin D and zinc IV Keppra for seizure activity Attempting sedation holiday today 08/22/2020 per critical care Tube feedings for nutritional support
[2020-08-29 19:59] LABS: Glucose,Whole Blood 146 mg/dL (75-99)
[2020-08-29] MEDS: VANCOMYCIN 1,500 MG in SODIUM CHLORIDE 0.9% 250 ML IVPB SCH (21:42)
[2020-08-30] LABS: Glucose,Whole Blood 132 mg/dL (75-99)
[2020-08-30] MEDS: INSULIN ASPART (NovoLOG) 100 UNIT/ML VIAL SQ SCH ×7 (00:11→23:37)
[2020-08-30] MEDS ORDERED: ARTIFICIAL TEARS-HYPROMELLOSE DROPS 15 ML BTL BOTH EYES PRN (01:43)
[2020-08-30 04:13] LABS: Glucose,Whole Blood 122 mg/dL (75-99)
[2020-08-30 04:39] LABS: ABG Base Excess -0.7 mmol/L; ABG HCO3 23 mmol/L (21-25); ABG Oxygen Saturation 97.3 % (94-97); ABG PCO2 32 mmHg (35-45); ABG PH 7.47 (7.35-7.45); ABG PO2 91 mmHg (83-108); ABG TCO2 24 mmol/L (19-24); Allen Test Performed? Yes
[2020-08-30 04:45] LABS: Partial Thromboplastin Time 27.1 sec (22.0-30.0)
[2020-08-30 04:46] LABS: Albumin 2.1 g/dL (3.5-5.0); C Reactive Protein 4.8 mg/dL (<1.0); Potassium 4.4 mmol/L (3.5-5.1); Total Bilirubin 12.4 mg/dL (0.2-1.3); Total Protein 5.8 g/dL (6.3-8.2)
[2020-08-30 05:07] LABS: Anisocytosis Slight; HGB 13.8 gm/dL (13.0-17.5); MCH 36.1 pg (25.0-35.0); MCHC 32.1 g/dL (31.0-37.0); MCV 112.5 fL (80.0-100.0); Macrocytosis Marked; Mean Platelet Volume 7.9; Platelet Count 112 k/uL (150-450); RBC 3.82 m/uL (4.30-5.90); RDW 16.5 % (11.5-15.5)
[2020-08-30] MEDS: VANCOMYCIN 1,500 MG in SODIUM CHLORIDE 0.9% 250 ML IVPB SCH ×3 (05:30→21:28)
--- NOTE | 2020-08-30 06:17 | XR ---
EXAMINATION TYPE: XR chest 1V portable DATE OF EXAM: 08/30/2020 CLINICAL HISTORY: Difficulty breathing and covid progress study. TECHNIQUE: Single AP portable semiupright view of the chest is obtained. COMPARISON: Chest x-ray from one day earlier and older studies. FINDINGS: New tracheostomy tube. Interval removal of endotracheal and orogastric tubes. Stable left i nternal jugular central venous catheter. Background chronic parenchymal change with bilateral multifocal mid to lower lung opacities. Cardiac silhouette size stable and upper limits of normal. Osseous structures remained intact. IMPRESSION: Persistent multifocal bilateral mid to lower lung opacities consistent with covid-19 infe ction . No significant change from one day earlier. New tracheostomy tube noted.
[2020-08-30 06:24] LABS: Band Neutrophils % 1 %; Metamyelocytes % 1 %; Neutrophils % (M) 89 %; Nucleated Red Blood Cells 1 /100 WBC (0-0); Total Cells Counted 200
[2020-08-30 06:25] LABS: Lymphocytes # (M) 1.16 k/uL (1.0-4.8); Metamyelocytes # (M) 0.19 k/uL (0); Monocytes # (M) 0.77 k/uL (0-1.0); WBC 19.3 k/uL (3.8-10.6)
--- NOTE | 2020-08-30 07:59 | P.PN ---
Subjective History of present illness: HISTORY OF PRESENTING ILLNESS This is a pleasant 65-year-old male past medical history significant for type 2 diabetes, hypertension, asthma, and history of alcohol dependence. He does not follow with a [employer]. We have been asked to see in consultation for new onset atrial fibrillation. No history of atrial fibrillation, heart failure or coronary artery disease. Patient presented to the emergency department on 08/19/2020 with altered mental status and hypoglycemia patient had a blood sugar of 45. Patient was also having symptoms of increased dyspnea, poor appetite, fever and cough at home over the last 2 weeks. Patient's called EMS to bring patient to the emergency department. Patient was placed on a non-rebreather, recovered, was admitted to a medical floor. He started having seizure-like activity, became tachypneic, was intubated for airway protection and transferred to ICU. Neurology was consulted, EEG was performed which did not show seizure activity and burst suppression activity likely due to propofol medication effect. Active issues remains his impaired mentation and level of consciousness possibly related to encephalopathy and prolonged hypoglycemia prior to hospitalization causing significant amount of brain damage. Patient was being weaned off sedation on 08/24, patient went into atrial fibrillation with RVR. Started on IV amiodarone drip, metoprolol tartrate 50mg BID and heparin drip. DIAGNOSTICS CTA Chest showed some patchy bibasilar airspace disease or consolidation doubtless infiltrates bilaterally consistent with community related pneumonia. Nodular Cirrhotic Liver and evidence of Portal hypertension. CT Brain- Negative for acute intracranial abnormality or skull fracture Repeat CT brain - negative, no change from prior. Liver Ultrasound- Suspect small stones in her gallbladder sludge without secondary infection evidence of acute cholecystitis. Suspect fatty infiltration of the liver and/or underlying hepatocellular disease. Moderate extrahepatic delivery dilatation Chest xray Patchy opacities left greater than right mid and lower lung infiltrates. Urine Drug Screen- was positive for opiates, amphetamines and benzodiazepines Home cardiac medications include lisinopril 5mg daily 08/28/20: Patient is seen and examined in the ICU at bedside. Remains intubated on mechanical ventilator. Patient has been off sedation since 08/26/20. Remains on a assist-control mode at the rate of 20 with a tidal volume of 500 and FiO2 of 50% with a PEEP of 5. Patient continues to not follow commands Laboratory data reviewed, WBC 24.4, hemoglobin 14.9, platelets 192, sodium 147, potassium 4.5, serum creatinine 0.71, BUN 55, Elevated LFTs: AST 146, ALP 117, alk phos 121, ammonia trending down (182-->142-->75), albumin 2.5 Telemetry tracings currently indicate sinus mechanism HR 70-80s. Vital signs BP 148/51 HR 82, Temp 100.8F. SBP range 150-170s overnight. Patient is currently being maintained on Cleviprex drip 6mg/hr, amiodarone 200 mg twice a day, clonidine 0.1 mg 3 times a day, heparin drip, metoprolol titrate 50 mg twice a day, lactulose, and xifaxan. 08/29 Patient seen and examined. Patient went into Afib again last night and coverted back to [facility]. Remains on vent at 50% FiO2 and 5 PEEP. Cleviprex off and on over last 24 hrs for hypertension. 08/30 Patient seen and examined. Patient back in Afib this morning. Underwent successful tracheostomy and PEG tube placement yesterday. BP's have been borderline to higher. Has been on Metoprolol 100mg bid. REVIEW OF SYSTEMS At the time of my exam: Patient unable to communicate for review of systems PHYSICAL EXAMINATION CONSTITUTIONAL: No apparent distress. HEENT: Head is normocephalic. Pupils are equal, round. Mucous membranes of the mouth are dry. No JVD. No carotid bruit. CHEST EXAMINATION: Lungs are clear to auscultation. No chest wall tenderness is noted on palpation or with deep breathing. HEART EXAMINATION: Regular rate and rhythm. S1, S2 heard. No murmurs, gallops or rub. ABDOMEN: Soft, Positive bowel sounds. Rectal tube in place with loose/liquid brown stools. : Hyman with malcolm colored urine EXTREMITIES: Appears dry on exam. 2+ peripheral pulses, 2+ bilateral hand edema NEUROLOGIC EXAMINATION: Unresponsive to verbal or painful stimulation. ASSESSMENT Paroxysmal atrial fibrillation with RVR [id number] score 3, currently NSR Altered mental status - most likely multifactorial due to metabolic encephalopathy, prolonged hypoglycemia, covid-19, possible polysubstance abuse (UA positive for opiates and amphetamines) Acute hypoxic respiratory failure Covid-19 pneumonia Elevated Liver Enzymes History Hypertension Type 2 Diabetes History of alcohol dependence PLAN -2D echo with preserved EF -Continue metoprolol tartrate to 1000mg BID and continue Amiodarone 200mg BID -Continue lisinopril 40mg daily -Start Cardizem 60mg QID PO -OK for anticoagulation per surgery. Start Eliquis 5mg bid -Neurology is following patient - patient is on keppra 500mg BID -Continue ICU supportive care. Objective - Vital Signs Vital signs: Vital Signs Temp 99.0 F 08/30/20 04:00 Pulse 123 H 08/30/20 07:00 Resp 25 H 08/30/20 07:00 BP 149/68 08/30/20 07:00 Pulse Ox 94 L 08/30/20 07:00 Intake & Output 08/29/20 08/30/20 08/30/20 18:59 06:59 18:59 Intake Total 6037.258 8876 33 Output Total 845 5480 90 Balance 481.829 -4354 -57 Weight 113.4 kg Intake: IV 976 486 33 Sodium Chloride 0.9% 1, 240 350 30 000 ml @ 20 mls/hr IV . Q24H FE Rx#:[id number] levETIRAcetam IV 500 mg 100 100 In Sodium Chloride 0.9% 100 ml @ 400 mls/hr IVPB Q12HR FE Rx#:[id number] pressure bag 36 36 3 Intake, IV Titration 187.829 500 Amount Clevidipine Butyrate 25 0.4 mg In Empty Bag 1 bag @ 1 MG/HR 2 mls/hr IV .Q24H FE Rx#:[id number] Heparin Sod,Pork in 0.45% 187.429 NaCl 25,000 unit In 0.45 % NaCl 1 250ml.bag @ 8. 7566 UNITS/KG/HR 10 mls/ hr IV .Q24H FE Rx#: [id number] Vancomycin 1,500 mg In 500 Sodium Chloride 0.9% 250 ml @ 125 mls/hr IVPB Q8H FE Rx#:[id number] Tube Feeding 133 90 Other 30 50 Output: Urine 840 1080 90 Stool 4400 Estimated Blood Loss 5 Other: Voiding Method Indwelling Catheter Indwelling Catheter ABP, PAP, CO, CI - Last Documented Arterial Blood Pressure 132/50 - Labs CBC & Chem 7: 08/30/20 04:50 08/30/20 04:00 Labs: Abnormal Lab Results - Last 24 Hours (Table) 08/29/20 08/29/20 08/29/20 Range/Units 13:48 16:48 19:57 WBC (3.8-10.6) k/uL RBC (4.30-5.90) m/uL MCV (80.0-100.0) fL MCH (25.0-35.0) pg RDW (11.5-15.5) % Plt Count (150-450) k/uL Neutrophils # (Manual) (1.3-7.7) k/uL Metamyelocytes # (Man) (0) k/uL Nucleated RBCs (0-0) /100 WBC Macrocytosis D-Dimer (<0.60) mg/L FEU ABG pH (7.35-7.45) ABG pCO2 (35-45) mmHg ABG O2 Saturation (94-97) % Sodium (137-145) mmol/L Chloride (98-107) mmol/L BUN (9-20) mg/dL Glucose (74-99) mg/dL POC Glucose (mg/dL) 160 H 146 H 146 H (75-99) mg/dL Calcium (8.4-10.2) mg/dL Total Bilirubin (0.2-1.3) mg/dL AST (17-59) U/L ALT (4-49) U/L Lactate Dehydrogenase (313-618) U/L C-Reactive Protein (<1.0) mg/dL Total Protein (6.3-8.2) g/dL Albumin (3.5-5.0) g/dL 08/29/20 08/30/20 08/30/20 Range/Units 23:57 04:00 04:00 WBC (3.8-10.6) k/uL RBC (4.30-5.90) m/uL MCV (80.0-100.0) fL MCH (25.0-35.0) pg RDW (11.5-15.5) % Plt Count (150-450) k/uL Neutrophils # (Manual) (1.3-7.7) k/uL Metamyelocytes # (Man) (0) k/uL Nucleated RBCs (0-0) /100 WBC Macrocytosis D-Dimer 3.00 H (<0.60) mg/L FEU ABG pH (7.35-7.45) ABG pCO2 (35-45) mmHg ABG O2 Saturation (94-97) % Sodium 151 H (137-145) mmol/L Chloride 122 H (98-107) mmol/L BUN 66 H (9-20) mg/dL Glucose 124 H (74-99) mg/dL POC Glucose (mg/dL) 132 H (75-99) mg/dL Calcium 8.0 L (8.4-10.2) mg/dL Total Bilirubin 12.4 H (0.2-1.3) mg/dL AST 216 H (17-59) U/L ALT 165 H (4-49) U/L Lactate Dehydrogenase 1571 H (313-618) U/L C-Reactive Protein 4.8 H (<1.0) mg/dL Total Protein 5.8 L (6.3-8.2) g/dL Albumin 2.1 L (3.5-5.0) g/dL 08/30/20 08/30/20 08/30/20 Range/Units 04:07 04:34 04:50 WBC 19.3 H (3.8-10.6) k/uL RBC 3.82 L (4.30-5.90) m/uL MCV 112.5 H (80.0-100.0) fL MCH 36.1 H (25.0-35.0) pg RDW 16.5 H (11.5-15.5) % Plt Count 112 L (150-450) k/uL Neutrophils # (Manual) 17.30 H (1.3-7.7) k/uL Metamyelocytes # (Man) 0.19 H (0) k/uL Nucleated RBCs 1 H (0-0) /100 WBC Macrocytosis Marked A D-Dimer (<0.60) mg/L FEU ABG pH 7.47 H (7.35-7.45) ABG pCO2 32 L (35-45) mmHg ABG O2 Saturation 97.3 H (94-97) % Sodium (137-145) mmol/L Chloride (98-107) mmol/L BUN (9-20) mg/dL Glucose (74-99) mg/dL POC Glucose (mg/dL) 122 H (75-99) mg/dL Calcium (8.4-10.2) mg/dL Total Bilirubin (0.2-1.3) mg/dL AST (17-59) U/L ALT (4-49) U/L Lactate Dehydrogenase (313-618) U/L C-Reactive Protein (<1.0) mg/dL Total Protein (6.3-8.2) g/dL Albumin (3.5-5.0) g/dL Microbiology - Last 24 Hours (Table) 08/28/20 17:36 Blood Culture Gram Stain - Preliminary Blood Blood Culture - Preliminary Staphylococcus aureus 08/28/20 17:12 Blood Culture Gram Stain - Preliminary Blood 08/28/20 17:12 Urine Culture - Final Urine,Catheterized 08/28/20 17:13 Sputum Culture - Preliminary Sputum 08/28/20 17:36 Blood Culture - Final Blood 08/28/20 17:12 Blood Culture - Final Blood
[2020-08-30 08:09] LABS: Glucose,Whole Blood 110 mg/dL (75-99)
[2020-08-30] MEDS: cloNIDine HCL 0.1 MG TAB PO SCH ×3 (08:44→21:29)
[2020-08-30] MEDS: CHLORHEXIDINE GLUCONATE 15 ML CUP MUCOUS MEM SCH ×2 (08:44→21:29)
[2020-08-30] MEDS: AMIODARONE 200 MG TAB PO SCH ×2 (08:44→21:29)
[2020-08-30] MEDS: LACTULOSE 20 GM/30 ML CUP PO SCH ×4 (08:44→23:37)
[2020-08-30] MEDS: PANTOPRAZOLE 40 MG/10 ML VIAL IVP SCH (08:44)
[2020-08-30] MEDS: lisinopriL 20 MG TAB PO SCH (08:45)
[2020-08-30] MEDS: CHOLECALCIFEROL 25 MCG (1000 IU) TABLET PO SCH (08:45)
[2020-08-30] MEDS: levETIRAcetam IV 500 MG in SODIUM CHLORIDE 0.9% 100 ML IVPB SCH ×2 (08:45→21:28)
[2020-08-30] MEDS: DEXAMETHASONE SOD PHOSPHATE 10 MG/ML 1 ML VIAL IV SCH (08:45)
[2020-08-30] MEDS: METOPROLOL TARTRATE 50 MG TAB PO SCH ×2 (08:45→21:29)
[2020-08-30] MEDS: FOLIC ACID 1 MG TAB PO SCH (08:45)
[2020-08-30] MEDS: CYANOCOBALAMIN 500 MCG TAB PO SCH (08:45)
[2020-08-30] MEDS: ASCORBIC ACID 500 MG TAB PO SCH (08:46)
[2020-08-30] MEDS: DILTIAZEM ORAL 60 MG TAB PO SCH ×4 (08:46→21:29)
[2020-08-30] MEDS: THIAMINE 100 MG TAB PO SCH ×2 (08:46→16:30)
[2020-08-30] MEDS: RIFAXIMIN 550 MG TABLET PO SCH ×2 (08:46→21:29)
[2020-08-30] MEDS: ZINC SULFATE 220 MG CAP PO SCH (08:46)
[2020-08-30] MEDS ORDERED: LACTULOSE 20 GM/30 ML CUP PO SCH (10:00)
[2020-08-30] MEDS: APIXABAN 5 MG TAB PO SCH ×2 (10:24→21:29)
[2020-08-30 11:41] LABS: Glucose,Whole Blood 134 mg/dL (75-99)
[2020-08-30] MEDS: INSULIN DETEMIR (LEVEMIR) 100 UNIT/ML SYR SQ SCH (11:47)
--- NOTE | 2020-08-30 12:23 | P.PN ---
Subjective Progress Note Date: 08/30/20 Principal diagnosis: Acute hypoxic respiratory failure secondary to acute COVID-19 pneumonia 65-year-old male patient who presented to the emergency department yesterday because of mental status change and hypoglycemia and the patient was further diagnosed having quit 19 related pneumonia. The patient is diabetic and the patient also has bronchial asthma and hypertension. The patient arrived to the blood sugar of 45. Apparently the patient was sick for around 2 weeks prior to that and the patient was having increased dyspnea on fever and cough and poor appetite. He was taking oral hypoglycemics in the form of Januvia and glipizide on outpatient basis. In the emergency department, the patient was altered, she did obey some commands yet his pulse ox was quite low at 86% on room air oxygen. The patient was placed on 100% nonrebreather facemask. Initially his blood sugar was corrected and the patient was given D50 and following that he was admitted to the medical floor. The patient started having increased shakiness and seizure-like activity and he bit his tongue and he was quite tachypneic. The a team was called. The patient was transferred to the intensive care unit and the patient was intubated for airway protection. At this point in time, the patient is intubated on a mechanical ventilator. Propofol is running at 55 Jhonathan graspi kilogram per minute. The patient is on assist control mode of ventilation with a rate of 20, FiO2 of 60%, PEEP of 5 and tidal volume 450. The patient's blood gases post intubation showed a pH of 7.46 with a pCO2 of 32 and pO2 of 86. The chest x-ray from this morning is showing diffuse bilateral patchy pulmonary infiltrates. ET tube is just above the aortic knob. The patient has a orogastric tube in place. Some mild cardiomegaly is also present. Note that the CT angiogram of the chest that was done yesterday showed some patchy bibasilar airspace disease or consolidation doubtless infiltrates bilaterally consistent with community related pneumonia. The patient also had another appearance of the liver and evidence of portal hypertension. Mother the patient is a chronic alcohol drinker. The white cell count of 7.6 with a hemoglobin of 11.8. Platelets at 127, his LDH was 1369 and his CRP is at 141, urine drug screen was positive for opiates, amphetamines and benzodiazepines, urinalysis showing +1 protein, normal renal function test, normal electrolytes. This morning the d-dimer is at 5.13, the patient's blood pressure currently is 99/35 and the patient is on D5 normal saline at the rate of 75 mL an hour. The patient was started on Lovenox 40 mg subcu every 12 hours. The patient is on propofol. The patient is on no pressors for now. He is on Decadron 63 g IV every 24 hours. Most recent blood sugar is at 141. On today's evaluation of 08/21/2020, the patient is being seen for a follow-up. The patient was hospitalized for community related pneumonia and the patient is currently intubated on a mechanical ventilator. This morning, the patient is sedation with propofol at 75 mcg/kg per minute and he is quite comfortable. He remains on assist control mode of ventilation with a tidal volume of 450 and FiO2 of 50% with a PEEP of 5 and a rate of 20. His peak airway pressure is 23 anesthetic pressure is 14. The chest x-ray showing diffuse bilateral pulmonary pulses consistent with obesity related pneumonia and ET tube is in a good location. The patient is hemodynamically stable. The patient is on no pressors. No seizure activity has been noted. The patient is receiving tube feeds in the form of Vicodin HB at the rate of 30 mL an hour. No hypoglycemic events overnight. The patient's d-dimer is at 5.66 and the patient's LDH currently is at 1478 with a CRP level of 160. The propofol Level Was 0.31. The Patient Is Currently on Decadron 6 Mg IV Every 24 Hours and He Is Also on Lovenox 40 Mg Subcu Every 12 Hours. His Last D-Dimer Is at 5.56 from Today. No Fever. No Other Significant Issues Overnight. Neurology Consultation Was Also Done. EEG from yesterday showed no evidence of any seizure activity. It wasn't abnormal EEG probably related to drug effect. The patient remains on Keppra 5 mg every 12 hours and no clinical seizure activity has been noted. He is also started on a combination of thiamine and B12. Ammonia level is pending from today. His liver function tests currently are improving and his AST is down to 128 and a LDL 45. His lactic acid is also improving is down to 1.8. On 08/22/2020, the patient remains on propofol at the rate of 50 mcg/kg per minute. Attempts to wean him off the propofol yesterday failed as the patient became quite agitated, tachypneic and tachycardic and his symptoms with the mechanical ventilator. There was no meaningful response neurologically and for that reason the sedation holiday was aborted at the same thing will be done today. The patient is an assist-control with a tidal volume of 450 and FiO2 of 40% with a PEEP of 5 and a rate of 20. The patient had a chest x-ray today that showed patchy bilateral pulmonary infiltrates with a peripheral distribution. ET tube is in a good location. The blood gas from today showing a pH of 7.46 with a pCO2 of 28 and pO2 of 82. Peak airway pressure is 20 and as such the patient is potentially extubated on as long as he demonstrated adequate neurologic recovery. The patient is currently on vital high protein at the rate of 43 mL an hour. Labs were all stable with a white cell count of 6 and a hemoglobin of 12 and the rest of the electrolytes are all within normal limits. His LDH level is 1391 and is lower compared to yesterday with a CRP level of 81. As such, the active problem for now is his underlying neurological functions. We're the process of giving the patient sedation holiday and if needed use Precedex to control his agitation. His pupils are equal and symmetrical in a pinpoint. Her activity has been noted. No further bouts of hypoglycemia. 08/23/2020, he managed to get this patient off the propofol. The active issue is his altered mentation despite being off sedation. The patient would get quite agitated but he is not following any commands or doing any purposeful activity. For that reason, I had to cover him with some Precedex overnight. CAT scan of the brain was also done and showed no acute abnormalities. Note that the patient did not have any further hypoglycemic events. He did have hypoglycemia associated at the time his admission. Meanwhile, he remains on a mechanical ventilator. On today's evaluation is in a tidal volume of 450 with an FiO2 of 40% with a PEEP of 5 and a rate of 20. This is essentially same setting as yesterday. Blood gases showing a pH of 7.40 with a pCO2 of 35 and a pO2 of 77. Chest x-ray findings are essentially stable. ET tube is in a good location. The patient is hemodynamically stable. The patient is on vital high protein at the rate of 56 mL an hour. He is tolerating enteral feeding for nutritional support. Inflammatory markers from today showing an LDH level of 1453 and a CRP level is at 62. The markers are essentially compatible to yesterday. His d-dimer is at 5.56 from 2 days ago. Electrolytes all within normal limits. CBC showing a white cell count of 7.8 with hemoglobin of 12.2. His blood sugar is being monitored in the blood sugar currently is at 221. The fluid balance is currently at -730 mL over the past 24 hours. His IV fluids currently running at 20 mL an hour of normal saline. This morning, I took the patient off the Precedex and we're about to reevaluate his mental status. 08/24/2020, the active issue for now as the patient's unresponsiveness while being off sedation. The patient has not shown any significant neurologic recovery. I took him off the sedation yesterday for several hours and the patient did not follow any commands and he was not responsive. He became progressively more agitated and the patient had to be placed back on sedation. Neurology evaluated the patient and the neuro workup is in progress including a CAT scan of the brain that showed no acute abnormalities and the patient also had an EEG that showed abnormal findings, encephalopathy with diffuse slowing and there was no evidence of any seizure activity. For now, the patient is on propofol running at 40 mcg/kg per minute he was given another sedation holiday this morning and following that, the patient became quite tachypneic and restless. He was not following any commands and he remains neurologically impaired. As such, he was placed back on sedation. The patient has history of alcoholism and signs of liver cirrhosis. We noted that his ammonia level was high and was started him on lactulose regarding the possibility of hepatic encephalopathy. His chest x-ray findings are quite stable. There is significant improvement in the right-sided pulmonary infiltrate with some residual infiltration of the left. He remains on assist control mode of ventilation with a rate of 20, tidal volume of 450, FiO2 of 40% and a PEEP of 5. His chest x-ray is improved. The blood gases showed a pH of 7.47 with a pCO2 of 32 and pO2 of 85. Otherwise, his inflammatory markers in regards to his COVID-19 related pneumonia includes a d-dimer of 13.5 inches slightly higher compared to his baseline LDH level is 1772 and his CRP level is at 66.4 and the levels continued to be elevated. No hypoglycemia. His current blood sugar co ntrol is adequate although he is slightly hyperglycemic. Is receiving enteral feeding for nutritional support and is currently on vital high protein at the rate of 36 mild an hour. He remains on Levemir insulin at 20 units a day along with a sliding scale coverage. IV fluids are running in the form of normal saline at the rate of 20 mL an hour. Note that the also start the patient on some lactulose. He is producing adequate amount of stool. His ammonia level is up to 147 from a baseline of 36. 08/25/2020, several active issues on this patient including unresponsiveness, respiratory failure and new onset atrial fibrillation. Note that this patient came to us initially with hypoglycemia and seizures. He was found to be COVID- 19 positive. He was intubated and placed on a mechanical ventilator immunization intubation was mainly to protect his airways. Subsequently, as the patient's blood sugar was regulated, the patient did not show any reasonable neurologic recovery. EEG was abnormal and. Still encephalopathy and diffuse slowing. CAT scan of the brain was negative. He was taken off sedation, the patient would get agitated and his heart rate and blood pressure will go up, would not follow any commands. As such, he was placed on Precedex and while on Precedex he went into atrial fibrillation and rapid ventricular response. The patient was also suspected to have a component of hepatic encephalopathy. His alcoholic he does have signs of liver cirrhosis. He was started on lactulose and ammonia level is being monitored. He is having soft bowel movements for now . Follow-up ammonia level will be ordered today. To control his sedation more effectively, he was switched back to propofol was is currently running at 50 mcg/kg per minute. Meanwhile, he remains nature fibrillation. His current heart rate is 140 and the patient is on amiodarone drip at 0.5 mg per minute. Amiodarone was started yesterday at around 5 PM. His blood pressure is elevated and the patient is unclear the proximal drip at 6 mg an hour. Not to forget, the patient also has a COVID-19 related pneumonia. The chest x-ray from today showing some improvement in the right lower lobe pulmonary infiltrate. The patient continues to have diffuse bilateral pulmonary infiltration. Never theless, his oxygenation has been quite reasonable. He remains assist-control at the rate of any with a tidal volume of 500 and FiO2 of 40% with a PEEP of 5. Blood gas shows a pH of 7.48 with a pCO2 of 33 and pO2 of 67. His inflammatory markers today showed an LDH level of 1346 and a CRP of 6.6. His d-dimer is at 9.6. He remains on treatment with Decadron 6 mg IV every 24 hours. He remains on Lovenox 40 mg subcu every 12 hours. He is also on Levemir insulin 30 units daily along with NovoLog sliding scale coverage. Neurology opted to keep the Keppra for now. He is receiving enteral feeding for nutritional support and the patient is currently on vital HP at 52 mL. He has developed some mild hypernatremia in the sodium level is at 146. 08/26/2020, the patient remains intubated on a mechanical ventilator. Active issues for now remains his impaired mentation and level of consciousness. I am considering possibility of prolonged hypoglycemia causing significant amount of brain damage and encephalopathy. In any rate, the patient also had a COVID-19 pneumonia and he is been intubated on a mechanical ventilator. In terms of COVID-19, the patient is doing reasonably well and he remains on a assist- control mode at the rate of 20 with a tidal volume of 500 and FiO2 of 40% with a PEEP of 5. Morning blood gases show a pO2 of 91 and a pCO2 of 31 and a pH of 7.50. His chest x-ray from today showing bilateral pulmonary infiltrates involving the lower lobes and there has been no major interval change. The patient is resting comfortably on a mechanical ventilator and is quite synchronous. No significant orotracheal secretions. The peak and static pressures have been essentially low. Neurologically, the patient has not been able to come off the sedation due to agitation and asynchrony with a mechanical ventilator. As such, he was kept on propofol which is running at 50 mcg/kg per minute. This has controlled his agitation. The patient will be given another sedation holiday today. Note that yesterday, he went into atrial fibrillation with rapid ventricular response. He was given amiodarone bolus and loading and he is back into normal sinus rhythm. At the same time he was placed also on IV heparin. Amiodarone drip was discontinued after the loading dose. His current rhythm is sinus and also hemodynamically stable. Echo of the heart was completed yesterday and there is also still pending. The unofficial report was that the echocardiogram was essentially within normal limits. Meanwhile, in terms of his mentation, we suspected the possibility of hepatic encephalopathy. We are monitoring his ammonia level. Note that the patient is alcoholic and he has signs of chronic liver disease. Most recent ammonia level is at 182. The patient is on lactulose once a day and he is not producing any significant bowel movement. He remains on enteral feeding for nutritional support and is currently receiving vital high protein at the rate of 52 mL an hour. He is on lactulose 30 g twice a day. No abdominal distention. As for the blood pressure, the patient is currently stable and adequate has adequate blood pressure control. Clonidine is running at 0.1 mg 3 times a day and the patient is also on Lopressor 50 mg by mouth twice a day. Blood sugar control is with Levemir insulin 30 units in addition to a NovoLog signs scale coverage. This is to be further adjusted by that his blood sugars are still running high. No further episodes of hypoglycemia since he arrived to the hospital. No seizure activity noted. No fever. No significant hemodynamic instability. Remains on Decadron 6 mg IV every 24 hours. The most recent LDH level is at 05/13/2002 and the d-dimer is at 7.53. Reevaluated today on 08/27/2020, patient remains intubated and mechanically ventilated. He is off sedation, but he does not seem to be showing any signs of neurological recovery, patient is unresponsive. Based on the notes from Dr. Edwards, patient may have sustained some brain damage from his prolonged hypoglycemia and seizure disorder. Although the possibility of COVID-19 encephalopathy is not entirely ruled out. Ration is on assist control rate of 20 tidal volume is 500 FiO2 50% and PEEP of 5. ABG showed a pO2 of 87 pCO2 of 34 pH of 7.48. He is on amiodarone at 0.5, Keppra, he is also on Levemir Rx at 5 mg per hour. IV fluids at KVO. Patient is also receiving enteral feeding. And he is maintained on seizure medications, patient is on Keppra. Chest x-ray showed stable patchy mid and lower lung infiltrates related to COVID-19 pneumonia. Electrolytes showed elevated sodium of 146, normal renal profile, normal bicarb, CBC showed a bit of leukocytosis with WBC count of 17.7 hemoglobin is 14.3. Liver enzymes remain a bit elevated related to his COVID-19 infection. Patient was reevaluated today on 08/28/2020, remains intubated and mechanically ventilated. Remains off sedation, for the last 48 hours, and no neurological response is noted, patient remains on assist control rate of 20 tidal volume is 500 FiO2 50% PEEP of 5. ABG showed a pO2 of 99 pCO2 of 31 pH of 7.50, hence no change was made in his ventilator settings. Patient remains on amiodarone which I will switch to oral remains on clevidipine 6 mg per hour, and he is on heparin. However his heparin will be discontinued and the patient will be placed on Eliquis. We'll continue free water flushes for his hyponatremia, we'll continue lactulose for his hyperammonemia level. And we can continue to hold sedation. Patient had atrial fibrillation yesterday, converted sinus rhythm at 3 PM yesterday. Remains in sinus rhythm. WBC count is 24.4 hemoglobin 14.9. D-dimer is 3.67 sodium is 147, hence we'll continue free water flushes. LDH is 1775 and his C-reactive protein is 6.1. No major changes noted in his inflammatory markers over the last few days. Chest x-ray continues to show bilateral patchy infiltrates especially at the bases left more so than right Patient was reevaluated today on 08/29/2020, remains intubated and mechanically ventilated. He is on assist control rate of 20 tidal volume is 500 FiO2 is 50% PEEP of 5. Peak airway pressure is 188 and static pressures 16. Patient is off all sedation, and still no evidence of any neurological improvement. Remains encephalopathic. Patient is only on lisinopril, off clevidipine for blood pressure. ABG showed a pO2 of 104 pCO2 31 pH of 7.36. Patient is supposed to undergo PEG and achy ostomy today. Again he remains off sedation completely. Blood culture today is positive for gram-positive cocci in clusters, hence I started the patient empirically on vancomycin until the final report is available. ABC showed leukocytosis with WBC count of 18.2 hemoglobin is 13.4. His INR is 1.4. D-dimer is 2.77 PTT 57.5. Patient remains on heparin which will be placed on hold before the patient goes for tracheostomy and PEG tube placement. Sodium remains a bit high at 148, the rest of the labs are basically unremarkable. His LDH is 2067 transaminases are a bit elevated. Reactive protein is 5.4. Chest x-ray continues to show minimal bilateral patchy infiltrates. Improved compared to baseline. Patient was reevaluated today on 08/30/2020, remains intubated and mechanically ventilated. Remains off all sedation. Remains unresponsive to any stimuli. Patient underwent tracheostomy and PEG tube placement yesterday. He is on assist control rate of 20 tidal volume is 500 FiO2 50% PEEP of 5. ABG showed a pO2 of 91 pCO2 of 32 pH of 7.47. Patient had positive blood cultures growing st aph aureus, more blood cultures were ordered including cultures from the central line, and I recommended that the patient goes on vancomycin. Patient remains on enteral feeding. His ammonia level remains high and I recommended increasing the dose of lactulose. Chest x-ray continues to show persistent multifocal bilateral infiltrates consistent with COVID-19 infection. WBC count is slightly up today 19.3. Hemoglobin is 13.8. Sodium is up to 151, chloride is 122, ammonia level still elevated at 148. LDH is 1571, slightly better compared to yesterday. C-reactive protein is 4.8. Objective - Vital Signs Vital signs: Vital Signs Temp 99.7 F H 08/30/20 08:00 Pulse 73 08/30/20 11:00 Resp 27 H 08/30/20 11:00 BP 149/68 08/30/20 07:00 Pulse Ox 95 08/30/20 11:00 Intake & Output 08/29/20 08/30/20 08/30/20 18:59 06:59 18:59 Intake Total 1916.334 3970 769 Output Total 845 5480 540 Balance 483.965 -1244 229 Weight 113.4 kg Intake: IV 976 486 265 Sodium Chloride 0.9% 1, 240 350 150 000 ml @ 20 mls/hr IV . Q24H FE Rx#:[id number] levETIRAcetam IV 500 mg 100 100 100 In Sodium Chloride 0.9% 100 ml @ 400 mls/hr IVPB Q12HR FE Rx#:[id number] pressure bag 36 36 15 Intake, IV Titration 187.829 500 Amount Clevidipine Butyrate 25 0.4 mg In Empty Bag 1 bag @ 1 MG/HR 2 mls/hr IV .Q24H FE Rx#:[id number] Heparin Sod,Pork in 0.45% 187.429 NaCl 25,000 unit In 0.45 % NaCl 1 250ml.bag @ 8. 7566 UNITS/KG/HR 10 mls/ hr IV .Q24H FE Rx#: [id number] Vancomycin 1,500 mg In 500 Sodium Chloride 0.9% 250 ml @ 125 mls/hr IVPB Q8H FE Rx#:[id number] Tube Feeding 133 90 204 Other 30 50 300 Output: Urine 840 1080 540 Stool 4400 Estimated Blood Loss 5 Other: Voiding Method Indwelling Catheter Indwelling Catheter Indwelling Catheter ABP, PAP, CO, CI - Last Documented Arterial Blood Pressure 141/55 - Exam Physical Exam: Revealed 65-year-old white male intubated and mechanically ventilated, unresponsive to any stimuli. Head: Atraumatic, normocephalic. Neck yesterday seems to be intact. HEENT:[Neck is supple.] [No neck masses.] [No thyromegaly.] [No JVD.]. Blood, EOMI, nonicteric, pupils are constricted bilaterally. Chest: [Symmetrical chest expansion, crackles and rhonchi noted bilaterally. Cardiac Exam: [Normal S1 and S2, no S3 gallop, no murmur.] Abdomen: [Soft, nontender, no megaly, no rebound, no guarding, normal bowel sounds.] Tube is intact. Extremities: [No clubbing, no edema, no cyanosis.] Good pulses bilaterally. Neurological Exam: Unresponsive, does not withdraw to painful stimuli, pupils are reactive. Patient had downward gaze. Acute: Could not be assessed. Skin: No rashes. - Labs CBC & Chem 7: 08/30/20 04:50 08/30/20 04:00 Labs: Abnormal Lab Results - Last 24 Hours (Table) 08/29/20 08/29/20 08/29/20 Range/Units 13:48 16:48 19:57 WBC (3.8-10.6) k/uL RBC (4.30-5.90) m/uL MCV (80.0-100.0) fL MCH (25.0-35.0) pg RDW (11.5-15.5) % Plt Count (150-450) k/uL Neutrophils # (Manual) (1.3-7.7) k/uL Metamyelocytes # (Man) (0) k/uL Nucleated RBCs (0-0) /100 WBC Macrocytosis D-Dimer (<0.60) mg/L FEU ABG pH (7.35-7.45) ABG pCO2 (35-45) mmHg ABG O2 Saturation (94-97) % Sodium (137-145) mmol/L Chloride (98-107) mmol/L BUN (9-20) mg/dL Glucose (74-99) mg/dL POC Glucose (mg/dL) 160 H 146 H 146 H (75-99) mg/dL Calcium (8.4-10.2) mg/dL Total Bilirubin (0.2-1.3) mg/dL AST (17-59) U/L ALT (4-49) U/L Ammonia (<30) umol/L Lactate Dehydrogenase (313-618) U/L C-Reactive Protein (<1.0) mg/dL Total Protein (6.3-8.2) g/dL Albumin (3.5-5.0) g/dL 08/29/20 08/30/20 08/30/20 Range/Units 23:57 04:00 04:00 WBC (3.8-10.6) k/uL RBC (4.30-5.90) m/uL MCV (80.0-100.0) fL MCH (25.0-35.0) pg RDW (11.5-15.5) % Plt Count (150-450) k/uL Neutrophils # (Manual) (1.3-7.7) k/uL Metamyelocytes # (Man) (0) k/uL Nucleated RBCs (0-0) /100 WBC Macrocytosis D-Dimer 3.00 H (<0.60) mg/L FEU ABG pH (7.35-7.45) ABG pCO2 (35-45) mmHg ABG O2 Saturation (94-97) % Sodium 151 H (137-145) mmol/L Chloride 122 H (98-107) mmol/L BUN 66 H (9-20) mg/dL Glucose 124 H (74-99) mg/dL POC Glucose (mg/dL) 132 H (75-99) mg/dL Calcium 8.0 L (8.4-10.2) mg/dL Total Bilirubin 12.4 H (0.2-1.3) mg/dL AST 216 H (17-59) U/L ALT 165 H (4-49) U/L Ammonia (<30) umol/L Lactate Dehydrogenase 1571 H (313-618) U/L C-Reactive Protein 4.8 H (<1.0) mg/dL Total Protein 5.8 L (6.3-8.2) g/dL Albumin 2.1 L (3.5-5.0) g/dL 08/30/20 08/30/20 08/30/20 Range/Units 04:07 04:34 04:50 WBC 19.3 H (3.8-10.6) k/uL RBC 3.82 L (4.30-5.90) m/uL MCV 112.5 H (80.0-100.0) fL MCH 36.1 H (25.0-35.0) pg RDW 16.5 H (11.5-15.5) % Plt Count 112 L (150-450) k/uL Neutrophils # (Manual) 17.30 H (1.3-7.7) k/uL Metamyelocytes # (Man) 0.19 H (0) k/uL Nucleated RBCs 1 H (0-0) /100 WBC Macrocytosis Marked A D-Dimer (<0.60) mg/L FEU ABG pH 7.47 H (7.35-7.45) ABG pCO2 32 L (35-45) mmHg ABG O2 Saturation 97.3 H (94-97) % Sodium (137-145) mmol/L Chloride (98-107) mmol/L BUN (9-20) mg/dL Glucose (74-99) mg/dL POC Glucose (mg/dL) 122 H (75-99) mg/dL Calcium (8.4-10.2) mg/dL Total Bilirubin (0.2-1.3) mg/dL AST (17-59) U/L ALT (4-49) U/L Ammonia (<30) umol/L Lactate Dehydrogenase (313-618) U/L C-Reactive Protein (<1.0) mg/dL Total Protein (6.3-8.2) g/dL Albumin (3.5-5.0) g/dL 08/30/20 08/30/20 08/30/20 Range/Units 08:08 10:01 11:40 WBC (3.8-10.6) k/uL RBC (4.30-5.90) m/uL MCV (80.0-100.0) fL MCH (25.0-35.0) pg RDW (11.5-15.5) % Plt Count (150-450) k/uL Neutrophils # (Manual) (1.3-7.7) k/uL Metamyelocytes # (Man) (0) k/uL Nucleated RBCs (0-0) /100 WBC Macrocytosis D-Dimer (<0.60) mg/L FEU ABG pH (7.35-7.45) ABG pCO2 (35-45) mmHg ABG O2 Saturation (94-97) % Sodium (137-145) mmol/L Chloride (98-107) mmol/L BUN (9-20) mg/dL Glucose (74-99) mg/dL POC Glucose (mg/dL) 110 H 134 H (75-99) mg/dL Calcium (8.4-10.2) mg/dL Total Bilirubin (0.2-1.3) mg/dL AST (17-59) U/L ALT (4-49) U/L Ammonia 148 H (<30) umol/L Lactate Dehydrogenase (313-618) U/L C-Reactive Protein (<1.0) mg/dL Total Protein (6.3-8.2) g/dL Albumin (3.5-5.0) g/dL Microbiology - Last 24 Hours (Table) 08/28/20 17:12 Blood Culture Gram Stain - Preliminary Blood Blood Culture - Preliminary Presumptive Staph aureus 08/28/20 17:13 Sputum Culture - Preliminary Sputum Klebsiella pneumoniae 08/28/20 17:36 Blood Culture Gram Stain - Preliminary Blood Blood Culture - Preliminary Staphylococcus aureus 08/28/20 17:12 Urine Culture - Final Urine,Catheterized 08/28/20 17:36 Blood Culture - Final Blood 08/28/20 17:12 Blood Culture - Final Blood Assessment and Plan Assessment: Impression: Acute hypoxic respiratory failure secondary to COVID-19 pneumonia. New onset atrial fibrillation presently in normal sinus will eventually t ransition heparin to Eliquis. COVID-19 encephalopathy or hepatic encephalopathy but definite mental status change and the patient could have had encephalopathy related to prolonged hypoglycemia on presentation. Clearly the patient has acute metabolic encephalopathy. Hypoglycemia induced seizure is strongly suspected remains on Keppra. Liver cirrhosis and portal hypertension with elevated ammonia level remains on lactulose and Xifaxan, ammonia level remains elevated but it's trending down. Positive drug screen for benzodiazepine and opiate and methamphetamine. History of alcoholism. Benign essential hypertension. Chronic thrombocytopenia. Type 2 diabetes. Suspect staph aureus bacteremia, possible underlying staph aureus pneumonia final report on the cultures is pending Failure to wean mostly because of his neurological status, status post tracheostomy and PEG tube placement on 08/29/2020. Staph aureus bacteremia, hence the patient was placed empirically on vancomycin, awaiting more cultures and sensitivities. Recommendation: Continue ventilatory support. Continue oral amiodarone. Eliquis was restarted by cardiology. Continue GI and DVT prophylaxis. Continue blood pressure control Continue lactulose and Xifaxan, dose of lactulose will be increased. Continue free water flushes for hypernatremia. Continue to monitor ammonia level. Continue to monitor daily assessment of his neurological status. Continue Decadron. Continue Keppra. We start enteral feeding today. Patient is not ready to be weaned mostly because of his worsening neurological status. We'll continue to follow Critical care time is over 30 minutes Time with Patient: Greater than 30
--- NOTE | 2020-08-30 13:41 | P.PN ---
Subjective Progress Note Date: 08/30/20 CHIEF COMPLAINT: Respiratory failure HISTORY OF PRESENT ILLNESS: Patient is in the ICU and intubated. He is status post tracheostomy and PEG tube placement. Tube feedings will be started today. Patient was started on Eliquis for his atrial fibrillation. 2 maximum heart 1.4. Temp now at 99.7 WBC 19.3 blood culture staph aureus on vancomycin PHYSICAL EXAM: VITAL SIGNS: Reviewed. GENERAL: Well-developed in no acute distress. HEENT: No sclera icterus. Extraocular movements grossly intact. Moist buccal mucosa. Head is atraumatic, normocephalic. Trachs site clean dry and intact ABDOMEN: Soft. Nondistended. Nontender. PEG tube site clean dry and intact NEUROLOGIC: Alert and oriented. Cranial nerves II through XII grossly intact. ASSESSMENT: 1. Acute hypoxic respiratory failure secondary to COVID-19 pneumonia 2. Severe protein calorie malnutrition PLAN: -Continue ICU management -Continue supportive care -Titrate PEG tube feedings per dietitian Physician [employer]ice note has been reviewed by physician. Signing provider agrees with the documented findings, assessment, and plan of care. Objective - Vital Signs Vital signs: Vital Signs Temp 99.7 F H 08/30/20 08:00 Pulse 73 08/30/20 11:00 Resp 27 H 08/30/20 11:00 BP 149/68 08/30/20 07:00 Pulse Ox 95 08/30/20 11:00 Intake & Output 08/29/20 08/30/20 08/30/20 18:59 06:59 18:59 Intake Total 0175.652 6331 769 Output Total 845 5480 540 Balance 481820 -0653 229 Weight 113.4 kg Intake: IV 976 486 265 Sodium Chloride 0.9% 1, 240 350 150 000 ml @ 20 mls/hr IV . Q24H FE Rx#:[id number] levETIRAcetam IV 500 mg 100 100 100 In Sodium Chloride 0.9% 100 ml @ 400 mls/hr IVPB Q12HR EF Rx#:[id number] pressure bag 36 36 15 Intake, IV Titration 187.829 500 Amount Clevidipine Butyrate 25 0.4 mg In Empty Bag 1 bag @ 1 MG/HR 2 mls/hr IV .Q24H FE Rx#:[id number] Heparin Sod,Pork in 0.45% 187.429 NaCl 25,000 unit In 0.45 % NaCl 1 250ml.bag @ 8. 7566 UNITS/KG/HR 10 mls/ hr IV .Q24H FE Rx#: [id number] Vancomycin 1,500 mg In 500 Sodium Chloride 0.9% 250 ml @ 125 mls/hr IVPB Q8H FE Rx#:[id number] Tube Feeding 133 90 204 Other 30 50 300 Output: Urine 840 1080 540 Stool 4400 Estimated Blood Loss 5 Other: Voiding Method Indwelling Catheter Indwelling Catheter Indwelling Catheter ABP, PAP, CO, CI - Last Documented Arterial Blood Pressure 141/55 - Labs CBC & Chem 7: 08/30/20 04:50 08/30/20 04:00 Labs: Abnormal Lab Results - Last 24 Hours (Table) 08/29/20 08/29/20 08/29/20 Range/Units 13:48 16:48 19:57 WBC (3.8-10.6) k/uL RBC (4.30-5.90) m/uL MCV (80.0-100.0) fL MCH (25.0-35.0) pg RDW (11.5-15.5) % Plt Count (150-450) k/uL Neutrophils # (Manual) (1.3-7.7) k/uL Metamyelocytes # (Man) (0) k/uL Nucleated RBCs (0-0) /100 WBC Macrocytosis D-Dimer (<0.60) mg/L FEU ABG pH (7.35-7.45) ABG pCO2 (35-45) mmHg ABG O2 Saturation (94-97) % Sodium (137-145) mmol/L Chloride (98-107) mmol/L BUN (9-20) mg/dL Glucose (74-99) mg/dL POC Glucose (mg/dL) 160 H 146 H 146 H (75-99) mg/dL Calcium (8.4-10.2) mg/dL Total Bilirubin (0.2-1.3) mg/dL AST (17-59) U/L ALT (4-49) U/L Ammonia (<30) umol/L Lactate Dehydrogenase (313-618) U/L C-Reactive Protein (<1.0) mg/dL Total Protein (6.3-8.2) g/dL Albumin (3.5-5.0) g/dL 08/29/20 08/30/20 08/30/20 Range/Units 23:57 04:00 04:00 WBC (3.8-10.6) k/uL RBC (4.30-5.90) m/uL MCV (80.0-100.0) fL MCH (25.0-35.0) pg RDW (11.5-15.5) % Plt Count (150-450) k/uL Neutrophils # (Manual) (1.3-7.7) k/uL Metamyelocytes # (Man) (0) k/uL Nucleated RBCs (0-0) /100 WBC Macrocytosis D-Dimer 3.00 H (<0.60) mg/L FEU ABG pH (7.35-7.45) ABG pCO2 (35-45) mmHg ABG O2 Saturation (94-97) % Sodium 151 H (137-145) mmol/L Chloride 122 H (98-107) mmol/L BUN 66 H (9-20) mg/dL Glucose 124 H (74-99) mg/dL POC Glucose (mg/dL) 132 H (75-99) mg/dL Calcium 8.0 L (8.4-10.2) mg/dL Total Bilirubin 12.4 H (0.2-1.3) mg/dL AST 216 H (17-59) U/L ALT 165 H (4-49) U/L Ammonia (<30) umol/L Lactate Dehydrogenase 1571 H (313-618) U/L C-Reactive Protein 4.8 H (<1.0) mg/dL Total Protein 5.8 L (6.3-8.2) g/dL Albumin 2.1 L (3.5-5.0) g/dL 08/30/20 08/30/20 08/30/20 Range/Units 04:07 04:34 04:50 WBC 19.3 H (3.8-10.6) k/uL RBC 3.82 L (4.30-5.90) m/uL MCV 112.5 H (80.0-100.0) fL MCH 36.1 H (25.0-35.0) pg RDW 16.5 H (11.5-15.5) % Plt Count 112 L (150-450) k/uL Neutrophils # (Manual) 17.30 H (1.3-7.7) k/uL Metamyelocytes # (Man) 0.19 H (0) k/uL Nucleated RBCs 1 H (0-0) /100 WBC Macrocytosis Marked A D-Dimer (<0.60) mg/L FEU ABG pH 7.47 H (7.35-7.45) ABG pCO2 32 L (35-45) mmHg ABG O2 Saturation 97.3 H (94-97) % Sodium (137-145) mmol/L Chloride (98-107) mmol/L BUN (9-20) mg/dL Glucose (74-99) mg/dL POC Glucose (mg/dL) 122 H (75-99) mg/dL Calcium (8.4-10.2) mg/dL Total Bilirubin (0.2-1.3) mg/dL AST (17-59) U/L ALT (4-49) U/L Ammonia (<30) umol/L Lactate Dehydrogenase (313-618) U/L C-Reactive Protein (<1.0) mg/dL Total Protein (6.3-8.2) g/dL Albumin (3.5-5.0) g/dL 08/30/20 08/30/20 08/30/20 Range/Units 08:08 10:01 11:40 WBC (3.8-10.6) k/uL RBC (4.30-5.90) m/uL MCV (80.0-100.0) fL MCH (25.0-35.0) pg RDW (11.5-15.5) % Plt Count (150-450) k/uL Neutrophils # (Manual) (1.3-7.7) k/uL Metamyelocytes # (Man) (0) k/uL Nucleated RBCs (0-0) /100 WBC Macrocytosis D-Dimer (<0.60) mg/L FEU ABG pH (7.35-7.45) ABG pCO2 (35-45) mmHg ABG O2 Saturation (94-97) % Sodium (137-145) mmol/L Chloride (98-107) mmol/L BUN (9-20) mg/dL Glucose (74-99) mg/dL POC Glucose (mg/dL) 110 H 134 H (75-99) mg/dL Calcium (8.4-10.2) mg/dL Total Bilirubin (0.2-1.3) mg/dL AST (17-59) U/L ALT (4-49) U/L Ammonia 148 H (<30) umol/L Lactate Dehydrogenase (313-618) U/L C-Reactive Protein (<1.0) mg/dL Total Protein (6.3-8.2) g/dL Albumin (3.5-5.0) g/dL Microbiology - Last 24 Hours (Table) 08/28/20 17:12 Blood Culture Gram Stain - Preliminary Blood Blood Culture - Preliminary Presumptive Staph aureus 08/28/20 17:13 Sputum Culture - Preliminary Sputum Klebsiella pneumoniae 08/28/20 17:36 Blood Culture Gram Stain - Preliminary Blood Blood Culture - Preliminary Staphylococcus aureus 08/28/20 17:12 Urine Culture - Final Urine,Catheterized 08/28/20 17:36 Blood Culture - Final Blood 08/28/20 17:12 Blood Culture - Final Blood
[2020-08-30 16:15] LABS: Glucose,Whole Blood 148 mg/dL (75-99)
--- NOTE | 2020-08-30 17:53 | P.PN ---
Subjective Progress Note Date: 08/30/20 I am assuming care of this patient as of 08/22/2020 at 8 AM. I was out of town and Dr. Paulino was covering for me. HMP done by Dr. Blair on 08/19/2020 On 08/19/2020 patient presented to the ER with altered mental status and hypoglycemia. It is reported that patient had been sick for 2 weeks with fever and productive cough. Patient has a past medical history of diabetes mellitus, hypertension, asthma, EtOH diabetes. At that time patient was admitted to floor and upon arrival required a-team with intubation and transfer to ICU due to declining respiratory status. Chest x-ray was completed showing diffuse bilateral patchy pulmonary infiltrates. Patient was positive for COVID-19 On 08/22/2020 patient remains in the intensive care unit on mechanical ventilation. Patient remains on sedation of propofol and Precedex. Per nursing staff attempting sedation holiday to assess neurological status. Neurology services are following. Patient remains on IV Decadron. Currently on mechanical ventilation with an FiO2 of 40%. Hemodynamically stable. PH is 7.46, CO2 20 12/10/1981 and HCO3 20 On 08/23/2020 patient was seen and examined in the ICU he is intubated main tained on mechanical ventilation he was taken off sedation. Patient is maintained on assist control FiO2 40% PEEP of 5 with a rate of 20 blood gases reveals pH of 7.40 pCO2 35 PO2 77 his white blood count is 7.8 hemoglobin 12.2. Patient mental function is not improving off sedation neurology consultation has been requested On 08/24/2020 patient was seen and examined in the ICU he is intubated sedated maintained on mechanical ventilation yesterday sedation was discontinued however patient continued to be an responsive he was seen by neurology and had a computed tomography scan and an EEG he started becoming agitated and he was started on sedation and again. Currently patient is on assist control rate of 20 tidal volume of 450 FiO2 40% and PEEP of 5 his arterial blood gases are showing a pH of 7.47 pCO2 32 and PO2 of 85 CRP is elevated at 66.4 patient has elevated ammonia level and was started on lactulose critical care and neurology are following. On 08/25/2020 patient was seen and examined in the ICU he is intubated and maintained on mechanical ventilation, his ventilator settings are assist control with tidal volume of 500 FiO2 40% and PEEP of 5 arterial blood gas reveals pH of 7.48 pCO2 33 and PO2 67 LDH is 1346 CRP 6.6 and d-dimer is 9.6 patient maintained on IV Decadron, subcu Lovenox, Levemir 30 units daily, and NovoLog sliding scale patient is also maintained on Keppra per neurology and is maintained on amiodarone drip per cardiology for atrial fibrillation with rapid ventricular response patient hemodynamically is improving however his mental function is not improving patient is not responsive while off sedation. We will continue to follow. On 08/26/2020 patient was seen and examined in the ICU he is intubated, maintained on mechanical ventilation his sedation has been held, however patient is not having any response to stimuli, he is maintained on mechanical ventilation, his ventilator settings are assist control with tidal volume of 500 FiO2 40% and PEEP of 5 arterial blood gas reveals pH of 7.50 pCO2 31 and PO2 91, patient maintained on IV Decadron, subcu Lovenox, Levemir 30 units daily, and NovoLog sliding scale patient is also maintained on Keppra per neurology and is maintained on amiodarone drip per cardiology for atrial fibrillation with rapid ventricular response patient hemodynamically is improving however his mental function is not improving patient is not responsive while off sedation. We will continue to follow. On 08/27/2020 patient was seen and examined in the ICU he is intubated sedated maintained on mechanical ventilation had multiple sedation holidays however he did not have any response to stimuli while is on sedation holidays patient was getting agitated and eventually and was put back on sedation. Patient is main tained on assist control tidal volume 500 rate of 20 FiO2 50% and a PEEP of 5 ABG revealed pH 7.48 pCO2 34 and PO2 87 patient is receiving enteral feeding, insulin, amiodarone, Keppra, no significant change in condition since yesterday. On 08/28/2020 patient was seen and examined in the ICU he is intubated sedated maintained on mechanical ventilation had multiple sedation holidays however he did not have any response to stimuli, his ammonia level is elevated and he is receiving lactulose and rifaximin. Patient is maintained on assist control tidal volume 500 rate of 20 FiO2 50% and a PEEP of 5 ABG revealed pH 7.48 pCO2 34 and PO2 87 patient is receiving enteral feeding, insulin, amiodarone, Keppra, no significant change in condition since yesterday. On 08/29/2020 patient was seen and examined in the ICU he is intubated, maintained on mechanical ventilation, he is maintained off sedation however he did not have any response to stimuli, Patient is maintained on assist control tidal volume 500 rate of 20 FiO2 50% and a PEEP of 5 ABG revealed pH 7.36 pCO2 31 and PO2 104 d-dimer is 2.77 patient is receiving enteral feeding, insulin, amiodarone, Keppra, no significant change in condition since yesterday. Ammonia level was significantly elevated however it was down yesterday to 75 from 182 patient is still not responding On 08/30/2020 patient was seen and examined in the ICU he is intubated, maintained on mechanical ventilation, he is maintained off sedation however he did not have any response to stimuli, Patient is maintained on assist control tidal volume 500 rate of 20 FiO2 50% and a PEEP of 5 ABG revealed pH 7.47 pCO2 32 and PO2 91 d-dimer is 3.0 patient is receiving enteral feeding, insulin, amiodarone, Keppra, no significant change in condition since yesterday. Ammonia level was significantly elevated however it was down yesterday to 75 from 182 it is up again to 148 today. patient is still not responding Objective - Vital Signs Vital signs: Vital Signs Temp 99.6 F 08/30/20 16:00 Pulse 86 08/30/20 17:00 Resp 29 H 08/30/20 17:00 BP 149/68 08/30/20 07:00 Pulse Ox 92 L 08/30/20 17:00 Intake & Output 08/29/20 08/30/20 08/30/20 18:59 06:59 18:59 Intake Total 2386.406 1104 2093 Output Total 845 5480 1015 Balance 148.599 -3279 1078 Weight 113.4 kg Intake: IV 976 486 683 Sodium Chloride 0.9% 1, 240 350 300 000 ml @ 20 mls/hr IV . Q24H FE Rx#:[id number] Vancomycin 1,500 mg In 250 Sodium Chloride 0.9% 250 ml @ 125 mls/hr IVPB Q8H FE Rx#:[id number] levETIRAcetam IV 500 mg 100 100 100 In Sodium Chloride 0.9% 100 ml @ 400 mls/hr IVPB Q12HR FE Rx#:[id number] pressure bag 36 36 33 Intake, IV Titration 187.829 500 Amount Clevidipine Butyrate 25 0.4 mg In Empty Bag 1 bag @ 1 MG/HR 2 mls/hr IV .Q24H FE Rx#:[id number] Heparin Sod,Pork in 0.45% 187.429 NaCl 25,000 unit In 0.45 % NaCl 1 250ml.bag @ 8. 7566 UNITS/KG/HR 10 mls/ hr IV .Q24H FE Rx#: [id number] Vancomycin 1,500 mg In 500 Sodium Chloride 0.9% 250 ml @ 125 mls/hr IVPB Q8H FE Rx#:[id number] Tube Feeding 133 90 510 Other 30 50 900 Output: Urine 840 1080 1015 Stool 4400 Estimated Blood Loss 5 Other: Voiding Method Indwelling Catheter Indwelling Catheter Indwelling Catheter ABP, PAP, CO, CI - Last Documented Arterial Blood Pressure 150/50 - Exam In general patient is intubated maintained on mechanical ventilation Head normocephalic and atraumatic Neck supple no JVD no goiter Lungs diminished bilaterally Heart regular rate and rhythm S1-S2, no rub or gallop Abdomen is soft nontender nondistended positive bowel sounds no hepatosplenomegaly Extremities no edema no cyanosis or clubbing Neurological examination patient is moving all 4 extremities spontaneously, however he is not awakening despite stopping sedation. - Labs CBC & Chem 7: 08/30/20 04:50 08/30/20 04:00 Labs: Abnormal Lab Results - Last 24 Hours (Table) 08/29/20 08/29/20 08/30/20 Range/Units 19:57 23:57 04:00 WBC (3.8-10.6) k/uL RBC (4.30-5.90) m/uL MCV (80.0-100.0) fL MCH (25.0-35.0) pg RDW (11.5-15.5) % Plt Count (150-450) k/uL Neutrophils # (Manual) (1.3-7.7) k/uL Metamyelocytes # (Man) (0) k/uL Nucleated RBCs (0-0) /100 WBC Macrocytosis D-Dimer 3.00 H (<0.60) mg/L FEU ABG pH (7.35-7.45) ABG pCO2 (35-45) mmHg ABG O2 Saturation (94-97) % Sodium (137-145) mmol/L Chloride (98-107) mmol/L BUN (9-20) mg/dL Glucose (74-99) mg/dL POC Glucose (mg/dL) 146 H 132 H (75-99) mg/dL Calcium (8.4-10.2) mg/dL Total Bilirubin (0.2-1.3) mg/dL AST (17-59) U/L ALT (4-49) U/L Ammonia (<30) umol/L Lactate Dehydrogenase (313-618) U/L C-Reactive Protein (<1.0) mg/dL Total Protein (6.3-8.2) g/dL Albumin (3.5-5.0) g/dL 08/30/20 08/30/20 08/30/20 Range/Units 04:00 04:07 04:34 WBC (3.8-10.6) k/uL RBC (4.30-5.90) m/uL MCV (80.0-100.0) fL MCH (25.0-35.0) pg RDW (11.5-15.5) % Plt Count (150-450) k/uL Neutrophils # (Manual) (1.3-7.7) k/uL Metamyelocytes # (Man) (0) k/uL Nucleated RBCs (0-0) /100 WBC Macrocytosis D-Dimer (<0.60) mg/L FEU ABG pH 7.47 H (7.35-7.45) ABG pCO2 32 L (35-45) mmHg ABG O2 Saturation 97.3 H (94-97) % Sodium 151 H (137-145) mmol/L Chloride 122 H (98-107) mmol/L BUN 66 H (9-20) mg/dL Glucose 124 H (74-99) mg/dL POC Glucose (mg/dL) 122 H (75-99) mg/dL Calcium 8.0 L (8.4-10.2) mg/dL Total Bilirubin 12.4 H (0.2-1.3) mg/dL AST 216 H (17-59) U/L ALT 165 H (4-49) U/L Ammonia (<30) umol/L Lactate Dehydrogenase 1571 H (313-618) U/L C-Reactive Protein 4.8 H (<1.0) mg/dL Total Protein 5.8 L (6.3-8.2) g/dL Albumin 2.1 L (3.5-5.0) g/dL 08/30/20 08/30/20 08/30/20 Range/Units 04:50 08:08 10:01 WBC 19.3 H (3.8-10.6) k/uL RBC 3.82 L (4.30-5.90) m/uL MCV 112.5 H (80.0-100.0) fL MCH 36.1 H (25.0-35.0) pg RDW 16.5 H (11.5-15.5) % Plt Count 112 L (150-450) k/uL Neutrophils # (Manual) 17.30 H (1.3-7.7) k/uL Metamyelocytes # (Man) 0.19 H (0) k/uL Nucleated RBCs 1 H (0-0) /100 WBC Macrocytosis Marked A D-Dimer (<0.60) mg/L FEU ABG pH (7.35-7.45) ABG pCO2 (35-45) mmHg ABG O2 Saturation (94-97) % Sodium (137-145) mmol/L Chloride (98-107) mmol/L BUN (9-20) mg/dL Glucose (74-99) mg/dL POC Glucose (mg/dL) 110 H (75-99) mg/dL Calcium (8.4-10.2) mg/dL Total Bilirubin (0.2-1.3) mg/dL AST (17-59) U/L ALT (4-49) U/L Ammonia 148 H (<30) umol/L Lactate Dehydrogenase (313-618) U/L C-Reactive Protein (<1.0) mg/dL Total Protein (6.3-8.2) g/dL Albumin (3.5-5.0) g/dL 08/30/20 08/30/20 Range/Units 11:40 16:12 WBC (3.8-10.6) k/uL RBC (4.30-5.90) m/uL MCV (80.0-100.0) fL MCH (25.0-35.0) pg RDW (11.5-15.5) % Plt Count (150-450) k/uL Neutrophils # (Manual) (1.3-7.7) k/uL Metamyelocytes # (Man) (0) k/uL Nucleated RBCs (0-0) /100 WBC Macrocytosis D-Dimer (<0.60) mg/L FEU ABG pH (7.35-7.45) ABG pCO2 (35-45) mmHg ABG O2 Saturation (94-97) % Sodium (137-145) mmol/L Chloride (98-107) mmol/L BUN (9-20) mg/dL Glucose (74-99) mg/dL POC Glucose (mg/dL) 134 H 148 H (75-99) mg/dL Calcium (8.4-10.2) mg/dL Total Bilirubin (0.2-1.3) mg/dL AST (17-59) U/L ALT (4-49) U/L Ammonia (<30) umol/L Lactate Dehydrogenase (313-618) U/L C-Reactive Protein (<1.0) mg/dL Total Protein (6.3-8.2) g/dL Albumin (3.5-5.0) g/dL Microbiology - Last 24 Hours (Table) 08/28/20 17:12 Blood Culture Gram Stain - Preliminary Blood Blood Culture - Preliminary Presumptive Staph aureus 08/28/20 17:13 Sputum Culture - Preliminary Sputum Klebsiella pneumoniae 08/28/20 17:36 Blood Culture Gram Stain - Preliminary Blood Blood Culture - Preliminary Staphylococcus aureus 08/28/20 17:12 Urine Culture - Final Urine,Catheterized Assessment and Plan Assessment: 1. Acute hypoxic respiratory failure secondary to COVID-19 related pneumonia. Patient requiring mechanical ventilation. Patient was symptomatic for 2 weeks. Currently on IV Decadron chest x-ray stable and showing some improvement. Rem ains on mechanical ventilation with an FiO2 of 40% 2. Seizure activity likely secondary to hypoglycemia. No previous history of seizure based on history currently on Keppra. Neurology services are following 3. Metabolic encephalopathy. Neurology services are following 4. Diabetes mellitus type 2 with hypoglycemia on admission. Resolved Patient currently on Lantus and sliding scale coverage 5. History of EtOH 6. History of essential hypertension 7. Episode of hypertension maintained on IV fluids required no pressors. Blood pressure has improved 8. Evidence of liver cirrhosis with signs of portal hypertension 9. History of BPH 10. Positive urine drug screen on admission for benzos, opiates and methamphetamine 11. Encephalopathy with and responsiveness off sedation neurology is following EEG and computed tomography scan of the brain were done DVT prophylaxis Lovenox. GI prophylaxis Protonix Critical care and neurology service is following Remains in the intensive care unit on mechanical ventilation and IV sedation Remains on IV Decadron, vitamin C vitamin D and zinc IV Keppra for seizure activity Attempting sedation holiday today 08/22/2020 per critical care Tube feedings for nutritional support
--- NOTE | 2020-08-30 20:13 | P.PN ---
Subjective Progress Note Date: 08/30/20 08/30/2020: Patient is currently on sedation. Patient has no improvement as compared to the examination from 08/28/2020. Patient is off sedation since 08/27/2020. Patient had undergone track and PEG placement yesterday. 08/28/2020: Patient was seen for a follow-up. Patient initially seen by Dr. Isaiah Phelan. Please refer to his note for details. Patient initially came to the ER on 08/19/2020 with complaints of confusion and episode of unresponsiveness. Patient's blood sugar was 45 on arrival. Patient is given ampule of glucose. He had been feeling sick for 2 weeks prior with productive cough and fever. Patient was diagnosed with Covid 19, as chest x-ray showed bilateral pulmonary infiltrates. Patient has history of alcohol abuse, and is bilirubin was elevated 3.2. Patient had witnessed seizures in the floor on the day of admission. Patient was intubated and moved to the ICU. Patient was started on Keppra 1 g twice a day. Patient had an EEG, which was abnormal suggestive of comatose patient. The burst suppression activity is likely due to medication effect from propofol. No epileptiform discharges or seizure during EEG. CTA of head showed no acute intracranial abnormality. Patient continues to be severely encephalopathic. Patient is scheduled for tracheostomy and PEG placement in the morning. Patient's most recent chest x-ray showed left greater than right mid and lower lung infiltrates persist with minimal improvement on the right. Blood tests shows WBC 24.4, hemoglobin 14.9, platelets 192. Elevated MCV 112. INR is 1.3. Sodium 147 potassium 4.5, BUN 55, creatinine 0.71. Hemoglobin A1c 8.2. Hepatic panel was abnormal with AST 146, ALT 117, total bilirubin 10.8, ammonia is 75 as of today. It was as high as 182 on 08/26/2020. B12 is 4000 and RBC folate normal. TFTs normal. Urine drug screen was positive for opiate, methamphetamine and benzodiazepine. Newell virus is positive. Patient is still running temperature 101.5 axillary. Objective - Vital Signs Vital signs: Vital Signs Temp 99.6 F 08/30/20 16:00 Pulse 90 08/30/20 19:00 Resp 24 08/30/20 19:00 BP 149/68 08/30/20 07:00 Pulse Ox 91 L 08/30/20 19:00 Intake & Output 08/30/20 08/30/20 08/31/20 06:59 18:59 06:59 Intake Total 1126 2187 84 Output Total 5480 1090 50 Balance -4354 1097 34 Weight 113.4 kg Intake: IV 486 726 33 Sodium Chloride 0.9% 1, 350 340 30 000 ml @ 20 mls/hr IV . Q24H FE Rx#:[id number] Vancomycin 1,500 mg In 250 Sodium Chloride 0.9% 250 ml @ 125 mls/hr IVPB Q8H FE Rx#:[id number] levETIRAcetam IV 500 mg 100 100 In Sodium Chloride 0.9% 100 ml @ 400 mls/hr IVPB Q12HR FE Rx#:[id number] pressure bag 36 36 3 Intake, IV Titration 500 Amount Vancomycin 1,500 mg In 500 Sodium Chloride 0.9% 250 ml @ 125 mls/hr IVPB Q8H FE Rx#:[id number] Tube Feeding 90 561 51 Other 50 900 Output: Urine 1080 1090 50 Stool 4400 Other: Voiding Method Indwelling Catheter Indwelling Catheter ABP, PAP, CO, CI - Last Documented Arterial Blood Pressure 155/47 - Exam On examination patient is an elderly male, laying in the bed, has tracheostomy. Patient is breathing over the ventilator. He has gag and cough. Patient did not withdraw to pain for me although per nurse he did earlier. Pupils are round, not clearly reacting. Oculocephalics are absent. Corneals are mildly present. Patient's sclerae icteric. Patient is not on any sedation. Patient is not showing any purposeful movement. No obvious seizure activity noted. Tone is decreased in the arms and legs. Reflexes are almost hypoactive and plantars are flat. No clonus. Patient has moderate peripheral edema. - Labs CBC & Chem 7: 08/30/20 04:50 08/30/20 04:00 Labs: Abnormal Lab Results - Last 24 Hours (Table) 08/29/20 08/29/20 08/30/20 Range/Units 19:57 23:57 04:00 WBC (3.8-10.6) k/uL RBC (4.30-5.90) m/uL MCV (80.0-100.0) fL MCH (25.0-35.0) pg RDW (11.5-15.5) % Plt Count (150-450) k/uL Neutrophils # (Manual) (1.3-7.7) k/uL Metamyelocytes # (Man) (0) k/uL Nucleated RBCs (0-0) /100 WBC Macrocytosis D-Dimer 3.00 H (<0.60) mg/L FEU ABG pH (7.35-7.45) ABG pCO2 (35-45) mmHg ABG O2 Saturation (94-97) % Sodium (137-145) mmol/L Chloride (98-107) mmol/L BUN (9-20) mg/dL Glucose (74-99) mg/dL POC Glucose (mg/dL) 146 H 132 H (75-99) mg/dL Calcium (8.4-10.2) mg/dL Total Bilirubin (0.2-1.3) mg/dL AST (17-59) U/L ALT (4-49) U/L Ammonia (<30) umol/L Lactate Dehydrogenase (313-618) U/L C-Reactive Protein (<1.0) mg/dL Total Protein (6.3-8.2) g/dL Albumin (3.5-5.0) g/dL 08/30/20 08/30/20 08/30/20 Range/Units 04:00 04:07 04:34 WBC (3.8-10.6) k/uL RBC (4.30-5.90) m/uL MCV (80.0-100.0) fL MCH (25.0-35.0) pg RDW (11.5-15.5) % Plt Count (150-450) k/uL Neutrophils # (Manual) (1.3-7.7) k/uL Metamyelocytes # (Man) (0) k/uL Nucleated RBCs (0-0) /100 WBC Macrocytosis D-Dimer (<0.60) mg/L FEU ABG pH 7.47 H (7.35-7.45) ABG pCO2 32 L (35-45) mmHg ABG O2 Saturation 97.3 H (94-97) % Sodium 151 H (137-145) mmol/L Chloride 122 H (98-107) mmol/L BUN 66 H (9-20) mg/dL Glucose 124 H (74-99) mg/dL POC Glucose (mg/dL) 122 H (75-99) mg/dL Calcium 8.0 L (8.4-10.2) mg/dL Total Bilirubin 12.4 H (0.2-1.3) mg/dL AST 216 H (17-59) U/L ALT 165 H (4-49) U/L Ammonia (<30) umol/L Lactate Dehydrogenase 1571 H (313-618) U/L C-Reactive Protein 4.8 H (<1.0) mg/dL Total Protein 5.8 L (6.3-8.2) g/dL Albumin 2.1 L (3.5-5.0) g/dL 08/30/20 08/30/20 08/30/20 Range/Units 04:50 08:08 10:01 WBC 19.3 H (3.8-10.6) k/uL RBC 3.82 L (4.30-5.90) m/uL MCV 112.5 H (80.0-100.0) fL MCH 36.1 H (25.0-35.0) pg RDW 16.5 H (11.5-15.5) % Plt Count 112 L (150-450) k/uL Neutrophils # (Manual) 17.30 H (1.3-7.7) k/uL Metamyelocytes # (Man) 0.19 H (0) k/uL Nucleated RBCs 1 H (0-0) /100 WBC Macrocytosis Marked A D-Dimer (<0.60) mg/L FEU ABG pH (7.35-7.45) ABG pCO2 (35-45) mmHg ABG O2 Saturation (94-97) % Sodium (137-145) mmol/L Chloride (98-107) mmol/L BUN (9-20) mg/dL Glucose (74-99) mg/dL POC Glucose (mg/dL) 110 H (75-99) mg/dL Calcium (8.4-10.2) mg/dL Total Bilirubin (0.2-1.3) mg/dL AST (17-59) U/L ALT (4-49) U/L Ammonia 148 H (<30) umol/L Lactate Dehydrogenase (313-618) U/L C-Reactive Protein (<1.0) mg/dL Total Protein (6.3-8.2) g/dL Albumin (3.5-5.0) g/dL 08/30/20 08/30/20 Range/Units 11:40 16:12 WBC (3.8-10.6) k/uL RBC (4.30-5.90) m/uL MCV (80.0-100.0) fL MCH (25.0-35.0) pg RDW (11.5-15.5) % Plt Count (150-450) k/uL Neutrophils # (Manual) (1.3-7.7) k/uL Metamyelocytes # (Man) (0) k/uL Nucleated RBCs (0-0) /100 WBC Macrocytosis D-Dimer (<0.60) mg/L FEU ABG pH (7.35-7.45) ABG pCO2 (35-45) mmHg ABG O2 Saturation (94-97) % Sodium (137-145) mmol/L Chloride (98-107) mmol/L BUN (9-20) mg/dL Glucose (74-99) mg/dL POC Glucose (mg/dL) 134 H 148 H (75-99) mg/dL Calcium (8.4-10.2) mg/dL Total Bilirubin (0.2-1.3) mg/dL AST (17-59) U/L ALT (4-49) U/L Ammonia (<30) umol/L Lactate Dehydrogenase (313-618) U/L C-Reactive Protein (<1.0) mg/dL Total Protein (6.3-8.2) g/dL Albumin (3.5-5.0) g/dL Microbiology - Last 24 Hours (Table) 08/28/20 17:12 Blood Culture Gram Stain - Preliminary Blood Blood Culture - Preliminary Presumptive Staph aureus 08/28/20 17:13 Sputum Culture - Preliminary Sputum Klebsiella pneumoniae 08/28/20 17:36 Blood Culture Gram Stain - Preliminary Blood Blood Culture - Preliminary Staphylococcus aureus 08/28/20 17:12 Urine Culture - Final Urine,Catheterized Assessment and Plan Assessment: Altered mental status due to multifactorial: Metabolic encephalopathy due to hypoglycemia, elevated LFT's/cirrhosis--- trending up now. Also due acute covid 19 related pneumonia and polysubstance use (opiated and methamphetamine). Patient is off sedation now for last 3 days. Hepatic encephalopathy with elevated ammonia. Seizure, probably provoked due to hypoglycemia versus alcohol withdrawal. Acute covid 19 related pneumonia Acute hypoxic respiratory failure secondary due to above, on mechanical ventilation. Status post track and PEG 08/29/2020. Afib with RVR on Eliquis and amiodarone Macrocytosis likely due to alcohol use Diabetes mellitus with episode of hypoglycemia---resolved Evidence of cirrhosis and signs of portal hypertension, rule out alcohol liver disease Hypertension Plan: Patient continues to be semi-comatose. Patient currently not on sedation. No evidence of clinical improvement. Patient's metabolic parameters are worse now, including hepatic functions. EEG on 08/20/2020: It is an abnormal routine EEG. The EEG suggestive of comatose state. The burst suppression activity is likely due to medication effect (Propofol). There are no focal slowing, epileptiform discharges or seizure seen during this study. Patient is on Keppra 500 mg every 12 hours that was started by primary team. D own the line if patient has no further episode of seizure-like acitivity will taper it down. Patient also has hepatic encephalopathy, currently on lactulose and rifaximin. Follow-up ammonia level as per IM. Patient last CT of the head on 08/22/2020 is reported as no acute intracranial abnormality. No change Patient is on the thiamine 100 mg 1 tablet twice a day and asked to be continued. Vitamin B12 > 4000 which is considered normal. RBC folate level: 1460 (considered normal). Prophylactically on vitamin B-12 1000 g daily as well as folic 1 mg daily. Recommended to avoid any further hypoglycemic events but will defer the management to the medical team as well as ICU team. Will defer the rest of the medical management to the primary as well as ICU team. The patient's prognosis seem highly guarded, mainly based upon underlying hepatic and pulmonary conditions, with secondary effect on the brain dysfunction. Repeat computed tomography scan of head because of persistent encephalopathy.
[2020-08-30 21:21] LABS: Glucose,Whole Blood 147 mg/dL (75-99)
[2020-08-30] MEDS: SODIUM CHLORIDE 0.9% 1,000 ML IV SCH (21:28)
[2020-08-30 23:29] LABS: Glucose,Whole Blood 147 mg/dL (75-99)
--- NOTE | 2020-08-31 00:50 | CT ---
EXAM: CT Head Without Intravenous Contrast CLINICAL HISTORY: ITS. REASON CT Reason: AMS, rule out CVA, aphasia TECHNIQUE: Axial computed tomography images of the head/brain without intravenous contrast. CTDI is 49.1 mGy and DLP is 1142.4 mGy-cm. This CT exam was performed using one or more of the following dose reduction techniques: automated exposure control, adjustment of the mA and/or kV according to patient size, and/or use of iterative reconstruction technique. COMPARISON: 08/22/20. FINDINGS: Brain: No intercranial hemorrhage or mass-effect. No clear acute large vessel territory infarct. Mild atrophy. Ventricles: Unremarkable. No ventriculomegaly. Bones/joints: Unremarkable. No acute fracture. Soft tissues: Unremarkable. Sinuses: Rounded maxillary sinus mucosal thickening is again noted. Fluid is again seen in the rightward sphenoid sinus.. Mastoid air cells: Unremarkable as visualized. No mastoid effusion. IMPRESSION: No acute intracranial process. Rightward sphenoid sinus fluid is again present. Correlate for sinusitis.
[2020-08-31] MEDS: ACETAMINOPHEN TAB 500 MG TAB PO PRN (01:05)
[2020-08-31 04:09] LABS: Glucose,Whole Blood 184 mg/dL (75-99)
[2020-08-31] MEDS: INSULIN ASPART (NovoLOG) 100 UNIT/ML VIAL SQ SCH ×3 (04:10→11:53)
[2020-08-31] MEDS: LACTULOSE 20 GM/30 ML CUP PO SCH ×2 (04:11→10:32)
[2020-08-31 04:31] LABS: Anisocytosis Slight; Basophils % (A) 0 %; Eosinophils % (A) 0 %; HCT 40.4 % (39.0-53.0); HGB 12.7 gm/dL (13.0-17.5); Lymphocytes # (A) 1.2 k/uL (1.0-4.8); Lymphocytes % (A) 8 %; MCH 36.1 pg (25.0-35.0); MCHC 31.5 g/dL (31.0-37.0); MCV 114.5 fL (80.0-100.0); Macrocytosis Marked; Mean Platelet Volume 8.4; Monocytes # (A) 0.4 k/uL (0-1.0); Monocytes % (A) 2 %; Neutrophils # (A) 12.8 k/uL (1.3-7.7); Neutrophils % (A) 88 %; RBC 3.53 m/uL (4.30-5.90); RDW 17.2 % (11.5-15.5); WBC 14.6 k/uL (3.8-10.6)
[2020-08-31 05:00] LABS: Albumin 1.9 g/dL (3.5-5.0); Calcium 7.7 mg/dL (8.4-10.2); Potassium 4.3 mmol/L (3.5-5.1); Total Bilirubin 14.9 mg/dL (0.2-1.3); Total Protein 5.5 g/dL (6.3-8.2)
[2020-08-31] MEDS ORDERED: VANCOMYCIN TROUGH DUE 1 EACH MISC MISCELLANE ONE (05:00)
[2020-08-31 05:15] LABS: Platelet Count 84 k/uL (150-450)
[2020-08-31 05:23] LABS: Poikilocytosis (M) Present; Polychromasia Present
[2020-08-31 05:28] LABS: ABG Base Excess -3.7 mmol/L; ABG HCO3 21 mmol/L (21-25); ABG Oxygen Saturation 96.6 % (94-97); ABG PCO2 31 mmHg (35-45); ABG PH 7.43 (7.35-7.45); ABG PO2 82 mmHg (83-108); ABG TCO2 21 mmol/L (19-24); Allen Test Performed? Yes
[2020-08-31] MEDS: THIAMINE 100 MG TAB PO SCH (06:20)
[2020-08-31] MEDS: INSULIN DETEMIR (LEVEMIR) 100 UNIT/ML SYR SQ SCH (06:20)
--- NOTE | 2020-08-31 07:38 | XR ---
EXAMINATION TYPE: XR chest 1V portable DATE OF EXAM: 08/31/2020 Comparison: 08/30/2020 Clinical History: 65-year-old male COVID Findings: Tracheostomy cannula. Left PICC tip mid SVC level. Right heart margin obscured by addition over the l ine from the leftward rotation. Interstitial changes are similar. Retrocardiac and left basilar opaci ty slightly increased. Patchy opacity right base is similar. Impression: Retrocardiac and left basilar airspace disease stable to minimally increased. Additional scattered in terstitial changes and patchy right basilar opacity is stable.
[2020-08-31] MEDS ORDERED: VANCOMYCIN IV PER PHARMACY 1 EACH MISC MISCELLANE PRN (07:41)
--- NOTE | 2020-08-31 08:20 | P.PN ---
Subjective HISTORY OF PRESENTING ILLNESS This is a pleasant 65-year-old male past medical history significant for type 2 diabetes, hypertension, asthma, and history of alcohol dependence. 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 We have been asked to see in consultation for new onset atrial fibrillation. No history of atrial fibrillation, heart harjinder lure or coronary artery disease. Patient presented to the emergency department on 08/19/2020 with altered mental status and hypoglycemia patient had a blood sugar of 45. Patient was also having symptoms of increased dyspnea, poor appetite, fever and cough at home over the last 2 weeks. Patient's called EMS to bring patient to the emergency department. Patient was placed on a non-rebreather, recovered, was admitted to a medical floor. He started having seizure-like activity, became tachypneic, was intubated for airway protection and transferred to ICU. Neurology was consulted, EEG was performed which did not show seizure activity and burst suppression activity likely due to propofol m edication effect. Active issues remains his impaired mentation and level of consciousness possibly related to encephalopathy and prolonged hypoglycemia prior to hospitalization causing significant amount of brain damage. Patient was being weaned off sedation on 08/24, patient went into atrial fibrillation with RVR. Started on IV amiodarone drip, metoprolol tartrate 50mg BID and heparin drip. DIAGNOSTICS CTA Chest showed some patchy bibasilar airspace disease or consolidation doubtless infiltrates bilaterally consistent with community related pneumonia. Nodular Cirrhotic Liver and evidence of Portal hypertension. CT Brain- Negative for acute intracranial abnormality or skull fracture Repeat CT brain - negative, no change from prior. Liver Ultrasound- Suspect small stones in her gallbladder sludge without secondary infection evidence of acute cholecystitis. Suspect fatty infiltration of the liver and/or underlying hepatocellular disease. Moderate extrahepatic delivery dilatation Chest xray Patchy opacities left greater than right mid and lower lung infiltrates. Urine Drug Screen- was positive for opiates, amphetamines and benzodiazepines Home cardiac medications include lisinopril 5mg daily 08/28/20: Patient is seen and examined in the ICU at bedside. Remains intubated on mechanical ventilator. Patient has been off sedation since 08/26/20. Remains on a assist-control mode at the rate of 20 with a tidal volume of 500 and FiO2 of 50% with a PEEP of 5. Patient continues to not follow commands Laboratory data reviewed, WBC 24.4, hemoglobin 14.9, platelets 192, sodium 147, potassium 4.5, serum creatinine 0.71, BUN 55, Elevated LFTs: AST 146, ALP 117, alk phos 121, ammonia trending down (182-->142-->75), albumin 2.5 Telemetry tracings currently indicate sinus mechanism HR 70-80s. Vital signs BP 148/51 HR 82, Temp 100.8F. SBP range 150-170s overnight. Patient is currently being maintained on Cleviprex drip 6mg/hr, amiodarone 200 mg twice a day, clonidine 0.1 mg 3 times a day, heparin drip, metoprolol titrate 50 mg twice a day, lactulose, and xifaxan. 08/29 Patient seen and examined. Patient went into Afib again last night and coverted back to NSR. Remains on vent at 50% FiO2 and 5 PEEP. Cleviprex off and on over last 24 hrs for hypertension. 08/30 Patient seen and examined. Patient back in Afib this morning. Underwent successful tracheostomy and PEG tube placement yesterday. BP's have been borderline to higher. Has been on Metoprolol 100mg bid. 08/31 Pt seen and examined. Patient back in atrial fibrillation and heart rates 90s low 100s. Blood pressure with maps in the 70s. He is on 45% FiO2 and 5 of PEEP. AST 215, ALT 161. Creatinine increased to 1.6 and patient remains hypernatremic. REVIEW OF SYSTEMS At the time of my exam: Patient unable to communicate for review of systems PHYSICAL EXAMINATION CONSTITUTIONAL: No apparent distress. HEENT: Head is normocephalic. Pupils are equal, round. Mucous membranes of the mouth are dry. No JVD. No carotid bruit. CHEST EXAMINATION: Lungs are clear to auscultation. No chest wall tenderness is noted on palpation or with deep breathing. HEART EXAMINATION: Regular rate and rhythm. S1, S2 heard. No murmurs, gallops or rub. ABDOMEN: Soft, Positive bowel sounds. Rectal tube in place with loose/liquid brown stools. : Hyman with malcolm colored urine EXTREMITIES:2+ peripheral pulses, 2+ bilateral hand edema NEUROLOGIC EXAMINATION: Unresponsive to verbal or painful stimulation. ASSESSMENT Paroxysmal atrial fibrillation with RVR [id number] score 3 Altered mental status - most likely multifactorial due to metabolic encephalopathy, prolonged hypoglycemia, covid-19, possible polysubstance abuse (UA positive for opiates and amphetamines) Acute hypoxic respiratory failure Covid-19 pneumonia Elevated Liver Enzymes History Hypertension Type 2 Diabetes History of alcohol dependence Hypernatremia Acute kidney injury PLAN -2D echo with preserved EF -Continue metoprolol tartrate 1000mg BID and continue Amiodarone 200mg BID -Lisinopril held due to CHELSEA -Increase Cardizem to 90mg QID PO -OK for anticoagulation per surgery. Start Eliquis 5mg bid -Neurology is following patient - patient is on keppra 500mg BID -Patient with CHELSEA, hypernatremia and appears dry. Start IVF, further management per ICU, primary team. -Continue ICU supportive care. Objective - Vital Signs Vital signs: Vital Signs Temp 97.4 F L 08/31/20 04:00 Pulse 96 08/31/20 07:00 Resp 21 08/31/20 07:00 BP 115/55 08/31/20 07:00 Pulse Ox 94 L 08/31/20 07:00 Intake & Output 08/30/20 08/31/20 08/31/20 18:59 06:59 18:59 Intake Total 2187 1992 Output Total 1090 590 Balance 1097 1402 Weight 115.1 kg Intake: IV 726 429 Sodium Chloride 0.9% 1, 340 390 000 ml @ 20 mls/hr IV . Q24H FE Rx#:[id number] Vancomycin 1,500 mg In 250 Sodium Chloride 0.9% 250 ml @ 125 mls/hr IVPB Q8H FE Rx#:[id number] levETIRAcetam IV 500 mg 100 In Sodium Chloride 0.9% 100 ml @ 400 mls/hr IVPB Q12HR FE Rx#:[id number] pressure bag 36 39 Tube Feeding 561 663 Other 900 900 Output: Urine 1090 590 Other: Voiding Method Indwelling Catheter Indwelling Catheter ABP, PAP, CO, CI - Last Documented Arterial Blood Pressure 152/53 - Labs CBC & Chem 7: 08/31/20 04:05 08/31/20 04:05 Labs: Abnormal Lab Results - Last 24 Hours (Table) 08/30/20 08/30/20 08/30/20 Range/Units 10:01 11:40 16:12 WBC (3.8-10.6) k/uL RBC (4.30-5.90) m/uL Hgb (13.0-17.5) gm/dL MCV (80.0-100.0) fL MCH (25.0-35.0) pg RDW (11.5-15.5) % Plt Count (150-450) k/uL Neutrophils # (1.3-7.7) k/uL Macrocytosis ABG pCO2 (35-45) mmHg ABG pO2 (83-108) mmHg Sodium (137-145) mmol/L Chloride (98-107) mmol/L Carbon Dioxide (22-30) mmol/L BUN (9-20) mg/dL Creatinine (0.66-1.25) mg/dL Glucose (74-99) mg/dL POC Glucose (mg/dL) 134 H 148 H (75-99) mg/dL Calcium (8.4-10.2) mg/dL Total Bilirubin (0.2-1.3) mg/dL AST (17-59) U/L ALT (4-49) U/L Ammonia 148 H (<30) umol/L Total Protein (6.3-8.2) g/dL Albumin (3.5-5.0) g/dL Vancomycin Trough ug/mL 08/30/20 08/30/20 08/31/20 Range/Units 21:18 23:27 04:05 WBC (3.8-10.6) k/uL RBC (4.30-5.90) m/uL Hgb (13.0-17.5) gm/dL MCV (80.0-100.0) fL MCH (25.0-35.0) pg RDW (11.5-15.5) % Plt Count (150-450) k/uL Neutrophils # (1.3-7.7) k/uL Macrocytosis ABG pCO2 (35-45) mmHg ABG pO2 (83-108) mmHg Sodium (137-145) mmol/L Chloride (98-107) mmol/L Carbon Dioxide (22-30) mmol/L BUN (9-20) mg/dL Creatinine (0.66-1.25) mg/dL Glucose (74-99) mg/dL POC Glucose (mg/dL) 147 H 147 H (75-99) mg/dL Calcium (8.4-10.2) mg/dL Total Bilirubin (0.2-1.3) mg/dL AST (17-59) U/L ALT (4-49) U/L Ammonia (<30) umol/L Total Protein (6.3-8.2) g/dL Albumin (3.5-5.0) g/dL Vancomycin Trough 35.5 H* ug/mL 08/31/20 08/31/20 08/31/20 Range/Units 04:05 04:05 04:05 WBC 14.6 H (3.8-10.6) k/uL RBC 3.53 L (4.30-5.90) m/uL Hgb 12.7 L (13.0-17.5) gm/dL MCV 114.5 H (80.0-100.0) fL MCH 36.1 H (25.0-35.0) pg RDW 17.2 H (11.5-15.5) % Plt Count 84 L (150-450) k/uL Neutrophils # 12.8 H (1.3-7.7) k/uL Macrocytosis Marked A ABG pCO2 (35-45) mmHg ABG pO2 (83-108) mmHg Sodium 152 H (137-145) mmol/L Chloride 125 H (98-107) mmol/L Carbon Dioxide 19 L (22-30) mmol/L BUN 85 H (9-20) mg/dL Creatinine 1.63 H (0.66-1.25) mg/dL Glucose 201 H (74-99) mg/dL POC Glucose (mg/dL) (75-99) mg/dL Calcium 7.7 L (8.4-10.2) mg/dL Total Bilirubin 14.9 H (0.2-1.3) mg/dL AST 215 H (17-59) U/L ALT 161 H (4-49) U/L Ammonia 136 H (<30) umol/L Total Protein 5.5 L (6.3-8.2) g/dL Albumin 1.9 L (3.5-5.0) g/dL Vancomycin Trough ug/mL 08/31/20 08/31/20 Range/Units 04:06 05:21 WBC (3.8-10.6) k/uL RBC (4.30-5.90) m/uL Hgb (13.0-17.5) gm/dL MCV (80.0-100.0) fL MCH (25.0-35.0) pg RDW (11.5-15.5) % Plt Count (150-450) k/uL Neutrophils # (1.3-7.7) k/uL Macrocytosis ABG pCO2 31 L (35-45) mmHg ABG pO2 82 L (83-108) mmHg Sodium (137-145) mmol/L Chloride (98-107) mmol/L Carbon Dioxide (22-30) mmol/L BUN (9-20) mg/dL Creatinine (0.66-1.25) mg/dL Glucose (74-99) mg/dL POC Glucose (mg/dL) 184 H (75-99) mg/dL Calcium (8.4-10.2) mg/dL Total Bilirubin (0.2-1.3) mg/dL AST (17-59) U/L ALT (4-49) U/L Ammonia (<30) umol/L Total Protein (6.3-8.2) g/dL Albumin (3.5-5.0) g/dL Vancomycin Trough ug/mL Microbiology - Last 24 Hours (Table) 08/28/20 17:12 Blood Culture Gram Stain - Preliminary Blood Blood Culture - Preliminary Staphylococcus aureus 08/28/20 17:36 Blood Culture Gram Stain - Final Blood Blood Culture - Final Staphylococcus aureus 08/28/20 17:13 Sputum Culture - Preliminary Sputum Klebsiella pneumoniae
[2020-08-31] MEDS ORDERED: SODIUM CHLORIDE 0.9% 1,000 ML IV SCH (08:30)
[2020-08-31] MEDS ORDERED: DILTIAZEM ORAL 30 MG TAB PO SCH (09:00)
[2020-08-31] MEDS: CYANOCOBALAMIN 500 MCG TAB PO SCH (10:28)
[2020-08-31] MEDS: CHOLECALCIFEROL 25 MCG (1000 IU) TABLET PO SCH (10:29)
[2020-08-31] MEDS: PANTOPRAZOLE 40 MG/10 ML VIAL IVP SCH (10:29)
[2020-08-31] MEDS: RIFAXIMIN 550 MG TABLET PO SCH (10:29)
[2020-08-31] MEDS: ZINC SULFATE 220 MG CAP PO SCH (10:29)
[2020-08-31] MEDS: ASCORBIC ACID 500 MG TAB PO SCH (10:29)
[2020-08-31] MEDS: cloNIDine HCL 0.1 MG TAB PO SCH (10:29)
[2020-08-31] MEDS: APIXABAN 5 MG TAB PO SCH (10:30)
[2020-08-31] MEDS: FOLIC ACID 1 MG TAB PO SCH (10:31)
[2020-08-31] MEDS: METOPROLOL TARTRATE 50 MG TAB PO SCH (10:31)
[2020-08-31] MEDS: AMIODARONE 200 MG TAB PO SCH (10:31)
[2020-08-31] MEDS: DEXAMETHASONE SOD PHOSPHATE 10 MG/ML 1 ML VIAL IV SCH (10:31)
[2020-08-31] MEDS: CHLORHEXIDINE GLUCONATE 15 ML CUP MUCOUS MEM SCH (10:32)
[2020-08-31] MEDS: lisinopriL 20 MG TAB PO SCH (10:34)
[2020-08-31] MEDS: levETIRAcetam IV 500 MG in SODIUM CHLORIDE 0.9% 100 ML IVPB SCH (10:34)
[2020-08-31] MEDS ORDERED: DEXTROSE 5% IN WATER 1,000 ML IV SCH (11:00)
[2020-08-31 11:17] LABS: Glucose,Whole Blood 184 mg/dL (75-99)
[2020-08-31 12:53] VITALS: BP 143/79; RESP 20; TEMP 97.2
--- NOTE | 2020-08-31 12:56 | P.PN ---
Subjective Progress Note Date: 08/31/20 CHIEF COMPLAINT: Respiratory failure HISTORY OF PRESENT ILLNESS: Patient is in the ICU and intubated. He is status post tracheostomy and PEG tube placement. Patient is tolerating his tube feedings. No residual reported. Patient did have a temp last night of 102.1. WBC 14.6 awaiting family's decision regarding possible comfort care PHYSICAL EXAM: VITAL SIGNS: Reviewed. GENERAL: Well-developed in no acute distress. HEENT: No sclera icterus. Extraocular movements grossly intact. Moist buccal m ucosa. Head is atraumatic, normocephalic. Trachs site clean dry and intact ABDOMEN: Soft. Nondistended. Nontender. PEG tube site clean dry and intact NEUROLOGIC: Intubated ASSESSMENT: 1. Acute hypoxic respiratory failure secondary to COVID-19 pneumonia 2. Severe protein calorie malnutrition PLAN: -Continue ICU management -Continue supportive care -Titrate PEG tube feedings per dietitian Physician Heavy Equipment Mechanic note has been reviewed by physician. Signing provider agrees with the documented findings, assessment, and plan of care. Objective - Vital Signs Vital signs: Vital Signs Temp 97.2 F L 08/31/20 12:00 Pulse 71 08/31/20 12:00 Resp 20 08/31/20 12:00 BP 143/79 08/31/20 11:00 Pulse Ox 89 L 08/31/20 12:00 Intake & Output 08/30/20 08/31/20 08/31/20 18:59 06:59 18:59 Intake Total 2187 1992 1020 Output Total 2725 022 6685 Balance 1097 1402 -305 Weight 115.1 kg Intake: IV 726 429 165 Sodium Chloride 0.9% 1, 340 390 150 000 ml @ 20 mls/hr IV . Q24H FE Rx#:[id number] Vancomycin 1,500 mg In 250 Sodium Chloride 0.9% 250 ml @ 125 mls/hr IVPB Q8H FE Rx#:[id number] levETIRAcetam IV 500 mg 100 In Sodium Chloride 0.9% 100 ml @ 400 mls/hr IVPB Q12HR FE Rx#:[id number] pressure bag 36 39 15 Tube Feeding 561 663 255 Other 900 900 600 Output: Urine 1090 590 325 Stool 1000 Other: Voiding Method Indwelling Catheter Indwelling Catheter ABP, PAP, CO, CI - Last Documented Arterial Blood Pressure 129/48 - Labs CBC & Chem 7: 08/31/20 04:05 08/31/20 04:05 Labs: Abnormal Lab Results - Last 24 Hours (Table) 08/30/20 08/30/20 08/30/20 Range/Units 16:12 21:18 23:27 WBC (3.8-10.6) k/uL RBC (4.30-5.90) m/uL Hgb (13.0-17.5) gm/dL MCV (80.0-100.0) fL MCH (25.0-35.0) pg RDW (11.5-15.5) % Plt Count (150-450) k/uL Neutrophils # (1.3-7.7) k/uL Macrocytosis ABG pCO2 (35-45) mmHg ABG pO2 (83-108) mmHg Sodium (137-145) mmol/L Chloride (98-107) mmol/L Carbon Dioxide (22-30) mmol/L BUN (9-20) mg/dL Creatinine (0.66-1.25) mg/dL Glucose (74-99) mg/dL POC Glucose (mg/dL) 148 H 147 H 147 H (75-99) mg/dL Calcium (8.4-10.2) mg/dL Total Bilirubin (0.2-1.3) mg/dL AST (17-59) U/L ALT (4-49) U/L Ammonia (<30) umol/L Total Protein (6.3-8.2) g/dL Albumin (3.5-5.0) g/dL Vancomycin Trough ug/mL 08/31/20 08/31/20 08/31/20 Range/Units 04:05 04:05 04:05 WBC 14.6 H (3.8-10.6) k/uL RBC 3.53 L (4.30-5.90) m/uL Hgb 12.7 L (13.0-17.5) gm/dL MCV 114.5 H (80.0-100.0) fL MCH 36.1 H (25.0-35.0) pg RDW 17.2 H (11.5-15.5) % Plt Count 84 L (150-450) k/uL Neutrophils # 12.8 H (1.3-7.7) k/uL Macrocytosis Marked A ABG pCO2 (35-45) mmHg ABG pO2 (83-108) mmHg Sodium 152 H (137-145) mmol/L Chloride 125 H (98-107) mmol/L Carbon Dioxide 19 L (22-30) mmol/L BUN 85 H (9-20) mg/dL Creatinine 1.63 H (0.66-1.25) mg/dL Glucose 201 H (74-99) mg/dL POC Glucose (mg/dL) (75-99) mg/dL Calcium 7.7 L (8.4-10.2) mg/dL Total Bilirubin 14.9 H (0.2-1.3) mg/dL AST 215 H (17-59) U/L ALT 161 H (4-49) U/L Ammonia (<30) umol/L Total Protein 5.5 L (6.3-8.2) g/dL Albumin 1.9 L (3.5-5.0) g/dL Vancomycin Trough 35.5 H* ug/mL 08/31/20 08/31/20 08/31/20 Range/Units 04:05 04:06 05:21 WBC (3.8-10.6) k/uL RBC (4.30-5.90) m/uL Hgb (13.0-17.5) gm/dL MCV (80.0-100.0) fL MCH (25.0-35.0) pg RDW (11.5-15.5) % Plt Count (150-450) k/uL Neutrophils # (1.3-7.7) k/uL Macrocytosis ABG pCO2 31 L (35-45) mmHg ABG pO2 82 L (83-108) mmHg Sodium (137-145) mmol/L Chloride (98-107) mmol/L Carbon Dioxide (22-30) mmol/L BUN (9-20) mg/dL Creatinine (0.66-1.25) mg/dL Glucose (74-99) mg/dL POC Glucose (mg/dL) 184 H (75-99) mg/dL Calcium (8.4-10.2) mg/dL Total Bilirubin (0.2-1.3) mg/dL AST (17-59) U/L ALT (4-49) U/L Ammonia 136 H (<30) umol/L Total Protein (6.3-8.2) g/dL Albumin (3.5-5.0) g/dL Vancomycin Trough ug/mL 08/31/20 Range/Units 11:15 WBC (3.8-10.6) k/uL RBC (4.30-5.90) m/uL Hgb (13.0-17.5) gm/dL MCV (80.0-100.0) fL MCH (25.0-35.0) pg RDW (11.5-15.5) % Plt Count (150-450) k/uL Neutrophils # (1.3-7.7) k/uL Macrocytosis ABG pCO2 (35-45) mmHg ABG pO2 (83-108) mmHg Sodium (137-145) mmol/L Chloride (98-107) mmol/L Carbon Dioxide (22-30) mmol/L BUN (9-20) mg/dL Creatinine (0.66-1.25) mg/dL Glucose (74-99) mg/dL POC Glucose (mg/dL) 184 H (75-99) mg/dL Calcium (8.4-10.2) mg/dL Total Bilirubin (0.2-1.3) mg/dL AST (17-59) U/L ALT (4-49) U/L Ammonia (<30) umol/L Total Protein (6.3-8.2) g/dL Albumin (3.5-5.0) g/dL Vancomycin Trough ug/mL Microbiology - Last 24 Hours (Table) 08/30/20 10:01 Blood Culture - Preliminary Blood No Growth after 24 hours 08/30/20 10:08 Blood Culture - Preliminary Blood No Growth after 24 hours 08/28/20 17:13 Sputum Culture - Final Sputum Klebsiella pneumoniae 08/28/20 17:12 Blood Culture Gram Stain - Preliminary Blood Blood Culture - Preliminary Staphylococcus aureus 08/28/20 17:36 Blood Culture Gram Stain - Final Blood Blood Culture - Final Staphylococcus aureus
[2020-08-31] MEDS ORDERED: LACTULOSE 20 GM/30 ML CUP PO SCH (13:00)
[2020-08-31] MEDS ORDERED: LORazepam 2 MG/ML INJ IV PRN (13:18)
[2020-08-31 13:27] VITALS: PULSE 75
[2020-08-31] MEDS ORDERED: SCOPOLAMINE 1.5MG/72HR PATCH TRANSDERM SCH (13:30)
[2020-08-31] MEDS ORDERED: MORPHINE SULFATE (100 MG/2 ML) 100 MG in SODIUM CHLORIDE 0.9% 100 ML IV SCH (13:30)
--- NOTE | 2020-08-31 13:42 | P.PN ---
Subjective Progress Note Date: 08/31/20 Principal diagnosis: Acute hypoxic respiratory failure secondary to acute COVID-19 pneumonia 65-year-old male patient who presented to the emergency department yesterday because of mental status change and hypoglycemia and the patient was further diagnosed having quit 19 related pneumonia. The patient is diabetic and the patient also has bronchial asthma and hypertension. The patient arrived to the blood sugar of 45. Apparently the patient was sick for around 2 weeks prior to that and the patient was having increased dyspnea on fever and cough and poor appetite. He was taking oral hypoglycemics in the form of Januvia and glipizide on outpatient basis. In the emergency department, the patient was altered, she did obey some commands yet his pulse ox was quite low at 86% on room air oxygen. The patient was placed on 100% nonrebreather facemask. Initially his blood sugar was corrected and the patient was given D50 and following that he was admitted to the medical floor. The patient started having increased shakiness and seizure-like activity and he bit his tongue and he was quite tachypneic. The a team was called. The patient was transferred to the intensive care unit and the patient was intubated for airway protection. At this point in time, the patient is intubated on a mechanical ventilator. Propofol is running at 55 Jhonathan graspi kilogram per minute. The patient is on assist control mode of ventilation with a rate of 20, FiO2 of 60%, PEEP of 5 and tidal volume 450. The patient's blood gases post intubation showed a pH of 7.46 with a pCO2 of 32 and pO2 of 86. The chest x-ray from this morning is showing diffuse bilateral patchy pulmonary infiltrates. ET tube is just above the aortic knob. The patient has a orogastric tube in place. Some mild cardiomegaly is also present. Note that the CT angiogram of the chest that was done yesterday showed some patchy bibasilar airspace disease or consolidation doubtless infiltrates bilaterally consistent with community related pneumonia. The patient also had another appearance of the liver and evidence of portal hypertension. Mother the patient is a chronic alcohol drinker. The white cell count of 7.6 with a hemoglobin of 11.8. Platelets at 127, his LDH was 1369 and his CRP is at 141, urine drug screen was positive for opiates, amphetamines and benzodiazepines, urinalysis showing +1 protein, normal renal function test, normal electrolytes. This morning the d-dimer is at 5.13, the patient's blood pressure currently is 99/35 and the patient is on D5 normal saline at the rate of 75 mL an hour. The patient was started on Lovenox 40 mg subcu every 12 hours. The patient is on propofol. The patient is on no pressors for now. He is on Decadron 63 g IV every 24 hours. Most recent blood sugar is at 141. On today's evaluation of 08/21/2020, the patient is being seen for a follow-up. The patient was hospitalized for community related pneumonia and the patient is currently intubated on a mechanical ventilator. This morning, the patient is sedation with propofol at 75 mcg/kg per minute and he is quite comfortable. He remains on assist control mode of ventilation with a tidal volume of 450 and FiO2 of 50% with a PEEP of 5 and a rate of 20. His peak airway pressure is 23 anesthetic pressure is 14. The chest x-ray showing diffuse bilateral pulmonary pulses consistent with obesity related pneumonia and ET tube is in a good location. The patient is hemodynamically stable. The patient is on no pressors. No seizure activity has been noted. The patient is receiving tube feeds in the form of Vicodin HB at the rate of 30 mL an hour. No hypoglycemic events overnight. The patient's d-dimer is at 5.66 and the patient's LDH currently is at 1478 with a CRP level of 160. The propofol Level Was 0.31. The Patient Is Currently on Decadron 6 Mg IV Every 24 Hours and He Is Also on Lovenox 40 Mg Subcu Every 12 Hours. His Last D-Dimer Is at 5.56 from Today. No Fever. No Other Significant Issues Overnight. Neurology Consultation Was Also Done. EEG from yesterday showed no evidence of any seizure activity. It wasn't abnormal EEG probably related to drug effect. The patient remains on Keppra 5 mg every 12 hours and no clinical seizure activity has been noted. He is also started on a combination of thiamine and B12. Ammonia level is pending from today. His liver function tests currently are improving and his AST is down to 128 and a LDL 45. His lactic acid is also improving is down to 1.8. On 08/22/2020, the patient remains on propofol at the rate of 50 mcg/kg per minute. Attempts to wean him off the propofol yesterday failed as the patient became quite agitated, tachypneic and tachycardic and his symptoms with the mechanical ventilator. There was no meaningful response neurologically and for that reason the sedation holiday was aborted at the same thing will be done today. The patient is an assist-control with a tidal volume of 450 and FiO2 of 40% with a PEEP of 5 and a rate of 20. The patient had a chest x-ray today that showed patchy bilateral pulmonary infiltrates with a peripheral distribution. ET tube is in a good location. The blood gas from today showing a pH of 7.46 with a pCO2 of 28 and pO2 of 82. Peak airway pressure is 20 and as such the patient is potentially extubated on as long as he demonstrated adequate neurologic recovery. The patient is currently on vital high protein at the rate of 43 mL an hour. Labs were all stable with a white cell count of 6 and a hemoglobin of 12 and the rest of the electrolytes are all within normal limits. His LDH level is 1391 and is lower compared to yesterday with a CRP level of 81. As such, the active problem for now is his underlying neurological functions. We're the process of giving the patient sedation holiday and if needed use Precedex to control his agitation. His pupils are equal and symmetrical in a pinpoint. Her activity has been noted. No further bouts of hypoglycemia. 08/23/2020, he managed to get this patient off the propofol. The active issue is his altered mentation despite being off sedation. The patient would get quite agitated but he is not following any commands or doing any purposeful activity. For that reason, I had to cover him with some Precedex overnight. CAT scan of the brain was also done and showed no acute abnormalities. Note that the patient did not have any further hypoglycemic events. He did have hypoglycemia associated at the time his admission. Meanwhile, he remains on a mechanical ventilator. On today's evaluation is in a tidal volume of 450 with an FiO2 of 40% with a PEEP of 5 and a rate of 20. This is essentially same setting as yesterday. Blood gases showing a pH of 7.40 with a pCO2 of 35 and a pO2 of 77. Chest x-ray findings are essentially stable. ET tube is in a good location. The patient is hemodynamically stable. The patient is on vital high protein at the rate of 56 mL an hour. He is tolerating enteral feeding for nutritional support. Inflammatory markers from today showing an LDH level of 1453 and a CRP level is at 62. The markers are essentially compatible to yesterday. His d-dimer is at 5.56 from 2 days ago. Electrolytes all within normal limits. CBC showing a white cell count of 7.8 with hemoglobin of 12.2. His blood sugar is being monitored in the blood sugar currently is at 221. The fluid balance is currently at -730 mL over the past 24 hours. His IV fluids currently running at 20 mL an hour of normal saline. This morning, I took the patient off the Precedex and we're about to reevaluate his mental status. 08/24/2020, the active issue for now as the patient's unresponsiveness while being off sedation. The patient has not shown any significant neurologic recovery. I took him off the sedation yesterday for several hours and the patient did not follow any commands and he was not responsive. He became progressively more agitated and the patient had to be placed back on sedation. Neurology evaluated the patient and the neuro workup is in progress including a CAT scan of the brain that showed no acute abnormalities and the patient also had an EEG that showed abnormal findings, encephalopathy with diffuse slowing and there was no evidence of any seizure activity. For now, the patient is on propofol running at 40 mcg/kg per minute he was given another sedation holiday this morning and following that, the patient became quite tachypneic and restless. He was not following any commands and he remains neurologically impaired. As such, he was placed back on sedation. The patient has history of alcoholism and signs of liver cirrhosis. We noted that his ammonia level was high and was started him on lactulose regarding the possibility of hepatic encephalopathy. His chest x-ray findings are quite stable. There is significant improvement in the right-sided pulmonary infiltrate with some residual infiltration of the left. He remains on assist control mode of ventilation with a rate of 20, tidal volume of 450, FiO2 of 40% and a PEEP of 5. His chest x-ray is improved. The blood gases showed a pH of 7.47 with a pCO2 of 32 and pO2 of 85. Otherwise, his inflammatory markers in regards to his COVID-19 related pneumonia includes a d-dimer of 13.5 inches slightly higher compared to his baseline LDH level is 1772 and his CRP level is at 66.4 and the levels continued to be elevated. No hypoglycemia. His current blood sugar co ntrol is adequate although he is slightly hyperglycemic. Is receiving enteral feeding for nutritional support and is currently on vital high protein at the rate of 36 mild an hour. He remains on Levemir insulin at 20 units a day along with a sliding scale coverage. IV fluids are running in the form of normal saline at the rate of 20 mL an hour. Note that the also start the patient on some lactulose. He is producing adequate amount of stool. His ammonia level is up to 147 from a baseline of 36. 08/25/2020, several active issues on this patient including unresponsiveness, respiratory failure and new onset atrial fibrillation. Note that this patient came to us initially with hypoglycemia and seizures. He was found to be COVID- 19 positive. He was intubated and placed on a mechanical ventilator immunization intubation was mainly to protect his airways. Subsequently, as the patient's blood sugar was regulated, the patient did not show any reasonable neurologic recovery. EEG was abnormal and. Still encephalopathy and diffuse slowing. CAT scan of the brain was negative. He was taken off sedation, the patient would get agitated and his heart rate and blood pressure will go up, would not follow any commands. As such, he was placed on Precedex and while on Precedex he went into atrial fibrillation and rapid ventricular response. The patient was also suspected to have a component of hepatic encephalopathy. His alcoholic he does have signs of liver cirrhosis. He was started on lactulose and ammonia level is being monitored. He is having soft bowel movements for now . Follow-up ammonia level will be ordered today. To control his sedation more effectively, he was switched back to propofol was is currently running at 50 mcg/kg per minute. Meanwhile, he remains nature fibrillation. His current heart rate is 140 and the patient is on amiodarone drip at 0.5 mg per minute. Amiodarone was started yesterday at around 5 PM. His blood pressure is elevated and the patient is unclear the proximal drip at 6 mg an hour. Not to forget, the patient also has a COVID-19 related pneumonia. The chest x-ray from today showing some improvement in the right lower lobe pulmonary infiltrate. The patient continues to have diffuse bilateral pulmonary infiltration. Never theless, his oxygenation has been quite reasonable. He remains assist-control at the rate of any with a tidal volume of 500 and FiO2 of 40% with a PEEP of 5. Blood gas shows a pH of 7.48 with a pCO2 of 33 and pO2 of 67. His inflammatory markers today showed an LDH level of 1346 and a CRP of 6.6. His d-dimer is at 9.6. He remains on treatment with Decadron 6 mg IV every 24 hours. He remains on Lovenox 40 mg subcu every 12 hours. He is also on Levemir insulin 30 units daily along with NovoLog sliding scale coverage. Neurology opted to keep the Keppra for now. He is receiving enteral feeding for nutritional support and the patient is currently on vital HP at 52 mL. He has developed some mild hypernatremia in the sodium level is at 146. 08/26/2020, the patient remains intubated on a mechanical ventilator. Active issues for now remains his impaired mentation and level of consciousness. I am considering possibility of prolonged hypoglycemia causing significant amount of brain damage and encephalopathy. In any rate, the patient also had a COVID-19 pneumonia and he is been intubated on a mechanical ventilator. In terms of COVID-19, the patient is doing reasonably well and he remains on a assist- control mode at the rate of 20 with a tidal volume of 500 and FiO2 of 40% with a PEEP of 5. Morning blood gases show a pO2 of 91 and a pCO2 of 31 and a pH of 7.50. His chest x-ray from today showing bilateral pulmonary infiltrates involving the lower lobes and there has been no major interval change. The patient is resting comfortably on a mechanical ventilator and is quite synchronous. No significant orotracheal secretions. The peak and static pressures have been essentially low. Neurologically, the patient has not been able to come off the sedation due to agitation and asynchrony with a mechanical ventilator. As such, he was kept on propofol which is running at 50 mcg/kg per minute. This has controlled his agitation. The patient will be given another sedation holiday today. Note that yesterday, he went into atrial fibrillation with rapid ventricular response. He was given amiodarone bolus and loading and he is back into normal sinus rhythm. At the same time he was placed also on IV heparin. Amiodarone drip was discontinued after the loading dose. His current rhythm is sinus and also hemodynamically stable. Echo of the heart was completed yesterday and there is also still pending. The unofficial report was that the echocardiogram was essentially within normal limits. Meanwhile, in terms of his mentation, we suspected the possibility of hepatic encephalopathy. We are monitoring his ammonia level. Note that the patient is alcoholic and he has signs of chronic liver disease. Most recent ammonia level is at 182. The patient is on lactulose once a day and he is not producing any significant bowel movement. He remains on enteral feeding for nutritional support and is currently receiving vital high protein at the rate of 52 mL an hour. He is on lactulose 30 g twice a day. No abdominal distention. As for the blood pressure, the patient is currently stable and adequate has adequate blood pressure control. Clonidine is running at 0.1 mg 3 times a day and the patient is also on Lopressor 50 mg by mouth twice a day. Blood sugar control is with Levemir insulin 30 units in addition to a NovoLog signs scale coverage. This is to be further adjusted by that his blood sugars are still running high. No further episodes of hypoglycemia since he arrived to the hospital. No seizure activity noted. No fever. No significant hemodynamic instability. Remains on Decadron 6 mg IV every 24 hours. The most recent LDH level is at 05/13/2002 and the d-dimer is at 7.53. Reevaluated today on 08/27/2020, patient remains intubated and mechanically ventilated. He is off sedation, but he does not seem to be showing any signs of neurological recovery, patient is unresponsive. Based on the notes from Dr. Edwards, patient may have sustained some brain damage from his prolonged hypoglycemia and seizure disorder. Although the possibility of COVID-19 encephalopathy is not entirely ruled out. Ration is on assist control rate of 20 tidal volume is 500 FiO2 50% and PEEP of 5. ABG showed a pO2 of 87 pCO2 of 34 pH of 7.48. He is on amiodarone at 0.5, Keppra, he is also on Levemir Rx at 5 mg per hour. IV fluids at KVO. Patient is also receiving enteral feeding. And he is maintained on seizure medications, patient is on Keppra. Chest x-ray showed stable patchy mid and lower lung infiltrates related to COVID-19 pneumonia. Electrolytes showed elevated sodium of 146, normal renal profile, normal bicarb, CBC showed a bit of leukocytosis with WBC count of 17.7 hemoglobin is 14.3. Liver enzymes remain a bit elevated related to his COVID-19 infection. Patient was reevaluated today on 08/28/2020, remains intubated and mechanically ventilated. Remains off sedation, for the last 48 hours, and no neurological response is noted, patient remains on assist control rate of 20 tidal volume is 500 FiO2 50% PEEP of 5. ABG showed a pO2 of 99 pCO2 of 31 pH of 7.50, hence no change was made in his ventilator settings. Patient remains on amiodarone which I will switch to oral remains on clevidipine 6 mg per hour, and he is on heparin. However his heparin will be discontinued and the patient will be placed on Eliquis. We'll continue free water flushes for his hyponatremia, we'll continue lactulose for his hyperammonemia level. And we can continue to hold sedation. Patient had atrial fibrillation yesterday, converted sinus rhythm at 3 PM yesterday. Remains in sinus rhythm. WBC count is 24.4 hemoglobin 14.9. D-dimer is 3.67 sodium is 147, hence we'll continue free water flushes. LDH is 1775 and his C-reactive protein is 6.1. No major changes noted in his inflammatory markers over the last few days. Chest x-ray continues to show bilateral patchy infiltrates especially at the bases left more so than right Patient was reevaluated today on 08/29/2020, remains intubated and mechanically ventilated. He is on assist control rate of 20 tidal volume is 500 FiO2 is 50% PEEP of 5. Peak airway pressure is 188 and static pressures 16. Patient is off all sedation, and still no evidence of any neurological improvement. Remains encephalopathic. Patient is only on lisinopril, off clevidipine for blood pressure. ABG showed a pO2 of 104 pCO2 31 pH of 7.36. Patient is supposed to undergo PEG and achy ostomy today. Again he remains off sedation completely. Blood culture today is positive for gram-positive cocci in clusters, hence I started the patient empirically on vancomycin until the final report is available. ABC showed leukocytosis with WBC count of 18.2 hemoglobin is 13.4. His INR is 1.4. D-dimer is 2.77 PTT 57.5. Patient remains on heparin which will be placed on hold before the patient goes for tracheostomy and PEG tube placement. Sodium remains a bit high at 148, the rest of the labs are basically unremarkable. His LDH is 2067 transaminases are a bit elevated. Reactive protein is 5.4. Chest x-ray continues to show minimal bilateral patchy infiltrates. Improved compared to baseline. Patient was reevaluated today on 08/30/2020, remains intubated and mechanically ventilated. Remains off all sedation. Remains unresponsive to any stimuli. Patient underwent tracheostomy and PEG tube placement yesterday. He is on assist control rate of 20 tidal volume is 500 FiO2 50% PEEP of 5. ABG showed a pO2 of 91 pCO2 of 32 pH of 7.47. Patient had positive blood cultures growing st aph aureus, more blood cultures were ordered including cultures from the central line, and I recommended that the patient goes on vancomycin. Patient remains on enteral feeding. His ammonia level remains high and I recommended increasing the dose of lactulose. Chest x-ray continues to show persistent multifocal bilateral infiltrates consistent with COVID-19 infection. WBC count is slightly up today 19.3. Hemoglobin is 13.8. Sodium is up to 151, chloride is 122, ammonia level still elevated at 148. LDH is 1571, slightly better compared to yesterday. C-reactive protein is 4.8. Patient was reevaluated today on 08/31/2020, remains in the ICU intubated and mechanically ventilated, not requiring any sedation. Patient remains unresponsive. Ammonia level remains elevated. His sodium remains elevated and these are being addressed. Patient has MSSA bacteremia, and Klebsiella pneumonia. He is on assist control rate of 20 tidal volume 500 FiO2 45%, PEEP of 5. ABG showed a pO2 of 82 pCO2 of 31 pH of 7.43. Patient remains on enteral feeding him a he is still receiving free water flushes, and is also on lactulose 4 times a day. Mental status remains about the same, patient remains encephalopathic, and not responding to any stimuli, his sedation has been on hold for almost 4 days. Today I had a long discussion with his over the phone, and suggested to the seriously considering comfort care measures as the quality of life of this patient seems to be extremely poor. The is actually heading towards comfort care measures, and she is very well aware of his poor prognosis. WBC count today is 14.6 hemoglobin is 12.7. ABG showed a pO2 of 81 pCO2 of 31 pH of 7.43. Sodium remains high at 152 BUN is 85 creatinine 1.63. Liver enzymes remain elevated. Ammonia level remains elevated at 136 in spite of treatment. Objective - Vital Signs Vital signs: Vital Signs Temp 97.2 F L 08/31/20 12:00 Pulse 75 08/31/20 13:00 Resp 20 08/31/20 13:00 BP 143/79 08/31/20 11:00 Pulse Ox 92 L 08/31/20 13:00 Intake & Output 08/30/20 08/31/20 08/31/20 18:59 06:59 18:59 Intake Total 2187 1992 1020 Output Total 9371 518 3328 Balance 1097 1402 -305 Weight 115.1 kg Intake: IV 726 429 165 Sodium Chloride 0.9% 1, 340 390 150 000 ml @ 20 mls/hr IV . Q24H FE Rx#:[id number] Vancomycin 1,500 mg In 250 Sodium Chloride 0.9% 250 ml @ 125 mls/hr IVPB Q8H FE Rx#:[id number] levETIRAcetam IV 500 mg 100 In Sodium Chloride 0.9% 100 ml @ 400 mls/hr IVPB Q12HR FE Rx#:[id number] pressure bag 36 39 15 Tube Feeding 561 663 255 Other 900 900 600 Output: Urine 1090 590 325 Stool 1000 Other: Voiding Method Indwelling Catheter Indwelling Catheter Indwelling Catheter ABP, PAP, CO, CI - Last Documented Arterial Blood Pressure 134/47 - Exam Physical Exam: Revealed 65-year-old white male intubated and mechanically ventilated, unresponsive to any stimuli. Head: Atraumatic, normocephalic. Tracheostomy is intact. HEENT:[Neck is supple.] [No neck masses.] [No thyromegaly.] [No JVD.]. Blood, EOMI, nonicteric, pupils are constricted bilaterally. Chest: [Symmetrical chest expansion, crackles and rhonchi noted bilaterally. Cardiac Exam: [Normal S1 and S2, no S3 gallop, no murmur.] Abdomen: [Soft, nontender, no megaly, no rebound, no guarding, normal bowel sounds.] PEG Tube is intact. Extremities: [No clubbing, no edema, no cyanosis.] Good pulses bilaterally. Neurological Exam: Unresponsive, does not withdraw to painful stimuli, pupils are reactive. Patient had downward gaze. Acute: Could not be assessed. Skin: No rashes. - Labs CBC & Chem 7: 08/31/20 04:05 08/31/20 04:05 Labs: Abnormal Lab Results - Last 24 Hours (Table) 08/30/20 08/30/20 08/30/20 Range/Units 16:12 21:18 23:27 WBC (3.8-10.6) k/uL RBC (4.30-5.90) m/uL Hgb (13.0-17.5) gm/dL MCV (80.0-100.0) fL MCH (25.0-35.0) pg RDW (11.5-15.5) % Plt Count (150-450) k/uL Neutrophils # (1.3-7.7) k/uL Macrocytosis ABG pCO2 (35-45) mmHg ABG pO2 (83-108) mmHg Sodium (137-145) mmol/L Chloride (98-107) mmol/L Carbon Dioxide (22-30) mmol/L BUN (9-20) mg/dL Creatinine (0.66-1.25) mg/dL Glucose (74-99) mg/dL POC Glucose (mg/dL) 148 H 147 H 147 H (75-99) mg/dL Calcium (8.4-10.2) mg/dL Total Bilirubin (0.2-1.3) mg/dL AST (17-59) U/L ALT (4-49) U/L Ammonia (<30) umol/L Total Protein (6.3-8.2) g/dL Albumin (3.5-5.0) g/dL Vancomycin Trough ug/mL 08/31/20 08/31/20 08/31/20 Range/Units 04:05 04:05 04:05 WBC 14.6 H (3.8-10.6) k/uL RBC 3.53 L (4.30-5.90) m/uL Hgb 12.7 L (13.0-17.5) gm/dL MCV 114.5 H (80.0-100.0) fL MCH 36.1 H (25.0-35.0) pg RDW 17.2 H (11.5-15.5) % Plt Count 84 L (150-450) k/uL Neutrophils # 12.8 H (1.3-7.7) k/uL Macrocytosis Marked A ABG pCO2 (35-45) mmHg ABG pO2 (83-108) mmHg Sodium 152 H (137-145) mmol/L Chloride 125 H (98-107) mmol/L Carbon Dioxide 19 L (22-30) mmol/L BUN 85 H (9-20) mg/dL Creatinine 1.63 H (0.66-1.25) mg/dL Glucose 201 H (74-99) mg/dL POC Glucose (mg/dL) (75-99) mg/dL Calcium 7.7 L (8.4-10.2) mg/dL Total Bilirubin 14.9 H (0.2-1.3) mg/dL AST 215 H (17-59) U/L ALT 161 H (4-49) U/L Ammonia (<30) umol/L Total Protein 5.5 L (6.3-8.2) g/dL Albumin 1.9 L (3.5-5.0) g/dL Vancomycin Trough 35.5 H* ug/mL 08/31/20 08/31/20 08/31/20 Range/Units 04:05 04:06 05:21 WBC (3.8-10.6) k/uL RBC (4.30-5.90) m/uL Hgb (13.0-17.5) gm/dL MCV (80.0-100.0) fL MCH (25.0-35.0) pg RDW (11.5-15.5) % Plt Count (150-450) k/uL Neutrophils # (1.3-7.7) k/uL Macrocytosis ABG pCO2 31 L (35-45) mmHg ABG pO2 82 L (83-108) mmHg Sodium (137-145) mmol/L Chloride (98-107) mmol/L Carbon Dioxide (22-30) mmol/L BUN (9-20) mg/dL Creatinine (0.66-1.25) mg/dL Glucose (74-99) mg/dL POC Glucose (mg/dL) 184 H (75-99) mg/dL Calcium (8.4-10.2) mg/dL Total Bilirubin (0.2-1.3) mg/dL AST (17-59) U/L ALT (4-49) U/L Ammonia 136 H (<30) umol/L Total Protein (6.3-8.2) g/dL Albumin (3.5-5.0) g/dL Vancomycin Trough ug/mL 08/31/20 Range/Units 11:15 WBC (3.8-10.6) k/uL RBC (4.30-5.90) m/uL Hgb (13.0-17.5) gm/dL MCV (80.0-100.0) fL MCH (25.0-35.0) pg RDW (11.5-15.5) % Plt Count (150-450) k/uL Neutrophils # (1.3-7.7) k/uL Macrocytosis ABG pCO2 (35-45) mmHg ABG pO2 (83-108) mmHg Sodium (137-145) mmol/L Chloride (98-107) mmol/L Carbon Dioxide (22-30) mmol/L BUN (9-20) mg/dL Creatinine (0.66-1.25) mg/dL Glucose (74-99) mg/dL POC Glucose (mg/dL) 184 H (75-99) mg/dL Calcium (8.4-10.2) mg/dL Total Bilirubin (0.2-1.3) mg/dL AST (17-59) U/L ALT (4-49) U/L Ammonia (<30) umol/L Total Protein (6.3-8.2) g/dL Albumin (3.5-5.0) g/dL Vancomycin Trough ug/mL Microbiology - Last 24 Hours (Table) 08/30/20 10:01 Blood Culture - Preliminary Blood No Growth after 24 hours 08/30/20 10:08 Blood Culture - Preliminary Blood No Growth after 24 hours 08/28/20 17:13 Sputum Culture - Final Sputum Klebsiella pneumoniae 08/28/20 17:12 Blood Culture Gram Stain - Preliminary Blood Blood Culture - Preliminary Staphylococcus aureus 08/28/20 17:36 Blood Culture Gram Stain - Final Blood Blood Culture - Final Staphylococcus aureus Assessment and Plan Assessment: Impression: Acute hypoxic respiratory failure secondary to COVID-19 pneumonia. New onset atrial fibrillation presently in normal sinus will eventually transition heparin to Eliquis. COVID-19 encephalopathy or hepatic encephalopathy but definite mental status change and the patient could have had encephalopathy related to prolonged hypoglycemia on presentation. Clearly the patient has acute metabolic encephalopathy. Hypoglycemia induced seizure is strongly suspected remains on Keppra. Liver cirrhosis and portal hypertension with elevated ammonia level remains on lactulose and Xifaxan, ammonia level remains elevated but it's trending down. Positive drug screen for benzodiazepine and opiate and methamphetamine. History of alcoholism. Benign essential hypertension. Chronic thrombocytopenia. Type 2 diabetes. Suspect staph aureus bacteremia, MSSA, hence the patient will be treated with cefazolin Failure to wean mostly because of his neurological status, status post tracheostomy and PEG tube placement on 08/29/2020. Staph aureus bacteremia, discontinue vancomycin and start cefazolin Recommendation: Continue ventilatory support. Continue oral amiodarone. Continue Eliquis. Continue GI and DVT prophylaxis. Continue blood pressure control Continue lactulose and Xifaxan, dose of lactulose will be increased. Continue free water flushes for hypernatremia. Continue to monitor ammonia level. Continue to monitor daily assessment of his neurological status. Continue Decadron. Continue Keppra. Continue enteral feeding. discussed his condition with the over the phone, and she seems to be heading possibly towards possible comfort care measures. Critical care time is over 30 minutes Time with Patient: Greater than 30
--- NOTE | 2020-09-05 13:21 | P.DS ---
Providers Date of admission: 08/19/20 14:44 Expected date of discharge: 08/31/20 Attending physician: Bryant Nickerson Consults: 08/19/20 15:28 Consult Physician Stat Consulting Provider: Jhonathan Phelan Consult Reason/Comments: Covid, hypoxia, pneumonia Do you want consulting provider notified?: Yes 08/19/20 21:05 Consult Physician Stat Consulting Provider: Isaiah Phelan Consult Reason/Comments: seizure/mental status changes Do you want consulting provider notified?: Yes 08/28/20 09:44 Consult Physician Routine Consulting Provider: Himanshu Alejo Consult Reason/Comments: afib rvr, covid Do you want consulting provider notified?: Yes 08/28/20 09:50 Consult Physician Routine Consulting Provider: Harrison Godoy Consult Reason/Comments: trach and peg Do you want consulting provider notified?: Yes Primary care physician: [facility] Hospital Course: Discharge diagnosis 1. Acute hypoxic respiratory failure secondary to COVID-19 related pneumonia. Patient requiring mechanical ventilation. Patient was symptomatic for 2 weeks. Currently on IV Decadron chest x-ray stable and showing some improvement. Rem ains on mechanical ventilation with an FiO2 of 40% 2. Seizure activity likely secondary to hypoglycemia. No previous history of seizure based on history currently on Keppra. Neurology services are following 3. Metabolic encephalopathy. Neurology services are following 4. Diabetes mellitus type 2 with hypoglycemia on admission. Resolved Patient currently on Lantus and sliding scale coverage 5. History of EtOH 6. History of essential hypertension 7. Episode of hypertension maintained on IV fluids required no pressors. Blood pressure has improved 8. Evidence of liver cirrhosis with signs of portal hypertension 9. History of BPH 10. Positive urine drug screen on admission for benzos, opiates and methamphetamine 11. Encephalopathy with and responsiveness off sedation neurology is following EEG and computed tomography scan of the brain were done Hospital course I am assuming care of this patient as of 08/22/2020 at 8 AM. I was out of town and Dr. Paulino was covering for me. HMP done by Dr. Blair on 08/19/2020 On 08/19/2020 patient presented to the ER with altered mental status and hypoglycemia. It is reported that patient had been sick for 2 weeks with fever and productive cough. Patient has a past medical history of diabetes mellitus, hypertension, asthma, EtOH diabetes. At that time patient was admitted to floor and upon arrival required a-team with intubation and transfer to ICU due to declining respiratory status. Chest x-ray was completed showing diffuse bilateral patchy pulmonary infiltrates. Patient was positive for COVID-19 On 08/22/2020 patient remains in the intensive care unit on mechanical ventilation. Patient remains on sedation of propofol and Precedex. Per nursing staff attempting sedation holiday to assess neurological status. Neurology services are following. Patient remains on IV Decadron. Currently on mechanical ventilation with an FiO2 of 40%. Hemodynamically stable. PH is 7.46, CO2 20 12/10/1981 and HCO3 20 On 08/23/2020 patient was seen and examined in the ICU he is intubated maintained on mechanical ventilation he was taken off sedation. Patient is maintained on assist control FiO2 40% PEEP of 5 with a rate of 20 blood gases reveals pH of 7.40 pCO2 35 PO2 77 his white blood count is 7.8 hemoglobin 12.2. Patient mental function is not improving off sedation neurology consultation has been requested On 08/24/2020 patient was seen and examined in the ICU he is intubated sedated maintained on mechanical ventilation yesterday sedation was discontinued however patient continued to be an responsive he was seen by neurology and had a computed tomography scan and an EEG he started becoming agitated and he was started on sedation and again. Currently patient is on assist control rate of 20 tidal volume of 450 FiO2 40% and PEEP of 5 his arterial blood gases are showing a pH of 7.47 pCO2 32 and PO2 of 85 CRP is elevated at 66.4 patient has elevated ammonia level and was started on lactulose critical care and neurology are following. On 08/25/2020 patient was seen and examined in the ICU he is intubated and maintained on mechanical ventilation, his ventilator settings are assist control with tidal volume of 500 FiO2 40% and PEEP of 5 arterial blood gas reveals pH of 7.48 pCO2 33 and PO2 67 LDH is 1346 CRP 6.6 and d-dimer is 9.6 patient maintained on IV Decadron, subcu Lovenox, Levemir 30 units daily, and NovoLog sliding scale patient is also maintained on Keppra per neurology and is maintained on amiodarone drip per cardiology for atrial fibrillation with rapid ventricular response patient hemodynamically is improving however his mental function is not improving patient is not responsive while off sedation. We will continue to follow. On 08/26/2020 patient was seen and examined in the ICU he is intubated, maintained on mechanical ventilation his sedation has been held, however patient is not having any response to stimuli, he is maintained on mechanical ventilation, his ventilator settings are assist control with tidal volume of 500 FiO2 40% and PEEP of 5 arterial blood gas reveals pH of 7.50 pCO2 31 and PO2 91, patient maintained on IV Decadron, subcu Lovenox, Levemir 30 units daily, and NovoLog sliding scale patient is also maintained on Keppra per neurology and is maintained on amiodarone drip per cardiology for atrial fibrillation with rapid ventricular response patient hemodynamically is improving however his mental function is not improving patient is not responsive while off sedation. We will continue to follow. On 08/27/2020 patient was seen and examined in the ICU he is intubated sedated maintained on mechanical ventilation had multiple sedation holidays however he did not have any response to stimuli while is on sedation holidays patient was getting agitated and eventually and was put back on sedation. Patient is maintained on assist control tidal volume 500 rate of 20 FiO2 50% and a PEEP of 5 ABG revealed pH 7.48 pCO2 34 and PO2 87 patient is receiving enteral feeding, insulin, amiodarone, Keppra, no significant change in condition since yesterday. On 08/28/2020 patient was seen and examined in the ICU he is intubated sedated maintained on mechanical ventilation had multiple sedation holidays however he did not have any response to stimuli, his ammonia level is elevated and he is receiving lactulose and rifaximin. Patient is maintained on assist control tidal volume 500 rate of 20 FiO2 50% and a PEEP of 5 ABG revealed pH 7.48 pCO2 34 and PO2 87 patient is receiving enteral feeding, insulin, amiodarone, Keppra, no significant change in condition since yesterday. On 08/29/2020 patient was seen and examined in the ICU he is intubated, maintained on mechanical ventilation, he is maintained off sedation however he did not have any response to stimuli, Patient is maintained on assist control tidal volume 500 rate of 20 FiO2 50% and a PEEP of 5 ABG revealed pH 7.36 pCO2 31 and PO2 104 d-dimer is 2.77 patient is receiving enteral feeding, insulin, amiodarone, Keppra, no significant change in condition since yesterday. Ammonia level was significantly elevated however it was down yesterday to 75 from 182 patient is still not responding On 08/30/2020 patient was seen and examined in the ICU he is intubated, maintained on mechanical ventilation, he is maintained off sedation however he did not have any response to stimuli, Patient is maintained on assist control tidal volume 500 rate of 20 FiO2 50% and a PEEP of 5 ABG revealed pH 7.47 pCO2 32 and PO2 91 d-dimer is 3.0 patient is receiving enteral feeding, insulin, amiodarone, Keppra, no significant change in condition since yesterday. Ammonia level was significantly elevated however it was down yesterday to 75 from 182 it is up again to 148 today. patient is still not responding On 08/31/2020 patient was seen and examined in the ICU he is intubated, maintained on mechanical ventilation, he is maintained off sedation however he did not have any response to stimuli, Patient is maintained on assist control tidal volume 500 rate of 20 FiO2 50% and a PEEP of 5 ABG revealed pH 7.47 pCO2 32 and PO2 91 d-dimer is 3.0 patient is receiving enteral feeding, insulin, amiodarone, Keppra, no significant change in condition since yesterday. Ammonia level was significantly elevated however it was down yesterday to 75 from 182 it is up again to 148 today. patient is still not responding On 08/31/2020 patient was made comfort care per and brother. Patient on 08/31/2020 at 1420 Plan - Discharge Summary Discharge Rx Participant: Yes New Discharge Prescriptions: No Action lisinopriL [Zestril] 5 mg PO DAILY@1600 glipiZIDE [Glucotrol] 10 mg PO AC-TID Propranolol HCl [Inderal] 60 mg PO DAILY@1600 HYDROcodone/APAP 10-325MG [[place] 10-325] 1 tab PO TID Tamsulosin HCl [Flomax] 0.4 mg PO HS Gabapentin [Neurontin] 100 mg PO TID sitaGLIPtin [Januvia] 100 mg PO DAILY Ergocalciferol (Vitamin D2) [Vitamin D2 (50,000 Iu)] 1,250 mcg PO FR Multivit-Min/FA/Lycopen/Lutein [Centrum Silver Tablet] 1 tab PO DAILY Discharge Medication List HYDROcodone/APAP 10-325MG [[place] 10-325] 1 tab PO TID 09/21/15 [History] Propranolol HCl [Inderal] 60 mg PO DAILY@1600 09/21/15 [History] glipiZIDE [Glucotrol] 10 mg PO AC-TID 09/21/15 [History] lisinopriL [Zestril] 5 mg PO DAILY@1600 09/21/15 [History] Ergocalciferol (Vitamin D2) [Vitamin D2 (50,000 Iu)] 1,250 mcg PO FR 08/19/20 [History] Gabapentin [Neurontin] 100 mg PO TID 08/19/20 [History] Multivit-Min/FA/Lycopen/Lutein [Centrum Silver Tablet] 1 tab PO DAILY 08/19/20 [History] Tamsulosin HCl [Flomax] 0.4 mg PO HS 08/19/20 [History] sitaGLIPtin [Januvia] 100 mg PO DAILY 08/19/20 [History] Follow up Appointment(s)/Referral(s): Bryant Nickerson MD [Primary Care Provider] - 1-2 days Discharge Disposition: - Preliminary Cause of Preliminary Cause of : Acute hypoxic respiratory failure secondary to acute COVID-19 pneumonia
--- NOTE | 2020-09-05 15:58 | CDI ---
Documentation Clarification Form Date: 09/05/2020 03:34:56 PM From: Jaqui Logan CCS, CCDS Admit Date: 08/19/2020 02:44:00 PM Patient Name: Que Hicks Visit Number: [id number] Discharge Date: 08/31/2020 05:02:00 PM ATTENTION: The Clinical Documentation Specialists (CDI) and [facility] Coding Staff appreciate your assistance in clarifying documentation. Please respond to the clarification below the line at the bottom and electronically sign. The CDI & [facility] Coding staff will review the response and follow-up if needed. Please note: Queries are made part of the Legal Health Record. If you have any questions, please contact the author of this message via ITS. Dr. Bryant Nickerson: Additional clarification regarding the etiology/cause of the documented MSSA bacteremia and Klebsiella pneumoniae. History/Risk Factors per the 08/19 H/P History of Present Illness: Hypertension, Diabetes, Asthma. Clinical Indicators: Presented to the ED on 08/19 via EMS from home with confusion. Blood sugar low (45). Per the patient's , he had been sick for 2 weeks with a productive cough & fever, poor appetite. Drinks alcohol occasionally. ED Clinical Impression: Pneumonia due to COVID 19 virus, Hypoxia, Hypoglycemia, Elevated Bilirubin & Weakness. 09/05 Discharge Summary PCD: Acute Hypoxic Respiratory Failure secondary to Acute COVID 19 Pneumonia. 08/19 VS: T 98.9 - 99.0, P 85 - 11, R 18 - 28 (SOB, accessory use, cough, shallow, tachypnea); PO 92 RA - 95 5Lnc, BMI: 34.4 08/19 Intubated & moved to ICU. 08/19 LAB: WBC 8.2, Pl Ct 125, Neut 6.30, Lymph 1.07, D Dimer 4.87, Lactic Acid 2.8 - 5.3; Ferritin 2781.6, Total Bili 3.2, AST 283, ALT 73, LDH 1858, CRP 162.4, Alb 3.0, Procalcitonin 0.31. 08/19 COVID Positive 08/19 Blood Cultures x2: Final Negative 08/19 Blood Gas: pH 7.33, pCO2 46, pO2 226, Total CO2 26, O2 sat 99.7 08/28 VS: T 100.8, P 105, R 30, BP 145/75, PO 95 on 50% vent. 08/28 LAB: WBC 24.4, Lymph 21.6, D Dimer 3.67, Ammonia 75, LDH 1775, CRP 6.1. 08/28 Blood Cultures: Final: Staph aureus 08/28 Urine Culture Final negative 08/28 Sputum Culture: final Klebsiella pneumoniae 08/28 Blood Gas: pH 7.48, pCO2 31, Total CO2 25, O2 Sat 98.1 Treatment 08/19: IV fluid 1,000 mls @ 999 mls/hr q1H, IV Dextrose 1,000 mls @ 100 mls/hr q10H, IV Azithromycin, IV Rocephin, IV Ativan, Vit C, Vit D3, Orazinc, Vit B1, Lovenox sq, IV Keppra, IV Propofol, IV Nimbex. 08/20: IV Levophed (Hypotensive), IV Decadron. 08/28: IV Vancomycin In your professional opinion, please clarify if these findings signify one of the following conditions: [ ] Sepsis POA, please specify cause if known: [ ] Sepsis, Not POA [ ] Severe Sepsis with organ failure [ ] Septic Shock [ ] Other, please specify [ ] Unable to determine (Template Last Reviewed: June 2020) Sepsis present on admit secondary to COVID-19 pneumonitis MTDD
== END 2020-08-31 17:02 | disposition expired | DRG 4 ==
LOC: EC 11:08 → 4SSUR 14:44 → 2SICU 20:24
PROVIDERS: ADMIT Internal Medicine; ATTEND Internal Medicine
DX: A41.89 Other specified sepsis (principal); J12.82 Pneumonia due to coronavirus disease 2019; E11.641 Type 2 diabetes mellitus with hypoglycemia with coma; U07.1 COVID-19; G93.41 Metabolic encephalopathy; E43 Unspecified severe protein-calorie malnutrition; J15.0 Pneumonia due to Klebsiella pneumoniae; J15.211 Pneumonia due to Methicillin susceptible Staphylococcus aureus; J96.01 Acute respiratory failure with hypoxia; N17.9 Acute kidney failure, unspecified; K76.6 Portal hypertension; E87.0 Hyperosmolality and hypernatremia; E87.1 Hypo-osmolality and hyponatremia; B17.9 Acute viral hepatitis, unspecified; F10.239 Alcohol dependence with withdrawal, unspecified; G40.401 Other generalized epilepsy and epileptic syndromes, not intractable, with status epilepticus; K72.90 Hepatic failure, unspecified without coma; D69.6 Thrombocytopenia, unspecified; K70.30 Alcoholic cirrhosis of liver without ascites; I48.0 Paroxysmal atrial fibrillation; E11.65 Type 2 diabetes mellitus with hyperglycemia; Z66 Do not resuscitate; Z51.5 Encounter for palliative care; I11.9 Hypertensive heart disease without heart failure; G93.89 Other specified disorders of brain; J45.909 Unspecified asthma, uncomplicated; D75.89 Other specified diseases of blood and blood-forming organs; K82.8 Other specified diseases of gallbladder; N40.1 Benign prostatic hyperplasia with lower urinary tract symptoms; N39.498 Other specified urinary incontinence; J32.9 Chronic sinusitis, unspecified; R26.81 Unsteadiness on feet; E66.9 Obesity, unspecified; Z68.34 Body mass index [BMI] 34.0-34.9, adult; Z79.84 Long term (current) use of oral hypoglycemic drugs; Z79.891 Long term (current) use of opiate analgesic; Z79.899 Other long term (current) drug therapy; Z87.39 Personal history of other diseases of the musculoskeletal system and connective tissue; Z86.69 Personal history of other diseases of the nervous system and sense organs; Z71.3 Dietary counseling and surveillance; Z98.890 Other specified postprocedural states; Z80.9 Family history of malignant neoplasm, unspecified
CPT/HCPCS: 36415; 36600; 43246; 70450; 71045; 71275; 76705; 80053; 80074; 80202; 80306; 81001; 82140; 82550; 82607; 82728; 82747; 82805; 83605; 83615; 83735; 84145; 84146; 85025; 85379; 85610; 85730; 86140; 87040; 87070; 87077; 87086; 87186; 87205; 87635; 93005; 93306; 94002; 94003; 95819; 96360; 99285